=== PATIENT | female | born 1965 | race Caucasian/White ===

== ENCOUNTER 2020-01-06 14:51 | Outpatient (REF) | payer OTHER, SELFPAY ==
[2020-01-06 15:38] LABS: Basophils Percent Auto 0.7 % (0-2); Eosinophils Absolute Auto 0.1 X10*3/uL (0.0-0.4); Eosinophils Percent Auto 3.2 % (0-4); Hematocrit 37.2 % (37-47); Hemoglobin 12.4 g/dl (12.0-16.0); Imm Gran Abs Auto 0.01 X10*3/uL (0.00-0.03); Imm Gran Pct Auto 0.2 % (0.0-0.4); Lymphocytes Absolute Auto 1.8 X10*3/uL (1.2-4.9); Lymphocytes Percent Auto 40.4 % (20-40); MANUAL DIFF FLAG NO; Mean Corpuscular HGB Conc 33.3 g/dl (31.0-35.0); Mean Corpuscular Hemoglobin 30.8 pg (27.0-33.0); Mean Corpuscular Volume 92.5 fL (80-98); Mean Platelet Volume 12.7 fL (9.4-12.3); Monocytes Absolute Auto 0.3 X10*3/uL (0.1-1.2); Monocytes Percent Auto 7.1 % (2-11); Neutrophils Absolute Auto 2.1 X10*3/uL (2.0-8.3); Neutrophils Percent Auto 48.4 % (45-73); Platelet Count 187 X10*3/uL (160-400); Red Blood Count 4.02 X10*6/uL (4.20-5.50); Red Cell Distribution Width 11.8 % (11.0-16.0); White Blood Count 4.4 X10*3/uL (4.8-10.8)
== END 2020-01-06 14:52 | disposition home or self-care (01) ==
LOC: HO.LAB 14:51
PROVIDERS: PCP Internal Medicine; Visit Provider Nurse Practitioner Family
DX: K13.70 Unspecified lesions of oral mucosa (principal)
CPT/HCPCS: 36415; 85025

== ENCOUNTER 2020-01-13 09:20 | Outpatient (REF) | payer OTHER, SELFPAY ==
[2020-01-13 18:22] LABS: CT PCR NOT DETECTED (Not Detect.); NG PCR NOT DETECTED (Not Detect.)
[2020-01-14 11:37] LABS: BV Int Neg Control Negative (Negative); BV Int Pos Control Positive (Positive)
[2020-01-15 18:33] LABS: HPV mRNA E6/E7 rflx Not Detected (Not Detected)
== END 2020-01-13 09:21 | disposition home or self-care (01) ==
LOC: HO.LAB 09:20
PROVIDERS: PCP Internal Medicine; Visit Provider Obstetrics & Gynecology
DX: Z01.419 Encounter for gynecological examination (general) (routine) without abnormal findings (principal); N89.8 Other specified noninflammatory disorders of vagina; A63.0 Anogenital (venereal) warts
CPT/HCPCS: 87480; 87491; 87510; 87591; 87624; 87625; 87660; 88142

== ENCOUNTER 2020-01-28 11:38 | Outpatient (REF) | payer OTHER, SELFPAY | END 2020-01-28 11:39 | disposition home or self-care (01) | LOC: HO.MAMMO 11:38 | PROVIDERS: PCP Internal Medicine; Visit Provider Internal Medicine | DX: Z13.89 Encounter for screening for other disorder (principal) ==

== ENCOUNTER 2020-01-29 13:33 | Outpatient (REF) | payer OTHER, SELFPAY ==
--- NOTE | 2020-01-29 13:42 | MM_ITS ---
EXAMINATION: MM SCREENING DIGITAL BREAST TOMOSYNTHESIS, BILATERAL CLINICAL INFORMATION: Screening. Asymptomatic. The lifetime risk of breast cancer based on the Tyrer-Cuzick Model is 9.3%. COMPARISON: Mammography: February 01, 2018 and studies dating back to January 25, 2015 TECHNIQUE: Digital breast tomosynthesis is performed in both the craniocaudal and mediolateral oblique views along with computer-aided detection (CAD). Synthesized 2D images are generated from the tomosynthesis. FINDINGS: The breasts are heterogeneously dense, which may obscure small masses (ACR BI-RADS breast composition Category c). There are no significant masses, abnormal calcifications, or other abnormalities. MM/MM tomosynthesis screening BI IMPRESSION: There are no significant changes from prior study. ASSESSMENT: BI-RADS 1: Negative RECOMMENDATION: Routine annual mammography screening. This patient's information was entered into a reminder system with a target due date for their next mammogram.
== END 2020-01-29 13:34 | disposition home or self-care (01) ==
LOC: HO.MAMMO 13:33
PROVIDERS: Visit Provider Internal Medicine
DX: Z12.31 Encounter for screening mammogram for malignant neoplasm of breast (principal)
CPT/HCPCS: 77063; 77067

== ENCOUNTER 2020-06-14 06:59 | Emergency (ER) | payer OTHER, SELFPAY ==
[2020-06-14 07:09] VITALS: BP 179/107; PULSE 69; RESP 20; TEMP 37.2; O2SAT 99; BMI 25.8
--- NOTE | 2020-06-14 07:47 | ED_ITS ---
HPI - General Adult General Chief complaint: General Medical Stated complaint: muscle spasms Time Seen by Provider: 06/14/20 07:46 Source: patient Mode of arrival: ambulatory Limitations: no limitations History of Present Illness HPI narrative: 55-year-old female came in for evaluation of left-sided neck pain and left upper shoulder pain. 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 Patient declined any chest pain, shortness of breath, dizziness, headache, photophobia, fever, or chills. Related Data Home Medications Medication Instructions Recorded Confirmed atenolol 25 mg tablet 75 mg PO Q OTHER DAY PRN 01/01/20 01/13/20 econazole 1 % topical cream applic TOPICAL 01/01/20 01/13/20 esomeprazole magnesium 40 mg 40 mg PO DAILY 01/01/20 01/13/20 capsule,delayed release Previous Rx's Medication Instructions Recorded metronidazole 500 mg tablet 500 mg PO BID 7 Days #14 tab 01/15/20 metronidazole 0.75 % vaginal gel 1 appful VAGINAL DAILY 5 Days #70 g 01/16/20 nitrofurantoin macrocrystal 50 mg 50 mg PO BEDTIME #30 cap 03/24/20 capsule cyclobenzaprine 10 mg PO TID #10 tab 06/14/20 Allergies Allergy/AdvReac Type Severity Reaction Status Date / Time iron dextran complex Allergy Unknown unknown Verified 01/13/20 09:33 metoclopramide [Reglan] Allergy Unknown Unknown Verified 01/13/20 09:33 sulfadiazine Allergy Unknown unknown Verified 01/13/20 09:33 IV iron dextran Allergy Unknown hives Uncoded 01/23/17 00:00 latex Allergy Unknown Unknown Uncoded 01/13/20 09:33 Latex Gloves Allergy Unknown ?rash Uncoded 01/23/17 00:00 Review of Systems Review of Systems: All other systems are reviewed and are negative Constitutional: Reports as per HPI and Reports no additional constitutional complaints Eyes: Reports as per HPI and Reports no additional eye complaints Reports system reviewed and no additional complaints, except as documented Cardiovascular: Reports as per HPI and Reports no additional cardiovascular complaints Respiratory: Reports as per HPI and Reports no additional respiratory complaints Gastrointestinal: Reports as per HPI and Reports no additional gastrointestinal complaints Genitourinary: Reports no additional female genitourinary complaints Musculoskeletal: Reports no additional musculoskeletal complaints Skin/Breast: Reports system reviewed and no additional complaints, except as docu Psychiatric: Reports no additional psychiatric complaints Endocrine: Reports no additional endocrine complaints Hematologic/Lymphatic: Reports no additional hematologic/lymphatic complaints Allergic/Immunologic: Reports no additional allergic/immunologic complaints Reports system reviewed and no additional complaints, except as documented and Reports Abnormal speech present FOR[facility]LY [facility] Past Medical History Medical History GERD (gastroesophageal reflux disease) HPV (human papilloma virus) anogenital infection Neutropenia Surgical History History of appendectomy History of History of surgical removal of skin lesion History of tonsillectomy Social History Social History Alcohol intake: current Alcohol intake frequency: holidays/special occasions only Alcohol type: other Smoking Status: Never smoker Use of substances other than those prescribed or required for medical reasons: No Advance Directives: No Advance Directives Information Provided: No Sexual orientation: Straight/Heterosexual Gender identity: female Physical Exam Vital Signs: Vital Signs: Last Vital Signs Temp 98.9 F 06/14/20 07:09 Pulse 58 06/14/20 09:17 Resp 20 06/14/20 09:17 BP 180/89 H 06/14/20 09:17 Pulse Ox 97 06/14/20 09:17 Body Mass Index 25.8 Vital signs have been reviewed as appeared to be correct. Blood pressure elevated. Heart rate normal. Respiration rate normal. Temperature normal. Oxygen saturation normal. Appearance: Alert. Oriented X3. No acute distress. Head: Normal external exam. Normocephalic. Atraumatic. No Multani signs noted. No raccoon eyes noted Eyes: PERRLA. EOMI. Conjunctiva and sclera normal. Eyelids normal. ENT: TM's Normal. Pharynx normal. Uvula midline. Moist mucous membranes. No trismus noted. No drooling noted. No muffled voice noted. Neck: Normal inspection. Neck supple. FROM. No adenopathy. Thyroid Normal. No meningeal signs. No neck mass noted. CVS: Normal heart rate and rhythm. Heart sound normal. No murmurs noted. Pulses normal throughout. Respiratory: No respiratory distress. Painless inspiration. Breath sounds normal. No wheezes/rales/rhonchi noted. Chest nontender. No accessory muscle usage noted or decreased air movement noted. Abdomen: Soft and nontender. Bowel sounds normal in all 4 quadrants. No distention noted. No organomegaly noted. No visible injury noted. Back: No CVA tenderness. Full range of motion noted. Skin: Skin warm and dry. Normal skin color. Normal skin turgor. No rashes/lesions/lacerations noted. Extremities: Left-sided neck spasm with tenderness over sternomastoid muscle, tender to the left shoulder left neck with turning the head to the right side, patient is able to touch with her chin her chest, no photophobia. Neuro: Oriented X 3. No motor deficit. No sensory deficit. Reflexes normal. Course Course Course Narrative: Assessment and plan. Left-sided neck pain, history/physical exam is consistent with muscular spasm, patient responded to a multiple doses of analgesia and muscle relaxant, patient now feels better able to move her neck with more flexibility. Patient was instructed to apply heating pad and rest with no strenuous activity, and hold off yoga classes for 2 weeks. Discharge Plan Discharge Clinical Impression: Benign torticollis Patient Disposition: Home, Self-Care Instructions: Spasmodic Torticollis (ED) Prescriptions: New cyclobenzaprine 10 mg tablet 10 mg PO TID Qty: 10 RF: 0 No Action metronidazole [Flagyl] 500 mg tablet 500 mg PO BID 7 Days Qty: 14 RF: 0 metronidazole [Metrogel Vaginal] 0.75 % gel 1 appful vaginal DAILY 5 Days Qty: 70 RF: 0 nitrofurantoin macrocrystal [Macrodantin] 50 mg capsule 50 mg PO BEDTIME Qty: 30 RF: 6 esomeprazole magnesium 40 mg capsule,delayed release(DR/EC) 40 mg PO DAILY RF: 0 econazole 1 % cream topical RF: 0 atenolol 25 mg tablet 75 mg PO Q OTHER DAY PRNRF: 0 Referrals: Haydee Lira MD [Primary Care Provider] - 2 days Stand Alone Forms: Work/School Release
[2020-06-14] MEDS: oxyCODONE HCl Immed Release 5 MG TABLET PO (08:19)
[2020-06-14] MEDS: diazePAM 5 MG TABLET PO (08:19)
--- NOTE | 2020-06-14 09:11 | PC.NURSE ---
pt reports no improvement after the medication
[2020-06-14 09:17] VITALS: BP 180/89; PULSE 58; RESP 20; O2SAT 97
[2020-06-14] MEDS: HYDROmorphone HCl 2 MG TABLET PO (09:19)
[2020-06-14] MEDS: LORazepam 1 MG TABLET PO (09:19)
--- NOTE | 2020-06-14 09:55 | PC.NURSE ---
pt reports feeling a little better pain at about, most pain is located on her left shoulder/scapula area pain at 5/10
[2020-06-14 10:19] VITALS: BP 161/53; PULSE 56
== END 2020-06-14 10:20 | disposition home or self-care (01) ==
PROVIDERS: Emergency Provider Emergency Medicine; PCP Internal Medicine
DX: G24.3 Spasmodic torticollis (principal); M54.2 Cervicalgia
CPT/HCPCS: 99283; 99284

== ENCOUNTER 2020-08-25 08:00 | Outpatient (RCR) | payer OTHER, SELFPAY ==
--- NOTE | 2020-06-28 08:11 | MHC.PT.EP ---
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 TODAY, SHE PRESENTS WITH S/S CONSISTENT WITH MUSCULAR STRAIN AND SPASM. TESTING OF C-SPINE IS NEGATIVE FOR EVIDENCE OF DISC INVOLVEMENT. UPON EXAM, IMPAIRMENTS INCLUDE DECREASED CERVICAL ROM, INCREASED SOFT TISSUE TENSION, MULTIPLE TRIGGER POINTS AND ALTERED POSTURE AND POSITIONING. FUNCTIONAL LIMITATIONS INCLUDE DECREASED ABILITY TO PERFORM LIFTING, REACHING, PUSHING AND PULLING, DECREASED PARTICIPATION IN WORK AND FITNESS ACTIVITIES, DECREASED PARTICIPATION IN RECREATIONAL AND COMMUNITY ACTIVITIES. SHE REPORTS DISRUPTED SLEEP. 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 Manual therapy to restore motion and function. Therapeutic exercise to improve strength and flexibility. Neuromuscular re-education for posture and balance. Therapeutic activities to return to functional activities of daily living. Electronically signed by: REJI REEVES PT, DPT Please sign and return to therapist. Thank you for your referral.
== END 2020-09-22 11:51 | disposition home or self-care (01) ==
LOC: HO.PT 08:00
PROVIDERS: PCP Internal Medicine; Visit Provider Internal Medicine
DX: M54.6 Pain in thoracic spine (principal)
CPT/HCPCS: 97012; 97110; 97112; 97140; 97161

== ENCOUNTER 2020-10-20 08:36 | Outpatient (REF) | payer OTHER, SELFPAY ==
[2020-10-20 14:17] LABS: CT PCR NOT DETECTED (Not Detect.); NG PCR NOT DETECTED (Not Detect.)
[2020-10-21 08:34] LABS: BV Int Neg Control Negative (Negative); BV Int Pos Control Positive (Positive)
== END 2020-10-20 08:37 | disposition home or self-care (01) ==
LOC: HO.LAB 08:36
PROVIDERS: PCP Internal Medicine; Visit Provider Obstetrics & Gynecology
DX: Z11.3 Encounter for screening for infections with a predominantly sexual mode of transmission (principal); N95.0 Postmenopausal bleeding; N89.8 Other specified noninflammatory disorders of vagina
CPT/HCPCS: 87480; 87491; 87510; 87591; 87660

== ENCOUNTER 2020-11-10 10:59 | Outpatient (REF) | payer OTHER, SELFPAY ==
--- NOTE | ~2020-11-10 | US_ITS ---
EXAMINATION: US PELVIS CLINICAL INFORMATION: Postmenopausal bleeding. COMPARISON: None TECHNIQUE: Ultrasound of the pelvis is performed using both transabdominal and transvaginal transducers along with Doppler. Transvaginal imaging is performed due to inadequate visualization transabdominally. FINDINGS: Uterus: The uterus is anteverted and anteflexed. The uterus measures 7.9 x 3.7 x 4.5 cm. The double wall endometrial thickness is 0.4 mm. Multiple nabothian cysts are seen within the cervix. The uterus is smooth in contour and has normal myometrial echogenicity. FIBROIDS: There is 1 fibroid seen. 1. Location: Posterior body, myometrial. Size: 1.2 x 1.3 x 1.3 cm. Fibroid characteristics: Hypoechoic. Adnexa: Both ovaries are visualized. There is normal color flow to the adnexa. There is no ovarian torsion.There is trace free fluid in the cul-de-sac. Right ovary measures 2.7 x 1.4 x 1.8 cm (volume 3.6 mL). Left ovary measures 4.1 x 2.3 x 3.0 cm (volume 15.6 mL). The left ovary contains a 3.1 cm maximal diameter simple cyst. US/US pelvic and transvaginal IMPRESSION: 1. A uterine fibroid is seen, as above. 2. A 3.1 cm simple left ovarian cyst is noted, with probable benign appearance. Follow-up pelvic ultrasound examination is recommended in 3-6 months. 3. Nabothian cysts are seen within the cervix. 4. There is trace nonspecific free fluid in the cul-de-sac.
== END 2020-11-10 11:00 | disposition home or self-care (01) ==
LOC: HO.US 10:59
PROVIDERS: Visit Provider Obstetrics & Gynecology
DX: N95.0 Postmenopausal bleeding (principal)
CPT/HCPCS: 76830; 76856

== ENCOUNTER → 2020-11-24 11:57 | Outpatient (BNVA) | payer OTHER, SELFPAY | PROVIDERS: PCP Internal Medicine; Visit Provider Obstetrics & Gynecology ==

== ENCOUNTER 2021-02-08 08:29 | Outpatient (REF) | payer OTHER, SELFPAY ==
--- NOTE | ~2021-02-08 | MM_ITS ---
EXAMINATION: MM SCREENING DIGITAL BREAST TOMOSYNTHESIS, BILATERAL CLINICAL INFORMATION: Screening. Asymptomatic. The lifetime risk of breast cancer based on the Tyrer-Cuzick Model is 10%. COMPARISON: Mammography: 01/29/2020, outside exam 02/01/2018 and 09/18/2016 ([facility]). TECHNIQUE: Digital breast tomosynthesis is performed in both the craniocaudal and mediolateral oblique views along with computer-aided detection (CAD). Synthesized 2D images are generated from the tomosynthesis. FINDINGS: There are scattered areas of fibroglandular density (ACR BI-RADS breast composition Category b). There are no significant masses, abnormal calcifications, or other abnormalities. Parenchymal pattern is similar to prior studies. There is no developing density or architectural abnormality. The axilla and skin contours are unremarkable. No significant changes. MM/MM tomosynthesis screening BI IMPRESSION: No mammographic evidence of malignancy. ASSESSMENT: BI-RADS 1: Negative RECOMMENDATION: Routine annual mammography screening. This patient's information was entered into a reminder system with a target due date for their next mammogram.
== END 2021-02-08 08:30 | disposition home or self-care (01) ==
LOC: HO.MAMMO 08:29
PROVIDERS: Visit Provider Internal Medicine
DX: Z12.31 Encounter for screening mammogram for malignant neoplasm of breast (principal)
CPT/HCPCS: 77063; 77067

== ENCOUNTER → 2021-02-17 08:32 | Outpatient (BNVA) | payer OTHER, SELFPAY | PROVIDERS: PCP Internal Medicine; Referring Provider Internal Medicine; Visit Provider Internal Medicine Gastroenterology ==

== ENCOUNTER → 2021-03-18 09:20 | Outpatient (REF) | payer OTHER, SELFPAY ==
[2021-03-18 09:29] LABS: MANUAL DIFF FLAG NO
--- NOTE | 2021-03-18 09:30 | ECG_ITS ---
Test Reason : svt Blood Pressure : / mmHG Vent. Rate : 057 BPM Atrial Rate : 057 BPM P-R Int : 174 ms QRS Dur : 080 ms QT Int : 462 ms P-R-T Axes : 051 -06 039 degrees QTc Int : 449 ms Sinus bradycardia Otherwise normal ECG When compared with ECG of 16-JAN-2006 14:41, Vent. rate has decreased BY 54 BPM Referred By: Lissett Arrington Electronically Signed By:CLAUDIA BAJWA
[2021-03-18 09:42] LABS: Basophils Percent Auto 0.6 % (0-2); Eosinophils Absolute Auto 0.1 X10*3/uL (0.0-0.4); Eosinophils Percent Auto 3.8 % (0-4); Hematocrit 37.5 % (37.0-47.0); Hemoglobin 12.4 g/dl (12.0-16.0); Lymphocytes Absolute Auto 1.3 X10*3/uL (1.2-4.9); Lymphocytes Percent Auto 41.7 % (20-40); Mean Corpuscular HGB Conc 33.1 g/dl (31.0-35.0); Mean Corpuscular Hemoglobin 30.5 pg (27.0-33.0); Mean Corpuscular Volume 92.4 fL (80.0-98.0); Mean Platelet Volume 12.1 fL (9.4-12.3); Monocytes Absolute Auto 0.3 X10*3/uL (0.1-1.2); Monocytes Percent Auto 8.5 % (2-11); Neutrophils Absolute Auto 1.5 x10*3/uL (2.0-8.3); Neutrophils Percent Auto 45.4 % (45-73); Platelet Count 190 X10*3/uL (160-400); Red Blood Count 4.06 X10*6/uL (4.20-5.50); Red Cell Distribution Width 11.9 % (11.0-16.0); White Blood Count 3.2 X10*3/uL (4.8-10.8)
[2021-03-18 10:29] LABS: Alanine Aminotransferase 16 U/L (0-31); Albumin Level 4.5 g/dL (3.5-5.0); Alkaline Phosphatase 23 U/L (39-117); Anion Gap 11 (12-20); Aspartate Amino Transferase 23 U/L (5-31); Blood Urea Nitrogen 19 mg/dL (9-16); Calcium 9.5 mg/dL (8.4-10.2); Carbon Dioxide 31 mmol/L (22-29); Chloride 103 mmol/L (96-108); Estimated Glomerular Filt Rate > 60; Glucose Random 75 mg/dL (60-115); Potassium 4.7 mmol/L (3.3-5.1); Sodium 140 mmol/L (135-145); Total Protein 7.2 g/dL (6.5-8.0)
[2021-03-18 10:49] LABS: Vitamin D 25-OH Total 39.2 ng/mL (>30)
[2021-03-18 11:18] LABS: Vitamin B12 470 pg/mL (200-900)
== END ==
LOC: HO.CARD 09:20
PROVIDERS: PCP Internal Medicine; Visit Provider Internal Medicine Gastroenterology
DX: I47.1 Supraventricular tachycardia (principal); K21.9 Gastro-esophageal reflux disease without esophagitis; K62.5 Hemorrhage of anus and rectum
CPT/HCPCS: 36415; 80053; 82306; 82607; 85025; 93005

== ENCOUNTER 2021-04-15 08:01 | Day surgery (SDC) | payer OTHER, SELFPAY ==
[2021-04-12 11:01] VITALS: BMI 26.2
[2021-04-15 08:18] VITALS: BP 122/82; PULSE 58; RESP 16; TEMP 37; O2SAT 98
[2021-04-15] MEDS: Lactated Ringers 1,000 ML 50 ML IVCONT (08:26)
--- NOTE | 2021-04-15 08:40 | P.CONAN_ITS ---
[facility] Active Problems Active Problems: All Active Problems (Updated 04/12/21 @ 11:00 by Lisa Peters RN) Oral mucosal lesion (Acute) Well woman exam (Acute) Vaginal discharge (Acute) Postmenopausal bleeding (Acute) Ovarian cyst (Acute) Myoma (Acute) GERD (gastroesophageal reflux disease) (Acute) Colon cancer screening (Acute) Rectal bleeding (Acute) Paroxysmal SVT (supraventricular tachycardia) (Acute) Hordeolum externum left upper eyelid (Acute) Thoracic spine pain (Acute) HPV (human papilloma virus) anogenital infection (Acute) Past Medical History Medical History COVID-19 vaccine series completed Eye infection GERD (gastroesophageal reflux disease) HPV (human papilloma virus) anogenital infection Neutropenia SVT (supraventricular tachycardia) Thoracic spine pain Surgical History Surgical History H/O colonoscopy History of appendectomy History of History of esophagogastroduodenoscopy (EGD) History of surgical removal of skin lesion History of tonsillectomy History of Problems with Anesthesia: No Social History Social History Are you a primary director of health care marketing to a significant other at home: No Do you presently have visiting nurse or other home services: No Alcohol intake: current Alcohol intake frequency: holidays/special occasions only Alcohol type: other Patient Tobacco Use Status: Never used Tobacco Use of substances other than those prescribed or required for medical reasons: No Have you been hit, kicked, punched, or otherwise hurt by someone within the past year? If so, by whom?: No Are you DNR?: No Advance Directives: Yes Advance Directives Information Provided: Yes (will bring copy of HCP day of procedure) Advance Directives on File: No Recently lost weight without trying: No Eating poorly because of decreased appetite: No Nutrition Risks: No Nutritional Risk Patient : No Poor oral hygiene: No Sexual orientation: Straight/Heterosexual Gender identity: Female Meds Allergies Allergy/AdvReac Type Severity Reaction Status Date / Time iron dextran complex Allergy Intermediate hives/serum Verified 04/12/21 10:57 sickness latex Allergy Intermediate Rash Verified 04/12/21 08:50 metoclopramide [Reglan] Allergy Intermediate extrapyramidal Verified 04/12/21 10:57 effects Sulfa (Sulfonamide Allergy Intermediate full body Verified 04/12/21 10:57 Antibiotics) rash Home Medications Medication Instructions Recorded Confirmed Last Taken Type econazole 1 % topical cream 1 applic TOPICAL DAILY 01/01/20 04/12/21 Unknown History Exam Exam Date and Time: April 15, 2021 0840 Height,Weight and Vital Signs: Height 5 ft 7 in Weight 75.75 kg Last Vital Signs Temp 98.6 F 04/15/21 08:18 Pulse 58 04/15/21 08:18 Resp 16 04/15/21 08:18 BP 122/82 04/15/21 08:18 Pulse Ox 98 04/15/21 08:18 Airway Mallampati Class: II TM Dist: >3cm Neck ROM: Full Loose/Missing/Broken Teeth: No Heart: RRR Lungs: CTA Assessment and Plan Assessment Anesthesia Assessment: Anesthesia Plan Discussed and Chart Reviewed Final Anesthetic Review History of Problems with Anesthesia: No NPO: Yes ASA Class: II Final Preanesthetic Review: Meds/Allgs Chart Reviewed, Consent Obtained/Reviewed and Anes Risks/Benef Reviewed Patient Risk: Low Procedure Risk: Low Anesthetic Plan Anesthetic Plan: MAC: Disposition: Standard PACU
--- NOTE | 2021-04-15 09:16 | MHC.SHP ---
Pre-Procedural Eval Section A Date of Service: 04/15/21 The patient is an INPATIENT: No The History & Physical has been completed within 30 days and I have reviewed it.: No Section B Chief Complaint: Colon cancer screening, rectal bleeding Details of Present Illness: Colon cancer screening, rectal bleeding Relevant Family History (Specify if Yes): Yes Relevant Social History: None Present Medications: see Short Stay Collaborative assessment Medical History: Significant History (GERD (gastroesophageal reflux disease) HPV (human papilloma virus) anogenital infection Neutropenia Thoracic spine pain) History of Previous Operations: Relevant previous surgery/procedure and date(s) (History of appendectomy History of History of surgical removal of skin lesion History of tonsillectomy) Allergies: Allergies Allergy/AdvReac Type Severity Reaction Status Date / Time iron dextran complex Allergy Intermediate hives/serum Verified 04/12/21 10:57 sickness latex Allergy Intermediate Rash Verified 04/12/21 08:50 metoclopramide [Reglan] Allergy Intermediate extrapyramidal Verified 04/12/21 10:57 effects Sulfa (Sulfonamide Allergy Intermediate full body Verified 04/12/21 10:57 Antibiotics) rash Review of Systems Sugical H&P ROS: Negative: Constitution, Cardiovascular and Respiratory and Yes, Specify: Gastrointestinal (rectal bleeding) Exam Surgical H&P Exam: Normal: Heart, Normal: Lungs, Normal: Extremities and Normal: Abdomen Plan Diagnosis/Plan: Unchanged I have reviewed the history and physical and performed a pertinent physical examination on my patient. No changes have occurred unless specified.
--- NOTE | 2021-04-15 09:26 | W.PM.OPN ---
Operative Note Operative Note Date of Service: 04/15/21 Narrative: Pre-op diagnosis: Colon cancer screening, rectal bleeding Post-op diagnosis:?other (Diverticulosis, hemorrhoids) Procedure: COLONOSCOPY TILL CECUM WITH BIOPSIES Consent: Indications for the procedure and potential complications of bleeding, perforation, reaction to medications and missed diagnosis were discussed with the patient and informed consent was obtained. Instrument: Olympus PCF H 190 L variable stiffness pediatric colonoscope Monitoring: Vital signs and clinical assessment, intermittent blood pressure monitoring, continuous EKG monitoring, Pulse oximetry and Carbon Dioxide monitoring were done throughout the procedure. Colon withdrawl time was 16 minutes. Procedure: The patient was placed in the left lateral decubitis position and pre-procedure medications were administered. After a digital rectal examination of the ano-rectum, the video colonoscope was inserted into the rectum and advanced through the colon to the cecum. The colonoscope was slowly withdrawn in a retrograde panoramic fashion and the colon mucosa was carefully examined including a retroflexed view of the rectum. Findings and interventions are described below. Procedure Difficulty: Without difficulty Findings: Terminal Ileum: Distal 5 cms was examined and appeared normal Cecum:? Normal Ascending Colon:? Normal - biopsies were obtained from the right colon to check for microscopic colitis Transverse Colon:? Normal Descending Colon:? Normal Sigmoid Colon:? Moderate diverticulosis Rectum:? Normal Ano-rectum:? Moderate internal hemorrhoids Colon preparation:? Good? after some irrigation Impression and Post Procedure Diagnosis: Colonoscopy Findings: No polyps were detected Moderate diverticulosis seen in the sigmoid colon Moderate hemorrhoids on retroflexed exam - likely source of rectal bleeding Plan: Await pathology results Patient has an appointment on 04/21/21 in the GI Clinic with Lissett Arrington M.D. Repeat Colonoscopy in 8 to 10 years if biopsies are normal. Above findings were reviewed with the patient and Hemorrhoids and diverticulosis handouts were given in the discharge area Surgeon: Lissett Arrington MD Anesthesia:?MAC Was an Health Center Manager used for this Procedure?:?No Health Center Manager:?Kathrine Toney Estimated blood loss (mL):?0 Pathology:?other (A. RIGHT COLON BX'S R/O MICROSCOPIC COLITIS) Condition:?stable Disposition:?PACU
[2021-04-15 09:59] VITALS: BP 95/53; PULSE 56; RESP 18; TEMP 37.1; O2SAT 99
[2021-04-15 10:16] VITALS: BP 109/63; PULSE 58; RESP 18; TEMP 37; O2SAT 99
== END 2021-04-15 11:03 | disposition home or self-care (01) ==
PROVIDERS: PCP Internal Medicine; Visit Provider Internal Medicine Gastroenterology
PROC: 0DJD8ZZ Inspection of Lower Intestinal Tract, Via Natural or Artificial Opening Endoscopic (ICD-10-PCS; CPT 45378; principal; 2021-04-15 09:20)
DX: Z12.11 Encounter for screening for malignant neoplasm of colon (principal); K57.30 Diverticulosis of large intestine without perforation or abscess without bleeding; K64.8 Other hemorrhoids; K21.9 Gastro-esophageal reflux disease without esophagitis; I47.1 Supraventricular tachycardia; D70.8 Other neutropenia; Z88.2 Allergy status to sulfonamides; Z88.8 Allergy status to other drugs, medicaments and biological substances; Z91.040 Latex allergy status; Z79.899 Other long term (current) drug therapy
CPT/HCPCS: 45380; 88305

== ENCOUNTER 2021-04-30 11:35 | Outpatient (REF) | payer OTHER, SELFPAY | END 2021-04-30 11:36 | disposition home or self-care (01) | LOC: HO.LNP 11:35 | PROVIDERS: Visit Provider Physician Assistant | DX: R30.0 Dysuria (principal) | CPT/HCPCS: 87086 ==

== ENCOUNTER 2021-05-25 10:55 | Outpatient (REF) | payer OTHER, SELFPAY ==
--- NOTE | ~2021-05-25 | US_ITS ---
EXAMINATION: US PELVIS CLINICAL INFORMATION: Ovarian cyst COMPARISON: Previous pelvic ultrasound October 2020 TECHNIQUE: Ultrasound of the pelvis is performed using both transabdominal and transvaginal transducers along with Doppler. Transvaginal imaging is performed due to inadequate visualization transabdominally. FINDINGS: The uterus is anteverted and measures 7 x 2.8 x 4.1 cm in dimension. There is a 1.3 cm hyperechoic lesion in the posterior uterine fundus questionable for a small fibroid. This is similar to previous exam. No other focal uterine lesion is seen. Endometrial thickness is normal measuring 0.2 cm. There are nabothian cysts in the cervix. The right ovary is normal-appearing and measures 2 x 1.2 x 1.4 cm. The left ovary measures 3.3 x 2.3 x 2.8 cm. There is a 2.7 x 2 x 2.4 cm simple left ovarian cyst. This may be slightly decreased in size from prior exam October 2020 when the cyst measured 3.1 x 2.1 x 2.8 cm. There is no fluid in the pelvis. US/US pelvic and transvaginal IMPRESSION: 2.7 x 2 x 2.4 cm simple left ovarian cyst. This may be slightly decreased in size from prior exam October 2020. Question small stable 1.3 cm posterior fundal uterine fibroid.
== END 2021-05-25 10:56 | disposition home or self-care (01) ==
LOC: HO.US 10:55
PROVIDERS: Visit Provider Obstetrics & Gynecology
DX: N83.209 Unspecified ovarian cyst, unspecified side (principal)
CPT/HCPCS: 76830; 76856

== ENCOUNTER → 2021-06-01 07:58 | Outpatient (BNVA) | payer OTHER, SELFPAY | PROVIDERS: PCP Internal Medicine; Visit Provider Obstetrics & Gynecology | DX: Z13.89 Encounter for screening for other disorder (principal) ==

== ENCOUNTER 2021-07-01 08:49 | Outpatient (REF) | payer OTHER, SELFPAY ==
[2021-07-04 17:07] LABS: CA 125 New Method 9 U/mL (<35); CA-125 9 U/mL (<35)
== END 2021-07-01 08:50 | disposition home or self-care (01) ==
LOC: HO.LAB 08:49
PROVIDERS: PCP Internal Medicine; Visit Provider Obstetrics & Gynecology
DX: N83.209 Unspecified ovarian cyst, unspecified side (principal)
CPT/HCPCS: 36415; 86304

== ENCOUNTER 2021-11-07 14:37 | Outpatient (REF) | payer OTHER, SELFPAY | END 2021-11-07 14:38 | disposition home or self-care (01) | LOC: HO.LNP 14:37 | PROVIDERS: Visit Provider Nurse Practitioner Family | DX: N39.0 Urinary tract infection, site not specified (principal) | CPT/HCPCS: 87086 ==

== ENCOUNTER 2022-02-21 08:19 | Outpatient (REF) | payer OTHER, SELFPAY ==
[2022-02-21 08:33] LABS: MANUAL DIFF FLAG NO
[2022-02-21 09:09] LABS: Basophils Percent Auto 0.6 % (0-2); Eosinophils Absolute Auto 0.1 X10*3/uL (0.0-0.4); Eosinophils Percent Auto 3.4 % (0-4); Hematocrit 37.3 % (37.0-47.0); Hemoglobin 12.4 g/dl (12.0-16.0); Imm Gran Abs Auto 0.01 X10*3/uL (0.00-0.03); Imm Gran Pct Auto 0.3 % (0.0-0.4); Lymphocytes Absolute Auto 1.5 X10*3/uL (1.2-4.9); Lymphocytes Percent Auto 46.6 % (20-40); Mean Corpuscular HGB Conc 33.2 g/dl (31.0-35.0); Mean Corpuscular Hemoglobin 30.5 pg (27.0-33.0); Mean Corpuscular Volume 91.9 fL (80.0-98.0); Mean Platelet Volume 12.2 fL (9.4-12.3); Monocytes Absolute Auto 0.3 X10*3/uL (0.1-1.2); Monocytes Percent Auto 8.9 % (2-11); Neutrophils Absolute Auto 1.3 x10*3/uL (2.0-8.3); Neutrophils Percent Auto 40.2 % (45-73); Platelet Count 187 X10*3/uL (160-400); Red Blood Count 4.06 X10*6/uL (4.20-5.50); White Blood Count 3.3 X10*3/uL (4.8-10.8)
[2022-02-21 09:32] LABS: Alanine Aminotransferase 16 U/L (0-31); Albumin Level 4.4 g/dL (3.5-5.0); Alkaline Phosphatase 25 U/L (39-117); Anion Gap 12 (12-20); Aspartate Amino Transferase 22 U/L (5-31); Blood Urea Nitrogen 18 mg/dL (9-16); Calcium 9.4 mg/dL (8.4-10.2); Carbon Dioxide 25 mmol/L (22-29); Chloride 105 mmol/L (96-108); Cholesterol 226 mg/dL; Estimated Glomerular Filt Rate > 60; Glucose Fasting 103 mg/dL (60-99); HDL Cholesterol 72 mg/dL; LDL Cholesterol Calculated 139 mg/dl; Potassium 4.2 mmol/L (3.3-5.1); Sodium 138 mmol/L (135-145); Triglycerides 76 mg/dL
[2022-02-21 09:41] LABS: Vitamin D 25-OH Total 29.1 ng/mL (>30)
== END 2022-02-21 08:20 | disposition home or self-care (01) ==
LOC: HO.LAB 08:19
PROVIDERS: PCP Internal Medicine; Visit Provider Internal Medicine
DX: I47.1 Supraventricular tachycardia (principal)
CPT/HCPCS: 36415; 80053; 80061; 82306; 84443; 85025

== ENCOUNTER → 2022-02-27 13:01 | Outpatient (BNVA) | payer OTHER, SELFPAY | PROVIDERS: PCP Internal Medicine; Referring Provider Internal Medicine; Visit Provider Internal Medicine Cardiovascular Disease | DX: I77.9 Disorder of arteries and arterioles, unspecified (principal); I47.1 Supraventricular tachycardia | CPT/HCPCS: 93005 ==

== ENCOUNTER 2022-03-21 12:54 | Outpatient (REF) | payer OTHER, SELFPAY ==
--- NOTE | ~2022-03-21 | US_ITS ---
EXAMINATION: US EXTRACRANIAL CAROTID DUPLEX, BILATERAL CLINICAL INFORMATION: Disorder of arteries. COMPARISON: None TECHNIQUE: Real-time ultrasound and Doppler techniques (integrating B-mode 2-D vascular images, Doppler spectral analysis and color-flow Doppler imaging) were utilized to interrogate the extracranial carotid arteries, the vertebral arteries and proximal subclavian arteries bilaterally. The degree of stenosis is determined by criteria similar to NASCET. FINDINGS: Right Side: 1. There is no atherosclerotic plaque seen in the bifurcation/proximal ICA region. 2. The common carotid artery PSV proximally is 151 cm/s and distally 91 cm/s. 3. The proximal internal carotid artery velocities are 84 cm/s systolic and 23 cm/s diastolic. 4. The proximal external carotid artery PSV is 76 cm/s. 5. The vertebral artery shows antegrade flow. 6. The subclavian artery waveforms are normal. Left Side: 1. There is no atherosclerotic plaque seen in the bifurcation/proximal ICA region. 2. The common carotid artery PSV proximally is 114 cm/s and distally 84 cm/s. 3. The proximal internal carotid artery velocities are 106 cm/s systolic and 29 cm/s diastolic. 4. The proximal external carotid artery PSV is 103 cm/s. 5. The vertebral artery shows antegrade flow. 6. The subclavian artery waveforms are normal. US/US carotid duplex BI IMPRESSION: 1. RIGHT: Normal right internal carotid artery without atherosclerotic plaque or hemodynamically significant stenosis. 2. LEFT: Normal left internal carotid artery without atherosclerotic plaque or hemodynamically significant stenosis.
--- NOTE | 2022-03-21 13:59 | CA_ITS ---
Transthoracic Echocardiogram Patient (Last, First, Middle): Candida Nguyen, Gender: Female Date of : 1965 Age: 57 Procedure Date: 03/21/2022 Procedure Type: Transthoracic Echocardiogram Location: OP Height: 170.18 cm Weight: 78.02 kg BSA: 1.90 m2 Heart Rate: bpm BP: 115 / 70 mmHg Government Instructor: TO Referring MD: Frank Mills MD Dag Sprayer: Frank Mills MD Symptoms: I47.1 - Supraventricular tachycardia Study Quality: Fair Conclusions: - Normal left ventricular size and systolic function. The visually estimated ejection fraction is between 55-60%. There is no evidence of regional wall motion abnormalities. Diastolic function is normal for age. - Normal right ventricular cavity size and systolic function. - The left atrium is likely dilated. The right atrium is mildly dilated. - Mildly elevated right atrial pressure. - There is mild dilatation of the ascending aorta measuring 3.80 cm. Findings Left Ventricle Normal left ventricular size and systolic function. The visually estimated ejection fraction is between 55-60%. There is no evidence of regional wall motion abnormalities. Diastolic function is normal for age. Right Ventricle Normal right ventricular cavity size and systolic function. Atria The left atrium is likely dilated. The right atrium is mildly dilated. Aortic Valve Normal aortic valve structure and function. There is no aortic valve stenosis. There is no aortic valve regurgitation. Mitral Valve Normal mitral valve structure and function. There is trace mitral valve regurgitation. There is no mitral valve stenosis. Pulmonic Valve The pulmonic valve is likely normal. Tricuspid Valve Normal tricuspid valve structure and function. There is trace tricuspid valve regurgitation. Mildly elevated right atrial pressure. There is no evidence of pulmonary hypertension. Great Vessels There is mild dilatation of the ascending aorta measuring 3.80 cm. The visualized portions of the pulmonary artery and branches are normal. Venous The inferior vena cava is dilated and collapses less than 50% with inspiration. Pericardium/Pleural There is no evidence of pericardial effusion. Measurements 2D Linear Measurements IVSd: 0.91 0.6-0.9/0.6-1.0 cm LVIDd: 4.43 3.9-5.3/4.2-5.9 cm LVIDd Index: 2.33 2.4-3.2/2.2-3.1 cm/m2 LVIDs: 3.22 2.0-3.6 cm LVPWd: 0.84 0.7-1.1 cm LA Diam: 3.30 2.7-3.8/3.0-4.0 cm LAIDs Index: 1.74 1.5-2.3 cm/m2 LV Mass: 154.70 67-162/88-224 g LV Mass Index: 81.42 43-95/49-115 g/m2 LVOT Diam: 2.00 3.0+(-)1.3 cm 2D Systolic Function EF 4C: 58.00 >55% EF 2C: 63.80 >55% EF BiP: 60.90 >55% Mitral Valve MV Pk E: 0.88 MV PK A: 0.42 MV Decel Time: 249.00 E/A: 2.10 E'Lateral: 9.25 E'Medial: 7.51 E/E' Med: 11.80 E/E' Lat: 9.50 PHT: 73.00 MVA PHT: 3.01 Decel [place]: 3.55 Aortic Valve AoV Pk Shahram: 1.31 AoV Mn Shahram: 0.92 AoV VTI: 0.32 AoV Pk Grad: 7.00 Aov Mn Grad: 4.00 THEO Cont.VTI: 2.64 LVOT LVOT Pk Shahram: 1.15 LVOT Mn Shahram: 0.76 LVOT VTI: 0.27 LVOT Pk Grad: 5.00 LVOT Mn Grad: 3.00 LVOT Diam: 2.00 LVOT Area: 3.14 Diastolic Function MV Pk E: 0.88 MV Pk A: 0.42 E/A: 2.10 E'Medial: 7.51 E/E' Med: 11.80 E' Laterial: 9.25 E/E' Lat: 9.50 Right Ventricle TAPSE (mm): 30.40 TVS' Shahram: 13.30 Tricuspid Valve TR Pk Shahram: 1.74 TR Pk Grad: 12.00 RA Press: 8.00 RVSP: 20.00 Great Vessels Aorta Sinus of Valsalva: 3.00 2.0-3.[address] [place]: 2.59 1.7-3.4 cm Ao Asc: 3.80 2.1-3.4 cm Updated in Other Vendor System with Status of Final Frank Mills MD electronically signed on 03/22/2022 1:14:27 PM with status of Final
== END 2022-03-21 12:55 | disposition home or self-care (01) ==
LOC: HO.US 12:54
PROVIDERS: Visit Provider Internal Medicine Cardiovascular Disease
DX: I47.1 Supraventricular tachycardia (principal); I77.9 Disorder of arteries and arterioles, unspecified
CPT/HCPCS: 93306; 93880

== ENCOUNTER 2022-06-07 08:02 | Outpatient (REF) | payer OTHER, SELFPAY ==
[2022-06-07 16:06] LABS: CT PCR NOT DETECTED (Not Detect.); NG PCR NOT DETECTED (Not Detect.)
[2022-06-09 05:39] LABS: HPV mRNA E6/E7 rflx Not Detected (Not Detected)
== END 2022-06-07 08:03 | disposition home or self-care (01) ==
LOC: HO.LNP 08:02
PROVIDERS: PCP Internal Medicine; Visit Provider Obstetrics & Gynecology
DX: Z01.419 Encounter for gynecological examination (general) (routine) without abnormal findings (principal); N95.0 Postmenopausal bleeding; N89.8 Other specified noninflammatory disorders of vagina
CPT/HCPCS: 0353U; 87624; 88142

== ENCOUNTER 2022-07-11 11:30 | Outpatient (REF) | payer OTHER, SELFPAY ==
[2022-07-13 11:17] LABS: H Pylori Breath Test Negative (Negative)
== END 2022-07-11 11:31 | disposition home or self-care (01) ==
LOC: HO.LNP 11:30
PROVIDERS: PCP Internal Medicine; Visit Provider Internal Medicine Gastroenterology
DX: K21.9 Gastro-esophageal reflux disease without esophagitis (principal); Z11.0 Encounter for screening for intestinal infectious diseases
CPT/HCPCS: 83013

== ENCOUNTER 2022-07-18 12:41 | Outpatient (REF) | payer OTHER, SELFPAY ==
--- NOTE | ~2022-07-18 | US_ITS ---
EXAMINATION: US PELVIS CLINICAL INFORMATION: Postmenopausal bleeding; postmenopausal patient. COMPARISON: Pelvic ultrasound dated 05/25/2021. TECHNIQUE: Ultrasound of the pelvis is performed using both transabdominal and transvaginal transducers along with Doppler. Transvaginal imaging is performed due to inadequate visualization transabdominally. FINDINGS: Uterus: The uterus is anteverted and measures 8.0 x 3.1 x 4.2 cm. There is mildly heterogeneous myometrium. The double wall endometrial thickness is 0.2 mm. The uterus is smooth in contour and has normal myometrial echogenicity. No visible fibroid. Adnexa: Both ovaries are visualized. There is normal color flow to the adnexa. There is no ovarian torsion. There is a small amount nonspecific free fluid in the cul-de-sac. Right ovary measures 2.5 x 2.0 x 1.9 cm, volume 5.0 mL. Left ovary measures 3.7 x 3.2 x 2.7 cm, volume 16.7 mL. The left ovary contains a 3.2 x 2.3 x 2.7 cm benign, simple cyst. On the ultrasound examination of 1422, this measured 2.7 x 2.0 x 2.4 cm. US/US pelvic and transvaginal IMPRESSION: 1. There is a small amount nonspecific free fluid in the cul-de-sac. 2. A very mildly increased, 3.2 cm in maximal diameter simple left ovarian cyst is seen. Recommend follow-up ultrasound examination in 6-12 months for growth rate assessment. Gynecology evaluation and management is recommended.
== END 2022-07-18 12:42 | disposition home or self-care (01) ==
LOC: HO.US 12:41
PROVIDERS: PCP Internal Medicine; Visit Provider Obstetrics & Gynecology
DX: N95.0 Postmenopausal bleeding (principal); D21.9 Benign neoplasm of connective and other soft tissue, unspecified
CPT/HCPCS: 76830; 76856

== ENCOUNTER 2022-08-05 08:13 | Outpatient (REF) | payer OTHER, SELFPAY ==
--- NOTE | ~2022-08-05 | MM_ITS ---
EXAMINATION: MM SCREENING DIGITAL BREAST TOMOSYNTHESIS, BILATERAL CLINICAL INFORMATION: Screening. Asymptomatic. The lifetime risk of breast cancer based on the Tyrer-Cuzick Model is 10%. COMPARISON: Mammography: 02/08/2021, 01/29/2020; outside mammography 02/01/2018 and 09/18/2016 ([facility]). TECHNIQUE: Digital breast tomosynthesis is performed in both the craniocaudal and mediolateral oblique views along with computer-aided detection (CAD). Synthesized 2D images are generated from the tomosynthesis. FINDINGS: There are scattered areas of fibroglandular density (ACR BI-RADS breast composition Category b). There are no significant masses, abnormal calcifications, or other abnormalities. Parenchymal pattern is similar to prior studies. There is no developing density or architectural abnormality. The axilla and skin contours are unremarkable. No significant changes. MM/MM tomosynthesis screening BI IMPRESSION: No mammographic evidence of malignancy. ASSESSMENT: BI-RADS 1: Negative RECOMMENDATION: Routine annual mammography screening. This patient's information was entered into a reminder system with a target due date for their next mammogram.
== END 2022-08-05 08:14 | disposition home or self-care (01) ==
LOC: HO.MAMMO 08:13
PROVIDERS: PCP Internal Medicine; Visit Provider Internal Medicine
DX: Z12.31 Encounter for screening mammogram for malignant neoplasm of breast (principal)
CPT/HCPCS: 77063; 77067

== ENCOUNTER → 2022-08-09 08:03 | Outpatient (BNVA) | payer OTHER, SELFPAY | PROVIDERS: PCP Internal Medicine; Visit Provider Obstetrics & Gynecology ==

== ENCOUNTER 2022-09-06 13:34 | Outpatient (AMB) | payer OTHER, SELFPAY ==
[2022-09-06 13:38] VITALS: BP 118/84; PULSE 82; BMI 27.1
--- NOTE | 2022-09-06 13:38 | MHC.OFFVIS ---
Intake Vital Signs 09/06/22 13:38 Height 5 ft 7 in Weight 173 lb 4.533 oz BMI 27.1 BP 118/84 Blood Pressure Location Lt brachial Position Sitting Pulse 82 Pulse Source Pulse Oximeter Intake Visit Reasons: 6 MON FUP (R/S BY US 7.13) Intake Note: 6 month follow up. Hose Suspender Cutter Required: No Accompanied by: Self / Same As Patient Allergies iron dextran complex Allergy (Intermediate, Verified 09/06/22 13:40) hives/serum sickness latex Allergy (Intermediate, Verified 09/06/22 13:40) Rash metoclopramide [Reglan] Allergy (Intermediate, Verified 09/06/22 13:40) extrapyramidal effects Sulfa (Sulfonamide Antibiotics) Allergy (Intermediate, Verified 09/06/22 13:40) full body rash Medication List - Last Reconciled 09/06/22 by Frank Mills MD atenolol 25 mg PO DAILY econazole 1% 1 appl topical DAILY esomeprazole magnesium 40 mg PO DAILY nitrofurantoin monohyd/m-cryst 100 mg (Macrobid) 100 mg PO Q12H PRN HPI HPI Comments History of Present Illness Details 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 It appears she had history of supraventricular tachycardia for which she was seen at [facility] by Dr Rosario and Dr Florez. Was started on atenolol and she did well for long time with atenolol as well as vagal maneuvers. 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 Six months ago while doing Luciana class she developed some nausea. She said she decreased her atenolol dose from 37.5 to 25 mg and also started taking it at nighttime brother morning and her nausea improved. Since then he has not had any significant symptoms. She in particular is denying any chest discomfort or worsening shortness of breath. She also had carotid study performed at [facility] by her report 10 years ago which showed moderate plaque in the carotid arteries. She also has history of mitral valve prolapse. She also had blood workup done recently which showed LDL cholesterol of 139 and HDL of 72. Thyroid profile was normal. She does not drink any tea or coffee. She occasionally eats chocolate. No other concerns currently. 09/06/22: She is here for follow-up. Previous visit she was started on statin therapy for reported history of carotid disease. She apparently could not tolerate statins and she has stopped using them. She had carotid ultrasound did not show any carotid plaque or atherosclerotic disease. She is taking atenolol 25 mg once a day. Blood pressure is normal. She said after taking statins she had bradycardia and also blood pressure was elevated. She was also recovering from COVID-19 at that time. Echocardiography has shown normal biventricular function with mild ascending aortic dilatation at 3.8 cm. She continues to be active without any exertional symptoms. [facility] Medical History (Updated 09/06/22 @ 14:14 by Frank Mills MD) COVID-19 vaccine series completed Eye infection GERD (gastroesophageal reflux disease) HPV (human papilloma virus) anogenital infection Neutropenia SVT (supraventricular tachycardia) Thoracic spine pain Surgical History H/O colonoscopy History of appendectomy History of History of esophagogastroduodenoscopy (EGD) History of surgical removal of skin lesion History of tonsillectomy Social History Housing: Condominium Are you a primary transitional care manager to a significant other at home: No Do you presently have visiting nurse or other home services: No Alcohol intake: current Alcohol intake frequency: a few times a week Alcohol type: other Patient Tobacco Use Status: Former Tobacco user e-Cigarette/Vaping Use: Never Used Current occupational status: employed Sexual orientation: Straight/Heterosexual Gender identity: Female Cognitive needs: No Hearing needs: No Vision needs: Yes Female Reproductive History Menstrual Age of Menarche: 11 Review of Systems Const Denies weakness ENT Denies dizziness Card Denies chest pain, Denies chest pain with activity, Denies syncope, Denies rapid heart rate, Denies pedal edema, Denies edema, Denies leg edema, Denies lightheadedness, Denies palpitations, Denies dyspnea, Denies dyspnea on exertion and Denies orthopnea Resp Denies cough, Denies dyspnea and Denies dyspnea on exertion GI Denies hematochezia and Denies change in stool character Musc Denies abnormal gait, Denies muscle cramps, Denies muscle weakness, Denies numbness, Denies radiating pain into limb and Denies tingling Neuro Denies abnormal gait, Denies dizziness, Denies syncope, Denies numbness, Denies tingling and Denies weakness Endo Denies palpitations Physical Exam Vital Signs: Last Vital Signs Pulse 82 09/06/22 13:38 BP 118/84 09/06/22 13:38 BMI result Body Mass Index 27.1 GENERAL APPEARANCE: in no acute distress, pleasant. NECK: no carotid bruit, no jugular venous distention. SKIN: no suspicious lesions, warm and dry. HEART: no murmurs, regular rate and rhythm. LUNGS: clear to auscultation bilaterally. ABDOMEN: soft, nontender. EXTREMITIES: no edema. PERIPHERAL PULSES: equal. NEUROLOGIC: No gross deficits, AAO X 3 Assessment & Plan Assessment & Plan (1) Paroxysmal SVT (supraventricular tachycardia): Code(s): I47.1 - Supraventricular tachycardia (2) Hyperlipidemia: Code(s): E78.5 - Hyperlipidemia, unspecified (3) Ascending aorta dilatation: Code(s): I77.810 - Thoracic aortic ectasia Plan Pleasant 57 year female who is here for follow-up. She is active and has no exertional symptoms. No recent episodes of 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 She has been taking atenolol 25 mg once a day. Blood pressure control is good. She has mild dilation of ascending aorta. Common his factors are hypertension, smoking and hyperlipidemia. She does have hyperlipidemia. She was started on statin previously but she has stopped using it because of change in blood pressure and heart rate. I have explained to her that these symptoms are quite unusual for atorvastatin. I have advised her to start atorvastatin at half tablet every other day to see if she can tolerated. If she does well with that and has no symptoms then she can go half tablet daily. If she tolerates that then I will send her a new script for Lipitor 20 mg once a day. We will have lipid panel tested on her in the future. Mild ascending aortic dilatation at 3.8 cm. I recommended her to check another echocardiogram in 1 year. If it is stable then we will move to 3 years monitoring. Thank you for allowing me to participate in the care of your patient. Please feel free to contact me if you have any questions. Orders: Orders CA echo transthoracic complete 7 Months I77.810 - Thoracic aortic ectasia Medications: New atorvastatin 20 mg PO DAILY 90 tabs 3RF I77.810 - Thoracic aortic ectasia Changed From nitrofurantoin monohyd/m-cryst 100 mg (Macrobid) must administer with a meal/food 100 mg PO Q12H 30 days 30 caps 3RF To nitrofurantoin monohyd/m-cryst 100 mg (Macrobid) must administer with a meal/food 100 mg PO Q12H PRN Coding Level of Care Code Est Pt Level 4 (67471) Diagnoses Paroxysmal SVT (supraventricular tachycardia) I47.1 Hyperlipidemia E78.5 Ascending aorta dilatation I77.810
== END 2022-09-06 13:58 | disposition home or self-care (01) ==
PROVIDERS: PCP Internal Medicine; Visit Provider Internal Medicine Cardiovascular Disease
DX: I47.1 Supraventricular tachycardia (principal); E78.5 Hyperlipidemia, unspecified; I77.810 Thoracic aortic ectasia
CPT/HCPCS: 99214

== ENCOUNTER → 2022-09-06 13:34 | Outpatient (BNVA) | payer OTHER, SELFPAY | PROVIDERS: PCP Internal Medicine; Visit Provider Internal Medicine Cardiovascular Disease ==

== ENCOUNTER 2022-11-30 08:18 | Outpatient (AMB) | payer OTHER, SELFPAY ==
--- NOTE | 2022-11-30 08:33 | MHC.OFFVIS ---
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: No Information Interpreted: non-clinical & clinical Press Hand Supervisor: Press Hand Supervisor Present (Cori MCDANIELS) Accompanied by: Self / Same As Patient Allergies iron dextran complex Allergy (Intermediate, Verified 11/30/22 08:39) hives/serum sickness latex Allergy (Intermediate, Verified 11/30/22 08:39) Rash metoclopramide [Reglan] Allergy (Intermediate, Verified 11/30/22 08:39) extrapyramidal effects Sulfa (Sulfonamide Antibiotics) Allergy (Intermediate, Verified 11/30/22 08:39) full body rash Post menopausal: Yes [facility] Medical History (Updated 09/06/22 @ 14:14 by Frank Mills MD) Eye infection COVID-19 vaccine series completed SVT (supraventricular tachycardia) Thoracic spine pain HPV (human papilloma virus) anogenital infection Neutropenia GERD (gastroesophageal reflux disease) Surgical History H/O colonoscopy History of esophagogastroduodenoscopy (EGD) History of tonsillectomy History of surgical removal of skin lesion History of History of appendectomy Social History Housing: Condominium Are you a primary manager critical care to a significant other at home: No Do you presently have visiting nurse or other home services: No Alcohol intake: current Alcohol intake frequency: a few times a week Alcohol type: other Patient Tobacco Use Status: Former Tobacco user e-Cigarette/Vaping Use: Never Used Current occupational status: employed Sexual orientation: Straight/Heterosexual Gender identity: Female Cognitive needs: No Hearing needs: No Vision needs: Yes Female Reproductive History Menstrual Age of Menarche: 11 Physical Exam Vital Signs: Last Vital Signs BP 128/76 11/30/22 08:39 BMI result Body Mass Index 26.9 Office Procedures Endometrial Biopsy Details: The patient was counseled regarding the indication and benefits of endometrial sampling to rule out endometrial pathology including not limited to endometrial hyperplasia or endometrial cancer and others; The alternatives (Either do nothing vs. hysteroscopy D&C) & the risks were discussed with the patient including but not limited: pain, uterine perforation, bleeding, infection, possible injury to bladder, bowel, ureter, possible need for blood transfusion with all its possible risks. The patient verbalized understanding all questions answered and signed consent. The patient was placed into the dorsal lithotomy position; a speculum was inserted in the vagina. Using aseptic technique for the procedure, the cervix was cleansed with Betadine. The anterior lip of the cervix was grasped with a single tooth tenaculum. The uterus was sounded to 7 cm with a 4 mm Pipelle was used. Tissues samples were obtained and placed in formalin, in a patient labeled container and sent to the pathology department. At the end of the procedure, there was minimal bleeding noted The patient tolerated the procedure well and was discharged in good condition with the following instructions: Nothing in the vagina until the bleeding stops. No sex until the bleeding stops, to call if any of the following occurs: fever (>100.4), flu-like symptoms, abdominal pain, heavy bleeding, four smelling vaginal discharge. The patient was instructed to schedule a Follow up appointment in 2 weeks to discuss pathology results of the biopsy and treatment options. This note was generated with a voice recognition program. Some errors may have been overlooked during the review of this note. Sometimes these errors may affect the content or meaning of a given sentence. [id number] Biopsy Assessment & Plan Assessment & Plan Orders: Orders Surgical Today N95.0 - Postmenopausal bleeding AMB Endometrial Biopsy Today N95.0 - Postmenopausal bleeding Coding Level of Care Code Procedure Only CPT Codes Endometrial Biopsy - CPT: 74561-[id number] Biopsy ([id number])
[2022-11-30 08:39] VITALS: BP 128/76; BMI 26.9
== END 2022-11-30 08:55 | disposition home or self-care (01) ==
PROVIDERS: PCP Internal Medicine; Visit Provider Obstetrics & Gynecology
DX: N95.0 Postmenopausal bleeding (principal)
CPT/HCPCS: 58100

== ENCOUNTER 2022-11-30 08:18 | Outpatient (REF) | payer OTHER, SELFPAY | END 2022-11-30 08:19 | disposition home or self-care (01) | LOC: HO.LNP 08:18 | PROVIDERS: PCP Internal Medicine; Visit Provider Obstetrics & Gynecology | DX: N95.0 Postmenopausal bleeding (principal) | CPT/HCPCS: 58100; 88305 ==

== ENCOUNTER 2022-12-11 16:39 | Outpatient (REF) | payer OTHER, SELFPAY ==
[2022-12-11 17:43] LABS: Appearance Urine Hazy; Color Urine Orange; Glucose Urine UA 100 mg/dL (Negative); Specific Gravity - Urine 1.015 (1.005-1.025); UMIC TRIGGER UACC YES; Urine Blood Moderate (2+) (Negative); Urine Ketones Negative (Negative); Urine Protein 30 (1+) mg/dL (Neg-Trace)
[2022-12-11 17:50] LABS: Bacteria Urine None Seen (None Seen); Hyaline Casts Urine 0-2 /LPF (0-2); RBC Urine >20 /HPF (0-2); Squamous Epithelial Cell Urine 0-2 /HPF (0-2); UACC Culture Trigger YES; WBC Urine >50 /HPF (0-5)
== END 2022-12-11 16:40 | disposition home or self-care (01) ==
LOC: HO.LAB 16:39
PROVIDERS: PCP Internal Medicine; Visit Provider Internal Medicine
DX: R30.0 Dysuria (principal)
CPT/HCPCS: 81001; 87086; 87088; 87186

== ENCOUNTER 2023-01-31 13:08 | Outpatient (REF) | payer OTHER, SELFPAY ==
--- NOTE | ~2023-01-31 | US_ITS ---
EXAMINATION: US PELVIS COMPLETE TRANSVAGINAL PELVIC ULTRASOUND: CLINICAL INFORMATION: Ovarian cyst COMPARISON: 07/18/2022 TECHNIQUE: Transabdominal imaging initially performed. For more definitive evaluation of the endometrium and ovaries, transvaginal technique was employed. FINDINGS: Uterus is anteverted and anteflexed measuring 6.1 x 2.7 x 3.8cm. Endometrium measures 0.6 cm. Hypoechoic, heterogeneous area identified in the cervix measuring 0.9 x 0.4 x 0.7 cm. Nabothian cysts are seen. Right ovary measures 1.9 x 1.3 x 1.1 cm for a volume of 1.4 mL. Previous measurement was 2.5 x 2.0 x 1.9 cm for a volume of 5.0 mL. The left ovary measures 3.8 x 2.6 x 3.1 cm for a volume of 16.0 mL. Previous measurement was 3.7 x 3.2 x 2.7 cm for a volume of 16.7 mL. 3.2 x 2.2 x 2.6 cm left ovarian cyst previously measured 2.7 x 2.0 x 2.4 cm. There is no pelvic free fluid. US/US pelvic and transvaginal IMPRESSION: Slight enlargement left ovarian cyst. 6 mm endometrium representing interval enlargement previous studies in this 58-year-old patient. Short-term sonographic follow-up recommended. Hypoechoic, heterogeneous region in the cervix of indeterminate etiology. This can also be reevaluated on short-term sonographic follow-up. Consider direct visualization.
== END 2023-01-31 13:09 | disposition home or self-care (01) ==
LOC: HO.US 13:08
PROVIDERS: PCP Internal Medicine; Visit Provider Obstetrics & Gynecology
DX: N83.209 Unspecified ovarian cyst, unspecified side (principal)
CPT/HCPCS: 76830; 76856

== ENCOUNTER 2023-02-22 08:02 | Outpatient (AMB) | payer OTHER, SELFPAY ==
--- NOTE | 2023-02-22 08:17 | A.OFFVIS_ITS ---
Intake Vital Signs 02/22/23 08:18 Height 5 ft 7 in Weight 171 lb 15.369 oz BMI 26.9 BP 120/70 Intake Visit Reasons: ultrasound follow up Allergies iron dextran complex Allergy (Intermediate, Verified 11/30/22 08:39) hives/serum sickness latex Allergy (Intermediate, Verified 11/30/22 08:39) Rash metoclopramide [Reglan] Allergy (Intermediate, Verified 11/30/22 08:39) extrapyramidal effects Sulfa (Sulfonamide Antibiotics) Allergy (Intermediate, Verified 11/30/22 08:39) full body rash HPI HPI Comments History of Present Illness Details Presenting for pelvic ultrasound follow-up regarding left simple ovarian cyst. Ultrasound done in 02/03 showed the following: Uterus is anteverted and anteflexed measuring 6.1 x 2.7 x 3.8cm. Endometrium measures 0.6 cm. Hypoechoic, heterogeneous area identified in the cervix measuring 0.9 x 0.4 x 0.7 cm. Nabothian cysts are seen. Right ovary measures 1.9 x 1.3 x 1.1 cm for a volume of 1.4 mL. Previous measurement was 2.5 x 2.0 x 1.9 cm for a volume of 5.0 mL. The left ovary measures 3.8 x 2.6 x 3.1 cm for a volume of 16.0 mL. Previous measurement was 3.7 x 3.2 x 2.7 cm for a volume of 16.7 mL. 3.2 x 2.2 x 2.6 cm left ovarian cyst pre viously measured 2.7 x 2.0 x 2.4 cm. There is no pelvic free fluid. Patient has a chronic history of recurrent postcoital UTI [facility] Medical History Eye infection COVID-19 vaccine series completed SVT (supraventricular tachycardia) Thoracic spine pain HPV (human papilloma virus) anogenital infection Neutropenia GERD (gastroesophageal reflux disease) Surgical History H/O colonoscopy History of esophagogastroduodenoscopy (EGD) History of tonsillectomy History of surgical removal of skin lesion History of History of appendectomy Social History Housing: Condominium Are you a primary healthcare interpreter to a significant other at home: No Do you presently have visiting nurse or other home services: No Alcohol intake: current Alcohol intake frequency: a few times a week Alcohol type: other Patient Tobacco Use Status: Former Tobacco user e-Cigarette/Vaping Use: Never Used Current occupational status: employed Sexual orientation: Straight/Heterosexual Gender identity: Female Cognitive needs: No Hearing needs: No Vision needs: Yes Female Reproductive History Menstrual Age of Menarche: 11 Review of Systems Const All systems reviewed & are unremarkable except as noted in HPI and below Reports as per HPI and Reports no additional complaints GI Reports no additional complaints Reports no additional complaints Physical Exam Vital Signs: Last Vital Signs BP 120/70 02/22/23 08:18 BMI result Body Mass Index 26.9 Assessment & Plan Assessment & Plan (1) Postcoital UTI: Code(s): N39.0 - Urinary tract infection, site not specified Plan: Will refer to Urology for further management (2) Ovarian cyst: Code(s): N83.209 - Unspecified ovarian cyst, unspecified side Plan: Discussed with the patient the the finding on a pelvic ultrasound showing a simple ovarian cyst with no evidence of suspicious features, with a size of less than 10 cm. Discussed the patient the limitation of pelvic ultrasound to di fferentiate between benign and malignant ovarian cyst. Explained to the patient that pelvic Ultrasound characteristics of benign masses include simple appearance: thin, smooth cotton; and the absence of solid components, septations, or internal blood flow on color Doppler ultrasound imaging. These simple cysts are highly likely to be benign in any age group. Studies have shown that spontaneous resolution occurs in more than 2/3 of cases. Simple cysts are almost always universally benign, regardless of menopausal status or cyst size, with malignancy rates in most series of 0?1% . CA 125, ovarian cancer serum marker test, is indicated to evaluate like with of malignancy and need for surgery. Elevated levels in combination with other findings can be useful to distinguish between benign and malignant adnexal masses. Specificity and positive predictive value of CA 125 levels are consistently higher in postmenopausal woman compared to premenopausal woman. Although CA 125 level measurement is last valuable in predicting cancer risk in premenopausal woman thin in postmenopausal woman extreme values increase suspicion for a malignant process. The overall sensitivity of CA 125 in disting uish in benign from malignant adnexal mass ranges be 61-91 % and negative for active value ranges from 67-90%. Recommended CA 125 and repeat ultrasound in 12 months since ovarian seen has been stable over the last 6 months. Instructions given the patient to schedule a 12 months follow-up pelvic ultrasound with follow-up appointment afterwards. All questions answered, the patient verbalized understanding. Orders: Orders CA-125 Today N83.209 - Unspecified ovarian cyst, unspecified side US pelvic and transvaginal 364 Days N83.209 - Unspecified ovarian cyst, unspecified side Referrals Urology Referral N39.0 - Urinary tract infection, site not specified Coding Level of Care Code Est Pt Level 3 (14416) Diagnoses Postcoital UTI N39.0 Ovarian cyst N83.209
[2023-02-22 08:18] VITALS: BP 120/70; BMI 26.9
== END 2023-02-22 09:02 | disposition home or self-care (01) ==
LOC: HO.HWS 08:02
PROVIDERS: PCP Internal Medicine; Visit Provider Obstetrics & Gynecology
DX: N39.0 Urinary tract infection, site not specified (principal); N83.209 Unspecified ovarian cyst, unspecified side
CPT/HCPCS: 99213

== ENCOUNTER → 2023-02-22 08:02 | Outpatient (BNVA) | payer OTHER, SELFPAY | PROVIDERS: PCP Internal Medicine; Visit Provider Obstetrics & Gynecology ==

== ENCOUNTER 2023-04-04 07:35 | Outpatient (REF) | payer OTHER, SELFPAY ==
[2023-04-04 08:49] LABS: Appearance Urine Clear; Color Urine Yellow; Glucose Urine UA Negative (Negative); Leukocyte Esterase Urine Trace (Negative); Nitrite Urine Negative (Negative); Specific Gravity - Urine <= 1.005 (1.005-1.025); UMIC TRIGGER UACC YES; Urine Blood Negative (Negative); Urine Ketones Negative (Negative); Urine Protein Negative (Neg-Trace)
[2023-04-04 08:53] LABS: Bacteria Urine None Seen (None Seen); Hyaline Casts Urine 0-2 /LPF (0-2); RBC Urine 0-2 /HPF (0-2); Squamous Epithelial Cell Urine 0-2 /HPF (0-2); WBC Urine 0-5 /HPF (0-5)
[2023-04-04 09:18] LABS: Alanine Aminotransferase 23 U/L (0-31); Albumin Level 4.4 g/dL (3.5-5.0); Alkaline Phosphatase 23 U/L (39-117); Anion Gap 11 (12-20); Aspartate Amino Transferase 24 U/L (5-31); Blood Urea Nitrogen 12 mg/dL (9-16); Calcium 9.4 mg/dL (8.4-10.2); Carbon Dioxide 32 mmol/L (22-29); Chloride 102 mmol/L (96-108); Cholesterol 176 mg/dL (<200); Estimated Glomerular Filt Rate > 60; Glucose Fasting 87 mg/dL (60-99); HDL Cholesterol 72 mg/dL (>40); LDL Cholesterol Calculated 87 mg/dL (<100); Potassium 4.1 mmol/L (3.3-5.1); Sodium 141 mmol/L (135-145); Total Protein 7.4 g/dL (6.5-8.0); Triglycerides 86 mg/dL (<150)
[2023-04-05 12:19] LABS: CA-125 8 U/mL (<35)
== END 2023-04-04 07:36 | disposition home or self-care (01) ==
LOC: HO.LAB 07:35
PROVIDERS: Absent Provider Obstetrics & Gynecology; PCP Internal Medicine; Visit Provider Internal Medicine
DX: Z00.00 Encounter for general adult medical examination without abnormal findings (principal); N83.209 Unspecified ovarian cyst, unspecified side
CPT/HCPCS: 36415; 80053; 80061; 81001; 86304

== ENCOUNTER 2023-04-09 12:57 | Outpatient (AMB) | payer OTHER, SELFPAY ==
[2023-04-09 13:00] VITALS: BP 110/68; PULSE 61; O2SAT 97; BMI 29.3
--- NOTE | 2023-04-09 13:00 | A.OFFPC_ITS ---
Vital Signs 04/09/23 13:00 Height 5 ft 7 in Weight 187 lb BMI 29.3 BP 110/68 Blood Pressure Location Lt brachial Position Sitting Pulse 61 Pulse Source Pulse Oximeter Pulse Oximetry (%) 97 Oxygen Delivery Method Room Air Intake Visit Reasons: Annual PE Intake Note: Pt is here today for PE. Allergies iron dextran complex Allergy (Intermediate, Verified 04/09/23 13:04) hives/serum sickness latex Allergy (Intermediate, Verified 04/09/23 13:04) Rash metoclopramide [Reglan] Allergy (Intermediate, Verified 04/09/23 13:04) extrapyramidal effects Sulfa (Sulfonamide Antibiotics) Allergy (Intermediate, Verified 04/09/23 13:04) full body rash Medication List - Last Reconciled 04/09/23 by Haydee Lira MD atenolol 25 mg PO DAILY atorvastatin 20 mg PO DAILY econazole 1% 1 appl topical DAILY esomeprazole magnesium 40 mg PO DAILY levofloxacin 500 mg PO DAILY PRN nitrofurantoin monohyd/m-cryst 100 mg (Macrobid) 100 mg PO Q12H PRN Tobacco use date assessed: 04/09/23 Dental Screening Dental Screen Date: 04/09/23 Did you have a dental visit in the last 12 months?: Yes Did you have a dental problem in the last 6 months where you did not have access to dental care?: No Was dental information given to patient?: Patient has dentist HPI Annual PE HPI Details Pt presents for PE. [facility] Medical History (Updated 04/09/23 @ 15:10 by Haydee Lira MD) Eye infection COVID-19 vaccine series completed SVT (supraventricular tachycardia) Thoracic spine pain HPV (human papilloma virus) anogenital infection Neutropenia GERD (gastroesophageal reflux disease) Surgical History H/O colonoscopy History of esophagogastroduodenoscopy (EGD) History of tonsillectomy History of surgical removal of skin lesion History of History of appendectomy Social History Housing: Condominium Are you a primary neonatal intensive care nurse to a significant other at home: No Do you presently have visiting nurse or other home services: No Alcohol intake: current Alcohol intake frequency: a few times a week Alcohol type: other Patient Tobacco Use Status: Former Tobacco user e-Cigarette/Vaping Use: Never Used Current occupational status: employed Sexual orientation: Straight/Heterosexual Gender identity: Female Cognitive needs: No Hearing needs: No Vision needs: Yes Female Reproductive History Menstrual Age of Menarche: 11 Questionnaire PHQ-9 Over the last 2 weeks, how often have you been bothered by any of the following problems? 1. Little interest or pleasure in doing things: not at all 2. Feeling down, depressed, or hopeless: not at all 3. Trouble falling or staying asleep, or sleeping too much: several days 4. Feeling tired or having little energy: several days 5. Poor appetite or overeating: several days 6. Feeling bad about yourself - or that you are a failure or have let yourself or your family down: not at all 7. Trouble concentrating on things, such as reading the newspaper or watching television: not at all 8. Moving or speaking so slowly that other people could have noticed. Or the opposite - being so fidgety or restless that you have been moving around a lot more than usual: not at all 9. Thoughts that you would be better off or of hurting yourself in some way: not at all Total score: 3 Depression Screening Interpretation: Negative Depression Screening Done: Yes 13539 - PHQ-9 Billing: Yes Source: Developed by Drs. Celso Camilo, Yadi Andino, Moses Recinos and colleagues, with an educational lilliam from [employer]. Thrive Questionnaire Date Thrive assessed: 04/09/23 I am a: Patient What is your living situation today?: I have a steady place to live Within the past 12 months, did the food you bought not last and you didn't have the money to get more?: Never true Within the past 12 months, did you worry whether your food would run out before you got money to buy more?: Never true Do you have trouble paying for medicines?: No Do you have trouble getting transportation to medical appointments?: No Do you have trouble paying your heating and electricity bill?: No Do you have trouble taking care of your child, family member or friend?: No Do you have trouble with day-to-day activities such as bathing, preparing meals, shopping, managing finances, etc.?: No Are you currently unemployed and looking for a job?: No Are you interested in more education?: No Please select the resources that you would like help with: None THRIVE Score: 0 AUDIT C Alcohol Use Questionnaire (AUDIT-C) 1. How often do you have a drink containing alcohol?: 2-3 times a week 2. How many drinks containing alcohol do you have on a typical day when you are drinking?: 1 or 2 3. How often do you have six or more drinks on one occasion?: Never Total Score: 3 LISA-7 AMB Questionnaire ILSA-7 Date LISA - 7 assessed: 04/09/23 Source: Developed by Drs. Celso Camilo, Yadi Andino, Moses Recinos and colleagues, with an educational lilliam from [employer]. Review of Systems Const All systems reviewed & are unremarkable except as noted in HPI and below Reports no additional complaints Eyes Reports no additional complaints ENT Reports no additional complaints Card Reports no additional complaints Resp Reports no additional complaints GI Reports no additional complaints Reports no additional complaints Physical exam (Primary Care) Vital Signs: Last Vital Signs Pulse 61 04/09/23 13:00 BP 110/68 04/09/23 13:00 Pulse Ox 97 04/09/23 13:00 Oxygen Delivery Method Room Air 04/09/23 13:00 BMI result Body Mass Index 29.3 Tobacco/Smoking Status: Tobacco use Status Tobacco use date assessed 04/09/23 04/09/23 13:07 Patient Tobacco Use Status Former Tobacco user 04/09/23 13:07 e-Cigarette/Vaping Use Never Used 04/09/23 13:00 Depression Screening Interpretation: Negative Thrive Assessment: Date of Thrive Assessment Date Thrive assessed 04/03/22 04/09/23 13:00 Const General: no acute distress HENMT Head: Yes normal to inspection Ears: hearing grossly normal bilaterally Face and sinus: Yes normal facial exam Mouth: Normal oral and palatal mucosa present Throat: Yes posterior oropharynx normal Eyes General: appearance normal, both eyes and all related structures Neck Neck: Yes no lymphadenopathy and Yes supple Resp Effort & Inspection: normal respiratory effort Auscultation: clear to auscultation bilaterally Cardio Rhythm: regular rhythm Heart sounds: S1 normal heart sound present and S2 normal heart sound present GI Inspection: Yes normal to inspection Palpation (GI): Soft to palpation Percussion: Yes normal to percussion Auscultation: normal bowel sounds Assessment and Plan Assessment & Plan (1) Annual physical exam: Code(s): Z00.00 - Encounter for general adult medical examination without abnormal findings Plan: well balanced diet regular exercise discussed. Pt is up to date with mammogram, colonoscopy, pap by ethylbenzene oxidizer. (2) Hyperlipidemia: Code(s): E78.5 - Hyperlipidemia, unspecified Plan: Continue 10 mg of atorvastatin (3) Paroxysmal SVT (supraventricular tachycardia): Code(s): I47.1 - Supraventricular tachycardia Plan: Continue atenolol follow-up with Cardiology (4) Vitamin D deficiency: Code(s): E55.9 - Vitamin D deficiency, unspecified Plan: Continue vitamin-D supplement (5) Ascending aorta dilatation: Comment: Echo 03/2022 3.8 cm, f/u [facility] Code(s): I77.810 - Thoracic aortic ectasia Orders: Orders TSH reflex Free T4 Today E78.5 - Hyperlipidemia, unspecified, I47.1 - Supraventricular tachycardia, Z00.00 - Encounter for general adult medical examination without abnormal findings Complete Blood Count Auto Diff Today E78.5 - Hyperlipidemia, unspecified, I47.1 - Supraventricular tachycardia, Z00.00 - Encounter for general adult medical examination without abnormal findings Vitamin D 25-OH Total Today E55.9 - Vitamin D deficiency, unspecified Lipid Panel 365 Days E55.9 - Vitamin D deficiency, unspecified, I47.1 - Supraventricular tachycardia, I77.810 - Thoracic aortic ectasia, Z00.00 - Encounter for general adult medical examination without abnormal findings Complete Blood Count Auto Diff 365 Days E55.9 - Vitamin D deficiency, unspecified, I47.1 - Supraventricular tachycardia, I77.810 - Thoracic aortic ectasia, Z00.00 - Encounter for general adult medical examination without abnormal findings TSH reflex Free T4 365 Days E55.9 - Vitamin D deficiency, unspecified, I47.1 - Supraventricular tachycardia, I77.810 - Thoracic aortic ectasia, Z00.00 - Encounter for general adult medical examination without abnormal findings Vitamin D 25-OH Total 365 Days E55.9 - Vitamin D deficiency, unspecified, I47.1 - Supraventricular tachycardia, I77.810 - Thoracic aortic ectasia, Z00.00 - Encounter for general adult medical examination without abnormal findings UA w Microscopic 365 Days E55.9 - Vitamin D deficiency, unspecified, I47.1 - Supraventricular tachycardia, I77.810 - Thoracic aortic ectasia, Z00.00 - Encounter for general adult medical examination without abnormal findings Comprehensive [place]. Panel Fast 365 Days E55.9 - Vitamin D deficiency, unspecified, I47.1 - Supraventricular tachycardia, I77.810 - Thoracic aortic ectasia, Z00.00 - Encounter for general adult medical examination without abnormal findings Medications: Refilled atenolol 25 mg PO DAILY 90 tabs 3RF Coding Level of Care Code Est Pt Prev Care 40-64y(73955) Diagnoses Annual physical exam Z00.00 Hyperlipidemia E78.5 Paroxysmal SVT (supraventricular tachycardia) I47.1 Vitamin D deficiency E55.9 Ascending aorta dilatation I77.810
== END 2023-04-09 14:00 | disposition home or self-care (01) ==
PROVIDERS: PCP Internal Medicine; Visit Provider Internal Medicine
DX: Z00.00 Encounter for general adult medical examination without abnormal findings (principal); E78.5 Hyperlipidemia, unspecified; I47.10 Supraventricular tachycardia, unspecified; E55.9 Vitamin D deficiency, unspecified; I77.810 Thoracic aortic ectasia
CPT/HCPCS: 99396

== ENCOUNTER 2023-04-09 13:58 | Outpatient (REF) | payer OTHER, SELFPAY ==
[2023-04-09 16:22] LABS: MANUAL DIFF FLAG NO
[2023-04-09 16:35] LABS: Basophils Percent Auto 0.8 % (0-2); Eosinophils Absolute Auto 0.1 X10*3/uL (0.0-0.4); Eosinophils Percent Auto 3.3 % (0-4); Hematocrit 41.4 % (37.0-47.0); Hemoglobin 13.6 g/dl (12.0-16.0); Lymphocytes Absolute Auto 1.6 X10*3/uL (1.2-4.9); Lymphocytes Percent Auto 39.7 % (20-40); Mean Corpuscular HGB Conc 32.9 g/dl (31.0-35.0); Mean Corpuscular Hemoglobin 30.4 pg (27.0-33.0); Mean Corpuscular Volume 92.4 fL (80.0-98.0); Mean Platelet Volume 12.9 fL (9.4-12.3); Monocytes Absolute Auto 0.3 X10*3/uL (0.1-1.2); Monocytes Percent Auto 7.9 % (2-11); Neutrophils Absolute Auto 1.9 x10*3/uL (2.0-8.3); Neutrophils Percent Auto 48.3 % (45-73); Platelet Count 209 X10*3/uL (160-400); Red Blood Count 4.48 X10*6/uL (4.20-5.50); White Blood Count 3.9 X10*3/uL (4.8-10.8)
[2023-04-09 17:09] LABS: TSH reflex Free T4 1.01 uIU/mL (0.32-4.0); Vitamin D 25-OH Total 44.5 ng/mL (>30)
== END 2023-04-09 13:59 | disposition home or self-care (01) ==
LOC: HO.HMGCLDS 13:58
PROVIDERS: PCP Internal Medicine; Visit Provider Internal Medicine
DX: Z00.00 Encounter for general adult medical examination without abnormal findings (principal); I47.10 Supraventricular tachycardia, unspecified; E78.5 Hyperlipidemia, unspecified; E55.9 Vitamin D deficiency, unspecified
CPT/HCPCS: 36415; 82306; 84443; 85025

== ENCOUNTER 2023-05-18 13:36 | Outpatient (AMB) | payer OTHER, SELFPAY ==
--- NOTE | 2023-05-18 12:44 | A.OFFVIS_ITS ---
Intake Intake Visit Reasons: Urinary tract infection Intake Note: New patient is present for Recurrent Urinary tract infection Antibiotic Allergies: Sulfa Antibiotics New patient states that she had a recent UTI few weeks ago. PVR: 0 Allergies iron dextran complex Allergy (Intermediate, Verified 04/09/23 13:04) hives/serum sickness latex Allergy (Intermediate, Verified 04/09/23 13:04) Rash metoclopramide [Reglan] Allergy (Intermediate, Verified 04/09/23 13:04) extrapyramidal effects Sulfa (Sulfonamide Antibiotics) Allergy (Intermediate, Verified 04/09/23 13:04) full body rash Medication List - Last Reconciled 05/18/23 by Rosalino Raymond MD atenolol 25 mg PO DAILY atorvastatin 20 mg PO DAILY cefuroxime axetil 500 mg PO BID 7 days econazole 1% 1 appl topical DAILY esomeprazole magnesium 40 mg PO DAILY estradiol 0.01%(0.1mg/gram) (Estrace) Use dime-sized amount with fingertip as directed 30 days nitrofurantoin monohyd/m-cryst 100 mg (Macrobid) 100 mg orally Take 1 capsule after sexual activity as directed; must administer with a meal/food HPI HPI Comments History of Present Illness Details Candida is a 58-year-old female and 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 She states that she has had this issue many years associated with sexual intercourse. She has been on nitrofurantoin after intercourse which has helped however she had a breakthrough infection in November and the urine culture showed intermittent susceptibility to the nitrofurantoin. Since that episode she has continued with the nitrofurantoin 100 mg post intercourse and has been doing well. 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 She has allergies to sulfa. 12/04/2022 urine culture Klebsiella pneu moniae, intermediate susceptibility to nitrofurantoin, resistant to ampicillin. Urinalysis today is negative bladder scan PVR 0 mL. Plan discussed will continue nitrofurantoin 100 mg post intercourse at this time as changing to another antibiotic may promote additional resistance. Discussed adding Estrace cream. I have discussed benefits of vaginal estrogen use in the treatment of recurrent UTI's in ronit and post menaupausal women. Vaginal estrogen has been found to decrease vaginal PH, increase lactobacillus in the epithium of the vagina. Evaluate kidneys with renal ultrasound. Follow-up in 6 months. [facility] Medical History Eye infection COVID-19 vaccine series completed SVT (supraventricular tachycardia) Thoracic spine pain HPV (human papilloma virus) anogenital infection Neutropenia GERD (gastroesophageal reflux disease) Surgical History H/O colonoscopy History of esophagogastroduodenoscopy (EGD) History of tonsillectomy History of surgical removal of skin lesion History of History of appendectomy Social History [facility]: [facility] Are you a primary child care nurse to a significant other at home: No Do you presently have visiting nurse or other home services: No Alcohol intake: current Alcohol intake frequency: a few times a week Alcohol type: other Patient Tobacco Use Status: Former Tobacco user e-Cigarette/Vaping Use: Never Used Current occupational status: employed Sexual orientation: Straight/Heterosexual Gender identity: Female Cognitive needs: No Hearing needs: No Vision needs: Yes Female Reproductive History Menstrual Age of Menarche: 11 Review of Systems Const All systems reviewed & are unremarkable except as noted in HPI and below Reports no additional complaints Eyes Reports no additional complaints ENT Reports no additional complaints Card Reports no additional complaints Resp Reports no additional complaints GI Reports no additional complaints Reports as per HPI Musc Reports no additional complaints Skin/Breast Reports system reviewed and no additional complaints, except as documented Neuro Reports no additional complaints Psych Reports no additional complaints Endo Reports no additional complaints Uche/Lymph Reports no additional complaints Aller/Immun Reports no additional complaints Physical Exam Const General: cooperative, healthy appearing and no acute distress Orientation/consciousness: patient oriented x3 HEENT Head: Yes normal to inspection, Yes normocephalic and Yes atraumatic Eyes Conjunctivae: conjunctivae normal Neck Neck: Yes normal visual inspection and Yes trachea midline Chest Chest palpation & inspection: normal inspection of the chest Resp Effort & Inspection: normal respiratory effort Cardio Jugular venous distension: no JVD GI Inspection: Yes normal to inspection Skin General skin exam: no rashes or lesions noted Neuro General: patient oriented x3 Extrem General: No edema Psych Appearance: grossly normal Office Procedures Post Void Residual Post Residual Void Post Void Residual (PVR): 0 [id number] Void Residual by ultrasound Results AMB Urinalysis, Automated UA Leukoctes 0 Rahel/uL Last Edit by Esperanza Little [facility] on 05/18/23 13:49 UA Nitrite Negative Last Edit by Esperanza Little [facility] on 05/18/23 13:49 UA Urobilinogen 0.2 mg/dL Last Edit by Esperanza Little [facility] on 05/18/23 13:4 9 UA Protein 0 mg/dL Last Edit by Esperanza Little A on 05/18/23 13:49 UA pH 6.0 Last Edit by Esperanza Little [facility] on 05/18/23 13:49 UA Blood 0 Mario/uL Last Edit by Esperanza Little [facility] on 05/18/23 13:49 UA Specific [place] 1.015 Last Edit by Esperanza Little [facility] on 05/18/23 13: 49 UA Ketone Negative Last Edit by Esperanza Little [facility] on 05/18/23 13:49 UA Bilirubin 0 mg/dL Last Edit by Esperanza Little [facility] on 05/18/23 13:49 UA Glucose 0 mg/dL Last Edit by Esperanza Little [facility] on 05/18/23 13:49 Results Reviewed Results Reviewed: Laboratory Last Values Urine pH (Auto) 6.0 05/18/23 13:48 Specific [place] (Auto) 1.015 05/18/23 13:48 Urine Protein (Auto) 0 mg/dL 05/18/23 13:48 Glucose (UA)(Auto) 0 mg/dL 05/18/23 13:48 Urine Ketones (Auto) Negative 05/18/23 13:48 Urine Blood (Auto) 0 Mario/uL 05/18/23 13:48 Urine Nitrite (Auto) Negative 05/18/23 13:48 Urine Bilirubin (Auto) 0 mg/dL 05/18/23 13:48 Urine Urobilinogen (Auto) 0.2 mg/dL 05/18/23 13:48 Leukocyte Esterase (Auto) 0 Rahel/uL 05/18/23 13:48 Collected: 12/11/22-UNK Status: COMP Req#: [id number] Received: 12/11/22 Source: [facility] Sp Desc: Urine philip Subm Dr: Haydee Lira MD Ordered: Urine Culture Procedure Result Verified Urine Culture Final 12/13/22 Organism 1 Klebsiella pneumoniae Quant 50,000 to 100,000 cfu/mL Kleb pneum M.I.C. RX --------- --- Ampicillin >=32 R Ceftriaxone <=0.25 S Gentamicin <=1 S Levofloxacin <=0.12 S Nitrofurantoin 64 I Trimethoprim/Sulfamethoxazole <=20 S Assessment & Plan Assessment & Plan (1) Postcoital UTI: Code(s): N39.0 - Urinary tract infection, site not specified (2) Recurrent UTI: Code(s): N39.0 - Urinary tract infection, site not specified Plan continue nitrofurantoin 100 mg post intercourse at this time as changing to another antibiotic may promote additional resistance. Estrace cream. I have discussed benefits of vaginal estrogen use in the treatment of recurrent UTI's Evaluate kidneys with renal ultrasound. Follow-up in 6 months. Orders: Orders AMB Post Void Residual by ultrasound Today N39.0 - Urinary tract infection, site not specified US renal BI Today N39.0 - Urinary tract infection, site not specified AMB Urinalysis Automated Today Z13.9 - Encounter for screening, unspecified Medications: New estradiol 0.01%(0.1mg/gram) (Estrace) Use dime-sized amount with fingertip as directed 30 days 42.5 grams 3RF cefuroxime axetil 500 mg PO BID 7 days 14 tabs 2RF nitrofurantoin monohyd/m-cryst 100 mg (Macrobid) 100 mg orally Take 1 capsule after sexual activity as directed; must administer with a meal/food 30 caps 3RF Patient Instructions: The patient had an opportunity to ask questions regarding treatment plan. All questions were answered. Imaging, Laboratory studies were discussed and reviewed in detail. No major barriers to understanding were identified. The patient expressed understanding and agreement with the above treatment plan. The patient is aware they should contact our office by phone for worsening of their current condition or the appearance of new symptoms. Compliance is encoura ged with any medications and followup testing that is ordered. It is a privilege to be allowed the opportunity to participate in the urologic care of your patient. If you have any questions or concerns regarding treatment for the above conditions please do not hesitate to contact me. The office telephone contact is [phone]. This note is constructed in part using voice recognition software. While every effort has been made to ensure accuracy manager domestic errors may have been included. Yours sincerely, Rosalino Raymond MD Coding Level of Care Code New Pt Level 4 (88316) Diagnoses Postcoital UTI N39.0 Recurrent UTI N39.0 CPT Codes Post Residual Void - PVR CPT Code: 03370-Lfuw Void Residual by ultrasound ([id number])
== END 2023-05-18 14:17 | disposition home or self-care (01) ==
LOC: HO.HUSH 13:37
PROVIDERS: PCP Internal Medicine; Visit Provider Urology
DX: N39.0 Urinary tract infection, site not specified (principal); Z13.9 Encounter for screening, unspecified
CPT/HCPCS: 99204

== ENCOUNTER → 2023-05-18 13:36 | Outpatient (BNVA) | payer OTHER, SELFPAY | PROVIDERS: PCP Internal Medicine; Visit Provider Urology | DX: N39.0 Urinary tract infection, site not specified (principal) | CPT/HCPCS: 51798; 81003 ==

== ENCOUNTER → 2023-05-24 12:58 | Outpatient (REF) | payer OTHER, SELFPAY ==
--- NOTE | 2023-05-24 13:02 | CA_ITS ---
Transthoracic Echocardiogram Patient (Last, First, Middle): Candida Nguyen, Gender: Female Date of : 1965 Age: 58 Procedure Date: 05/24/2023 Procedure Type: Transthoracic Echocardiogram Location: OP Height: 170.18 cm Weight: 83.01 kg BSA: 1.95 m2 Heart Rate: bpm BP: 128 / 80 mmHg Cena: TO Referring MD: Frank Mills MD Menu Planner: Frank Mills MD Symptoms: I77.810 - Thoracic aortic ectasia Study Quality: Fair Conclusions: - Normal left ventricular size and systolic function. The visually estimated ejection fraction is between 60-65%. There is no evidence of regional wall motion abnormalities. Diastolic function is normal for age. There is mild septal asymmetric hypertrophy. Normal GLS -22%. - Normal right ventricular cavity size and systolic function. - There is mild dilatation of the ascending aorta measuring 3.80 cm and mild dilatation of the aortic arch measuring 3.40 cm. Findings Left Ventricle Normal left ventricular size and systolic function. The visually estimated ejection fraction is between 60-65%. There is no evidence of regional wall motion abnormalities. Diastolic function is normal for age. There is mild septal asymmetric hypertrophy. Right Ventricle Normal right ventricular cavity size and systolic function. Atria The left atrium is normal in size. The right atrium is mildly dilated. Aortic Valve Normal aortic valve structure and function. There is no aortic valve stenosis. There is no aortic valve regurgitation. Mitral Valve The mitral valve appears normal. There is trace mitral valve regurgitation. There is no mitral valve stenosis. Pulmonic Valve Normal pulmonic valve structure and function. There is trace pulmonic valve regurgitation. Tricuspid Valve Normal tricuspid valve structure. There is trace tricuspid valve regurgitation. Normal right atrial pressure. There is no evidence of pulmonary hypertension. Great Vessels There is mild dilatation of the ascending aorta measuring 3.80 cm and mild dilatation of the aortic arch measuring 3.40 cm. The visualized portions of the pulmonary artery and branches are normal. Venous The inferior vena cava is normal in size and collapses greater than 50% with inspiration. Pericardium/Pleural There is no evidence of pericardial effusion. Prior Study Comparison No significant change compared to prior study dated: 03/21/2022. Measurements 2D Linear Measurements IVSd: 1.24 0.6-0.9/0.6-1.0 cm LVIDd: 4.64 3.9-5.3/4.2-5.9 cm LVIDd Index: 2.38 2.4-3.2/2.2-3.1 cm/m2 LVIDs: 3.02 2.0-3.6 cm LVPWd: 0.81 0.7-1.1 cm LA Diam: 3.50 2.7-3.8/3.0-4.0 cm LAIDs Index: 1.79 1.5-2.3 cm/m2 LV Mass: 206.94 67-162/88-224 g LV Mass Index: 106.12 43-95/49-115 g/m2 LVOT Diam: 2.10 3.0+(-)1.3 cm 2D Systolic Function EF 4C: 66.70 >55% EF 2C: 63.50 >55% EF BiP: 65.70 >55% Mitral Valve MV Pk E: 0.87 MV PK A: 0.68 MV Decel Time: 209.00 E/A: 1.30 E'Lateral: 11.10 E'Medial: 6.64 E/E' Med: 13.20 E/E' Lat: 7.90 PHT: 61.00 MVA PHT: 3.61 Decel Schley: 4.19 Aortic Valve AoV Pk Shahram: 1.49 AoV Mn Shahram: 1.05 AoV VTI: 0.36 AoV Pk Grad: 9.00 Aov Mn Grad: 5.00 THEO Cont.VTI: 2.45 LVOT LVOT Pk Shahram: 1.06 LVOT Mn Shahram: 0.71 LVOT VTI: 0.25 LVOT Pk Grad: 4.00 LVOT Mn Grad: 2.00 LVOT Diam: 2.10 LVOT Area: 3.46 Diastolic Function MV Pk E: 0.87 MV Pk A: 0.68 E/A: 1.30 E'Medial: 6.64 E/E' Med: 13.20 E' Laterial: 11.10 E/E' Lat: 7.90 Right Ventricle TAPSE (mm): 27.80 TVS' Shahram: 11.30 Tricuspid Valve TR Pk Shahram: 1.75 TR Pk Grad: 12.00 RA Press: 8.00 RVSP: 20.00 Great Vessels Aorta Sinus of Valsalva: 3.37 2.0-3.5 cm Ao Asc: 3.80 2.1-3.4 cm Ao Arch: 3.40 Updated in Other Vendor System with Status of Final Frank Mills MD electronically signed on 05/24/2023 6:47:53 PM with status of Final
== END ==
LOC: HO.CARD 12:58
PROVIDERS: PCP Internal Medicine; Visit Provider Internal Medicine Cardiovascular Disease
DX: I77.810 Thoracic aortic ectasia (principal)
CPT/HCPCS: 93306

== ENCOUNTER → 2023-05-24 13:02 | Outpatient (BNV) | payer OTHER, SELFPAY | PROVIDERS: PCP Internal Medicine; Visit Provider Internal Medicine Cardiovascular Disease | DX: I71.22 Aneurysm of the aortic arch, without rupture (principal); I71.21 Aneurysm of the ascending aorta, without rupture | CPT/HCPCS: 93306; 93356 ==

== ENCOUNTER 2023-06-12 07:59 | Outpatient (AMB) | payer OTHER, SELFPAY ==
[2023-06-12 08:09] VITALS: BMI 29.6
--- NOTE | 2023-06-12 08:09 | A.OFFVIS_ITS ---
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 No complaints. Last Pap/HPV was negative in 06/04 Last Mammogram was BI-RADS 1 in 08/04 Last Colonoscopy was in 05/03, the recommendation was to repeat in 8-10 years [facility] Medical History (Updated 06/12/23 @ 08:20 by Sheldon Donovan MD) Eye infection COVID-19 vaccine series completed SVT (supraventricular tachycardia) Thoracic spine pain HPV (human papilloma virus) anogenital infection Neutropenia GERD (gastroesophageal reflux disease) Surgical History H/O colonoscopy History of esophagogastroduodenoscopy (EGD) History of tonsillectomy History of surgical removal of skin lesion History of History of appendectomy Social History Housing: Condominium Are you a primary resident care associate to a significant other at home: No Do you presently have visiting nurse or other home services: No Alcohol intake: current Alcohol intake frequency: a few times a week Alcohol type: other Patient Tobacco Use Status: Former Tobacco user e-Cigarette/Vaping Use: Never Used Current occupational status: employed Sexual orientation: Straight/Heterosexual Gender identity: Female Cognitive needs: No Hearing needs: No Vision needs: Yes Female Reproductive History Menstrual Age of Menarche: 11 Total pregnancies: 2 Full term: 2 Number of Living Children: 2 Date of last pap smear: 06/07/22 Date of Mammogram: 08/05/22 Review of Systems Const All systems reviewed & are unremarkable except as noted in HPI and below Card Reports as per HPI Resp Reports as per HPI GI Reports as per HPI and Reports no additional complaints Reports as per HPI Physical Exam Vital Signs: BMI result Body Mass Index 29.6 Const General: cooperative, healthy appearing and comfortable Chest Chest palpation & inspection: normal inspection of the chest and normal palpation of entire chest wall Breast/axilla inspection: normal inspection of the breasts and normal inspection of the axillae Breast/axilla palpation: normal palpation of the breasts, normal palpation of the axillae and no axillary lymphadenopathy Resp Effort & Inspection: normal respiratory effort Auscultation: clear to auscultation bilaterally Percussion: percussion normal Cardio Palpation: normal PMI Rate: regular rate Rhythm: regular rhythm Heart sounds: no murmurs and no rubs Peripheral pulses: Peripheral pulses 2+ throughout GI Inspection: Yes normal to inspection Palpation (GI): Soft to palpation, nontender, no guarding, not rigid and No hepatosplenomegaly present Percussion: Yes normal to percussion Auscultation: normal bowel sounds Rectal Exam - Female: deferred General: Yes bladder normal to palpation External Female Exam: No lesion Speculum Exam - Vagina: normal appearance of the vagina, normal palpation, normal vaginal discharge and not erythematous Speculum Exam - Cervix: normal appearance of the cervix and normal palpation Bimanual exam- vagina & uterus: normal bimanual exam, normal palpation, uterine size normal, bladder normal to palpation, consistency normal and normal palpation Bimanual Exam- Adnexa, other: normal adnexae, no masses and no tenderness Assessment & Plan Assessment & Plan (1) Well woman exam: Comment: Pap negative/HPV positive in 2019, followed by negative co testing in 2019 Code(s): Z01.419 - Encounter for gynecological examination (general) (routine) without abnormal findings Category: Medical Plan: Co testing not indicated this year. Counseled the patient about the recommended dietary allowance of 1200 mg of Calcium & 600 IU of vitamin D. Instructions given the patient to schedule her next screening Mammogram in 08/05. The patient was instructed to perform monthly self-breast exams and schedule annual exam in a year. All questions answered and the patient verbalized understanding. Coding Level of Care Code Est Pt Prev Care 40-64y(54794) Diagnoses Well woman exam Z01.419
== END 2023-06-12 08:36 | disposition home or self-care (01) ==
PROVIDERS: Visit Provider Obstetrics & Gynecology
DX: Z01.419 Encounter for gynecological examination (general) (routine) without abnormal findings (principal)
CPT/HCPCS: 99396

== ENCOUNTER → 2023-06-12 07:59 | Outpatient (BNVA) | payer OTHER, SELFPAY | PROVIDERS: Visit Provider Obstetrics & Gynecology ==

== ENCOUNTER 2023-09-05 13:02 | Outpatient (AMB) | payer OTHER, SELFPAY ==
--- NOTE | 2023-09-05 13:03 | MHC.OFFVIS ---
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 Accompanied by: Self / Same As Patient Allergies iron dextran complex Allergy (Intermediate, Verified 06/12/23 08:13) hives/serum sickness latex Allergy (Intermediate, Verified 06/12/23 08:13) Rash metoclopramide [Reglan] Allergy (Intermediate, Verified 06/12/23 08:13) extrapyramidal effects Sulfa (Sulfonamide Antibiotics) Allergy (Intermediate, Verified 06/12/23 08:13) full body rash Medication List - Last Reconciled 09/05/23 by Frank Mills MD atenolol 25 mg PO DAILY atorvastatin 20 mg PO DAILY econazole 1% 1 appl topical DAILY esomeprazole magnesium 40 mg PO DAILY estradiol 0.01%(0.1mg/gram) (Estrace) Use dime-sized amount with fingertip as directed 30 days nitrofurantoin monohyd/m-cryst 100 mg (Macrobid) 100 mg orally Take 1 capsule after sexual activity as directed; must administer with a meal/food HPI Comments Details: 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 It appears she had history of supraventricular tachycardia for which she was seen at [facility] by Dr Rosario and Dr Florez. Was started on atenolol and she did well for long time with atenolol as well as vagal maneuvers. 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 Six months ago while doing Luciana class she developed some nausea. She said she decreased her atenolol dose from 37.5 to 25 mg and also started taking it at nighttime brother morning and her nausea improved. Since then he has not had any significant symptoms. She in particular is denying any chest discomfort or worsening shortness of breath. She also had carotid study performed at [facility] by her report 10 years ago which showed moderate plaque in the carotid arteries. She also has history of mitral valve prolapse. She also had blood workup done recently which showed LDL cholesterol of 139 and HDL of 72. Thyroid profile was normal. She does not drink any tea or coffee. She occasionally eats chocolate. No other concerns currently. 09/06/22: She is here for follow-up. Previous visit she was started on statin therapy for reported history of carotid disease. She apparently could not tolerate statins and she has stopped using them. She had carotid ultrasound did not show any carotid plaque or atherosclerotic disease. She is taking atenolol 25 mg once a day. Blood pressure is normal. She said after taking statins she had bradycardia and also blood pressure was elevated. She was also recovering from COVID-19 at that time. Echocardiography has shown normal biventricular function with mild ascending aortic dilatation at 3.8 cm. She continues to be active without any exertional symptoms. 09/04/2022: She is here for follow-up. She has been doing well. No chest discomfort or significant shortness of breath. She has gained some weight and feels that when she is exercising she gets some dyspnea. 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 Blood pressure is well controlled. Mild ascending aortic dilatation. COUNTS INCLUDE 234 BEDS AT THE [facility] Medical History (Updated 06/12/23 @ 08:20 by Sheldon Donovan MD) Eye infection COVID-19 vaccine series completed SVT (supraventricular tachycardia) Thoracic spine pain HPV (human papilloma virus) anogenital infection Neutropenia GERD (gastroesophageal reflux disease) Surgical History H/O colonoscopy History of esophagogastroduodenoscopy (EGD) History of tonsillectomy History of surgical removal of skin lesion History of History of appendectomy Social History Housing: Condominium Are you a primary child care center administrator to a significant other at home: No Do you presently have visiting nurse or other home services: No Alcohol intake: current Alcohol intake frequency: a few times a week Alcohol type: other Patient Tobacco Use Status: Former Tobacco user e-Cigarette/Vaping Use: Never Used Current occupational status: employed Sexual orientation: Straight/Heterosexual Gender identity: Female Cognitive needs: No Hearing needs: No Vision needs: Yes Female Reproductive History Menstrual Age of Menarche: 11 Review of Systems Const Denies chills, Denies fatigue, Denies fever(s), Denies frequent falls, Denies weakness, Denies weight gain and Denies weight loss ENT Denies dizziness Card Denies chest pain, Denies leg edema, Denies lightheadedness, Denies palpitations, Denies dyspnea and Denies dyspnea on exertion Resp Denies cough, Denies dyspnea and Denies dyspnea on exertion GI Denies hematochezia Musc Denies abnormal gait, Denies muscle weakness, Denies numbness, Denies radiating pain into limb and Denies tingling Neuro Denies abnormal gait, Denies dizziness, Denies frequent falls, Denies numbness, Denies tingling and Denies weakness Endo Denies fatigue and Denies palpitations Physical Exam Vital Signs: Last Vital Signs Pulse 63 09/05/23 13:04 BP 110/60 09/05/23 13:04 BMI result Body Mass Index 29.2 GENERAL APPEARANCE: in no acute distress, pleasant. NECK: no carotid bruit, no jugular venous distention. SKIN: no suspicious lesions, warm and dry. HEART: no murmurs, regular rate and rhythm. LUNGS: clear to auscultation bilaterally. ABDOMEN: soft, nontender. EXTREMITIES: no edema. PERIPHERAL PULSES: equal. NEUROLOGIC: No gross deficits, AAO X 3 Office Procedures EKG Details: Sinus rhythm 63 beats per minute, normal axis, low voltage, QTC 442 milliseconds. 53212-[id number], Complete Assessment & Plan Assessment & Plan (1) Hyperlipidemia: Code(s): E78.5 - Hyperlipidemia, unspecified Category: Medical (2) Ascending aorta dilatation: Comment: Echo 03/2022 3.8 cm, f/u [facility] Code(s): I77.810 - Thoracic aortic ectasia Category: Medical Plan Pleasant 58 year female who is here for follow-up. She is active and has no exertional symptoms. She felt some tachycardia doing Luciana class but is saying that she was dehydrated that day. Overall she is quite stable from arrhythmia viewpoint. She has been taking atenolol 25 mg once a day. Blood pressure control is good. She has mild dilation of ascending aorta. Cholesterol is at target. Continue atorvastatin 20 mg daily. Follow-up in 1 year. Thank you for allowing me to participate in the care of your patient. Please feel free to contact me if you have any questions. Coding Level of Care Code Est Pt Level 4 (74967) Diagnoses Hyperlipidemia E78.5 Ascending aorta dilatation I77.810 CPT Codes EKG - CPT: 15750-[id number], Complete ([id number])
[2023-09-05 13:04] VITALS: BP 110/60; PULSE 63; BMI 29.2
== END 2023-09-05 13:31 | disposition home or self-care (01) ==
PROVIDERS: PCP Internal Medicine; Visit Provider Internal Medicine Cardiovascular Disease
DX: E78.5 Hyperlipidemia, unspecified (principal); I77.810 Thoracic aortic ectasia
CPT/HCPCS: 93010; 99214

== ENCOUNTER → 2023-09-05 13:02 | Outpatient (BNVA) | payer OTHER, SELFPAY | PROVIDERS: PCP Internal Medicine; Visit Provider Internal Medicine Cardiovascular Disease | DX: E78.5 Hyperlipidemia, unspecified (principal); I77.810 Thoracic aortic ectasia; Z79.899 Other long term (current) drug therapy | CPT/HCPCS: 93005 ==

== ENCOUNTER 2024-01-03 16:03 | Outpatient (REF) | payer OTHER, SELFPAY ==
--- NOTE | ~2024-01-03 | US_ITS ---
EXAMINATION: US RETROPERITONEAL LIMITED (RENAL ONLY) CLINICAL INFORMATION: Urinary tract infection. COMPARISON: None available. TECHNIQUE: Renal ultrasound was performed . The exam is limited secondary to overlying bowel gas especially obscuring the upper FINDINGS: RIGHT KIDNEY: 10.5 x 5.5 x 4.2 cm (SAG x AP x TRV). The kidney is normal in size, contour, and echogenicity. Renal cortical thickness is normal. No definitive calculi or focal parenchymal lesions. Some echogenic foci are seen that are not typical of calculi and may be vascular. No hydronephrosis. LEFT KIDNEY: 11.2 x 5.1 x 4.6 cm (SAG x AP x TRV). The kidney is normal in size, contour, and echogenicity. The upper pole is not well seen. Renal cortical thickness is normal. No calculi or focal parenchymal lesions. No hydronephrosis. US/US renal BI IMPRESSION: No significant abnormality is seen. Electronically signed by: Evgeny Giron MD 01/04/2024 10:26 AM WILIAM CELIS
== END 2024-01-03 16:04 | disposition home or self-care (01) ==
LOC: HO.US 16:03
PROVIDERS: PCP Internal Medicine; Visit Provider Urology
DX: N39.0 Urinary tract infection, site not specified (principal)
CPT/HCPCS: 76775

== ENCOUNTER 2024-02-05 07:28 | Outpatient (REF) | payer OTHER, SELFPAY | END 2024-02-05 07:29 | disposition home or self-care (01) | LOC: HO.MAMMO 07:28 | PROVIDERS: PCP Internal Medicine; Visit Provider Internal Medicine | DX: Z12.31 Encounter for screening mammogram for malignant neoplasm of breast (principal) | CPT/HCPCS: 77063; 77067 ==

== ENCOUNTER → 2024-02-05 07:30 | Outpatient (BNV) | payer OTHER, SELFPAY | PROVIDERS: PCP Internal Medicine; Visit Provider Internal Medicine | DX: Z12.31 Encounter for screening mammogram for malignant neoplasm of breast (principal) | CPT/HCPCS: 77063; 77067 ==

== ENCOUNTER 2024-02-11 15:05 | Outpatient (AMB) | payer OTHER, SELFPAY ==
--- NOTE | 2024-02-11 13:52 | MHC.OFFVIS ---
Intake Visit Reasons: 6m/US (set) Intake Note: Patient is Present for Follow Up Ultrasound Urology Medication: Estradiol (Has not yet started Medication) Antibiotic Allergies:Sulfa Blood Thinners: None Patient states no recent UTI symptoms [place] Folder Required: No Accompanied by: Self / Same As Patient Allergies iron dextran complex Allergy (Intermediate, Verified 02/11/24 15:35) hives/serum sickness latex Allergy (Intermediate, Verified 02/11/24 15:35) Rash metoclopramide [Reglan] Allergy (Intermediate, Verified 02/11/24 15:35) extrapyramidal effects Sulfa (Sulfonamide Antibiotics) Allergy (Intermediate, Verified 02/11/24 15:35) full body rash Medication List - Last Reconciled 02/11/24 by Rosalino Raymond MD atenolol 25 mg PO DAILY atorvastatin 20 mg PO DAILY econazole 1% 1 appl topical DAILY esomeprazole magnesium 40 mg PO DAILY nitrofurantoin monohyd/m-cryst 100 mg (Macrobid) 100 mg orally Take 1 capsule after sexual activity as directed; must administer with a meal/food HPI Comments Details: 02/11/2024- Candida is a 59-year-old female who is here in follow-up regarding recurrent UTIs. She states that she has been using the nitrofurantoin post intercourse she has not another UTI. She is hesitant to start the estrogen vaginal therapy. I have discussed [id number] vaginal lubricant Replens. She states that she is willing to give this a try. After 3 months I want her to stop the prophylactic antibiotic and we will re-evaluate her urinary symptoms. 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 She states that she has had this issue many years associated with sexual intercourse. She has been on nitrofurantoin after intercourse which has helped however she had a breakthrough infection in November and the urine culture showed intermittent susceptibility to the nitrofurantoin. Since that episode she has continued with the nitrofurantoin 100 mg post intercourse and has been doing well. 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 She has allergies to sulfa. 12/04/2022 urine culture Klebsiella pneumoniae, intermediate susceptibility to nitrofurantoin, resistant to ampicillin. Urinalysis today is negative bladder scan PVR 0 mL. Plan discussed will continue nitrofurantoin 100 mg post intercourse at this time as changing to another antibiotic may promote additional resistance. Discussed adding Estrace cream. I have discussed benefits of vaginal estrogen use in the treatment of recurrent UTI's in ronit and post menaupausal women. Vaginal estrogen has been found to decrease vaginal PH, increase lactobacillus in the epithium of the vagina. Evaluate kidneys with renal ultrasound. Follow-up in 6 months. [facility] Medical History Eye infection COVID-19 vaccine series completed SVT (supraventricular tachycardia) Thoracic spine pain HPV (human papilloma virus) anogenital infection Neutropenia GERD (gastroesophageal reflux disease) Surgical History H/O colonoscopy History of esophagogastroduodenoscopy (EGD) History of tonsillectomy History of surgical removal of skin lesion History of History of appendectomy Social History Housing: Condominium Are you a primary home health care worker to a significant other at home: No Do you presently have visiting nurse or other home services: No Alcohol intake: current Alcohol intake frequency: a few times a week Alcohol type: other Patient Tobacco Use Status: Former Tobacco user e-Cigarette/Vaping Use: Never Used Current occupational status: employed Sexual orientation: Straight/Heterosexual Gender identity: Female Cognitive needs: No Hearing needs: No Vision needs: Yes Female Reproductive History Menstrual Age of Menarche: 11 Review of Systems Const All systems reviewed & are unremarkable except as noted in HPI and below Reports no additional complaints Eyes Reports no additional complaints ENT Reports no additional complaints Card Reports no additional complaints Resp Reports no additional complaints GI Reports no additional complaints Reports as per HPI Musc Reports no additional complaints Skin/Breast Reports system reviewed and no additional complaints, except as documented Neuro Reports no additional complaints Psych Reports no additional complaints Endo Reports no additional complaints Uche/Lymph Reports no additional complaints Aller/Immun Reports no additional complaints Results AMB Urinalysis, Automated UA Leukoctes 0 Rahel/uL Last Edit by ENEDELIA Alves on 02/11/24 15:37 UA Nitrite Negative Last Edit by Esperanza Little, RMA on 02/11/24 15:37 UA Urobilinogen 0.2 mg/dL Last Edit by Esperanza Little, RMA on 02/11/24 15:37 UA Protein 0 mg/dL Last Edit by Esperanza Little, RMA on 02/11/24 15:37 UA pH 6.0 Last Edit by Esperanza Little, RMA on 02/11/24 15:37 UA Blood 0 Mario/uL Last Edit by Esperanza Little, RMA on 02/11/24 15:37 UA Specific Christiana 1.025 Last Edit by Esperanza Little, RMA on 02/11/24 15:37 UA Ketone Negative Last Edit by Esperanza Little, RMA on 02/11/24 15:37 UA Bilirubin 0 mg/dL Last Edit by Esperanza Little, RMA on 02/11/24 15:37 UA Glucose 0 mg/dL Last Edit by Esperanza Little, RMA on 02/11/24 15:37 Results Reviewed Results Reviewed: Laboratory Last Values Urine pH (Auto) 6.0 02/11/24 15:35 Specific Christiana (Auto) 1.025 02/11/24 15:35 Urine Protein (Auto) 0 mg/dL 02/11/24 15:35 Glucose (UA)(Auto) 0 mg/dL 02/11/24 15:35 Urine Ketones (Auto) Negative 02/11/24 15:35 Urine Blood (Auto) 0 Mario/uL 02/11/24 15:35 Urine Nitrite (Auto) Negative 02/11/24 15:35 Urine Bilirubin (Auto) 0 mg/dL 02/11/24 15:35 Urine Urobilinogen (Auto) 0.2 mg/dL 02/11/24 15:35 Leukocyte Esterase (Auto) 0 Rahel/uL 02/11/24 15:35 Date of Service: 01/03/24 US RETROPERITONEAL LIMITED (RENAL ONLY) CLINICAL INFORMATION: Urinary tract infection. COMPARISON: None available. TECHNIQUE: Renal ultrasound was performed . The exam is limited secondary to overlying bowel gas especially obscuring the upper FINDINGS: RIGHT KIDNEY: 10.5 x 5.5 x 4.2 cm (SAG x AP x TRV). The kidney is normal in size, contour, and echogenicity. Renal cortical thickness is normal. No definitive calculi or focal parenchymal lesions. Some echogenic foci are seen that are not typical of calculi and may be vascular. No hydronephrosis. LEFT KIDNEY: 11.2 x 5.1 x 4.6 cm (SAG x AP x TRV). The kidney is normal in size, contour, and echogenicity. The upper pole is not well seen. Renal cortical thickness is normal. No calculi or focal parenchymal lesions. No hydronephrosis. IMPRESSION: No significant abnormality is seen. Assessment & Plan Assessment & Plan (1) Postcoital UTI: Code(s): N39.0 - Urinary tract infection, site not specified Category: Medical (2) Recurrent UTI: Code(s): N39.0 - Urinary tract infection, site not specified Category: Medical Plan She states that she has been using the nitrofurantoin post intercourse she has not another UTI. She is hesitant to start the estrogen vaginal therapy. I have discussed [id number] vaginal lubricant Replens. She states that she is willing to give this a try. After 3 months I want her to stop the prophylactic antibiotic and we will re-evaluate her urinary symptoms. Orders: Orders AMB Urinalysis Automated Today Z13.9 - Encounter for screening, unspecified Medications: Discontinued estradiol 0.01%(0.1mg/gram) (Estrace) Discontinued Reason: Doctor's Order Use dime-sized amount with fingertip as directed 30 days 42.5 grams 3RF Patient Instructions: The patient had an opportunity to ask questions regarding treatment plan. The patient expressed understanding and agreement with the above treatment plan. The patient is aware they should contact our office by phone for worsening of their current condition or the appearance of new symptoms. Compliance is encouraged with any medications and followup testing that is ordered. It is a privilege to be allowed the opportunity to participate in the urologic care of your patient. If you have any questions or concerns regarding treatment for the above conditions please do not hesitate to contact me. The office telephone contact is [phone]. This note is constructed in part using voice recognition software. While every effort has been made to ensure accuracy inspector balance wheel motion errors may have been included. Yours sincerely, Rosalino Raymond MD Coding Level of Care Code Est Pt Level 3 (34402) Diagnoses Postcoital UTI N39.0 Recurrent UTI N39.0
== END 2024-02-11 16:02 | disposition home or self-care (01) ==
PROVIDERS: PCP Internal Medicine; Visit Provider Urology
DX: N39.0 Urinary tract infection, site not specified (principal); Z13.9 Encounter for screening, unspecified
CPT/HCPCS: 99213

== ENCOUNTER → 2024-02-11 15:05 | Outpatient (BNVA) | payer OTHER, SELFPAY | PROVIDERS: PCP Internal Medicine; Visit Provider Urology | DX: N39.0 Urinary tract infection, site not specified (principal) | CPT/HCPCS: 81003 ==

== ENCOUNTER 2024-02-21 11:02 | Outpatient (REF) | payer OTHER, SELFPAY ==
--- NOTE | ~2024-02-21 | US_ITS ---
CLINICAL HISTORY: N83.209 - Unspecified ovarian cyst, unspecified side US pelvis transabdominal and transvaginal Comparison: None Findings: Imaged uterus is anteverted and measures 8 cm long axis. Portions of the uterus and endometrium are obscured by side lobe artifacts. Partially imaged endometrium measures up to 0.8 cm thickness at this time. Mild free fluid within the pelvis is nonspecific. Small cystic structures about imaged cervix likely due to nabothian cysts. In the cystic lesion of the left ovary measures 3.5 x 2.9 cm. Left ovary measures 4.2 x 3.6 x 3.1 cm. Right is not definitively seen. IMPRESSION: 1. Borderline enlargement of the endometrium. Please consider tissue sampling and/or endometrial biopsy, particularly if the patient is postmenopausal. 2. No ultrasound findings of left-sided ovarian torsion. Mild expansion of the left ovary with 3.5 cm cyst. No suspicious features or solid mass component at this time. 3. Right ovary is obscured. 4. Mild free fluid in the pelvis is nonspecific at this time. This document has been electronically signed by: Pedro Manzo MD on 02/23/2024 01:47:05
--- OUTSIDE RECORDS SUMMARY | 2024-02-21 11:42 | XMS_ITS | Data Portability ---
Author Organization [facility], Main Office Address [address] [place] [address] Care Team Providers Care Group Exercise Manager Name Role Phone MARY NARVAEZ Horticultural Agent [facility] Project Manager Retail [place] OTHER Assessment No assessment recorded. Plan of Treatment Reminders Order Date Submit Date Provider Last Modified By Organization Details Last Modified Time Details Appointments None record ed. Lab urinal ysis, dipsti ck 2016 017 pmadden In-Office Order, Internal Use Only DO Not Attach Compendium DO Not Attach Compendium, Do Not Delete/merge, [id number] 7 14:15:08 urinal ysis comple te, reflex cultur e 2016 017 MARY [facility], [address] [place] [address] 2, [place], [address], 7 16:22:58 rapid flu (A+B) 2017 018 MARY In-Office Order, Internal Use Only DO Not Attach Compendium DO Not Attach Compendium, Do Not Delete/merge, [id number] 8 11:22:04 lipid panel, serum 2017 018 [facility], [address] [facility] [address], [place], [address], 9 10:16:08 CMP, serum or plasma 2017 018 [facility], [address] [facility], [address], [place], [address], 9 10:16:09 CBC w/ auto diff 2017 018 [facility], [address] [facility], [address], [place], [address], 9 10:16:09 TSH, serum or plasma 2017 018 [facility], [address] [facility], [address], [place], [address], 9 10:16:09 vitami n D, 25-hyd khadijah, total, serum 2017 018 [facility], [address] [place] [address], [facility] [address], [place], [address], 9 10:16:09 magnes ium, RBC 2017 018 [facility], [address] [facility], [address], [place], [address], 9 10:16:09 Referral orthop edic referr al 2016 017 kathleen Erickson MD, [address] [facility], [address], [place], [address], 7 15:54:30 Procedures None record ed. Surgeries None record ed. Imaging XR, chest, 2 view 2017 018 MARY Not available 8 14:05:23 Medication Orders flucon azole 100 mg tablet 2016 017 abigby [id number], [address] [place], [address], 7 10:31:46 Bactri m DS 800 mg-160 mg tablet 2016 017 [email or web address] [id number], [address] [place], [address], 8 10:54:29 Cipro 500 mg tablet 2016 017 [email or web address] [id number], [address] [place], [address], 8 14:03:06 Zithro max Z-Denilson 250 mg tablet 2017 018 [email or web address] [id number], [address] [place], [address], 8 13:43:40 Patient TargetsNo targets recorded. Patient Instructions Encounter Date Encounter Id Patient Instructions Last Modified By Organization Details Last Modified Time 05/25/2016 [id number] candidiasis: care instructions [email or web address] Not available 05/25/2016 12:51:28 stop nystatin S&S, rather take diflucan as dir. call us or timber cutter if no better pmadden Not available 05/25/2016 14:55:58 I have reviewed the note and agree with the assessment and plan of care. [email or web address] Not available 05/25/2016 16:48:24 11/07/2016 [id number] Urinary Tract Infection (UTI) in Women: Care Instructions pmadden Not available 11/07/2016 14:14:29 mallet finger: care instructions pmadden Not available 11/07/2016 14:14:29 I have reviewed the note and agree with the assessment and plan of care. [email or web address] Not available 11/07/2016 16:01:58 11/09/2016 [id number] Urinary Tract Infection (UTI) in Women: Care Instructions [email or web address] Not available 11/10/2016 11:40:45 take cipro as directed, cont cranberry and probiotic, stay hydrated, consider taking zyrtec (morning) and / or benadryl (bedtime) if itching worse pmadden Not available 11/09/2016 11:01:44 I have reviewed the note and agree with the assessment and plan of care. [email or web address] Not available 11/09/2016 22:19:50 03/06/2017 [id number] call or return for worsening or concerns. [email or web address] Not available 03/06/2017 11:04:35 I have reviewed the note and agree with the assessment and plan of care. [email or web address] Not available 03/06/2017 12:27:41 11/13/2017 [id number] call or return for any concerns. [email or web address] Not available 11/13/2017 14:00:27 I have reviewed the note and agree with the assessment and plan of care. [email or web address] Not available 11/13/2017 18:06:29 Reason for Referral Orthopedic Referral for Mall et finger with closed tendon injury Referring Physician: Demian Mayo, Internal Medicine, Encounter Date: 11/07/2016 Results Created Date Observation Date Name Description Value Unit Range Abnormal Flag Note LastModifiedBy Organization Detail LastModifiedTime 11/07/2016 urina lysis , dipst ick Leukocytes Negati ve Not Available In-Office Order Internal Use Only DO Not Attach Compendium DO Not Attach Compendium, Do Not Delete/merge, [id number] 11/07/2016 13:26:34 11/07/2016 urina lysis , dipst ick Nitrite negati ve Not Available In-Office Order Internal Use Only DO Not Attach Compendium DO Not Attach Compendium, Do Not Delete/merge, [id number] 11/07/2016 13:26:34 11/07/2016 urina lysis , dipst ick Urobilinogen 1 Not Available In-Of fice Order Internal Use Only DO Not Attach Compendium DO Not Attach Compendium, Do Not Delete/merge, [id number] 11/07/2016 13:26:34 11/07/2016 urina lysis , dipst ick Protein Negati ve Not Available In-Office Order Internal Use Only DO Not Attach Compendium DO Not Attach Compendium, Do Not Delete/merge, [id number] 11/07/2016 13:26:34 11/07/2016 urina lysis , dipst ick pH 6.0 Not Available In-Office Order Internal Use Only DO Not Attach Compendium DO Not Attach Compendium, Do Not Delete/merge, [id number] 11/07/2016 13:26:34 11/07/2016 urina lysis , dipst ick Blood Negati ve Not Available In-Office Order Internal Use Only DO Not Attach Compendium DO Not Attach Compendium, Do Not Delete/merge, [id number] 11/07/2016 13:26:34 11/07/2016 urina lysis , dipst ick Specific [place] 1.025 Not Available In-Off ice Order Internal Use Only DO Not Attach Compendium DO Not Attach Compendium, Do Not Delete/merge, [id number] 11/07/2016 13:26:34 11/07/2016 urina lysis , dipst ick Ketone Negati ve Not Available In-Office Order Internal Use Only DO Not Attach Compendium DO Not Attach Compendium, Do Not Delete/merge, [id number] 11/07/2016 13:26:34 11/07/2016 urina lysis , dipst ick Bilirubin Negati ve Not Available In-Office Order Internal Use Only DO Not Attach Compendium DO Not Attach Compendium, Do Not Delete/merge, [id number] 11/07/2016 13:26:34 11/07/2016 urina lysis , dipst ick Glucose Negati ve Not Available In-Office Order Internal Use Only DO Not Attach Compendium DO Not Attach Compendium, Do Not Delete/merge, [id number] 11/07/2016 13:26:34 11/07/2016 urina lysis , dipst ick Appearance Clear Not Available In-Offi ce Order Internal Use Only DO Not Attach Compendium DO Not Attach Compendium, Do Not Delete/merge, [id number] 11/07/2016 13:26:34 11/07/2016 urina lysis , dipst ick Color Yellow Not Available In-Office Order Internal Use Only DO Not Attach Compendium DO Not Attach Compendium, Do Not Delete/merge, 11/07/2016 13:26:34 12/03/19 17 12/02/2016 urina lysis , compl ete comments [facility] [address] [facility] [place] [address] [phone] Not Available [facility] [address] [place], [address], 12/02/2016 11:45:39 12/03/19 17 12/02/2016 urina lysis , compl ete glucose, (UA) NEGATI VE mg/dL negati ve Not Available [facility] [address] [place], [address], 12/02/2016 11:45:39 12/03/1912/02/2016 urina lysis , compl ete bilirubin, urine NEGATI VE negati ve Not Available [facility] [address] [place], [address], 12/02/2016 11:45:39 12/03/1912/02/2016 urina lysis , compl ete ketone, urine NEGATI VE mg/dL negati ve Not Available [facility] [address] [place], [address], 12/02/2016 11:45:39 12/03/1912/02/2016 urina lysis , compl ete specific gravity, urine 1.003 1.003- 1.030 Not Available [facility] [address] [place] [address], [address], 12/02/2016 11:45:39 12/03/1912/02/2016 urina lysis , compl ete blood, urine SMALL negati ve abnormal Not Available [facility] [address] [place], [address], 12/02/2016 11:45:39 12/03/1912/02/2016 urina lysis , compl ete pH, urine 6.5 5.0-8. 0 Not Available [facility] [address] [place], [address], 12/02/2016 11:45:39 12/03/1912/02/2016 urina lysis , compl ete protein, urine NEGATI VE mg/dL <= trace Not Available [facility] [address] [place], [address], 12/02/2016 11:45:39 12/03/1912/02/2016 urina lysis , compl ete urobilinogen , urine 0.2 E.U./ dL 0.2-1. 0 Not Available [facility] [address] [place], [address], 12/02/2016 11:45:39 12/03/1928 1112/02/2016 urina lysis , compl ete nitrite, urine NEGATI VE negati ve Not Available [facility] [address] [place], [address], 12/02/2016 11:45:39 12/03/19 17 12/02/2016 urina lysis , compl ete leukocyte esterase, urine LARGE negati ve abnormal Not Available [facility] [address] [place], [address], 12/02/2016 11:45:39 12/03/1912/02/2016 urina lysis , compl ete RBC, urine 6 /hpf 0-4 high Not Available [facility] [address] [place], [address], 12/02/2016 11:45:39 12/03/1912/02/2016 urina lysis , compl ete WBC, urine 149 /hpf 0-4 high Not Available [facility] [address] [place], [address], 12/02/2016 11:45:39 12/03/1912/02/2016 urina lysis , compl ete epith cells, urine 0 /lpf 0-60 Not Available [facility] [address] [place], [address], 12/02/2016 11:45:39 12/03/19 17 12/02/2016 urina lysis , compl ete bacteria, urine HEAVY negati ve abnormal Not Available [facility] [address] [place], [address], 12/02/2016 11:45:39 12/03/19 17 12/02/2016 urina lysis , compl ete hyaline cast, urine 2 /lpf 0-3 Not Available [facility] [address] [place], [address], 12/02/2016 11:45:39 12/03/19 17 12/02/2016 cultu re, urine comments [facility] [address] [facility] [place] [address] [phone] SOURC E: URINE ,BARBARA N CATCH ; Not Available [facility] [address], [place], [address], 12/04/2016 10:56:14 12/03/19 17 12/04/2016 cultu re, urine [facility] culture [facility] [address] [place] [address] COLLE CTION TIME: 12/02 10:08 :00 AM -04:0 0 URINE CULTU RE ESCHE LEFTY A COLI ( ESCCO L ) F URINE CULTU RE COLON Y COUNT F URINE CULTU RE >100, 000 F Not Available [facility] [address] [place] [address], [address], 12/04/2016 10:56:14 12/03/19 17 12/02/2016 cultu re, urine comments [facility] [address] [place] [address] [place] [address] [phone] SOURC E: URINE ,BARBARA N CATCH ; Not Available [facility] [address] [place] [address], [address], 12/03/2016 10:35:27 12/03/19 17 12/03/2016 cultu re, urine urine culture Life [address] [address] COLLE CTION TIME: 12/02 10:08 :00 AM -04:0 0 URINE CULTU RE [facility] ( SEC ) P URINE CULTU RE COLON Y COUNT P URINE CULTU RE >100, 000 P Not Available [facility] [address] [place] [address], [address], 12/03/2016 10:35:27 12/03/19 17 12/02/2016 antib iotic sensi tivit y, isola te comments PAREN T ORGAN ISM: ESCHE LEFTY A COLI ( ESCCO L ) [facility] [address] [place], [place] [address] [address] [phone] SOURC E: URINE ,BARBARA N CATCH ; Not Available [facility] [address] [place] [address], [address], 12/04/2016 10:56:18 10/21/20 17 12/04/2016 antib iotic sensi tivit y, isola te gram negative susceptibili ty [facility] [address] [place] [address] COLLE CTION TIME: 12/02 10:08 :00 AM -04:0 0 TRIME THOPR IM/FARMER LFAME THOXA ZOLE <=20 S F AMOXI CILLI N/CLA VULAN IC ACID 4 S F AMPIC ILLIN 4 S F AMPIC ILLIN /SULB ACTAM <=2 S F CEFAZ LOLA <=4 S F CEFTA ZIDIM E <=1 S F CEFTR IAXON E <=1 S F CEFEP LORENZO <=1 S F CIPRO FLOXA CAMELIA <=0.2 5 S F ERTAP ENEM <=0.5 S F GENTA MICIN <=1 S F LEVOF LOXAC IN <=0.1 2 S F IMIPE NEM <=0.2 5 S F NITRO FURAN TOIN <=16 S F TOBRA MYCIN <=1 S F PIPER ACILL IN/TA ZOBAC JOHNSON <=4 S F Not Available [facility] [address] [place], [address], 12/04/2016 10:56:18 03/06/19 18 03/06/2017 rapid flu (A+B) Flu A negati ve Not Available In-Office Order Internal Use Only DO Not Attach Compendium DO Not Attach Compendium, Do Not Delete/merge, [id number] 03/06/2017 11:03:39 03/06/19 18 03/06/2017 rapid flu (A+B) Flu B negati ve Not Available In-Office Order Internal Use Only DO Not Attach Compendium DO Not Attach Compendium, Do Not Delete/merge, [id number] 03/06/2017 11:03:39 06/29/19 17 06/28/2016 duple x scan of extre mity veins inclu ding respo nses to compr essio n and other maneu vers; compl ete bilat eral study (PROC ) No observ ation record ed. [email or web address] [facility] [address] [place], [address], 06/29/2016 17:23:19 09/20/19 17 09/18/2016 MAMMO , scree soo, digit al, bilat eral No observ ation record ed. [email or web address] [facility] Dept [address] [place], [address], 09/26/2016 11:03:33 03/06/19 18 03/06/2017 XR, chest , 2 view No observ [facility]ion [facility] ed. [facility] [address] [place], [address], 03/07/2017 09:21:59 03/06/19 18 03/06/2017 XR, chest , 2 view No observ ation record ed. [facility]osit Imaging Dept [address] [place], [address], 03/07/2017 09:21:59 03/06/19 19 03/06/2018 CT, cervi wade spine , w/o contr ast No observ ation record ed. [facility] Imaging Dept [address] [place], [address], 03/07/2018 21:02:59 Result Notes None recorded. Problems Name Problem SNOMED Code Status Onset Date Resolution Date Notes Provider Name and Address Organization Details Recorded Time Acute pharyngi tis 139733655 Completed 200809/22/2013 RECORDED 10/01/19 09 3:03PM BY UVALDO MEHTA ON/ADDEN DUM Not Available [facility] 4 05:31:58 Acute sinusiti s [id number] Completed 200809/22/2013 RECORDED 10/01/19 09 3:03PM BY UVALDO MEHTA ON/ADDEN DUM [facility] Available [facility] 4 05:31:58 Patient status finding [id number] Completed 201209/22/2013 RECORDED 08/13/19 13 4:00PM BY TORI MALDONADO MA, ANNOTATI ON/ADDEN DUM Not Available [facility] 4 05:31:58 Screenin g for malignan t neoplasm of breast Completed 201109/22/2013 RECORDED 12/21/19 12 8:38AM BY TORI MALDONADO MA, ANNOTATI ON/ADDEN DUM Not Available [facility] 4 05:31:58 Screenin g for malignan t neoplasm of cervix Completed 201109/22/2013 RECORDED 12/21/19 12 8:38AM BY TORI MALDONADO MA, ANNOTATI ON/ADDEN DUM Not Available [facility] 4 05:31:58 Dysphagi a [id number] Completed 201109/22/2013 RECORDED 12/21/19 12 8:38AM BY TORI MALDONADO MA, ANNOTATI ON/ADDEN DUM Not Available [facility] 4 05:31:58 Malaise and fatigue [id number] Completed 201109/22/2013 RECORDED 12/21/19 12 8:38AM BY TORI MALDONADO MA, ANNOTATI ON/ADDEN DUM Not Available [facility] 4 05:31:58 Noninfec tious gastroen teritis 15248114 Completed 201109/22/2013 RECORDED 12/21/19 12 8:38AM BY TORI MALDONADO MA, ANNOTATI ON/ADDEN DUM Not Available [facility] 4 05:31:58 Neck pain [id number] Completed 201109/22/2013 IMPRESSI ON: WITH FACIAL PARESTHE LAURENCE, NON-FOCA L NEURO EXAM; RECORDED 12/21/19 12 8:37AM BY TORI MALDONADO MA, ANNOTATI ON/ADDEN DUM Not Available [facility] 4 05:31:58 Administ ration of Haemophi doug influenz ae type b vaccine Completed 201009/22/2013 RECORDED 11/02/19 11 10:00AM BY MELANIA MCCLELLAN, HISTORIC AL SUMMARY Not Available [facility] 4 05:31:58 Infectiv e hepatiti s immuniza tion Completed 201009/22/2013 RECORDED 11/02/19 11 9:58AM BY MELANIA MCCLELLAN, HISTORIC AL SUMMARY Not Available [facility] 4 05:31:59 Administ ration of measles and mumps and rubella vaccine Completed 201009/22/2013 RECORDED 11/02/19 11 9:58AM BY MELANIA MCCLELLAN, HISTORIC AL SUMMARY Not Available [facility] 4 05:31:59 Administ ration of tetanus vaccine Completed 201109/22/2013 RECORDED 12/21/19 12 8:38AM BY TORI MALDONADO MA, ANNOTATI ON/ADDEN DUM Not Available [facility] 4 05:31:59 Skin sensatio n disturba ohe 20408729 Completed 201109/22/2013 STORY: FACIAL PARESTHE LAURENCE/; RECORDED 12/21/19 12 8:37AM BY TORI MALDONADO MA, ANNOTATI ON/ADDEN DUM Not Available [facility] 4 05:31:59 Neck sprain 917590893 Completed 201109/22/2013 RECORDED 12/21/19 12 8:37AM BY TORI MALDONADO MA, ANNOTATI ON/ADDEN DUM Not Available [facility] 4 05:31:59 Tachycar roney [id number] Completed 201109/22/2013 RECORDED 12/21/19 12 8:38AM BY TORI MALDONADO MA, ANNOTATI ON/ADDEN DUM Not Available [facility] 4 05:31:59 Administ ration of diphther ia and tetanus vaccine Completed 201209/22/2013 RECORDED 08/13/19 13 4:00PM BY TORI MALDONADO MA, ANNOTATI ON/ADDEN DUM Not Available [facility] 4 05:31:59 Spasm [id number] Completed 201209/22/2013 STORY: NECK/TRA P STRAIN (IN SETTING OF CERVICAL DISC DZ/MILD) ; RECORDED 01/01/20 13 8:21AM BY MARIANELA CORONADO MA, ANNOTATI ON/ADDEN DUM Not Available [facility] 4 05:31:59 Visual disturba nce 94661818 Completed 201109/22/2013 RECORDED 12/21/19 12 8:37AM BY TORI MALDONADO MA, ANNOTATI ON/ADDEN DUM Not Available [facility] 4 05:31:59 Acute pharyngi tis 936751633 Completed 04/03/2014 Lalo Weiss null, [facility] 5 16:46:39 Tendinit is AND/OR tenosyno vitis of the ankle region Active Bart bentley, [facility] 5 20:06:27 Lateral epicondy litis 943057313 Active Bart bentley, [facility] 5 20:06:27 Brachial neuritis 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 [address], [place], [address] , [facility] 7 16:56:59 Acute pharyngi tis 324929432 Completed 200808/26/2013 RECORDED 10/01/19 09 3:03PM BY UVALDO MEHTA ON/ADDEN DUM Not Available [facility] 4 14:31:14 Acute sinusiti s 32431856 Completed 200808/26/2013 RECORDED 10/01/19 09 3:03PM BY UVALDO MEHTA ON/ADDEN DUM Not Available [facility] 4 14:31:14 Adult health examinat ion Completed 201204/03/2014 RECORDED 01/09/20 13 11:32AM BY DERRICK GILL, OFFICE VISIT Lalo bentley [facility] 5 16:46:39 Patient status finding [id number] Completed 201208/26/2013 RECORDED 08/13/19 13 4:00PM BY TORI MALDONADO MA, ANNOTATI ON/ADDEN DUM Not Available [facility] 4 14:31:14 Screenin g for malignan t neoplasm of breast Completed 201108/26/2013 RECORDED 12/21/19 12 8:38AM BY TROI MALDONADO MA, ANNOTATI ON/ADDEN DUM Not Available [facility] 4 14:31:14 Screenin g for malignan t neoplasm of cervix Completed 201108/26/2013 RECORDED 12/21/19 12 8:38AM BY TORI MALDONADO MA, ANNOTATI ON/ADDEN DUM Not Available [facility] 4 14:31:14 Cough [id number] Completed 201204/03/2014 IMPRESSI ON: LUNGS CLEAR BUT SINUS SYMPTOMS PRESENT, ENCOURAG E REST AND HYDRATIO N. ABX SCRIPT GIVEN WITH INSTRUCT ION TO START IF SINUS SYMPTOMS PERSIST OR WORSEN.; RECORDED 01/11/20 13 2:18PM BY MARINO SERRANO PA-C, OFFICE VISIT Lalo bentley [facility] 5 16:46:39 Cough [id number] Completed 201108/26/2013 RECORDED 12/21/19 12 8:38AM BY TORI MALDONADO MA ANNOTATI ON/ADDEN DUM Not Available [facility] 4 14:31:15 Dysphagi a [id number] Completed 201108/26/2013 RECORDED 12/21/19 12 8:38AM BY TORI MALDONADO MA, ANNOTATI ON/ADDEN DUM Not Available [facility] 4 14:31:15 Gastroes ophageal reflux disease 638765256 Active 2012 ASIM Christine [facility] 6 15:41:53 External hemorrho ids 99096259 Active 2012 ASIM Christine [facility] 6 15:41:57 Malaise and fatigue 159448665 Completed 201108/26/2013 RECORDED 12/21/19 12 8:38AM BY TORI MALDONADO MA, ANNOTATI ON/ADDEN DUM Not Available [facility] 4 14:31:15 Influenz a vaccine needed [id number] 06 Completed 201204/03/2014 RECORDED 01/09/20 13 11:32AM BY DERRICK GILL, OFFICE VISIT Lalo bentley [place] - [facility] 5 16:46:39 Noninfec tious gastroen teritis 53761263 Completed 201108/26/2013 RECORDED 12/21/19 12 8:38AM BY TORI MALDONADO MA, ANNOTVALERIE ON/ADDEN DUM Not Available [facility] 4 14:31:15 Pure hypercho lesterol emia 156392170 Active 2012 ASIM Christine [place] - [facility] 6 15:42:00 Neck pain 54037129 Completed 201108/26/2013 IMPRESSI ON: WITH FACIAL PARESTHE LAURENCE, NON-FOCA L NEURO EXAM; RECORDED 12/21/19 12 8:37AM BY TORI MALDONADO MA, ANNOTATI ON/ADDEN DUM Not Available [facility] 4 14:31:15 Administ ration of Haemophi doug influenz ae type b vaccine Completed 201008/26/2013 RECORDED 11/02/19 11 10:00AM BY MELANIA MCCLELLAN, CHARISMAIC AL SUMMARY Not Available [facility] 4 14:31:16 Infectiv e hepatiti s immuniza tion Completed 201008/26/2013 RECORDED 11/02/19 11 9:58AM BY MELANIA MCCLELLAN, HISTORIC AL SUMMARY Not Available [facility] 4 14:31:16 Administ ration of measles and mumps and rubella vaccine Completed 201008/26/2013 RECORDED 11/02/19 11 9:58AM BY MELANIA MCCLELLAN, HISTORIC AL SUMMARY Not Available [facility] 4 14:31:16 Administ ration of tetanus vaccine Completed 201108/26/2013 RECORDED 12/21/19 12 8:38AM BY TORI MALDONADO MA, ANNOTATI ON/ADDEN DUM Not Available [facility] 4 14:31:16 Patient status finding [id number] Completed 201204/03/2014 RECORDED 01/09/20 13 11:35AM BY DERRICK GILL, OFFICE VISIT Lalo bentley [facility] 5 16:46:39 Skin sensatio n disturba ohe 78391362 Completed 201108/26/2013 STORY: FACIAL PARESTHE LAURENCE/; RECORDED 12/21/19 12 8:37AM BY TORI MALDONADO MA, ANNOTATI ON/ADDEN DUM Not Available [facility] 4 14:31:16 Paroxysm al tachycar roney 47963884 Active 2012 ASIM Christine, [facility] 6 15:41:51 Adult health examinat ion Completed 201108/26/2013 RECORDED 12/21/19 12 8:38AM BY TORI MALDONADO MA, ANNOTATI ON/ADDEN DUM Not Available [facility] 4 14:31:16 Neck sprain 990035066 Completed 201108/26/2013 RECORDED 12/21/19 12 8:37AM BY TORI MALDONADO MA, ANNOTATI ON/ADDEN DUM Not Available [facility] 4 14:31:16 Conducti on disorder of the heart 10101544 Active 2012 ASIM Christine [facility] 6 15:42:04 Tachycar roney [id number] Completed 201108/26/2013 RECORDED 12/21/19 12 8:38AM BY TORI MALDONADO MA, ANNOTATI ON/ADDEN DUM Not Available [facility] 4 14:31:16 Administ ration of diphther ia and tetanus vaccine Completed 201208/26/2013 RECORDED 08/13/19 13 4:00PM BY TORI MALDONADO MA, ANNOTATI ON/ADDEN DUM Not Available [facility] 4 14:31:16 Spasm [id number] Completed 201208/26/2013 STORY: NECK/TRA P STRAIN (IN SETTING OF CERVICAL DISC DZ/MILD) ; RECORDED 01/01/20 13 8:21AM BY MARIANELA CORONADO MA, ANNOTATI ON/ADDEN DUM Not Available [facility] 4 14:31:17 Visual disturba nce 94032875 Completed 201108/26/2013 RECORDED 12/21/19 12 8:37AM BY TORI MALDONADO MA, ANNOTATI ON/ADDEN DUM Not Available [facility] 4 14:31:17 Problem Notes None recorded. Procedures Surgical History Date Name Laterality Status Provider Name and Address Organization Details Recorded Time 07/03/19 18 Date of Last Pap Smear completed Oksana Mcclellan [facility] 07/05/2017 14:57:58 09/19/19 17 Most Recent Mammogram completed Jamee Stapleton [facility] 09/26/2016 11:03:05 09/19/19 17 Mammogram screening completed Jamee Stapleton [facility] 09/26/2016 11:02:58 01/30/20 15 Mammogram Diagnostic Unilateral completed Oksana Mcclellan [facility] 01/29/2015 13:30:29 06/30/19 15 Colonoscopy completed Tosin lao MA [facility] 09/27/2015 15:43:10 Dilation and Curettage completed Malinda Lomas [facility] 03/03/2014 08:49:20 Imaging Results Imaging Date Name Status LastModified by Organiz [facility] hospital Details LastModified Time 06/28/2016 duplex scan of extremity veins including responses to compression and other maneuvers; complete bilateral study (PROC[facility] [address] [place], [address], 06/29/2016 17:23:19 09/18/2016 MAMMO, screening, digital, bilateral completed [email or web address] [facility] [address] [place], [address], 09/26/2016 11:03:33 03/06/2017 XR, chest, 2 view completed [facility] [address] [place] [address], [address], 03/07/2017 09:21:59 03/06/2017 XR, chest, 2 view completed [facility] [address] [place] [address], [address], 03/07/2017 09:21:59 03/06/2018 CT, cervical spine, w/o contrast completed [facility] [address] [place] [address], [address], 03/07/2018 21:02:59 Procedure Notes None recorded. Medical Equipment None Reported. Allergies Allergen ID Allergen Name Allergen Category Reaction Reaction Severity Criticality Documentation Date Start Date Code Code System Note Provider Name and Address Organization Details Recorded Time 92372 iron-dext ran complex medicatio n rash Not available Not available 10/14/2013 5992 RxNorm Derrick Gill MA null, [facility] 4 15:57:06 38295 Bactrim medicatio n hives severe Not available 11/09/2016 82914 9 RxNorm Demian Mayo PA-C [address], [place], [address], [facility] 7 10:53:17 56740 Substance with sulfonami de structure and antibacte rial mechanism of action (substanc e) medicatio n hives Not available Not available 03/06/2017 65200 8003 SNOMED ASIM Yeager, [facility] 8 10:54:00 5993 cyclobenz aprine hydrochlo ride medicatio n Not available Not available Not available 08/26/20132012 79389 RxNorm REACT ION: SVT; COMME NT: RECOR DED 12/31 8:58A M BY LYLE THURMAN MA, OFFIC E VISIT ; Not Available [facility] 4 13:23:35 5994 Reglan medicatio n Not available Not available Not available 08/26/20132012 9230 RxNorm ASIM Yeager, [facility] 6 15:41:35 Medications Name Sig Start Date Stop Date Status Note LastModified by Organization Details LastModified Time Prescript ion - Prior Authoriza tion Request 11/14 completed Not Available Not Available Not Available cyclobenz aprine 10 mg tablet AT BEDTIME 08/24 completed RECORDED 08/25/19 13 1:03PM BY NAYANA MAE, PHONE ENCOUNTE R; Not Available Not Available Not Available fluconazo le 100 mg tablet Take 1 tablet every day by oral route for 7 days. active Not Available Not Available No t Available methocarb yudith 500 mg tablet 4 TIMES DAILY NEEDED MUSCLE SPASM 09/03 completed RECORDED 11/01/19 13 1:54PM BY NAYANA MAE, MEDICATI ON AUTO-MARRY CTIVATIO N; Not Available Not Available Not Available nystatin 100,000 unit/mL oral suspensio n 03/06 completed Not Available Not Available Not Available azithromy camelia 250 mg tablet 2 pills day 1, 1 pill daily by mouth days 2-5 11/13 completed Not Available Not Available Not Available fluconazo le 150 mg tablet SARA PRN YEAST VAGINITI S 09/17 completed RECORDED 10/01/19 09 11:15AM BY BRADLEY HENAO MD, MEDICATI ON AUTO-MARRY CTIVATIO N; Not Available Not Available Not Available valacyclo vir 1 gram tablet active Not Available Not Available Not Available metronida zole 0.75 % (37.5 mg/5 gram) vaginal gel Insert 1 applicat orful every day by vaginal route as directed for 3 days. 11/13 completed Not Available Not Available Not Available fluoroura cil 5 % topical cream Apply 1 applicat ion as needed by topical route as directed for 30 days. active For Skin Cancer - PRN Not Available Not Available Not Available atenolol 25 mg tablet TAKE 1 AND 1/2 TABLETS BY MOUTH EVERY DAY active Not Available Not Available No t Available metronida zole 500 mg tablet active [employer] has pt use 1 applicat ion weekly Not Available Not Available Not Available ciproflox acin 250 mg tablet Take 1 tablet twice a day by oral route for 3 days. active Not Available Not Available No t Available ciproflox acin 500 mg tablet Take 1 tablet twice a day by oral route for 3 days. 11/13 completed Not Available Not Available Not Available sulfameth oxazole 800 mg-trimet hoprim 160 mg tablet Take 1 tablet every 12 hours by oral route for 4 days. 03/06 completed Not Available Not Available Not Available omeprazol e 40 mg capsule,d elayed release DAILY active Not Available Not Available Not Available lidocaine -prilocai ne 2.5 %-2.5 % topical cream 03/06 completed Not Available Not Available Not Available Nexium 20 mg capsule,d elayed release TAKE 2 CAPSULES BY MOUTH EVERY DAY 09/26 completed Not Available Not Available Not Available Macrobid 100 mg capsule Take 1 capsule twice a day by oral route for 7 days. active Not Available Not Available No t Available alprazola m 0.25 mg tablet DAILY active RECORDED 12/21/19 12 9:25AM BY BART FERMIN MD, ANNOTATI ON/ADDEN DUM;.125 IN THE MORNING .25 IN THE EVENING, SHE IS BEING TAKEN OFF OF IT SLOWLY Not Available Not Available Not Available lorazepam 0.5 mg tablet 03/06 completed Not Available Not Available Not Available econazole 1 % topical cream Apply 1 applicat ion twice a day by topical route as needed for 30 days. active Not Available Not Available No t Available tacrolimu s 0.1 % topical ointment 03/06 completed Not Available Not Available Not Available esomepraz ole magnesium 40 mg capsule,d elayed release TAKE ONE CAPSULE BY MOUTH EVERY DAY active Not Available Not Available No t Available neomycin- polymyxin -dexameth 3.5 mg/mL-10, 000 unit/mL-0 .1% eye drops 09/26 completed Not Available Not Available Not Available ranitidin e 150 mg tablet Take 1 tablet twice a day by oral route for 90 days. 11/13 completed Not Available Not Available Not Available estradiol 0.5 mg tablet Take 1 tablet every day by oral route for 90 days. active PRN Not Available Not Available No t Available lorazepam 1 mg tablet THREE TIMES DAILY 06/29 completed RECORDED 06/30/19 12 1:40PM BY MARINO SERRANO PA-C, MEDICATI ON AUTO-MARRY CTIVATIO N; Not Available Not Available Not Available amoxicill in 875 mg-potass ium clavulana te 125 mg tablet BID 10/14 completed RECORDED 10/28/19 09 1:49PM BY ROSALBA MALDONADO PA-C, MEDICATI ON AUTO-MARRY CTIVATIO N; Not Available Not Available Not Available neomycin 3.5 mg/g-poly myxin B 10,000 unit/g-de xameth 0.1 % eye oint 03/06 completed Not Available Not Available Not Available econazole NEEDED FOR RASH ON HANDS 2012 active RECORDED 01/09/20 13 11:32AM BY DERRICK GILL, OFFICE VISIT; Not Available Not Available Not Available MoviPrep 100 gram-7.5 gram-2.69 1 gram oral powder packet active Not Available Not Available Not Available lidocaine 5 % topical ointment active PRN Not Available Not Available Not Available Nexium 24HR 22.3 mg capsule,d elayed release Take 2 capsules every day by oral route for 90 days. 2014 active Not Available Not Available Not Avai lable Yuvafem 10 mcg vaginal tablet Insert 1 tablet 3 times a week by vaginal route for 84 days. active PRN Not Available Not Available No t Available Vitals Date Recorded Body height Body weight Body mass index (BMI) Heart rate Oxygen saturation Oxygen saturation in Arterial blood by Pulse oximetry Body temperature Systolic blood pressure Diastolic blood pressure Provider Name and Address Organization Details Last Updated DateTime 7 170.18 cm 09107.5 2 g 22.1 kg/m2 62 /min 97 % 97 % 97.4 [degF] 118 mm[Hg] 62 mm[Hg] Gaetano Bradshaw [facility] 7 11:44:00 Date Recorded Body height Body mass index (BMI) Body weight Heart rate Body temperature Oxygen saturation Oxygen saturation in Arterial blood by Pulse oximetry Systolic blood pressure Diastolic blood pressure Provider Name and Address Organization Details Last Updated DateTime 7 170.18 cm 22.9 kg/m2 98997.4 9 g 66 /min 98.6 [degF] 99 % 99 % 96 mm[Hg] 57 mm[Hg] Marianela Coronado MA [facility] 7 13:30:48 Date Recorded Body height Body mass index (BMI) Body weight Oxygen saturation Oxygen saturation in Arterial blood by Pulse oximetry Heart rate Systolic blood pressure Diastolic blood pressure Provider Name and Address Organization Details Last Updated DateTime 7 170.18 cm 22.3 kg/m2 59905.8 2 g 96 % 96 % 68 /min 108 mm[Hg] 75 mm[Hg] Adrienne Ramos [facility] 7 10:31:57 Date Recorded Body height Body temperature Oxygen saturation Oxygen saturation in Arterial blood by Pulse oximetry Heart rate Body mass index (BMI) Body weight Systolic blood pressure Diastolic blood pressure Provider Name and Address Organization Details Last Updated DateTime 8 170.18 cm 99.9 [degF] 98 % 98 % 66 /min 22.9 kg/m2 59482.4 9 g 98 mm[Hg] 66 mm[Hg] Tosin hernandez MA [facility] 8 10:58:02 Date Recorded Body height Body mass index (BMI) Body weight Body temperature Heart rate Oxygen saturation Oxygen saturation in Arterial blood by Pulse oximetry Systolic blood pressure Diastolic blood pressure Provider Name and Address Organization Details Last Updated DateTime 8 170.18 cm 23 kg/m2 27896.0 8 g 98.9 [degF] 64 /min 98 % 98 % 99 mm[Hg] 64 mm[Hg] Razia Almonte [facility] 8 13:42:55 Social History Question Answer Notes LastModified by Organizat ion Details LastModified Time Tobacco Smoking Status Never Smoker ASIM Mehta, [facility] 10/14/2013 15:58:21 Do You Have An Advance Directive? No Declined Information not available 11/15/2015 What Is Your Level Of Alcohol Consumption? Occasional [email or web address] Information not available 10/14/2013 Is Blood Transfusion Acceptable In An Emergency? Yes Information not available 09/27/2015 What Is Your Level Of Caffeine Consumption? None [email or web address] Information not available 10/14/2013 How Much Tobacco Do You Chew? None Information not available 09/27/2015 Are You Currently Employed? Yes [email or web address] Information not available 10/14/2013 What Type Of Diet Are You Following? REGULAR [email or web address] Information not available 10/14/2013 Which Illicit Or Recreational Drugs Have You Used? 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 Alone Ex - (Jose) And Children (in College) Information not available 09/27/2015 Do You Take Precautions To Prevent Distracted Driving? Yes Information not available 09/27/2015 How Often Do You Need To Have Someone Help You When You Read Instructions, Pamphlets, Or Other Written Material From Your Doctor Or Pharmacy? Never Information not available 09/27/2015 Have You Served In The ? No Information not available 11/15/2015 What Was The Date Of Your Most Recent Tobacco Screening? 11/13/2017 Information not available 09/05/2018 How Many Children Do You Have? 2 Daughter (lives In [place]) Information not available 03/06/2017 Do You Use Protection During Sex? No Information not available 09/27/2015 Seat Belts Used Routinely Yes Information not available 10/14/2013 Are You Sexually Active? Yes Information not available 09/27/2015 Smoke Alarm In Home Yes [email or web address] Information not available 10/14/2013 At What Age Did You Start Smoking Tobacco? 0 Information not available 09/27/2015 Are You Passively Exposed To Smoke? No Information not available 09/27/2015 How Much Tobacco Do You Smoke? No Information not available 09/27/2015 General Stress Level Medium [email or web address] Information not available 10/14/2013 Do You Use Sunscreen Routinely? Yes [email or web address] Information not available 10/14/2013 How Many Years Have You Smoked Tobacco? 0 Information not available 09/27/2015 Sex: Unknown Functional Status Question Answer Note LastModified by Organizat ion Details LastModified Time Are you able to care for yourself? Yes [email or web address] Information not available 10/14/2013 What is your exercise level? Moderate 6 x week; Luciana, volleyball, salsa Information not available 09/27/2015 Mental Status None recorded. Family History Relationship Description Onset Age of this Age Resolved Age Notes LastModified by Organization Details LastModified Time Mother Gastroesopha geal reflux disease 70 [email or web address] Not available 08/2015 15:12:17 Mother Essential hypertension [email or web address] Not available 08/19/2015 15:12:17 Father Essential hypertension 75 [email or web address] Not available 08/19/2015 15:12:17 Maternal Grandmother Gastroesopha geal reflux disease [email or web address] Not available 08/2015 15:12:17 Maternal Grandmother Malignant tumor of stomach [email or web address] Not available 08/2015 15:12:17 Medical History Condition Response Reflux/GERD Y Gynecological History Statement/Question Response Menses Monthly Y Date of Last Pap Smear 07/02/2017 Most Recent Mammogram 09/18/2016 LMP Unknown Obstetrics History GPAL:G 0 P 0 0 0 0 Immunizations Vaccine Type Date Status Note Provider Nam e and Address Organization Details Recorded Time Influenza, split virus, trivalent, PF [facility] 13:50:16 Influenza, split virus, trivalent, preservative 7 completed ASIM Reagan [facility] 03/06/2017 10:55:42 Influenza, split virus, quadrivalent, PF 6 completed Not Available [facility] 03/01/2019 02:22:04 Hep B, adult 1 completed Not Available [facility] 08/26/2013 13:55:11 Hep B, adult 1 completed Not Available [facility] 08/26/2013 13:55:11 Hep B, adult 1 completed Not Available [facility] 08/26/2013 13:55:11 MMR 6 completed Not Available [facility] 08/26/2013 13:55:11 MMR 8 completed Not Available [facility] 08/26/2013 13:55:11 Td (adult), 2 Lf tetanus toxoid, preservative free, adsorbed 7 completed Not Available [facility] 08/26/2013 13:55:11 Td (adult), 2 Lf tetanus toxoid, preservative free, adsorbed 2 completed Not Available [facility] 08/26/2013 13:55:11 Hib (HbOC) 1 completed Not Available [facility] 08/26/2013 13:55:11 Tdap 2 completed Not Available [facility] 08/26/2013 13:55:11 Influenza, split virus, trivalent, preservative 3 completed Not Available [facility] 08/26/2013 13:55:11 Past Encounters Encounter ID Performer Location Encounter Start Date Encounter Closed Date Diagnosis/Indication Diagnosis SNOMED-CT Code Diagnosis ICD10 Code Diagnosis Note [id number] [facility] [address] [facility] [place] [address] 02/20/2006 00:00:00 [id number] auto[facility] erce [address] [facility] [place] [address] 07/15/2007 00:00:00 [id number] auto[facility] erce [address] [facility] [place] [address] 09/10/2008 00:00:00 [id number] [facility] erce [address] [place] [address] 09/12/2008 00:00:00 [id number] auto[facility] erce [address] [place] [address] 09/30/2008 00:00:00 [id number] auto[facility] [address] [place] [address] 10/25/2009 00:00:00 [id number] auto[facility] erce [address] [place] [address] 06/06/2010 00:00:00 [id number] auto[facility]Comm erce [address] [place] [address] 10/31/2010 00:00:00 [id number] auto[facility]Comm erce [address] [facility] [address] [place] [address] 03/13/2011 00:00:00 [id number] autoEComm erce [address] [facility] [address] [place] [address] 05/22/2011 00:00:00 [id number] auto[facility]Comm erce [address] [facility] [address] [place] [address] 06/23/2011 00:00:00 [id number] auto[facility]Comm erce [address] [facility] [place] [address] 07/31/2011 00:00:00 [id number] auto[facility] erce [address] [place] [address] 09/04/2011 00:00:00 [id number] autoEComm erce [address] [place] [address] 12/21/2011 00:00:00 [id number] auto[facility]Comm erce [address] [facility] [address] [place] [address] 08/12/2012 00:00:00 [id number] autoEComm erce [address] [place] [address] 12/31/2012 00:00:00 [id number] [facility] [address] [facility] [address] [place] [address] 01/08/2013 00:00:00 [id number] Derrick Gill MA Main Office [address] [facility] [place] [address] 10/14/2013 15:25:57 10/14/2013 17:07:43 Acute pharyngitis 539540753 negative strep and will send for culture, no abx indicated [id number] Malinda Lomas Main Office [address] [facility] [place] [address] 03/03/2014 13:35:47 03/03/2014 14:58:57 Adult health examination 104979162 Gastroesop hageal reflux disease 987636682 Screening for malignant neoplasm of colon 627173855 Paroxysmal tachycardia 76153622 [id number] Adrienne Ramos MA Main Office [address] [facility] [place] [address] 04/03/2014 15:47:25 04/03/2014 16:44:20 Tendinitis AND/OR tenosynovitis of the ankle region 988399682 Lateral epicondylitis 967861440 [id number] Bart garcia Main Office [address] [facility] [place] [address] 08/19/2015 14:59:18 08/19/2015 15:55:04 Abnormal weight loss 703691950 R63.4 [id number] Bart garcia Main Office [address] [address] [place] [address] 09/27/2015 15:15:31 09/27/2015 17:08:13 Abnormal weight loss 416719912 R63.4 wt loss has stopped - pt has gained some wt back. all labs normal. wt loss most likely d/t stress. [id number] Bart garcia Main Office [address] [facility] [place] [address] 11/15/2015 12:53:46 11/15/2015 13:53:56 Adult health examination 046374760 Z00.00 Needs infl uenza immunization 573501156 Z23 Gastroesop hageal reflux disease 188988440 K21.9 Exposure t o communicable disease 098844121 Z20.9 [id number] Bart garcia Main Office [address] [facility] [address] [place] [address] 12/06/2015 14:28:47 12/06/2015 15:56:32 Dysuria 74934386 R30.0 ? mild UTI vs atrophic vaginitis [id number] Bart garcia Main Office [address] [facility] [address] [place] [address] 05/25/2016 11:33:40 05/25/2016 12:51:42 Candidiasis of mouth 74115367 B37.0 [id number] Bradley Henao MD Main Office [address] [facility] [address] [place] [address] 11/07/2016 13:01:45 11/07/2016 14:07:12 Dysuria 68452210 R30.0 finish bactrim as dir - will extend to 7 days to make sure complete eradicatio n (is 85% better), cont to push fluids and cont cranberry tabs as well as probiotic -- if sxs return in near future, consider rx c alternativ e abx Mallet fin fern with closed tendon injury 896332515 M20.012 L 3rd digit - cont stax splint as dir, will get hand specialist eval - pt requests Dr. Erickson [id number] Nikki callahan Main Office [address] [facility] [address] [place] [address] 11/09/2016 10:23:35 11/09/2016 11:04:48 Allergy to antibacterial drug 279270026 Z88.1 added bactrim to allergy list, see below Acute urin sade tract infection 234402671 N39.0 will give trial of cipro to adequately eradicate uti - if symptoms persist into next week, then consider uro eval - may be interstiti al cystitis [id number] Bart garcia Main Office [address] [facility] [address] [place] [address] 03/06/2017 10:43:48 03/06/2017 11:29:03 Influenza-like illness 07995791 B34.9 x 6 days, has passed treatment window, continue supportive , sx treatment. 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 Will send for CXR and start on zpak [id number] Rob Ornelas MD Main Office [address] [facility] [address] [facility] [place] [address] 11/13/2017 13:37:31 11/13/2017 14:27:17 Adult health examination 141416223 Z00.00 UTD, overdue for mammo, she will call/ Pure hypercholesterolemia 486625927 E78.00 Fatigue 07527204 R53.83 Health Concerns Section Related Observation LastModified by Organization Detai ls LastModified Time None Recorded Concern Status LastModified by Organization Details LastModified Time None Recorded Advance Directives Directive N: declined Payers Encounter Date Sequence Insurance Name Policy Number Policy Fitzgerald Covered Member ID Fitzgerald Member ID Guarantor Name 05/25/2016 1 [facility] [id number] 1 Petros Patrick [id number] Candida Patrick 11/07/2016 1 [facility] ([facility] [id number] 1 Petros Patrick [id number] Candida Patrick 11/09/2016 1 [facility] ([facility] [id number] 1 Petros Patrick [id number] Candida Patrick 03/06/2017 1 [facility] ([facility] [id number] 1 Petros Patrick [id number] Candida Patrick 11/13/[address] [place] [address] ([facility]) [id number] 1 Petros Patrick [id number] Candida Patrick Notes Date Note Type Note Provider Name and Address Organization Details Recorded Time 05/25/2016 text/html recently rx'd by timber cutter for gardnerella infxn - took flagyl x 3 days, then dev. oral thrush - but ? if d/t oral sex while dealing c vaginal unprotected sex c partner x 7-8 months has used nystatin swish and swallow 4x/day x 8 days c some help (~70% better) but not fully resolved - concerned. Bart bentley MA - [facility] 05/25/2016 16:48:39 11/07/2016 text/html pt had uti 9.14 - took 3 days of bactrim - resolved. called again 9.24 - took 2 days of bactrim so far, feels ~ 85% better, has also used pyridium and cranberry tabs, increased fluids - wanted recheck. pt states was checked for std recently by timber cutter - was neg primarily here for L 3rd digit - hurt during volleyball back on .16 - no pain, edema, ecch - spoke c ortho friend - rec. stax splint x few months - she also called Dr. Erickson - she rec. see pcp first for referral Bradley Henao MD [address] [facility] [address], [place], [address], [facility] 11/07/2016 16:02:13 11/09/2016 text/html here for allergi c rxn to bactrim itch started yest, then dev. 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 + congestion, runny nose, sneezing. + sore throat, ears congested, + headache. She has been taking tylenol/ iburpofen as needed. + decreased appetite. Bart bentley [facility] 03/06/2017 12:27:52 11/13/2017 text/html Generic HPI TemplateReported bypatient.Notes:presen ts for PE. she is on nexium and was told to come off nexium and try zantac instead. Diagnosed with ? genital herpes via [employer] yesterday. she had testing to confirm but no results yet, being treated for it. Rob Ornelas MD [address], [place], [address], [facility] [place] [place]13/2017 18:06:58 OBGyn Episode No OBEpisode recorded.
== END 2024-02-21 11:03 | disposition home or self-care (01) ==
LOC: HO.US 11:02
PROVIDERS: PCP Internal Medicine; Visit Provider Obstetrics & Gynecology
DX: N83.209 Unspecified ovarian cyst, unspecified side (principal)
CPT/HCPCS: 76830; 76856

== ENCOUNTER → 2024-02-21 11:03 | Outpatient (BNV) | payer OTHER, SELFPAY | PROVIDERS: PCP Internal Medicine; Visit Provider Radiology Neuroradiology | DX: N83.292 Other ovarian cyst, left side (principal); N85.00 Endometrial hyperplasia, unspecified | CPT/HCPCS: 76830; 76856 ==

== ENCOUNTER 2024-04-24 12:56 | Outpatient (REF) | payer OTHER, SELFPAY ==
--- NOTE | ~2024-04-24 | XR_ITS ---
EXAMINATION: XR FOOT 3 OR MORE VIEWS RIGHT HISTORY: M79.671 - Pain in right foot COMPARISON: There are no prior studies available for comparison. FINDINGS: Three views of the right foot are submitted. Osseous mineralization is normal. There is no fracture or dislocation. There is mild osteoarthritis of the talonavicular joint. The soft tissues are unremarkable. XR/XR foot RT min 3V IMPRESSION: Mild osteoarthritis of the talonavicular joint. Otherwise unremarkable examination of the right foot. Electronically signed by: Celso Owens MD 04/24/2024 03:50 PM EDT
--- OUTSIDE RECORDS SUMMARY | 2024-04-24 17:30 | XMS_ITS | Clinical Summary ---
Author Organization [facility] Address [address] [place] [address] Care Team Providers Care Commander Internal Affairs Name Role Phone Unavailable Primary Care Provider [...]
--- OUTSIDE RECORDS SUMMARY | 2024-04-24 17:30 | XMS_ITS | Clinical Summary ---
Author Organization [facility] it Address [address] [place] [address] Care Team Providers Care Big Data Lead Name Role Phone Unavailable Primary Care Provider [...] Procedure Name Priority Date/Time Associated Diagnosis Comments [facility] SCREENING DIGITAL Routine 02/01/2018 5:40 PM EST Encounter for screening mammogram for malignant neoplasm of breast from Last 3 Months or Most Recently Relevant to Health Maintenance Results * [facility] SCREENING DIGITAL (02/01/2018 5:40 PM EST) Anatomical Region Laterality Modality Mammography 02/01/2018 3:46 PM EST Narrative 02/01/2018 5:40 PM EST [facility] Diagnostic Imaging Department [address] [place] [address] Patient: ??ANH NGUYEN ?/Age/Sex: 1965 - 53 - F Unit#: ??[id number] ? Location/Status: ??SPDIMAM/REG CLI ? Mnemonic/Ordering Site: [...] for the next mammogram: ??CPT II 7025F G0202/19805 [id number] Dictating Physician: ??MIRIAN GRANADOS MD Electronically Signed by: ??MIRIAN GRANADOS MD Dic Date/Time: ??02/01/181733 Sign date/Time: ??02/01/18 174 Procedure Note Mirian Granados MD - 01/31/2022 [facility] Diagnostic Imaging Department [address] [place] [address] Patient: ANH NGUYEN /Age/Sex: 1965 - 53 - F Unit#: [id number] [facility] Ordering Physician: JASON DAVIDSNO MD Gita Screening Digital - 02/01/18 - [...] for the next mammogram: CPT II 7025F G0202/94720 [id number] Dictating Physician: MIRIAN GRANADOS MD Electronically Signed by: MIRIAN GRANADOS MD Dic Date/Time: 02/01/18 173 Sign date/Time: 02/01/18 174 Jason Davidson MD IMG BI PROCEDURES Edel l Result from Last 3 Months or Most Recently Relevant to Health Maintenance
== END 2024-04-24 12:57 | disposition home or self-care (01) ==
LOC: HO.HMGCX 12:56
PROVIDERS: PCP Internal Medicine; Visit Provider Internal Medicine
DX: Z00.00 Encounter for general adult medical examination without abnormal findings (principal); M79.671 Pain in right foot; I77.810 Thoracic aortic ectasia; E78.5 Hyperlipidemia, unspecified; N95.0 Postmenopausal bleeding
CPT/HCPCS: 73630; 96127

== ENCOUNTER 2024-04-24 12:56 | Outpatient (AMB) | payer OTHER, SELFPAY ==
[2024-04-24 13:01] VITALS: BP 128/86; PULSE 68; RESP 18; O2SAT 98; BMI 29.4
--- NOTE | 2024-04-24 13:01 | MHC.PC.OV ---
Vital Signs 04/24/24 13:01 Height 5 ft 7 in Weight 188 lb BMI 29.4 BP 128/86 Blood Pressure Location Lt brachial Position Sitting Respiration 18 Pulse 68 Pulse Source Pulse Oximeter Pulse Oximetry (%) 98 Oxygen Delivery Method Room Air Intake Visit Reasons: Annual PE Intake Note: Pt is here today for her annual physical. Podiatric Medicine Doctor Required: No Accompanied by: Self / Same As Patient Allergies iron dextran complex Allergy (Intermediate, Verified 04/24/24 13:04) hives/serum sickness latex Allergy (Intermediate, Verified 04/24/24 13:04) Rash metoclopramide [Reglan] Allergy (Intermediate, Verified 04/24/24 13:04) extrapyramidal effects Sulfa (Sulfonamide Antibiotics) Allergy (Intermediate, Verified 04/24/24 13:04) full body rash Medication List - Last Reconciled 04/24/24 by Haydee Lira MD atenolol 25 mg PO DAILY atorvastatin 20 mg PO DAILY econazole nitrate 1% 1 appl topical DAILY esomeprazole magnesium 40 mg PO DAILY nitrofurantoin monohyd/m-cryst 100 mg (Macrobid) 100 mg orally Take 1 capsule after sexual activity as directed; must administer with a meal/food Tobacco use date assessed: 04/24/24 Dental Screening Dental Screen Date: 04/24/24 Did you have a dental visit in the last 12 months?: Yes Did you have a dental problem in the last 6 months where you did not have access to dental care?: No Was dental information given to patient?: Patient has dentist HPI Annual PE HPI Details Pt presents for PE. She complains of chronic right forefoot pain worse when walking or standing for long time for the last 2 weeks. Patient has been doing more dancing lately wearing different shoes. [facility] Medical History (Updated 04/24/24 @ 14:09 by Haydee Lira MD) COVID-19 vaccine series completed Thoracic spine pain HPV (human papilloma virus) anogenital infection Neutropenia GERD (gastroesophageal reflux disease) Surgical History H/O colonoscopy History of esophagogastroduodenoscopy (EGD) History of tonsillectomy History of surgical removal of skin lesion History of History of appendectomy Social History Housing: Condominium Are you a primary manager long term care to a significant other at home: No Do you presently have visiting nurse or other home services: No Alcohol intake: current Alcohol intake frequency: a few times a week Alcohol type: other Patient Tobacco Use Status: Former Tobacco user e-Cigarette/Vaping Use: Never Used Current occupational status: employed Sexual orientation: Straight/Heterosexual Gender identity: Female Cognitive needs: No Hearing needs: No Vision needs: Yes Female Reproductive History Menstrual Age of Menarche: 11 Questionnaire PHQ-9 Over the last 2 weeks, how often have you been bothered by any of the following problems? 1. Little interest or pleasure in doing things: several days 2. Feeling down, depressed, or hopeless: not at all 3. Trouble falling or staying asleep, or sleeping too much: several days 4. Feeling tired or having little energy: several days 5. Poor appetite or overeating: several days 6. Feeling bad about yourself - or that you are a failure or have let yourself or your family down: not at all 7. Trouble concentrating on things, such as reading the newspaper or watching television: not at all 8. Moving or speaking so slowly that other people could have noticed. Or the opposite - being so fidgety or restless that you have been moving around a lot more than usual: not at all 9. Thoughts that you would be better off or of hurting yourself in some way: not at all Total score: 4 Depression Screening Interpretation: Negative Depression Screening Done: Yes 01633 - PHQ-9 Billing: Yes Source: Developed by Drs. Celso Camilo, Yadi Andino, Moses Recinos and colleagues, with an educational lilliam from [employer]. Thrive Questionnaire Date Thrive assessed: 04/24/24 I am a: Patient What is your living situation today?: I have a steady place to live Within the past 12 months, did the food you bought not last and you didn't have the money to get more?: Never true Within the past 12 months, did you worry whether your food would run out before you got money to buy more?: Never true Do you have trouble paying for medicines?: No Do you have trouble getting transportation to medical appointments?: No Do you have trouble paying your heating and electricity bill?: No Do you have trouble taking care of your child, family member or friend?: No Do you have trouble with day-to-day activities such as bathing, preparing meals, shopping, managing finances, etc.?: No Are you currently unemployed and looking for a job?: No Are you interested in more education?: No Please select the resources that you would like help with: None Currently or been in a relationship where the following occur: No concerns reported THRIVE Score: 0 AUDIT C Alcohol Use Questionnaire (AUDIT-C) 1. How often do you have a drink containing alcohol?: 2-3 times a week 2. How many drinks containing alcohol do you have on a typical day when you are drinking?: 1 or 2 3. How often do you have six or more drinks on one occasion?: Never Total Score: 3 Score Reviewed/Action Taken: Yes LISA-7 AMB Questionnaire LISA-7 Date LISA - 7 assessed: 04/24/24 Feeling nervous, anxious, or on edge: 0 = Not at all Not being able to stop or control worryin = Not at all Worrying too much about different things: 0 = Not at all Trouble relaxin = Not at all Being so restless that it is hard to sit still: 0 = Not at all Becoming easily annoyed or irritable: 0 = Not at all Feeling afraid as if something awful might happen: 0 = Not at all Total LISA-7 score (0-4 normal; 5-9 mild; 10-14 moderate; 15-21 severe): 0 Source: Developed by Drs. Celso Camilo, Yadi Andino, Moses Recinos and colleagues, with an educational lilliam from [employer]. LISA-7 Assessment Billing LISA-7 Assessment Tool: LISA-7 Assessment 95119 Review of Systems Const All systems reviewed & are unremarkable except as noted in HPI and below Reports no additional complaints Eyes Reports no additional complaints ENT Reports no additional complaints Card Reports no additional complaints Resp Reports no additional complaints GI Reports no additional complaints Reports no additional complaints Physical exam (Primary Care) Vital Signs: Last Vital Signs Pulse 68 04/24/24 13:01 Resp 18 04/24/24 13:01 BP 128/86 04/24/24 13:01 Pulse Ox 98 04/24/24 13:01 Oxygen Delivery Method Room Air 04/24/24 13:01 BMI result Body Mass Index 29.4 Tobacco/Smoking Status: Tobacco use Status Tobacco use date assessed 04/24/24 04/24/24 13:03 Patient Tobacco Use Status Former Tobacco user 04/24/24 13:03 e-Cigarette/Vaping Use Never Used 04/24/24 13:03 PHQ-9: PHQ-9 Score PHQ-9: Total score 4 04/24/24 13:03 Depression Screening Interpretation: Negative Thrive Assessment: Date of Thrive Assessment Date Thrive assessed 04/24/24 04/24/24 13:03 Currently or been in a relationship where the following occur: No concerns reported Const General: no acute distress HENMT Head: Yes normal to inspection Face and sinus: Yes normal facial exam Throat: Yes posterior oropharynx normal Eyes General: appearance normal, both eyes and all related structures Neck Neck: Yes no lymphadenopathy and Yes supple Resp Effort & Inspection: normal respiratory effort Auscultation: clear to auscultation bilaterally Cardio Rhythm: regular rhythm Heart sounds: S1 normal heart sound present and S2 normal heart sound present GI Inspection: Yes normal to inspection Palpation (GI): Soft to palpation Percussion: Yes normal to percussion Auscultation: normal bowel sounds Extrem Other: Tenderness over 2nd and 3rd metatarsal pharyngeal joint ,no joint swelling or deformity General: Yes no clubbing, cyanosis or edema Coding Level of Care Code Est Pt Prev Care 40-64y(08842) Diagnoses Foot pain, right M79.671 Annual physical exam Z00.00 Ascending aorta dilatation I77.810 Hyperlipidemia E78.5 Postmenopausal bleeding N95.0 Additional Codes LISA-7 Assessment Billing - LISA-7 Assessment Tool: LISA-7 Assessment 91559 ([id number]) PHQ-9 - 43545 - PHQ-9 Billing: Yes ([id number]) Assessment & Plan Assessment & Plan (1) Foot pain, right: Code(s): M79.671 - Pain in right foot Category: Medical Plan: Obtain x-ray referred to Podiatry as needed (2) Annual physical exam: Code(s): Z00.00 - Encounter for general adult medical examination without abnormal findings Category: Medical Plan: Well-balanced diet regular physical activity discussed with the patient she is up-to-date with the mammogram Pap smear by termite treater and will have colonoscopy (3) Ascending aorta dilatation: Comment: Echo 03/2022 3.8 cm, [place] [facility] [place] Code(s): I77.810 - Thoracic aortic ectasia Category: Medical Plan: Follow-up with the Cardiology getting annual echocardiogram (4) Hyperlipidemia: Code(s): E78.5 - Hyperlipidemia, unspecified Category: Medical Plan: Continue statin (5) Postmenopausal bleeding: Comment: Postcoital Ultrasound= 2 mm endometrial stripe, sp negative biopsy 2023 Code(s): N95.0 - Postmenopausal bleeding Category: Medical Plan: Follow-up with termite treater Orders: Orders XR foot RT 2V Today M79.671 - Pain in right foot MMR IgG Measles Mumps Rubella Today Z00.00 - Encounter for general adult medical examination without abnormal findings Comprehensive [place]. Panel Fast Today Z00.00 - Encounter for general adult medical examination without abnormal findings Complete Blood Count Auto Diff Today Z00.00 - Encounter for general adult medical examination without abnormal findings TSH reflex Free T4 Today Z00.00 - Encounter for general adult medical examination without abnormal findings UA w Microscopic Today Z00.00 - Encounter for general adult medical examination without abnormal findings Lipid Panel Today Z00.00 - Encounter for general adult medical examination without abnormal findings Vitamin D 25-OH Total Today Z00.00 - Encounter for general adult medical examination without abnormal findings Medications: Refilled atorvastatin 20 mg PO DAILY 90 tabs 3RF I77.810 - Thoracic aortic ectasia atenolol 25 mg PO DAILY 90 tabs 3RF
--- OUTSIDE RECORDS SUMMARY | 2024-04-24 16:15 | XMS_ITS | Clinical Summary ---
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 Name Role Phone Unavailable Primary Care Provider Unavailabl e Social History Tobacco Use Types Packs/Day Years Used Date Smoking Tobacco: Never Assessed Comments Unknown Sex and Gender Information Value Date Recorded Sex Assigned at Not on file Legal Sex Female 9:42 PM EST Gender Identity Not on file Sexual Orientation Not on file Plan of Treatment Health Maintenance Due Date Last Done Comments DTaP,Tdap,and Td Vaccines (1 - Tdap) 01/16/1983 Cervical Cancer Screening: P ap Smear 01/16/1985 Pneumococcal Vaccine: 50+ Ye ars (1 of 1 - PCV) 01/16/2014 Zoster Vaccines (1 of 2) 01/16/2014 Breast Cancer Screening 02/02/2020 02/01/2018 COVID-19 Vaccine ( - 2023-2 5 season) 2023 Influenza Vaccine (#1) 2023 RSV Immunization Patients 60 + Years Old (1 - 1-dose 75+ series) 01/16/2039 HIB Vaccines Aged Out No longer eligi ble based on patient's age to complete this topic HPV Vaccines Aged Out No longer eligi ble based on patient's age to complete this topic Hepatitis A Vaccines Aged Out No long er eligible based on patient's age to complete this topic Hepatitis B Vaccines Aged Out No long er eligible based on patient's age to complete this topic IPV Vaccines Aged Out No longer eligi ble based on patient's age to complete this topic MMR Vaccines Aged Out No longer eligi ble based on patient's age to complete this topic Meningococcal ACWY Vaccine Aged Out N o longer eligible based on patient's age to complete this topic Meningococcal B Vacine Aged Out No lo nger eligible based on patient's age to complete this topic Pneumococcal Vaccine: Pediat rics (0 to 5 Years) and At-Risk Patients (6 to 64 Years) Aged Out No longer eligi ble based on patient's age to complete this topic RSV Immunization Patients Un summer 20 months Aged Out No longer eligible b ased on patient's age to complete this topic Varicella Vaccines Aged Out No longer eligible based on patient's age to complete this topic Procedures Procedure Name Priority Date/Time Associated Diagnosis Comments [facility] SCREENING DIGITAL Routine 02/01/2018 5:40 PM EST Encounter for screening mammogram for malignant neoplasm of breast from Last 3 Months or Most Recently Relevant to Health Maintenance Results * [facility] SCREENING DIGITAL (02/01/2018 5:40 PM EST) Anatomical Region Laterality Modality Mammography 02/01/2018 3:46 PM EST Narrative 02/01/2018 5:40 PM EST [facility] Diagnostic Imaging Department [address] [place] [id number] Patient: ??ANH NGUYEN ?/Age/Sex: 1965 - 53 - F Unit#: ??[id number] ? Location/Status: ??SPDIMAM/REG CLI ? Mnemonic/Ordering Site: ??DIGSC/SPMAM Ordering Physician: ??JASON DAVIDSON MD Gita Screening Digital - 02/01/18 - 1601 INDICATION: Screening. COMPARISON: Prior mammograms dating back to 2005 TECHNIQUE: Routine views of both breasts were obtained using full-field direct digital mammography. Bilateral tomosynthesis was performed in MLO projection. Computer Aided Detection was utilized. BREAST PARENCHYMAL COMPOSITION: The breast parenchyma is heterogeneously dense which may obscure the detection of small masses. (Category C density) FINDINGS: ??There is no suspicious finding within either breast. Stable appearing microcalcification in the left breast. IMPRESSION: 1. No mammographic evidence of malignancy. 2. Annual screening mammography is recommended . 3. If there is an elevated lifetime risk of breast cancer, given the breast density, screening with MRI may be considered. OVERALL FINAL ASSESSMENT: BI-RADS Assessment Category 2: Benign. PQRI CPT II 3342 F A negative mammogram in the presence of clinically suspicious palpable abnormality does not preclude the possibility of malignancy or alter the indications for biopsy. Note: Patient information entered into a reminder system with a target due date for the next mammogram: ??CPT II 7025F G0202/[id number] Dictating Physician: ??MIRIAN GRANADOS MD Electronically Signed by: ??MIRIAN GRANADOS MD Dic Date/Time: ??02/01/181733 Sign date/Time: ??02/01/18 174 Procedure Note Mirian Granados MD - 01/31/2022 [facility] Diagnostic Imaging Department [address] [place] [address] Patient: ANH NGUYEN /Age/Sex: 1965 - 53 - F Unit#: [id number] [facility]Ordering Site: [facility] Ordering Physician: JASON DAVIDSON MD Gita Screening Digital - 02/01/18 - 1601 INDICATION: Screening. COMPARISON: Prior mammograms dating back to 2005 TECHNIQUE: Routine views of both breasts were obtained using full-fielddirect digital mammography. Bilateral tomosynthesis was performed in MLOprojection. Computer Aided Detection was utilized. BREAST PARENCHYMAL COMPOSITION: The breast parenchyma is heterogeneouslydense which may obscure the detection of small masses. (Category C density) FINDINGS: There is no suspicious finding within either breast. Stable appearing microcalcification in the left breast. IMPRESSION: 1. No mammographic evidence of malignancy. 2. Annual screening mammography is recommended . 3. If there is an elevated lifetime risk of breast cancer, given thebreast density, screening with MRI may be considered. OVERALL FINAL ASSESSMENT: BI-RADS Assessment Category 2: Benign. PQRI CPT II 3342 F A negative mammogram in the presence of clinically suspicious palpable abnormality does not preclude the possibility of malignancy or alter the indications for biopsy. Note: Patient information entered into a reminder system with a target duedate for the next mammogram: CPT II 7025F [id number] +[id number] Dictating Physician: MIRIAN GRANADOS MD Electronically Signed by: MIRIAN GRANADOS MD Dic Date/Time: 02/01/18 173 Sign date/Time: 02/01/18 174 Jason Davidson MD IMG BI PROCEDURES Edel l Result from Last 3 Months or Most Recently Relevant to Health Maintenance
--- OUTSIDE RECORDS SUMMARY | 2024-04-24 16:16 | XMS_ITS | Data Portability ---
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 Plan of Treatment Reminders Order Date Submit Date Provider Last Modified By Organization Details Last Modified Time Details Appointments None record ed. Lab lipid panel, serum 2017 018 [facility], [address] [place] [address], [place], [address], 9 10:16:08 CMP, serum or plasma 2017 018 [facility], [address] [place] [address] 2, [place], [address], 9 10:16:09 CBC w/ auto diff 2017 018 [facility], [address] [place] [address] 2, [place], [address], 9 10:16:09 TSH, serum or plasma 2017 018 [facility], [address] [place] [address], [place], [address], 9 10:16:09 vitami n D, 25-hyd khadijah, total, serum 2017 018 [facility], [address] [facility], [address], [place], [address], 9 10:16:09 magnes ium, RBC 2017 018 [facility], [address] [facility], [address], [place], [address], 9 10:16:09 rapid flu (A+B) 2017 018 MARY In-Office Order, Internal Use Only DO Not Attach Compendium DO Not Attach Compendium, Do Not Delete/merge, [id number] 8 11:22:04 urinal ysis, dipsti ck 2016 017 [email or web address] In-Office Order, Internal Use Only DO Not Attach Compendium DO Not Attach Compendium, Do Not Delete/merge, [id number] 7 14:15:08 urinal ysis comple te, reflex cultur e 2016 017 MARY [facility], [address] [facility], [address], [place], [address], 7 16:22:58 Referral orthop edic referr al 2016 017 kathleen Erickson MD, [address] [facility], [address], [place], [address], 7 15:54:30 Procedures None record ed. Surgeries None record ed. Imaging XR, chest, 2 view 2017 018 MARY Not available 8 14:05:23 Medication Orders Zithro max Z-Denilson 250 mg tablet 2017 018 [email or web address] [id number], [address] [place], [address], 8 13:43:40 Cipro 500 mg tablet 2016 017 [email or web address] [id number], [address] [place], [address], 8 14:03:06 Bactri m DS 800 mg-160 mg tablet 2016 017 [email or web address] [id number], [address] [place], [address], 8 10:54:29 flucon azole 100 mg tablet 2016 017 [email or web address] [id number], [address] [place], [address], 7 10:31:46 Patient TargetsNo targets recorded. Patient Instructions Encounter Date Encounter Id Patient Instructions Last Modified By Organization Details Last Modified Time 05/25/2016 [id number] candidiasis: care instructions [email or web address] Not available 05/25/2016 12:51:28 stop nystatin S&S, rather take diflucan as dir. call us or ob/gyn doctor if no better pmadden Not available 05/25/2016 14:55:58 I have reviewed the note and agree with the assessment and plan of care. [email or web address] Not available 05/25/2016 16:48:24 11/07/2016 [id number] Urinary Tract Infection (UTI) in Women: Care Instructions pmadden Not available 11/07/2016 14:14:29 mallet finger: care instructions pmadden Not available 11/07/2016 14:14:29 I have reviewed the note and agree with the assessment and plan of care. [email or web address] Not available 11/07/2016 16:01:58 11/09/2016 [id number] Urinary Tract Infection (UTI) in Women: Care Instructions [email or web address] Not available 11/10/2016 11:40:45 take cipro as directed, cont cranberry and probiotic, stay hydrated, consider taking zyrtec (morning) and / or benadryl (bedtime) if itching worse pmadden Not available 11/09/2016 11:01:44 I have reviewed the note and agree with the assessment and plan of care. [email or web address] Not available 11/09/2016 22:19:50 03/06/2017 [id number] call or return for worsening or concerns. [email or web address] Not available 03/06/2017 11:04:35 I have reviewed the note and agree with the assessment and plan of care. [email or web address] Not available 03/06/2017 12:27:41 11/13/2017 [id number] call or return for any concerns. [email or web address] [...] Abnormal Flag Note LastModifiedBy Organization Detail LastModifiedTime 11/08/19 17 11/07/2016 urina lysis , dipst ick Leukocytes Negati ve Not Available In-Office Order Internal Use Only DO Not Attach Compendium DO Not Attach Compendium, Do Not Delete/merge, [id number] 11/07/2016 13:26:34 11/08/19 17 11/07/2016 urina lysis , dipst ick Nitrite negati ve Not Available In-Office Order Internal Use Only DO Not Attach Compendium DO Not Attach Compendium, Do Not Delete/merge, [id number] 11/07/2016 13:26:34 11/08/1911/07/2016 urina lysis , dipst ick Urobilinogen 1 Not Available In-Of fice Order Internal Use Only DO Not Attach Compendium DO Not Attach Compendium, Do Not Delete/merge, [id number] 11/07/2016 13:26:34 11/08/1911/07/2016 urina lysis , dipst ick Protein Negati ve Not Available In-Office Order Internal Use Only DO Not Attach Compendium DO Not Attach Compendium, Do Not Delete/merge, [id number] 11/07/2016 13:26:34 11/08/1911/07/2016 urina lysis , dipst ick pH 6.0 Not Available In-Office Order Internal Use Only DO Not Attach Compendium DO Not Attach Compendium, Do Not Delete/merge, [id number] 11/07/2016 13:26:34 11/08/19 17 11/07/2016 urina lysis , dipst ick Blood Negati ve Not Available In-Office Order Internal Use Only DO Not Attach Compendium DO Not Attach Compendium, Do Not Delete/merge, 11/07/2016 13:26:34 11/08/19 17 11/07/2016 urina lysis , dipst ick Specific [place] 1.025 Not Available In-Off ice Order Internal Use Only DO Not Attach Compendium DO Not Attach Compendium, Do Not Delete/merge, 11/07/2016 13:26:34 11/08/19 17 11/07/2016 urina lysis , dipst ick Ketone Negati ve Not Available In-Office Order Internal Use Only DO Not Attach Compendium DO Not Attach Compendium, Do Not Delete/merge, 11/07/2016 13:26:34 11/08/19 17 11/07/2016 urina lysis , dipst ick Bilirubin Negati ve Not Available In-Office Order Internal Use Only DO Not Attach Compendium DO Not Attach Compendium, Do Not Delete/merge, 11/07/2016 13:26:34 11/08/19 17 11/07/2016 urina lysis , dipst ick Glucose Negati ve Not Available In-Office Order Internal Use Only DO Not Attach Compendium DO Not Attach Compendium, Do Not Delete/merge, 11/07/2016 13:26:34 11/08/19 17 11/07/2016 urina lysis , dipst ick Appearance Clear Not Available In-Offi ce Order Internal Use Only DO Not Attach Compendium DO Not Attach Compendium, Do Not Delete/merge, 11/07/2016 13:26:34 11/08/19 17 11/07/2016 urina lysis , dipst ick Color Yellow Not Available In-Office Order Internal Use Only DO Not Attach Compendium DO Not Attach Compendium, Do Not Delete/merge, 11/07/2016 13:26:34 12/03/19 17 12/02/2016 urina lysis , compl ete comments [facility] [address] [place] [address] [phone] Not Available [facility] [address], [place], [address], 12/02/2016 11:45:39 12/03/19 17 12/02/2016 urina lysis , compl ete glucose, (UA) NEGATI VE mg/dL negati ve Not Available [facility] [address] [place], [address], 12/02/2016 11:45:39 12/03/1912/02/2016 urina lysis , compl ete bilirubin, urine NEGATI VE negati ve Not Available [facility] [address] [place], [address], 12/02/2016 11:45:39 12/03/1912/02/2016 urina lysis , compl ete ketone, urine NEGATI VE mg/dL negati ve Not Available [facility] [address] [place], [address], 12/02/2016 11:45:39 12/03/1912/02/2016 urina lysis , compl ete specific gravity, urine 1.003 1.003- 1.030 Not Available [facility] [address] [place], [address], 12/02/2016 11:45:39 12/03/1912/02/2016 urina lysis , compl ete blood, urine SMALL negati ve abnormal Not Available [facility] [address] [place], [address], 12/02/2016 11:45:39 12/03/1912/02/2016 urina lysis , compl ete pH, urine 6.5 5.0-8. 0 Not Available [facility] [address] [place], [address], 12/02/2016 11:45:39 12/03/1912/02/2016 urina lysis , compl ete protein, urine NEGATI VE mg/dL <= trace Not Available [facility] [address] [place], [address], 12/02/2016 11:45:39 12/03/1912/02/2016 urina lysis , compl ete urobilinogen , urine 0.2 E.U./ dL 0.2-1. 0 Not Available [facility] [address] [place], [address], 12/02/2016 11:45:39 12/03/1912/02/2016 urina lysis , compl ete nitrite, urine NEGATI VE negati ve Not Available [facility] [address] [place], [address], 12/02/2016 11:45:39 12/03/1912/02/2016 urina lysis , compl ete leukocyte esterase, urine LARGE negati ve abnormal Not Available [facility] [address] [place] [address], [address], 12/02/2016 11:45:39 12/03/1912/02/2016 urina lysis , compl ete RBC, urine 6 /hpf 0-4 high Not Available [facility] [address] [place] [address], [address], 12/02/2016 11:45:39 12/03/1912/02/2016 urina lysis , compl ete WBC, urine 149 /hpf 0-4 high Not Available [facility] [address] [place], [address], 12/02/2016 11:45:39 12/03/1912/02/2016 urina lysis , compl ete epith cells, urine 0 /lpf 0-60 Not Available [facility] [address] [place], [address], 12/02/2016 11:45:39 12/03/19 17 12/02/2016 urina lysis , compl ete bacteria, urine HEAVY negati ve abnormal Not Available [facility] [address] [place], [address], 12/02/2016 11:45:39 12/03/19 17 12/02/2016 urina lysis , compl ete hyaline cast, urine 2 /lpf 0-3 Not Available [facility] [address] [place] [address], [address], 12/02/2016 11:45:39 12/03/19 17 12/02/2016 cultu re, urine comments [facility] [address] [facility] [place] [place] [address] [phone] SOURC E: URINE ,BARBARA N CATCH ; Not Available [facility] [address] [place] [address], [address], 12/04/2016 10:56:14 12/03/19 17 12/04/2016 cultu re, urine urine culture [facility] [address] [place] [address] COLLE CTION TIME: 12/02 10:08 :00 AM -04:0 0 URINE CULTU RE ESCHE LEFTY A COLI ( ESCCO L ) F URINE CULTU RE COLON Y COUNT F URINE CULTU RE >100, 000 F Not Available [facility] [address] [place] [address], [address], 12/04/2016 10:56:14 12/03/19 17 12/02/2016 cultu re, urine comments [facility] [address] [facility] [place] [address] [phone] SOURC E: URINE ,BARBARA N CATCH ; Not Available [facility] [address] [place] [address], [address], 12/03/2016 10:35:27 12/03/19 17 12/03/2016 cultu re, [facility] [address] [address] COLLE CTION TIME: 12/02 10:08 :00 AM -04:0 0 URINE CULTU RE [facility] ( SEC ) P URINE CULTU RE COLON Y COUNT P URINE CULTU RE >100, 000 P Not Available [facility] [address] [place] [address], [address], 12/03/2016 10:35:27 12/03/19 17 12/02/2016 antib iotic sensi tivit y, isola te comments PAREN T ORGAN ISM: ESCHE LEFTY A COLI ( ESCCO L ) [facility] [address] [facility] [place] [address] [phone] SOURC E: URINE ,BARBARA N CATCH ; Not Available [facility] [address] [place], [address], 12/04/2016 10:56:18 12/03/19 17 12/04/2016 antib iotic sensi tivit y, isola te gram negative susceptibili ty [facility] [address] [place] [address] COLLE CTION TIME: 12/02 10:08 :00 AM [...] S F Not Available [facility] [address] [place], [address], 12/04/2016 10:56:18 03/06/19 18 03/06/2017 rapid flu (A+B) Flu A negati ve Not Available In-Office Order Internal Use Only DO Not Attach Compendium DO Not Attach Compendium, Do Not Delete/merge, [id number] 03/06/2017 11:03:39 03/06/19 18 03/06/2017 rapid flu (A+B) Flu B negati ve Not Available In-Office Order Internal Use Only DO Not Attach Compendium DO Not Attach Compendium, Do Not Delete/merge, [id number] 03/06/2017 11:03:39 06/29/19 17 06/28/2016 duple x scan of extre mity veins inclu ding respo nses to compr essio n and other maneu vers; compl ete bilat eral study (PROC ) No observ ation record ed. [email or web address] [address] [place], [address], 06/29/2016 17:23:19 09/20/19 17 09/18/2016 MAMMO , scree soo, digit al, bilat eral No observ ation record ed. [email or web address] [facility] [address] [place], [address], 09/26/2016 11:03:33 03/06/19 18 03/06/2017 XR, chest , 2 view No observ ation [facility] ed. [email or web address] [address] [place], [address], 03/07/2017 09:21:59 03/06/19 18 03/06/2017 XR, chest , 2 view No observ ation record ed. [facility] [address] [place], [address], 03/07/2017 09:21:59 03/06/19 19 03/06/2018 CT, cervi wade spine , w/o contr ast No observ ation record ed. [facility] [address] [place], [address], 03/07/2018 21:02:59 Result Notes None recorded. Problems Name Problem SNOMED Code Status Onset Date Resolution Date Notes Provider Name and Address Organization Details Recorded Time Acute pharyngi tis 547636014 Completed 200809/22/2013 RECORDED 10/01/19 09 3:03PM BY UVALDO MEHTA ON/ADDLULI DUM Not Available [facility] 4 05:31:58 Acute sinusiti s 69000540 Completed 200809/22/2013 RECORDED 10/01/19 09 3:03PM BY ROSEMARY GILL, JANETTEATI ON/ADDEN DUM Not Available [facility] 4 05:31:58 Patient status finding [id number] Completed 201209/22/2013 RECORDED 08/13/19 13 4:00PM BY TORI MALDONADO MA, ANNOTATI ON/ADDEN DUM Not Available [facility] 4 05:31:58 Screenin g for malignan t neoplasm of breast Completed 201109/22/2013 RECORDED 12/21/19 12 8:38AM BY TORI MALDONADO MA, ANNOTATI ON/ADDEN DUM [facility] 4 05:31:58 Screenin g for malignan t neoplasm of cervix Completed 201109/22/2013 RECORDED 12/21/19 12 8:38AM BY TORI MALDONADO MA, ANNOTATI ON/ADDEN DUM Not Available [facility] 4 05:31:58 Dysphagi a [id number] Completed 201109/22/2013 RECORDED 12/21/19 12 8:38AM BY TORI MALDONADO MA, ANNOTATI ON/ADDEN DUM Not Available [facility] 4 05:31:58 Malaise and fatigue 889558111 Completed 201109/22/2013 RECORDED 12/21/19 12 8:38AM BY TORI MALDONADO MA, ANNOTATI ON/ADDEN DUM Not Available [facility] 4 05:31:58 Noninfec tious gastroen teritis 88542972 Completed 201109/22/2013 RECORDED 12/21/19 12 8:38AM BY TORI MALDONADO MA, ANNOTATI ON/ADDEN DUM [facility] Available [facility] 4 05:31:58 Neck pain 66607391 Completed 201109/22/2013 IMPRESSI ON: WITH FACIAL PARESTHE LAURENCE, NON-FOCA L NEURO EXAM; RECORDED 12/21/19 12 8:37AM BY TORI MALDONADO MA, ANNOTATI ON/ADDEN DUM Not Available [facility] 4 05:31:58 Administ ration of Haemgingeri doug influenz ae type b vaccine Completed 201009/22/2013 RECORDED 11/02/19 11 10:00AM BY MELANIA MCCLELLAN, HISTORIC AL SUMMARY Not Available [facility] 4 05:31:58 Infectiv e hepatiti s immuniza tion Completed 201009/22/2013 RECORDED 11/02/19 11 9:58AM BY MELANIA MCCLELLAN, HISTORIC AL SUMMARY Not Available [facility] 4 05:31:59 Administ ration of measles and mumps and rubella vaccine Completed 201009/22/2013 RECORDED 11/02/19 11 9:58AM BY MELANIA MCCLELLAN, HISTORIC AL SUMMARY Not Available [facility] 4 05:31:59 Administ ration of tetanus vaccine Completed 201109/22/2013 RECORDED 12/21/19 12 8:38AM BY TORI MALDONADO MA, UVALDO ON/ADDEN DUM Not Available [facility] 4 05:31:59 Skin sensatio n disturba [facility] [id number] Completed 201109/22/2013 STORY: FACIAL PARESTHE LAURENCE/; RECORDED 12/21/19 12 8:37AM BY TORI MALDONADO MA, UVALDO ON/ADDEN DUM Not Available [facility] 4 05:31:59 Neck sprain 401101195 Completed 201109/22/2013 RECORDED 12/21/19 12 8:37AM BY TORI MALDONADO MA, UVALDO ON/ADDEN DUM Not Available [facility] 4 05:31:59 Tachycar roney [id number] Completed 201109/22/2013 RECORDED 12/21/19 12 8:38AM BY TORI MALDONADO MA, UVALDO ON/ADDEN DUM Not Available [facility] 4 05:31:59 Administ ration of diphther ia and tetanus vaccine Completed 201209/22/2013 RECORDED 08/13/19 13 4:00PM BY TORI MALDONADO MA, UVALDO ON/ADDEN DUM Not Available [facility] 4 05:31:59 Spasm [id number] Completed 201209/22/2013 STORY: NECK/TRA P STRAIN (IN SETTING OF CERVICAL DISC DZ/MILD) ; RECORDED 01/01/20 13 8:21AM BY MARIANELA CORONADO MA, ANNOTVALERIE ON/ADDEN DUM Not Available [facility] 4 05:31:59 Visual disturba nce 27707947 Completed 201109/22/2013 RECORDED 12/21/19 12 8:37AM BY TORI MALDONADO MA, UVALDO ON/ADDEN DUM Not Available [facility] 4 05:31:59 Acute pharyngi tis 224083768 Completed 04/03/2014 Lalo betnley, [facility] 5 16:46:39 Tendinit is AND/OR tenosyno vitis of the ankle region Active Bart garcia null, [facility] 5 20:06:27 Lateral epicondy litis 693581214 Active Bart bentley, [facility] 5 20:06:27 Brachial neuritis 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 Dr Angelia thurman [place] null, [facility] 6 15:42:12 Abnormal weight loss 329624257 Active Bart bentley, [facility] 6 09:47:19 Urinary tract infectio us disease 84420977 Active 2016 Rob Ornelas MD [address] [facility] [address], [place], [address] , [facility] 7 16:56:59 Acute pharyngi tis 398207383 Completed 200808/26/2013 RECORDED 10/01/19 09 3:03PM BY UVALDO MEHTA ON/ADDEN DUM Not Available [facility] 4 14:31:14 Acute sinusiti s 85788427 Completed 200808/26/2013 RECORDED 10/01/19 09 3:03PM BY UVALDO MEHTA ON/ADDEN DUM Not Available [facility] 4 14:31:14 Adult health examinat ion Completed 201204/03/2014 RECORDED 01/09/20 13 11:32AM BY ROSEMARY GILL, OFFICE VISIT Lalo bentley [facility] 5 16:46:39 Patient status finding [id number] Completed 201208/26/2013 RECORDED 08/13/19 13 4:00PM BY TORI MALDONADO MA, ANNOTATI ON/ADDEN DUM Not Available [facility] 4 14:31:14 Screenin g for malignan t neoplasm of breast Completed 201108/26/2013 RECORDED 12/21/19 12 8:38AM BY TORI MALDONADO MA, JANETTEATI ON/ADDEN DUM Not Available [facility] 4 14:31:14 Screenin g for malignan t neoplasm of cervix Completed 201108/26/2013 RECORDED 12/21/19 12 8:38AM BY TORI MALDONADO MA, JANETTEATI ON/ADDEN DUM Not Available [facility] 4 14:31:14 Cough [id number] Completed 201204/03/2014 IMPRESSI ON: LUNGS CLEAR BUT SINUS SYMPTOMS PRESENT, ENCOURAG E REST AND HYDRATIO N. ABX SCRIPT GIVEN WITH INSTRUCT ION TO START IF SINUS SYMPTOMS PERSIST OR WORSEN.; RECORDED 01/11/20 13 2:18PM BY MARINO SERRANO PA-C, OFFICE VISIT Lalo bentley [facility] 5 16:46:39 Cough 61337839 Completed 201108/26/2013 RECORDED 12/21/19 12 8:38AM BY TORI MALDONADO MA, ANNOTATI ON/ADDEN DUM Not Available [facility] 4 14:31:15 Dysphagi a [id number] Completed 201108/26/2013 RECORDED 12/21/19 12 8:38AM BY TORI MALDONADO MA, ANNOTATI ON/ADDEN DUM Not Available [facility] 4 14:31:15 Gastroes ophageal reflux disease 153762620 Active 2012 ASIM Christine, [facility] 6 15:41:53 External hemorrho ids 85388732 Active 2012 ASIM Christine, [facility] 6 15:41:57 Malaise and fatigue 683954360 Completed 201108/26/2013 RECORDED 12/21/19 12 8:38AM BY TORI MALDONADO MA, ANNOTATI ON/ADDEN DUM Not Available [facility] 4 14:31:15 Influenz a vaccine needed 88501834540 06 Completed 201204/03/2014 RECORDED 01/09/20 13 11:32AM BY ROSEMARY GILL, OFFICE VISIT Lalo bentley, [facility] 5 16:46:39 Noninfec tious gastroen teritis 70002728 Completed 201108/26/2013 RECORDED 12/21/19 12 8:38AM BY TORI MALDONADO MA, ANNOTATI ON/ADDEN DUM Not Available [facility] 4 14:31:15 Pure hypercho lesterol emia 021952045 Active 2012 ASIM Christine, [facility] 6 15:42:00 Neck pain 54304508 Completed 201108/26/2013 IMPRESSI ON: WITH FACIAL PARESTHE LAURENCE, NON-FOCA L NEURO EXAM; RECORDED 12/21/19 12 8:37AM BY TORI MALDONADO MA, ANNOTATI ON/ADDEN DUM Not Available [facility] 4 14:31:15 Administ ration of Christie camacho influenz ae type b vaccine Completed 201008/26/2013 RECORDED 11/02/19 11 10:00AM BY MELANIA MCCLELLAN, HISTORIC AL SUMMARY Not Available [facility] 4 14:31:16 Infectiv e hepatiti s immuniza tion Completed 201008/26/2013 RECORDED 11/02/19 11 9:58AM BY MELANIA MCCLELLAN, HISTORIC AL SUMMARY Not Available [facility] 4 14:31:16 Administ ration of measles and mumps and rubella vaccine Completed 201008/26/2013 RECORDED 11/02/19 11 9:58AM BY MELANIA MCCLELLAN, HISTORIC AL SUMMARY Not Available [facility] 4 14:31:16 Administ ration of tetanus vaccine Completed 201108/26/2013 RECORDED 12/21/19 12 8:38AM BY TORI MALDONADO MA, JANETTEATI ON/ADDEN DUM Not Available [facility] 4 14:31:16 Patient status finding [id number] Completed 201204/03/2014 RECORDED 01/09/20 13 11:35AM BY ROSEMARY GILL, OFFICE VISIT Lalo bentley [place] - [facility] 5 16:46:39 Skin sensatio n disturba nce 31945463 Completed 201108/26/2013 STORY: FACIAL PARESTHE LAURENCE/; RECORDED 12/21/19 12 8:37AM BY TORI MALDONADO MA ANNOTVALERIE ON/ADDEN DUM Not Available [facility] 4 14:31:16 Paroxysm al tachycar roney 63413406 Active 2012 ASIM Christine [place] - [facility] 6 15:41:51 Adult health examinat ion Completed 201108/26/2013 RECORDED 12/21/19 12 8:38AM BY TORI MALDONADO MA, ANNOTATI ON/ADDEN DUM Not Available [facility] 4 14:31:16 Neck sprain 922015205 Completed 201108/26/2013 RECORDED 12/21/19 12 8:37AM BY TORI MALDONADO MA, ANNOTVALERIE ON/ADDEN DUM Not Available [facility] 4 14:31:16 Conducti on disorder of the heart 75810213 Active 2012 ASIM Christine [facility] 6 15:42:04 Tachycar roney 7906370 Completed 201108/26/2013 RECORDED 12/21/19 12 8:38AM BY TORI MALDONADO MA, ANNOTATI ON/ADDEN DUM Not Available [facility] 4 14:31:16 Administ ration of diphther ia and tetanus vaccine Completed 201208/26/2013 RECORDED 08/13/19 13 4:00PM BY TORI MALDONADO MA, ANNOTATI ON/ADDEN DUM Not Available [facility] 4 14:31:16 Spasm 37094835 Completed 201208/26/2013 STORY: NECK/TRA P STRAIN (IN SETTING OF CERVICAL DISC DZ/MILD) ; RECORDED 01/01/20 13 8:21AM BY MARIANELA CORONADO MA, ANNOTATI ON/ADDEN DUM Not Available [facility] 4 14:31:17 Visual disturba nce 60464755 Completed 201108/26/2013 RECORDED 12/21/19 12 8:37AM BY TORI MALDONADO MA, ANNOTATI ON/ADDEN DUM Not Available [facility] 4 14:31:17 Problem Notes None recorded. Procedures Surgical History Date Name Laterality Status Provider Name and Address Organization Details Recorded Time 07/03/19 18 Date of Last Pap Smear completed Oksana Mcclellan [facility] 07/05/2017 14:57:58 09/19/19 17 Most Recent Mammogram completed Jamee Stapleton [facility] 09/26/2016 11:03:05 09/19/19 17 Mammogram screening completed Jamee Stapleton [facility] 09/26/2016 11:02:58 01/30/20 15 Mammogram Diagnostic Unilateral completed Oksana Mcclellan [facility] 01/29/2015 13:30:29 06/30/19 15 Colonoscopy completed Tosin lao MA [facility] 09/27/2015 15:43:10 Dilation and Curettage [facility] 08:49:20 Imaging Results Imaging Date Name Status LastModified by Organiz ation Details LastModified Time 06/28/2016 duplex scan of extremity veins including responses to compression and other maneuvers; complete bilateral study (PROC) completed [facility] [address] [place] [address], [address], 06/29/2016 17:23:19 09/18/2016 MAMMO, screening, digital, bilateral completed [email or web address] [facility] [address] [place] [address], [address], 09/26/2016 11:03:33 03/06/2017 XR, chest, 2 view completed [facility] [address] [place] [address], [address], 03/07/2017 09:21:59 03/06/2017 XR, chest, 2 view completed [facility] [facility] [address] [place], [address], 03/07/2017 09:21:59 03/06/2018 CT, cervical spine, w/o contrast completed [facility] [address] [place] [address], [address], 03/07/2018 21:02:59 Procedure Notes None recorded. Medical Equipment None Reported. Allergies Allergen ID Allergen Name Allergen Category Reaction Reaction Severity Criticality Documentation Date Start Date Code Code System Note Provider Name and Address Organization Details Recorded Time 02752 iron-dext ran complex medicatio n rash Not available Not available 10/14/2013 5992 RxNorm ASIM Mehta, [facility] 4 15:57:06 08610 Bactrim medicatio n hives severe Not available 11/09/2016 55785 9 RxNorm Demian Mayo PA-C [address] [facility] [address] [address], [facility] 7 10:53:17 59001 Substance with sulfonami de structure and antibacte rial mechanism of action (substanc e) medicatio n hives Not available Not available 03/06/2017 73201 8003 SNOMED ASIM Yeager, [facility] 8 10:54:00 5993 cyclobenz aprine hydrochlo ride medicatio n Not available Not available Not available 08/26/20132012 78669 RxNorm REACT ION: SVT; COMME NT: RECOR DED 12/31 8:58A M BY LYLE THURMAN MA, OFFIC E VISIT ; Not Available [facility] 4 13:23:35 5994 Reglan medicatio n Not available Not available Not available 08/26/20132012 9230 RxNorm ASIM Yeager, [facility] 6 15:41:35 Medications Name Sig Start Date [...] Available metronida zole 500 mg tablet active [employer] has pt use 1 applicat ion weekly [...] Not Available Not Available Not Available econazole nitrate 1 % topical cream Apply 1 applicat [...] Not Available Not Available Not Available econazole nitrate NEEDED FOR RASH ON HANDS 2012 active RECORDED 01/09/20 13 11:32AM BY ROSEMARY GILL, OFFICE VISIT; Not Available Not Available [...] Details Last Updated DateTime 7 170.18 cm 53443.5 2 g 22.1 kg/m2 62 /min 97 % 97 % 97.4 [degF] 118 mm[Hg] 62 mm[Hg] Gaetano Bradshaw [facility] 7 11:44:00 Date Recorded Body height Body mass index (BMI) Body weight Heart rate Body temperature Oxygen saturation Oxygen saturation in Arterial blood by Pulse oximetry Systolic blood pressure Diastolic blood pressure Provider Name and Address Organization Details Last Updated DateTime 7 170.18 cm 22.9 kg/m2 26835.4 9 g 66 /min 98.6 [degF] 99 % 99 % 96 mm[Hg] 57 mm[Hg] Marianela Coronado [facility] 7 13:30:48 Date Recorded Body height Body mass index (BMI) Body weight Oxygen saturation Oxygen saturation in Arterial blood by Pulse oximetry Heart rate Systolic blood pressure Diastolic blood pressure Provider Name and Address Organization Details Last Updated DateTime 7 170.18 cm 22.3 kg/m2 24308.8 2 g 96 % 96 % 68 /min 108 mm[Hg] 75 mm[Hg] Adrienne Ramos [facility] 7 10:31:57 Date Recorded Body height Body temperature Oxygen saturation Oxygen saturation in Arterial blood by Pulse oximetry Heart rate Body mass index (BMI) Body weight Systolic blood pressure Diastolic blood pressure Provider Name and Address Organization Details Last Updated DateTime 8 170.18 cm 99.9 [degF] 98 % 98 % 66 /min 22.9 kg/m2 01600.4 9 g 98 mm[Hg] 66 mm[Hg] Tosin hernandez [place] [facility] 8 10:58:02 Date Recorded Body height Body mass index (BMI) Body weight Body temperature Heart rate Oxygen saturation Oxygen saturation in Arterial blood by Pulse oximetry Systolic blood pressure Diastolic blood pressure Provider Name and Address Organization Details Last Updated DateTime 8 170.18 cm 23 kg/m2 02816.0 8 g 98.9 [degF] 64 /min 98 % 98 % 99 mm[Hg] 64 mm[Hg] Razia Suzy [facility] 8 13:42:55 Social History Question Answer Notes LastModified by Organizat ion Details LastModified Time Tobacco Smoking Status Never Smoker ASIM Mehta, [facility] 10/14/2013 15:58:21 Do You Have An Advance Directive? No Declined Information not available 11/15/2015 What Is Your Level Of Alcohol Consumption? Occasional [email or web address] Information not available 10/14/2013 Is Blood Transfusion Acceptable In An Emergency? Yes Information not available 09/27/2015 What Is Your Level Of Caffeine Consumption? None [email or web address] Information not available 10/14/2013 How Much Tobacco Do You Chew? None Information not available 09/27/2015 Are You Currently Employed? Yes [email or web address] Information not available 10/14/2013 What Type Of Diet Are You Following? REGULAR [email or web address] Information not available 10/14/2013 Which Illicit Or [...] Do You Have? 2 Daughter (lives In [facility]) Information not available 03/06/2017 Do You Use Protection During Sex? No Information not available 09/27/2015 Seat Belts Used Routinely Yes [email or web address] Information not available 10/14/2013 Are You Sexually Active? Yes Information not available 09/27/2015 Smoke Alarm In Home Yes [email or web address] Information not available 10/14/2013 At What Age Did You Start Smoking Tobacco? 0 Information not available 09/27/2015 Are You Passively Exposed To Smoke? No Information not available 09/27/2015 How Much Tobacco Do You Smoke? No Information not available 09/27/2015 General Stress Level Medium [email or web address] Information not available 10/14/2013 Do You Use Sunscreen Routinely? Yes [email or web address] Information not available 10/14/2013 How Many Years Have You Smoked Tobacco? 0 Information not available 09/27/2015 Sex: Unknown Functional Status Question Answer Note LastModified by Organizat ion Details LastModified Time Are you able to care for yourself? Yes [email or web address] Information not available 10/14/2013 What is your [...] split virus, trivalent, PF 4 completed Malinda bentley [facility] 03/03/2014 13:50:16 Influenza, split virus, trivalent, preservative 7 completed ASIM Reagan [facility] 03/06/2017 10:55:42 Influenza, split virus, quadrivalent, PF 6 completed Not Available [facility] 03/01/2019 02:22:04 Hep B, adult 1 completed Not Available [facility] 08/26/2013 13:55:11 Hep B, adult 1 completed Not Available [facility] 08/26/2013 13:55:11 Hep B, adult 1 completed Not Available [facility] 08/26/2013 13:55:11 MMR 6 completed Not Available [facility] 08/26/2013 13:55:11 MMR 8 completed Not Available [facility] 08/26/2013 13:55:11 Td (adult), 2 Lf tetanus toxoid, preservative free, adsorbed 7 completed Not Available [facility] 08/26/2013 13:55:11 Td (adult), 2 Lf tetanus toxoid, preservative free, adsorbed 2 completed Not Available [facility] 08/26/2013 13:55:11 Hib (HbOC) 1 completed Not Available [facility] 08/26/2013 13:55:11 Tdap 2 completed Not Available [facility] 08/26/2013 13:55:11 Influenza, split virus, trivalent, preservative 3 completed Not Available [facility] 08/26/2013 13:55:11 Past Encounters Encounter ID Performer Location Encounter Start Date Encounter Closed Date Diagnosis/Indication Diagnosis SNOMED-CT Code Diagnosis ICD10 Code Diagnosis Note [id number] auto[facility] erce [address] [facility] [facility] [place] [address] 02/20/2006 00:00:00 [id number] [address]ce [address] [place] [address] 07/15/2007 00:00:00 [id number] auto[facility]Comm erce [address] [place] [address] 09/10/2008 00:00:00 [id number] auto[facility]Comm erce [address] [place] [address] 09/12/2008 00:00:00 [id number] autoEComm erce [address] [place] [address] 09/30/2008 00:00:00 [id number] autoEComm erce [address] [place] [address] 10/25/2009 00:00:00 [id number] autoEComm erce [address] [facility] [address] [place] [address] 06/06/2010 00:00:00 [id number] autoEComm erce [address] [facility] [address] [place] [address] 10/31/2010 00:00:00 [id number] autoEComm erce [address] [facility] [address] [place] [address] 03/13/2011 00:00:00 [id number] autoEComm erce [address] [facility] [address] [place] [address] 05/22/2011 00:00:00 [id number] autoEComm erce [address] [place] [address] 06/23/2011 00:00:00 [id number] auto[employer]Comm erce [address] [place] [address] 07/31/2011 00:00:00 [id number] autoEComm erce [address] [place] [address] 09/04/2011 00:00:00 [id number] autoEComm erce [address] [place] [address] 12/21/2011 00:00:00 [id number] auto[facility]Comm erce [facility] [place] [address] 08/12/2012 00:00:00 [id number] auto[facility]Comm erce [address] [place] [address] 12/31/2012 00:00:00 [id number] auto[facility] erce [address] [place] [address] 01/08/2013 00:00:00 [id number] Rosemary Gill [place] Main Office [address] [facility] [place] [address] 10/14/2013 15:25:57 10/14/2013 17:07:43 Acute pharyngitis 561103246 negative strep and will send for culture, no abx indicated [id number] Malinda Glendale Main Office [address] [address] [place] [address] 03/03/2014 13:35:47 03/03/2014 14:58:57 Adult health examination 375033509 Gastroesop hageal reflux disease 863829608 Screening for malignant neoplasm of colon 313326307 Paroxysmal tachycardia 89141565 [id number] Adrienne Ramos ND Main Office [address] [facility] [place] [address] 04/03/2014 15:47:25 04/03/2014 16:44:20 Tendinitis AND/OR tenosynovitis of the ankle region 270413861 Lateral epicondylitis 439553459 [id number] Bart garcia Main Office [address] [address] [place] [address] 08/19/2015 14:59:18 08/19/2015 15:55:04 Abnormal weight loss 790297596 R63.4 [id number] Bart garcia Main Office [address] [address] [place] [address] 09/27/2015 15:15:31 09/27/2015 17:08:13 Abnormal weight loss 895258300 R63.4 wt loss has stopped - pt has gained some wt back. all labs normal. wt loss most likely d/t stress. [id number] Bart Rob garcia Main Office [address] [facility] [address] [place] [address] 11/15/2015 12:53:46 11/15/2015 13:53:56 Adult health examination 769488332 Z00.00 Needs infl uenza immunization 912147018 Z23 Gastroesop hageal reflux disease 507777259 K21.9 Exposure t o communicable disease 980560174 Z20.9 [id number] Bart garcia Main Office [address] [facility] [address] [place] [address] 12/06/2015 14:28:47 12/06/2015 15:56:32 Dysuria 03031840 R30.0 ? mild UTI vs atrophic vaginitis [id number] Bart MartinezNate garcia Main Office [address] [address] [place] [address] 05/25/2016 11:33:40 05/25/2016 12:51:42 Candidiasis of mouth 15671624 B37.0 [id number] Bradley Henao MD Main Office [address] [address] [place] [address] 11/07/2016 13:01:45 11/07/2016 14:07:12 Dysuria 04718582 R30.0 finish bactrim as dir - will extend to 7 days to make sure complete eradicatio n (is 85% better), cont to push fluids and cont cranberry tabs as well as probiotic -- if sxs return in near future, consider rx c alternativ e abx Mallet fin fern with closed tendon injury 233845817 M20.012 L 3rd digit - cont stax splint as dir, will get hand specialist eval - pt requests Dr. Erickson [id number] Nikki callahan Main Office [address] [facility] [address] [place] [address] 11/09/2016 10:23:35 11/09/2016 11:04:48 Allergy to antibacterial drug 790267704 Z88.1 added bactrim to allergy list, see below Acute urin sade tract infection 173015678 N39.0 will give trial of cipro to adequately eradicate uti - if symptoms persist into next week, then consider uro eval - may be interstiti al cystitis [id number] Bart garcia Main Office [address] [place] [address] 03/06/2017 10:43:48 03/06/2017 11:29:03 Influenza-like illness 25687172 B34.9 x 6 days, has passed treatment window, continue supportive , sx treatment. 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 Will send for CXR and start on zpak [id number] Rob Ornelas MD Main Office [address] [place] [address] 11/13/2017 13:37:31 11/13/2017 14:27:17 Adult health examination 865536799 Z00.00 UTD, overdue for mammo, she will call/ [facility] 207397770 E78.00 Fatigue 87361965 R53.83 Health Concerns Section Related Observation LastModified by Organization Detai ls LastModified Time None Recorded Concern Status LastModified by Organization Details LastModified Time None Recorded Advance Directives Directive N: declined Payers Encounter Date Sequence Insurance Name Policy Number Policy Fitzgerald Covered Member ID Fitzgerald Member ID Guarantor Name 05/25/[address] [place] [address]) [id number] 1 Petros Nguyen [id number] Candida Nguyen 11/07/2016 1 [facility]) [id number] 1 Petros Baxterkin [id number] Candida Baxterkin 11/09/[address] [place] [address]) [id number] 1 Petors Baxterkin [id number] Candida Patrick 03/06/[address] [place] [address]) [id number] 1 Petros Baxterkin [id number] Candida Patrick 11/13/[address] [place] [address]) [id number] 1 Petros Nguyen [id number] Candida Nguyen Notes Date Note Type Note Provider Name and Address Organization Details Recorded Time 05/25/2016 text/html recently rx'd by ob/gyn doctor for gardnerella infxn - took flagyl x 3 days, then dev. oral thrush - but ? if d/t oral sex while dealing c vaginal unprotected sex c partner x 7-8 months has used nystatin swish and swallow 4x/day x 8 days c some help (~70% better) but not fully resolved - concerned. Bart bentley [facility] 05/25/2016 16:48:39 11/07/2016 text/html pt had uti 9.14 - took 3 days of bactrim - resolved. called again 9.24 - took 2 days of bactrim so far, feels ~ 85% better, has also used pyridium and cranberry tabs, increased fluids - wanted recheck. pt states was checked for std recently by ob/gyn doctor - was neg primarily here for L 3rd digit - hurt during volleyball back on .16 - no pain, edema, ecch - spoke c ortho friend - rec. stax splint x few months - she also called Dr. Erickson - she rec. see pcp first for referral Bradley Henao MD [address] [address], [place], [address], [facility] 11/07/2016 16:02:13 11/09/2016 text/html here for allergi c rxn to bactrim itch started yest, then dev. 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 + congestion, runny nose, sneezing. + sore throat, ears congested, + headache. She has been taking tylenol/ iburpofen as needed. + decreased appetite. Bart bentley [facility] 03/06/2017 12:27:52 11/13/2017 text/html Generic HPI TemplateReported bypatient.Notes:presen ts for PE. she is on nexium and was told to come off nexium and try zantac instead. Diagnosed with ? genital herpes via [employer] yesterday. she had testing to confirm but no results yet, being treated for it. Rob Ornelas MD [address] [address], [place], [address], [facility] 11/13/2017 18:06:58 OBGyn Episode No OBEpisode recorded.
--- OUTSIDE RECORDS SUMMARY | 2024-04-24 16:16 | XMS_ITS | Clinical Summary ---
Author Organization [facility] Address [address] [place] [address] Care Team Providers Care Forms Examiner Name Role Phone Unavailable Primary Care Provider Unavailabl e Social History Tobacco Use Types Packs/Day Years Used Date Smoking Tobacco: Never Assessed Comments Unknown Sex and Gender Information Value Date Recorded Sex Assigned at Not on file Legal Sex Female 2:56 AM EST Gender Identity Not on file Sexual Orientation Not on file Plan of Treatment Not on file
== END 2024-04-24 13:49 | disposition home or self-care (01) ==
LOC: HO.HMCC 12:57
PROVIDERS: PCP Internal Medicine; Visit Provider Internal Medicine
DX: M79.671 Pain in right foot (principal); Z00.00 Encounter for general adult medical examination without abnormal findings; I77.810 Thoracic aortic ectasia; E78.5 Hyperlipidemia, unspecified; N95.0 Postmenopausal bleeding

== ENCOUNTER → 2024-04-24 13:52 | Outpatient (BNV) | payer OTHER, SELFPAY | PROVIDERS: PCP Internal Medicine; Visit Provider Radiology Diagnostic Radiology | DX: M79.671 Pain in right foot (principal) | CPT/HCPCS: 73630 ==

== ENCOUNTER 2024-04-28 10:02 | Outpatient (REF) | payer OTHER, SELFPAY ==
[2024-04-28 10:13] LABS: MANUAL DIFF FLAG NO
[2024-04-28 10:23] LABS: Basophils Percent Auto 0.5 % (0-2); Eosinophils Absolute Auto 0.1 X10*3/uL (0.0-0.4); Eosinophils Percent Auto 2.7 % (0-4); Hematocrit 37.2 % (37.0-47.0); Hemoglobin 12.1 g/dl (12.0-16.0); Imm Gran Abs Auto 0.01 X10*3/uL (0.00-0.03); Imm Gran Pct Auto 0.3 % (0.0-0.4); Lymphocytes Absolute Auto 1.6 X10*3/uL (1.2-4.9); Lymphocytes Percent Auto 43.2 % (20-40); Mean Corpuscular HGB Conc 32.5 g/dl (31.0-35.0); Mean Corpuscular Hemoglobin 30.2 pg (27.0-33.0); Mean Corpuscular Volume 92.8 fL (80.0-98.0); Mean Platelet Volume 12.2 fL (9.4-12.3); Monocytes Absolute Auto 0.3 X10*3/uL (0.1-1.2); Monocytes Percent Auto 8.2 % (2-11); Neutrophils Absolute Auto 1.7 x10*3/uL (2.0-8.3); Neutrophils Percent Auto 45.1 % (45-73); Platelet Count 190 X10*3/uL (160-400); Red Blood Count 4.01 X10*6/uL (4.20-5.50); Red Cell Distribution Width 12.1 % (11.0-16.0); White Blood Count 3.8 X10*3/uL (4.8-10.8)
[2024-04-28 12:03] LABS: Alanine Aminotransferase 22 U/L (0-31); Albumin Level 4.3 g/dL (3.5-5.0); Alkaline Phosphatase 22 U/L (39-117); Anion Gap 12 (12-20); Aspartate Amino Transferase 25 U/L (5-31); Blood Urea Nitrogen 15 mg/dL (9-16); Calcium 9.4 mg/dL (8.4-10.2); Carbon Dioxide 29 mmol/L (22-29); Chloride 105 mmol/L (96-108); Cholesterol 155 mg/dL (<200); Estimated Glomerular Filt Rate > 60; Glucose Fasting 91 mg/dL (60-99); HDL Cholesterol 62 mg/dL (>40); LDL Cholesterol Calculated 75 mg/dL (<100); Potassium 4.7 mmol/L (3.3-5.1); Sodium 141 mmol/L (135-145); Total Protein 7.4 g/dL (6.5-8.0); Triglycerides 90 mg/dL (<150)
[2024-04-28 12:23] LABS: TSH reflex Free T4 1.25 uIU/mL (0.32-4.0); Vitamin D 25-OH Total 30.3 ng/mL (>30)
[2024-04-28 14:16] LABS: Appearance Urine Clear; Color Urine Yellow; Glucose Urine UA Negative (Negative); Leukocyte Esterase Urine Moderate (2+) (Negative); Nitrite Urine Negative (Negative); PH 7.5 (5.0-9.0); Specific Gravity - Urine <= 1.005 (1.005-1.025); UMIC TRIGGER UA YES; Urine Blood Negative (Negative); Urine Ketones Negative (Negative); Urine Protein Negative (Neg-Trace)
[2024-04-28 14:27] LABS: Bacteria Urine None Seen (None Seen); Hyaline Casts Urine 0-2 /LPF (0-2); RBC Urine 0-2 /HPF (0-2); Squamous Epithelial Cell Urine 0-2 /HPF (0-2); WBC Urine 0-5 /HPF (0-5)
[2024-04-29 09:23] LABS: Mumps Virus IgG Antibody >300.00 AU/mL; Rubella IgG Antibody 3.22 Index; Rubeola IgG (Measles) <13.50 AU/mL
== END 2024-04-28 10:03 | disposition home or self-care (01) ==
LOC: HO.LAB 10:02
PROVIDERS: PCP Internal Medicine; Visit Provider Internal Medicine
DX: Z00.00 Encounter for general adult medical examination without abnormal findings (principal); E55.9 Vitamin D deficiency, unspecified; I47.10 Supraventricular tachycardia, unspecified; I77.810 Thoracic aortic ectasia
CPT/HCPCS: 36415; 80053; 80061; 81001; 82306; 84443; 85025; 86735; 86762; 86765

== ENCOUNTER 2024-04-30 13:14 | Outpatient (AMB) | payer OTHER, SELFPAY ==
--- NOTE | 2024-04-30 13:14 | MHC.OFFVIS ---
Intake Visit Reasons: ultrasound follow up Allergies iron dextran complex Allergy (Intermediate, Verified 04/24/24 13:04) hives/serum sickness latex Allergy (Intermediate, Verified 04/24/24 13:04) Rash metoclopramide [Reglan] Allergy (Intermediate, Verified 04/24/24 13:04) extrapyramidal effects Sulfa (Sulfonamide Antibiotics) Allergy (Intermediate, Verified 04/24/24 13:04) full body rash HPI Comments Details: The patient is schedule telehealth visit to discuss the results of the recent pelvic ultrasound done on ultrasound in 03/08 which showed the following: IMPRESSION: 1. Borderline enlargement of the endometrium. Please consider tissue sampling and/or endometrial biopsy, particularly if the patient is postmenopausal. 2. No ultrasound findings of left-sided ovarian torsion. Mild expansion of the left ovary with 3.5 cm cyst. No suspicious features or solid mass component at this time. 3. Right ovary is obscured. 4. Mild free fluid in the pelvis is nonspecific at this time. Uterus is a summary of all pelvic ultrasounds: 11/02 left since ovarian cyst 3.1 cm 06/03 left simple ovarian cyst measuring 2.7 x 2.4 x 2 cm 08/04 left ovarian simple cyst measuring 2.7 x 2.4 x 2 cm, endometrial stripe 6 mm The patient gives history of postmenopausal bleeding x2 12/04 Office endometrial biopsy pathology showed the following: Endometrium, biopsy: - Superficial strips of benign endometrium; no atypia identified. - Superficial strips of inflamed endocervical and focal squamous epithelium; abundant mucoinflammatory material 03/08 pelvic ultrasound showed the left ovarian cyst 3.5 cm with no suspicious features Endometrial stripe 8 mm The patient is doing well with no complaints no pelvic pain and or vaginal bleeding Last co testing done in 06/04 was negative [facility] Medical History (Updated 04/30/24 @ 13:20 by Sheldon Donovan MD) COVID-19 vaccine series completed Thoracic spine pain HPV (human papilloma virus) anogenital infection Neutropenia GERD (gastroesophageal reflux disease) Surgical History H/O colonoscopy History of esophagogastroduodenoscopy (EGD) History of tonsillectomy History of surgical removal of skin lesion History of History of appendectomy Social History Housing: Condominium Are you a primary animal caregiver to a significant other at home: No Do you presently have visiting nurse or other home services: No Alcohol intake: current Alcohol intake frequency: a few times a week Alcohol type: other Patient Tobacco Use Status: Former Tobacco user e-Cigarette/Vaping Use: Never Used Current occupational status: employed Sexual orientation: Straight/Heterosexual Gender identity: Female Cognitive needs: No Hearing needs: No Vision needs: Yes Female Reproductive History Menstrual Age of Menarche: 11 Review of Systems Const All systems reviewed & are unremarkable except as noted in HPI and below Reports as per HPI and Reports no additional complaints GI Reports no additional complaints Reports no additional complaints Telehealth Telehealth Telehealth Platform: Telephone Location of provider rendering services: practice address Location of patient: address on file Patient Identification confirmed using: Name, : Yes Telehealth method: video Patient verbally consented to treatment: Yes Patient verbally consented to billing insurance company: Yes Patient informed of any privacy concerns related to visit: Yes Minutes spent on Phone/Video with Pt.: 10 Assessment & Plan Assessment & Plan (1) Ovarian cyst: Code(s): N83.209 - Unspecified ovarian cyst, unspecified side Category: Medical Plan: Discussed with the patient the ovarian cyst by ultrasound. Discussed with the patient the Ultrasound findings, the main limitation of transvaginal ultrasonography alone as a diagnostic tool to distinguish benign from malignant masses relates to its lack of specificity and low positive predictive value for cancer. The differential diagnosis discussed with the patient includes the following but not limited to: benign and malignant gynecological and non-gynecological causes. Reviewed history of ovarian cyst multiple ultrasound since 2020 measuring between 3.1, 2.7 and 3.5 cm currently, the difference could be related to measurement errors or small ovarian cyst growth. Discussed with the patient options of treatment , including laparoscopy ovarian salpingo-oophorectomy vs. expectant management with repeat US in repeating pelvic US in 12 months from previous US. If the ovarian cyst is persistent larger and / or changes in Ultrasound appearance & became complex looking, or higher tumor markers will refer to gynecologic Oncology. All pros, cons, risks and benefits of each approach were discussed with the patient including but not limited to a delay in the diagnosis and treatment of ovarian cancer affecting the prognosis; The patient decided to go ahead with expectant management. All questions were answered & the patient verbalized understanding and agreed with the plan (2) Thickened endometrium: Code(s): R93.89 - Abnormal findings on diagnostic imaging of other specified body structures Category: Medical Plan: Discussed with the patient endometrial thickness above 4 mm in menopause , the differential diagnosis of a thickened endometrium includes but not limited to endometrial polyp, hyperplasia or carcinoma. Explained to the patient that endometrial each thickness is less predictive of endometrial neoplasia in asymptomatic patients, i.e. those without postmenopausal uterine bleeding. The sensitivity and specificity for detecting endometrial carcinoma at an endometrial thickness of >= 5mm was 83 and 72 percent, respectively; this is lower than in patients with bleeding. Studies have shown that postmenopausal patients without uterine bleeding who had an endometrial thickness >11 mm had an endometrial carcinoma risk of 6.7 percent; this risk is similar to postmenopausal patients with bleeding and an endometrial thickness >5 mm. Recommended endometrial sampling to rule endometrial pathology via either office endometrial biopsy or diagnostic hysteroscopy/D&C with possible polypectomy/myomectomy. All pros and cons, risks and benefits of each approach were discussed with the patient, the patient decided to proceed with endometrial biopsy. Instructions given the patient to schedule an EMB with paracervical block appointment within 2 weeks. All questions answered, the patient verbalized I spent a total of 20 minutes reviewing the chart, talking to the patient via video and documenting in the medical record. Orders: Orders Carbohydrate Antigen 19-9 Today N83.209 - Unspecified ovarian cyst, unspecified side Carcinoembryonic Antigen Today N83.209 - Unspecified ovarian cyst, unspecified side CA-125 Today N83.209 - Unspecified ovarian cyst, unspecified side US pelvic and transvaginal 12 Months N83.209 - Unspecified ovarian cyst, unspecified side Coding Level of Care Code Tele Est Pt Level 3 (83469) Diagnoses Ovarian cyst N83.209 Thickened endometrium R93.89
== END 2024-04-30 14:03 | disposition home or self-care (01) ==
LOC: HO.HWS 13:14
PROVIDERS: PCP Internal Medicine; Visit Provider Obstetrics & Gynecology
DX: N83.202 Unspecified ovarian cyst, left side (principal); R93.89 Abnormal findings on diagnostic imaging of other specified body structures
CPT/HCPCS: 99213

== ENCOUNTER 2024-05-14 09:57 | Outpatient (REF) | payer OTHER, SELFPAY ==
--- OUTSIDE RECORDS SUMMARY | 2024-05-14 13:50 | XMS_ITS | Clinical Summary ---
Author Organization [facility] ity Address [address] [place] [address] Care Team Providers Care Patternmaker Sample Name Role Phone Unavailable Primary Care Provider [...] Procedure Name Priority Date/Time Associated Diagnosis Comments [facility] SCREENING DIGITAL Routine 02/01/2018 5:40 PM EST Encounter for screening mammogram for malignant neoplasm of breast from Last 3 Months or Most Recently Relevant to Health Maintenance Results * [facility] SCREENING DIGITAL (02/01/2018 5:40 PM EST) Anatomical Region Laterality Modality Mammography 02/01/2018 3:46 PM EST Narrative 02/01/2018 5:40 PM EST [facility] Diagnostic Imaging Department [address] [place] [address] Patient: ??ANH NGUYEN ?/Age/Sex: 1965 - 53 - F Unit#: ??[id number] ? Location/Status: ??SPDIMAM/REG CLI ? Mnemonic/Ordering Site: [...] for the next mammogram: ??CPT II 7025F G0202/24088 +[id number] Dictating Physician: ??MIRIAN GRANADOS MD Electronically Signed by: ??MIRIAN GRANADOS MD Dic Date/Time: ??02/01/181733 Sign date/Time: ??02/01/18 174 Procedure Note Mirian Granados MD - 01/31/2022 [facility] Diagnostic Imaging Department [address] [place], [place] [address] Patient: LAURA,ANH /Age/Sex: 1965 - 53 - F Unit#: [id number] [facility]/Ordering Site: [facility] Ordering Physician: JASON DAVIDSON MD Gita Screening [...] for the next mammogram: CPT II 7025F G0202/84765 [id number] Dictating Physician: MIRIAN GRANADOS MD Electronically Signed by: MIRIAN GRANADOS MD Dic Date/Time: 02/01/181733 Sign date/Time: 02/01/181739 Jason Davidson MD IMG BI PROCEDURES Edel l Result from Last 3 Months or Most Recently Relevant to Health Maintenance
--- OUTSIDE RECORDS SUMMARY | 2024-05-14 13:51 | XMS_ITS | Clinical Summary ---
Author Organization [facility] Address [address] [place] [address] Care Team Providers Care Specialized Developer Name Role Phone Unavailable Primary Care Provider [...]
== END 2024-05-14 09:58 | disposition home or self-care (01) ==
LOC: HO.LNP 09:57
PROVIDERS: PCP Internal Medicine; Visit Provider Obstetrics & Gynecology
DX: R93.89 Abnormal findings on diagnostic imaging of other specified body structures (principal); Z87.42 Personal history of other diseases of the female genital tract
CPT/HCPCS: 58100; 88305

== ENCOUNTER 2024-05-14 09:57 | Outpatient (AMB) | payer OTHER, SELFPAY ==
--- NOTE | 2024-05-14 09:59 | A.OFFVIS_ITS ---
Vital Signs 05/14/24 10:01 Height 5 ft 7 in Weight 188 lb BMI 29.4 BP 120/72 Intake Visit Reasons: Annual/EMB with paracervical block/ cotest Fur Dresser Required: No Information Interpreted: non-clinical & clinical Paper Cone Maker: Paper Cone Maker Present (Cori Wilcox ENEDELIA) Accompanied by: Self / Same As Patient Allergies iron dextran complex Allergy (Intermediate, Verified 05/14/24 10:18) hives/serum sickness latex Allergy (Intermediate, Verified 05/14/24 10:18) Rash metoclopramide [Reglan] Allergy (Intermediate, Verified 05/14/24 10:18) extrapyramidal effects Sulfa (Sulfonamide Antibiotics) Allergy (Intermediate, Verified 05/14/24 10:18) full body rash Post menopausal: Yes HPI Comments Details: Presenting for annual exam. No complaints. Last Pap/HPV was negative in 06/04 Last Mammogram was BI-RADS 1 in 02/04 Last Colonoscopy was done in 05/03, the recommendation was to repeat in 8 to 10 years Pelvic ultrasound done in 03/08 showed the following: IMPRESSION: 1. Borderline enlargement of the endometrium. Please consider tissue sampling and/or endometrial biopsy, particularly if the patient is postmenopausal. 2. No ultrasound findings of left-sided ovarian torsion. Mild expansion of the left ovary with 3.5 cm cyst. No suspicious features or solid mass component at this time. 3. Right ovary is obscured. 4. Mild free fluid in the pelvis is nonspecific at this time. [facility] Medical History COVID-19 vaccine series completed Thoracic spine pain HPV (human papilloma virus) anogenital infection Neutropenia GERD (gastroesophageal reflux disease) Surgical History H/O colonoscopy History of esophagogastroduodenoscopy (EGD) History of tonsillectomy History of surgical removal of skin lesion History of History of appendectomy Social History Housing: Condominium Are you a primary memory care program resident to a significant other at home: No Do you presently have visiting nurse or other home services: No Alcohol intake: current Alcohol intake frequency: a few times a week Alcohol type: other Patient Tobacco Use Status: Former Tobacco user e-Cigarette/Vaping Use: Never Used Current occupational status: employed 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[employer] – [place] Sexual orientation: Straight/Heterosexual Gender identity: Female Cognitive needs: No Hearing needs: No Vision needs: Yes Female Reproductive History Menstrual Age of Menarche: 11 Total pregnancies: 2 Full term: 2 Date of last pap smear: 06/07/22 (negative hpv, negative pap smear) History of abnormal pap smear: Yes (HPV +) Date of Mammogram: 02/05/24 (bi rad 1) Review of Systems Const All systems reviewed & are unremarkable except as noted in HPI and below Card Reports as per HPI Resp Reports as per HPI GI Reports as per HPI and Reports no additional complaints Reports as per HPI Physical Exam Vital Signs: BMI result Body Mass Index 29.4 Const General: cooperative, healthy appearing and comfortable Chest Chest palpation & inspection: normal inspection of the chest and normal palpation of entire chest wall Breast/axilla inspection: normal inspection of the breasts and normal inspection of the axillae Breast/axilla palpation: normal palpation of the breasts, normal palpation of the axillae and no axillary lymphadenopathy Resp Effort & Inspection: normal respiratory effort Auscultation: clear to auscultation bilaterally Percussion: percussion normal Cardio Palpation: normal PMI Rate: regular rate Rhythm: regular rhythm Heart sounds: no murmurs and no rubs Peripheral pulses: Peripheral pulses 2+ throughout GI Inspection: Yes normal to inspection Palpation (GI): Soft to palpation, nontender, no guarding, not rigid and No hepatosplenomegaly present Percussion: Yes normal to percussion Auscultation: normal bowel sounds Rectal Exam - Female: deferred General: Yes bladder normal to palpation External Female Exam: No lesion Speculum Exam - Vagina: normal appearance of the vagina, normal palpation, normal vaginal discharge and not erythematous Speculum Exam - Cervix: normal appearance of the cervix and normal palpation Bimanual exam- vagina & uterus: normal bimanual exam, normal palpation, uterine size normal, bladder normal to palpation, consistency normal and normal palpation Bimanual Exam- Adnexa, other: normal adnexae, no masses and no tenderness Office Procedures Endometrial Biopsy Details: The patient was counseled regarding the indication and benefits of endometrial sampling to rule out endometrial pathology including not limited to endometrial hyperplasia or endometrial cancer and others; The alternatives (Either do nothing vs. hysteroscopy D&C) & the risks were discussed with the patient including but not limited: pain, uterine perforation, bleeding, infection, possible injury to bladder, bowel, ureter, possible need for blood transfusion with all its possible risks. The patient verbalized understanding all questions answered and signed consent. The patient was placed into the dorsal lithotomy position; a speculum was inserted in the vagina. Using aseptic technique for the procedure, the cervix was cleansed with Betadine. The anterior lip of the cervix was grasped with a single tooth tenaculum. The uterus was sounded to 7 cm with a 4 mm Pipelle was used. Tissues samples were obtained and placed in formalin, in a patient labeled container and sent to the pathology department. At the end of the procedure, there was minimal bleeding noted The patient tolerated the procedure well and was discharged in good condition with the following instructions: Nothing in the vagina until the bleeding stops. No sex until the bleeding stops, to call if any of the following occurs: fever (>100.4), flu-like symptoms, abdominal pain, heavy bleeding, four smelling vaginal discharge. The patient was instructed to schedule a Follow up appointment in 2 weeks to discuss pathology results of the biopsy and treatment options. This note was generated with a voice recognition program. Some errors may have been overlooked during the review of this note. Sometimes these errors may a ffect the content or meaning of a given sentence. [id number] Biopsy Assessment & Plan Assessment & Plan (1) Well woman exam: Comment: Pap negative/HPV positive in 2018, followed by negative co testing in 2019 and negative co testing in 06/04 Code(s): Z01.419 - Encounter for gynecological examination (general) (routine) without abnormal findings Category: Medical Plan: Co testing not indicated this year. Counseled the patient about the recommended dietary allowance of 1200 mg of Calcium & 600 IU of vitamin D. Instructions given the patient to schedule next screening Mammogram in 02/05. The patient was instructed to perform monthly self-breast exams and schedule annual exam in a year. All questions answered and the patient verbalized understanding. (2) Ovarian cyst: Code(s): N83.209 - Unspecified ovarian cyst, unspecified side Category: Medical Plan: The patient was counseled regarding options of treatment, offered pelvic MRI to rule out any suspicious features, the patient would like to think about it and get back to us. ovarian cancer tumor marker ordered, follow-up pelvic ultrasound scheduled in 12 months (3) Thickened endometrium: Code(s): R93.89 - Abnormal findings on diagnostic imaging of other specified body structures Category: Medical Plan: EMB done, see procedure note Orders: Orders AMB Endometrial Biopsy Today R93.89 - Abnormal findings on diagnostic imaging of other specified body structures Coding Level of Care Code Est Pt Level 4 (52849) Procedure Only Diagnoses Well woman exam Z01.419 Ovarian cyst N83.209 Thickened endometrium R93.89 CPT Codes Endometrial Biopsy - CPT: 95928-Ipuwlnznmnb Biopsy ([id number])
[2024-05-14 10:01] VITALS: BP 120/72; BMI 29.4
--- OUTSIDE RECORDS SUMMARY | 2024-05-14 11:24 | XMS_ITS | Clinical Summary ---
Author Organization [facility] ity Address [address] [place] [address] Care Team Providers Care Isolation Washer Name Role Phone Unavailable Primary Care Provider [...] 2023 Influenza Vaccine (#1) 2023 RSV Immunization Adult Patie nts (1 - 1-dose 75+ series) 01/16/2039 HIB [...] Procedure Name Priority Date/Time Associated Diagnosis Comments [facility] SCREENING DIGITAL Routine 02/01/2018 5:40 PM EST Encounter for screening mammogram for malignant neoplasm of breast from Last 3 Months or Most Recently Relevant to Health Maintenance Results * [facility]ITA SCREENING DIGITAL (02/01/2018 5:40 PM EST) Anatomical Region Laterality Modality Mammography 02/01/2018 3:46 PM EST Narrative 02/01/2018 5:40 PM EST [facility] Diagnostic Imaging Department [address] [place] [id number] Patient: ??ANH NGUYEN ?/Age/Sex: 1965 - 53 - F Unit#: ??[id number] ? Location/Status: ??SPDIMAM/REG CLI ? Mnemonic/Ordering Site: [...] for the next mammogram: ??CPT II 7025F [id number] Dictating Physician: ??MIRIAN GRANADOS MD Electronically Signed by: ??MIRIAN GRANADOS MD Dic Date/Time: ??02/01/181733 Sign date/Time: ??02/01/18 174 Procedure Note Mirian Granados MD - 01/31/2022 [facility] Diagnostic Imaging Department [address] [place], [place] [id number] Patient: LAURA,ANH /Age/Sex: 1965 - 53 - F Unit#: [id number] Location/Status: [facility] Mnemonic/Ordering Site: [facility] Ordering Physician: JASON DAVIDSON MD Gita [...] for the next mammogram: CPT II 7025F [id number] Dictating Physician: MIRIAN GRANADOS MD Electronically Signed by: MIRIAN GRANADOS MD Dic Date/Time: 02/01/181733 Sign date/Time: 02/01/181739 Jason Davidson MD IMG BI PROCEDURES Edel l Result from Last 3 Months or Most Recently Relevant to Health Maintenance
--- OUTSIDE RECORDS SUMMARY | 2024-05-14 11:25 | XMS_ITS | Data Portability ---
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 Plan of Treatment Reminders Order Date Submit Date Provider Last Modified By Organization Details Last Modified Time Details Appointments None record ed. Lab lipid panel, serum 2017 018 [facility], [address] [place] [address], [place], [address], 9 10:16:08 CMP, serum or plasma 2017 018 [facility], [address] [place] [address] 2, [place], [address], 9 10:16:09 CBC w/ auto diff 2017 018 [facility], [address] [place] [address] 2, [place], [address], 9 10:16:09 TSH, serum or plasma 2017 018 [facility], [address] [place] [address] 2, [place], [address], 9 10:16:09 vitami n D, 25-hyd khadijah, total, serum 2017 018 [facility], [address], [place], [address], 9 10:16:09 magnes ium, RBC 2017 018 [facility], [address], [address], [place], [address], 9 10:16:09 rapid flu (A+B) 2017 018 MARY In-Office Order, Internal Use Only DO Not Attach Compendium DO Not Attach Compendium, Do Not Delete/merge, [id number] 8 11:22:04 urinal ysis, dipsti ck 2016 017 [email or web address] In-Office Order, Internal Use Only DO Not Attach Compendium DO Not Attach Compendium, Do Not Delete/merge, [id number] 7 14:15:08 urinal ysis comple te, reflex cultur e 2016 017 [facility], [address], [address], [place], [address], 7 16:22:58 Referral orthop edic referr al 2016 017 kathleen Erickson MD, [address] [facility], [address], [place], [address], 7 15:54:30 Procedures None record ed. Surgeries None record ed. Imaging XR, chest, 2 view 2017 018 MARY Not available 8 14:05:23 Medication Orders Zithro max Z-Denilson 250 mg tablet 2017 018 [email or web address] [facility], [address] [place], [address], 8 13:43:40 Cipro 500 mg tablet 2016 017 [email or web address] [id number], [address] [place], [address], 8 14:03:06 Bactri m DS 800 mg-160 mg tablet 2016 017 [email or web address] [id number], [address] [place], [address], 8 10:54:29 flucon azole 100 mg tablet 2016 017 [email or web address] [id number], [address] [place], [address], 7 10:31:46 Patient TargetsNo targets recorded. Patient Instructions Encounter Date Encounter Id Patient Instructions Last Modified By Organization Details Last Modified Time 05/25/2016 [id number] candidiasis: care instructions [email or web address] Not available 05/25/2016 12:51:28 stop nystatin S&S, rather take diflucan as dir. call us or nurse gynecology if no better pmadden Not available 05/25/2016 14:55:58 I have reviewed the note and agree with the assessment and plan of care. [email or web address] Not available 05/25/2016 16:48:24 11/07/2016 [id number] Urinary Tract Infection (UTI) in Women: Care Instructions pmadden Not available 11/07/2016 14:14:29 mallet finger: care instructions pmadden Not available 11/07/2016 14:14:29 I have reviewed the note and agree with the assessment and plan of care. [email or web address] Not available 11/07/2016 16:01:58 11/09/2016 [id number] Urinary Tract Infection (UTI) in Women: Care Instructions [email or web address] Not available 11/10/2016 11:40:45 take cipro as directed, cont cranberry and probiotic, stay hydrated, consider taking zyrtec (morning) and / or benadryl (bedtime) if itching worse pmadden Not available 11/09/2016 11:01:44 I have reviewed the note and agree with the assessment and plan of care. [email or web address] Not available 11/09/2016 22:19:50 03/06/2017 [id number] call or return for worsening or concerns. [email or web address] Not available 03/06/2017 11:04:35 I have reviewed the note and agree with the assessment and plan of care. [email or web address] Not available 03/06/2017 12:27:41 11/13/2017 [id number] call or return for any concerns. [email or web address] [...] DO Not Attach Compendium, Do Not Delete/merge, [id number] 11/07/2016 13:26:34 11/08/19 17 11/07/2016 urina lysis , dipst ick Nitrite negati ve Not Available In-Office Order Internal Use Only DO Not Attach Compendium DO Not Attach Compendium, Do Not Delete/merge, [id number] 11/07/2016 13:26:34 11/08/1911/07/2016 urina lysis , dipst ick Urobilinogen 1 Not Available In-Of fice Order Internal Use Only DO Not Attach Compendium DO Not Attach Compendium, Do Not Delete/merge, [id number] 11/07/2016 13:26:34 11/08/1911/07/2016 urina lysis , dipst ick Protein Negati ve Not Available In-Office Order Internal Use Only DO Not Attach Compendium DO Not Attach Compendium, Do Not Delete/merge, [id number] 11/07/2016 13:26:34 11/08/1911/07/2016 urina lysis , dipst ick pH 6.0 Not Available In-Office Order Internal Use Only DO Not Attach Compendium DO Not Attach Compendium, Do Not Delete/merge, [id number] 11/07/2016 13:26:34 11/08/19 17 11/07/2016 urina lysis , dipst ick Blood Negati ve Not Available In-Office Order Internal Use Only DO Not Attach Compendium DO Not Attach Compendium, Do Not Delete/merge, 11/07/2016 13:26:34 11/08/19 17 11/07/2016 urina lysis , dipst ick Specific [place] 1.025 Not Available In-Off ice Order Internal [...] [address] [place] [address] [phone] Not Available [facility] [address], [place], [address], 12/02/2016 11:45:39 12/03/19 17 12/02/2016 urina lysis , compl ete glucose, (UA) NEGATI VE mg/dL negati ve Not Available [facility] [address] [place], [address], 12/02/2016 11:45:39 12/03/1912/02/2016 urina lysis , compl ete bilirubin, urine NEGATI VE negati ve Not Available [facility] [address] [place], [address], 12/02/2016 11:45:39 12/03/1912/02/2016 urina lysis , compl ete ketone, urine NEGATI VE mg/dL negati ve Not Available [facility] [address] [place], [address], 12/02/2016 11:45:39 12/03/1912/02/2016 urina lysis , compl ete specific gravity, urine 1.003 1.003- 1.030 Not Available [facility] [address] [place], [address], 12/02/2016 11:45:39 12/03/1912/02/2016 urina lysis , compl ete blood, urine SMALL negati ve abnormal Not Available [facility] [address] [place], [address], 12/02/2016 11:45:39 12/03/1912/02/2016 urina lysis , compl ete pH, urine 6.5 5.0-8. 0 Not Available [facility] [address] [place], [address], 12/02/2016 11:45:39 12/03/1912/02/2016 urina lysis , compl ete protein, urine NEGATI VE mg/dL <= trace Not Available [facility] [address] [place], [address], 12/02/2016 11:45:39 12/03/1912/02/2016 urina lysis , compl ete urobilinogen , urine 0.2 E.U./ dL 0.2-1. 0 Not Available [facility] [address] [place], [address], 12/02/2016 11:45:39 12/03/1912/02/2016 urina lysis , compl ete nitrite, urine NEGATI VE negati ve Not Available [facility] [address] [place], [address], 12/02/2016 11:45:39 12/03/1912/02/2016 urina lysis , compl ete leukocyte esterase, urine LARGE negati ve abnormal Not Available [facility] [address] [place] [address], [address], 12/02/2016 11:45:39 12/03/1912/02/2016 urina lysis , compl ete RBC, urine 6 /hpf 0-4 high Not Available [facility] [address] [place] [address], [address], 12/02/2016 11:45:39 12/03/1912/02/2016 urina lysis , compl ete WBC, urine 149 /hpf 0-4 high Not Available [facility] [address] [place], [address], 12/02/2016 11:45:39 12/03/1912/02/2016 urina lysis , compl ete epith cells, urine 0 /lpf 0-60 Not Available [facility] [address] [place], [address], 12/02/2016 11:45:39 12/03/19 17 12/02/2016 urina lysis , compl ete bacteria, urine HEAVY negati ve abnormal Not Available [facility] [address] [place], [address], 12/02/2016 11:45:39 12/03/19 17 12/02/2016 urina lysis , compl ete hyaline cast, urine 2 /lpf 0-3 Not Available [facility] [address] [place] [address], [address], 12/02/2016 11:45:39 12/03/19 17 12/02/2016 cultu re, urine comments [facility] [address] [facility] [place] [address] [phone] SOURC E: URINE ,BARBARA N CATCH ; Not Available [facility] [address] [place] [address], [address], 12/04/2016 10:56:14 12/03/19 17 12/04/2016 cultu re, urine urine culture [facility] [address] [place] [address] COLLE CTION TIME: 12/02 10:08 :00 AM -04:0 0 URINE CULTU RE ESCHE LEFTY A COLI ( ESCCO L ) F URINE CULTU RE COLON Y COUNT F URINE CULTU RE >100, 000 F Not Available [facility] [address] [place] [address], [address], 12/04/2016 10:56:14 12/03/19 17 12/02/2016 cultu re, urine comments [facility] [address] [facility] [place] [address] [phone] SOURC E: URINE ,BARBARA N CATCH ; Not Available [facility] [address] [place] [address], [address], 12/03/2016 10:35:27 12/03/19 17 12/03/2016 cultu re, urine [facility] [address] [address] COLLE CTION TIME: 12/02 10:08 :00 AM -04:0 0 URINE CULTU RE [facility] [facility] ( SEC ) P URINE CULTU RE COLON Y COUNT P URINE CULTU RE >100, 000 P Not Available [facility] [address] [place] [address], [address], 12/03/2016 10:35:27 12/03/19 17 12/02/2016 antib iotic sensi tivit y, isola te comments PAREN T ORGAN ISM: ESCHE LEFTY A COLI ( ESCCO L ) [facility] [address] [facility] [place] [address] [phone] SOURC E: URINE ,BARBARA N CATCH ; Not Available [facility] [address] [place], [address], 12/04/2016 10:56:18 12/03/19 17 12/04/2016 antib iotic sensi tivit y, isola te gram negative susceptibili ty [facility] [address] [place] [address] [phone] COLLE CTION TIME: 12/02 10:08 :00 AM [...] S F Not Available [facility] [address] [place], [address], 12/04/2016 10:56:18 03/06/19 18 03/06/2017 rapid flu (A+B) Flu A negati ve Not Available In-Office Order Internal Use Only DO Not Attach Compendium DO Not Attach Compendium, Do Not Delete/merge, [id number] 03/06/2017 11:03:39 03/06/19 18 03/06/2017 rapid flu (A+B) Flu B negati ve Not Available In-Office Order Internal Use Only DO Not Attach Compendium DO Not Attach Compendium, Do Not Delete/merge, [id number] 03/06/2017 11:03:39 06/29/19 17 06/28/2016 duple x scan of extre mity veins inclu ding respo nses to compr essio n and other maneu vers; compl ete bilat eral study (PROC ) No observ ation record ed. [email or web address] [address] [place], [address], 06/29/2016 17:23:19 09/20/19 17 09/18/2016 MAMMO , scree soo, digit al, bilat eral No observ ation record ed. [email or web address] [facility] [address] [place], [address], 09/26/2016 11:03:33 03/06/19 18 03/06/2017 XR, chest , 2 view No observ [facility]ion [facility] [address] [place], [address], 03/07/2017 09:21:59 03/06/19 18 03/06/2017 XR, chest , 2 view No observ ation record ed. [facility] [address] [place], [address], 03/07/2017 09:21:59 03/06/19 19 03/06/2018 CT, cervi wade spine , w/o contr ast No observ ation record ed. [facility] [address] [place], [address], 03/07/2018 21:02:59 Result Notes None recorded. Problems Name Problem SNOMED Code Status Onset Date Resolution Date Notes Provider Name and Address Organization Details Recorded Time Acute pharyngi tis 163135734 Completed 200809/22/2013 RECORDED 10/01/19 09 3:03PM BY UVALDO MEHTA ON/ADDLULI DUM Not Available [facility] 4 05:31:58 Acute sinusiti s [id number] Completed 200809/22/2013 RECORDED 10/01/19 09 3:03PM BY ROSEMARY GILL, JANETTEATI ON/ADDEN DUM Not Available [facility] 4 05:31:58 Patient status finding [id number] Completed 201209/22/2013 RECORDED 08/13/19 13 4:00PM BY TORI MALDONADO MA, ANNOTATI ON/ADDEN DUM Not Available [facility] 4 05:31:58 Screenin g for malignan t neoplasm of breast Completed 201109/22/2013 RECORDED 12/21/19 12 8:38AM BY TORI MALDONADO MA, ANNOTATI ON/ADDEN DUM [facility] Available [facility] 4 05:31:58 Screenin g for malignan t neoplasm of cervix Completed 201109/22/2013 RECORDED 12/21/19 12 8:38AM BY TORI MALDONADO MA, ANNOTATI ON/ADDEN DUM Not Available [facility] 4 05:31:58 Dysphagi a [id number] Completed 201109/22/2013 RECORDED 12/21/19 12 8:38AM BY TORI MALDONADO MA, ANNOTATI ON/ADDEN DUM Not Available [facility] 4 05:31:58 Malaise and fatigue 383815041 Completed 201109/22/2013 RECORDED 12/21/19 12 8:38AM BY TORI MALDONADO MA, ANNOTATI ON/ADDEN DUM Not Available [facility] 4 05:31:58 Noninfec tious gastroen teritis 29216135 Completed 201109/22/2013 RECORDED 12/21/19 12 8:38AM BY TORI MALDONADO MA, ANNOTATI ON/ADDEN DUM Not Available [facility] 4 05:31:58 Neck pain 67249370 Completed 201109/22/2013 IMPRESSI ON: WITH FACIAL PARESTHE LAURENCE, NON-FOCA L NEURO EXAM; RECORDED 12/21/19 12 8:37AM BY TORI MALDONADO MA, ANNOTATI ON/ADDEN DUM Not Available [facility] 4 05:31:58 Administ ration of Haemgingeri doug influenz ae type b vaccine Completed 201009/22/2013 RECORDED 11/02/19 11 10:00AM BY MELANIA MCCLELLAN, HISTORIC AL SUMMARY Not Available [facility] 4 05:31:58 Infectiv e hepatiti s immuniza tion Completed 201009/22/2013 RECORDED 11/02/19 11 9:58AM BY MELANIA MCCLELLAN, HISTORIC AL SUMMARY Not Available [facility] 4 05:31:59 Administ ration of measles and mumps and rubella vaccine Completed 201009/22/2013 RECORDED 11/02/19 11 9:58AM BY MELANIA MCCLELLAN, HISTORIC AL SUMMARY Not Available [facility] 4 05:31:59 Administ ration of tetanus vaccine Completed 201109/22/2013 RECORDED 12/21/19 12 8:38AM BY TORI MALDONADO MA, UVALDO ON/ADDEN DUM Not Available [facility] 4 05:31:59 Skin sensatio n disturba [facility] [id number] Completed 201109/22/2013 STORY: FACIAL PARESTHE LAURENCE/; RECORDED 12/21/19 12 8:37AM BY TORI MALDONADO MA, UVALDO ON/ADDEN DUM Not Available [facility] 4 05:31:59 Neck sprain 784673702 Completed 201109/22/2013 RECORDED 12/21/19 12 8:37AM BY TORI MALDONADO MA, UVALDO ON/ADDEN DUM Not Available [facility] 4 05:31:59 Tachycar roney [id number] Completed 201109/22/2013 RECORDED 12/21/19 12 8:38AM BY TORI MALDONADO MA, UVALDO ON/ADDEN DUM Not Available [facility] 4 05:31:59 Administ ration of diphther ia and tetanus vaccine Completed 201209/22/2013 RECORDED 08/13/19 13 4:00PM BY TORI MALDONADO MA, UVALDO ON/ADDEN DUM Not Available [facility] 4 05:31:59 Spasm [id number] Completed 201209/22/2013 STORY: NECK/TRA P STRAIN (IN SETTING OF CERVICAL DISC DZ/MILD) ; RECORDED 01/01/20 13 8:21AM BY MARIANELA CORONADO MA, ANNOTVALERIE ON/ADDEN DUM Not Available [facility] 4 05:31:59 Visual disturba nce 32194571 Completed 201109/22/2013 RECORDED 12/21/19 12 8:37AM BY TORI MALDONADO MA, UVALDO ON/ADDEN DUM Not Available [facility] 4 05:31:59 Acute pharyngi tis 073365704 Completed 04/03/2014 Lalo bentley, [facility] 5 16:46:39 Tendinit is AND/OR tenosyno vitis of the ankle region Active Bart garcia null, [facility] 5 20:06:27 Lateral epicondy litis 413725427 Active Bart bentley, [facility] 5 20:06:27 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 Dr Angelia thurman [place] null, [facility] 6 15:42:12 Abnormal weight loss 562315743 Active Bart bentley, [facility] 6 09:47:19 Urinary tract infectio us disease 00356646 Active 2016 Rob Ornelas MD [address] [facility] [address], [place], [address] , [facility] 7 16:56:59 Acute pharyngi tis 626656481 Completed 200808/26/2013 RECORDED 10/01/19 09 3:03PM BY UVALDO MEHTA ON/ADDEN DUM Not Available [facility] 4 14:31:14 Acute sinusiti s 69695110 Completed 200808/26/2013 RECORDED 10/01/19 09 3:03PM BY UVALDO MEHTA ON/ADDEN DUM Not Available [facility] 4 14:31:14 Adult health examinat ion Completed 201204/03/2014 RECORDED 01/09/20 13 11:32AM BY ROSEMARY GILL, OFFICE VISIT Lalo bentley [facility] 5 16:46:39 Patient status finding [id number] Completed 201208/26/2013 RECORDED 08/13/19 13 4:00PM BY TORI MALDONADO MA, ANNOTATI ON/ADDEN DUM Not Available [facility] 4 14:31:14 Screenin g for malignan t neoplasm of breast Completed 201108/26/2013 RECORDED 12/21/19 12 8:38AM BY TORI MALDONADO MA, JANETTEATI ON/ADDEN DUM Not Available [facility] 4 14:31:14 Screenin g for malignan t neoplasm of cervix Completed 201108/26/2013 RECORDED 12/21/19 12 8:38AM BY TORI MALDONADO MA, JANETTEATI ON/ADDEN DUM Not Available [facility] 4 14:31:14 Cough 71515164 Completed 201204/03/2014 IMPRESSI ON: LUNGS CLEAR BUT SINUS SYMPTOMS PRESENT, ENCOURAG E REST AND HYDRATIO N. ABX SCRIPT GIVEN WITH INSTRUCT ION TO START IF SINUS SYMPTOMS PERSIST OR WORSEN.; RECORDED 01/11/20 13 2:18PM BY MARINO SERRANO PA-C, OFFICE VISIT Lalo bentley [facility] 5 16:46:39 Cough 11899335 Completed 201108/26/2013 RECORDED 12/21/19 12 8:38AM BY TORI MALDONADO MA, ANNOTATI ON/ADDEN DUM Not Available [facility] 4 14:31:15 Dysphagi a 83742584 Completed 201108/26/2013 RECORDED 12/21/19 12 8:38AM BY TORI MALDONADO MA, ANNOTATI ON/ADDEN DUM Not Available [facility] 4 14:31:15 Gastroes ophageal reflux disease 467865188 Active 2012 ASIM Christine, [facility] 6 15:41:53 External hemorrho ids 12145196 Active 2012 ASIM Christine, [facility] 6 15:41:57 Malaise and fatigue 603943701 Completed 201108/26/2013 RECORDED 12/21/19 12 8:38AM BY TORI MALDONADO MA, ANNOTATI ON/ADDEN DUM Not Available [facility] 4 14:31:15 Influenz a vaccine needed 47090320590 06 Completed 201204/03/2014 RECORDED 01/09/20 13 11:32AM BY ROSEMARY GILL, OFFICE VISIT Lalo bentley, [facility] 5 16:46:39 Noninfec tious gastroen teritis 36806076 Completed 201108/26/2013 RECORDED 12/21/19 12 8:38AM BY TORI MALDONADO MA, ANNOTATI ON/ADDEN DUM Not Available [facility] 4 14:31:15 Pure hypercho lesterol emia 235365849 Active 2012 ASIM Christine, [facility] 6 15:42:00 Neck pain 19792479 Completed 201108/26/2013 IMPRESSI ON: WITH FACIAL PARESTHE LAURENCE, NON-FOCA L NEURO EXAM; RECORDED 12/21/19 12 8:37AM BY TORI MALDONADO MA, ANNOTATI ON/ADDEN DUM Not Available [facility] 4 14:31:15 Administ ration of Christie camacho influenz ae type b vaccine Completed 201008/26/2013 RECORDED 11/02/19 11 10:00AM BY MELANIA MCCLELLAN, HISTORIC AL SUMMARY Not Available [facility] 4 14:31:16 Infectiv e hepatiti s immuniza tion Completed 201008/26/2013 RECORDED 11/02/19 11 9:58AM BY MELANIA MCCLELLAN, HISTORIC AL SUMMARY Not Available [facility] 4 14:31:16 Administ ration of measles and mumps and rubella vaccine Completed 201008/26/2013 RECORDED 11/02/19 11 9:58AM BY MELANIA MCCLELLAN, HISTORIC AL SUMMARY Not Available [facility] 4 14:31:16 Administ ration of tetanus vaccine Completed 201108/26/2013 RECORDED 12/21/19 12 8:38AM BY TORI MALDONADO MA, JANETTEATI ON/ADDEN DUM Not Available [facility] 4 14:31:16 Patient status finding [id number] Completed 201204/03/2014 RECORDED 01/09/20 13 11:35AM BY ROSEMARY GILL, OFFICE VISIT Lalo bentley MA - [facility] 5 16:46:39 Skin sensatio n disturba nce 53685193 Completed 201108/26/2013 STORY: FACIAL PARESTHE LAURENCE/; RECORDED 12/21/19 12 8:37AM BY TORI MALDONADO MA ANNOTVALERIE ON/ADDEN DUM Not Available [facility] 4 14:31:16 Paroxysm al tachycar roney 51293494 Active 2012 ASIM Christine MA - [facility] 6 15:41:51 Adult health examinat ion Completed 201108/26/2013 RECORDED 12/21/19 12 8:38AM BY TORI MALDONADO MA, ANNOTATI ON/ADDEN DUM Not Available [facility] 4 14:31:16 Neck sprain 254379889 Completed 201108/26/2013 RECORDED 12/21/19 12 8:37AM BY TORI MALDONADO MA, ANNOTVALERIE ON/ADDEN DUM Not Available [facility] 4 14:31:16 Conducti on disorder of the heart 48410178 Active 2012 ASIM Christine [facility] 6 15:42:04 Tachycar roney 5672054 Completed 201108/26/2013 RECORDED 12/21/19 12 8:38AM BY TORI MALDONADO MA, ANNOTATI ON/ADDEN DUM Not Available [facility] 4 14:31:16 Administ ration of diphther ia and tetanus vaccine Completed 201208/26/2013 RECORDED 08/13/19 13 4:00PM BY TORI MALDONADO MA, ANNOTATI ON/ADDEN DUM Not Available [facility] 4 14:31:16 Spasm 70438645 Completed 201208/26/2013 STORY: NECK/TRA P STRAIN (IN SETTING OF CERVICAL DISC DZ/MILD) ; RECORDED 01/01/20 13 8:21AM BY MARIANELA CORONADO MA, ANNOTATI ON/ADDEN DUM Not Available [facility] 4 14:31:17 Visual disturba nce 79668071 Completed 201108/26/2013 RECORDED 12/21/19 12 8:37AM BY TORI MALDONADO MA, ANNOTATI ON/ADDEN DUM Not Available [facility] 4 14:31:17 Problem Notes None recorded. Procedures Surgical History Date Name Laterality Status Provider Name and Address Organization Details Recorded Time 07/03/19 18 Date of Last Pap Smear completed Oksana Mcclellan [facility] 07/05/2017 14:57:58 09/19/19 17 Most Recent Mammogram completed Jamee Stapleton [facility] 09/26/2016 11:03:05 09/19/19 17 Mammogram screening completed Jamee Stapleton [facility] 09/26/2016 11:02:58 01/30/20 15 Mammogram Diagnostic Unilateral completed Oksana Mcclellan [facility] 01/29/2015 13:30:29 06/30/19 15 Colonoscopy completed Tosin lao MA [facility] 09/27/2015 15:43:10 Dilation and Curettage completed Malinda Lomas [facility] 03/03/2014 08:49:20 Imaging Results Imaging Date Name Status LastModified by Organiz ation Details LastModified Time 06/28/2016 duplex scan of extremity veins including responses to compression and other maneuvers; complete bilateral study (PROC) completed [facility] Dept [address] [place] [address], [address], 06/29/2016 17:23:19 09/18/2016 MAMMO, screening, digital, bilateral completed [email or web address] [facility] [address] [place] [address], [address], 09/26/2016 11:03:33 03/06/2017 XR, chest, 2 view completed [facility] [address] [place] [address], [address], 03/07/2017 09:21:59 03/06/2017 XR, chest, 2 view completed [facility] [address] [place], [address], 03/07/2017 09:21:59 03/06/2018 CT, cervical spine, w/o contrast completed [facility] [address] [place] [address], [address], 03/07/2018 21:02:59 Procedure Notes None recorded. Medical Equipment None Reported. Allergies Allergen ID Allergen Name Allergen Category Reaction Reaction Severity Criticality Documentation Date Start Date Code Code System Note Provider Name and Address Organization Details Recorded Time 25357 iron-dext ran complex medicatio n rash Not available Not available 10/14/2013 5992 RxNorm ASIM Mehta, [facility] 4 15:57:06 81243 Bactrim medicatio n hives severe Not available 11/09/2016 18713 9 RxNorm Demian Mayo PA-C [address] [facility] [address] [address], [facility] 7 10:53:17 93409 Substance with sulfonami de structure and antibacte rial mechanism of action (substanc e) medicatio n hives Not available Not available 03/06/2017 48934 8003 SNOMED ASIM Yeager, [facility] 8 10:54:00 5993 cyclobenz aprine hydrochlo ride medicatio n Not available Not available Not available 08/26/20132012 02439 RxNorm REACT ION: SVT; COMME NT: RECOR DED 12/31 8:58A M BY LYLE THURMAN MA, OFFIC E VISIT ; Not Available [facility] 4 13:23:35 5994 Reglan medicatio n Not available Not available Not available 08/26/20132012 9230 RxNorm ASIM Yeager, [facility] 6 15:41:35 Medications Name Sig [...] Available metronida zole 500 mg tablet active [facility] has pt use 1 applicat ion weekly [...] Details Last Updated DateTime 7 170.18 cm 08144.5 2 g 22.1 kg/m2 62 /min 97 % 97 % 97.4 [degF] 118 mm[Hg] 62 mm[Hg] Gaetano Bradshaw [facility] 7 11:44:00 Date Recorded Body height Body mass index (BMI) Body weight Heart rate Body temperature Oxygen saturation Oxygen saturation in Arterial blood by Pulse oximetry Systolic blood pressure Diastolic blood pressure Provider Name and Address Organization Details Last Updated DateTime 7 170.18 cm 22.9 kg/m2 28164.4 9 g 66 /min 98.6 [degF] 99 % 99 % 96 mm[Hg] 57 mm[Hg] Marianela Coronado [facility] 7 13:30:48 Date Recorded Body height Body mass index (BMI) Body weight Oxygen saturation Oxygen saturation in Arterial blood by Pulse oximetry Heart rate Systolic blood pressure Diastolic blood pressure Provider Name and Address Organization Details Last Updated DateTime 7 170.18 cm 22.3 kg/m2 87041.8 2 g 96 % 96 % 68 /min 108 mm[Hg] 75 mm[Hg] Adrienne Ramos [facility] 7 10:31:57 Date Recorded Body height Body temperature Oxygen saturation Oxygen saturation in Arterial blood by Pulse oximetry Heart rate Body mass index (BMI) Body weight Systolic blood pressure Diastolic blood pressure Provider Name and Address Organization Details Last Updated DateTime 8 170.18 cm 99.9 [degF] 98 % 98 % 66 /min 22.9 kg/m2 11925.4 9 g 98 mm[Hg] 66 mm[Hg] Tosin hernandez MA [facility] 8 10:58:02 Date Recorded Body height Body mass index (BMI) Body weight Body temperature Heart rate Oxygen saturation Oxygen saturation in Arterial blood by Pulse oximetry Systolic blood pressure Diastolic blood pressure Provider Name and Address Organization Details Last Updated DateTime 8 170.18 cm 23 kg/m2 67200.0 8 g 98.9 [degF] 64 /min 98 % 98 % 99 mm[Hg] 64 mm[Hg] Razia Suzy [facility] 8 13:42:55 Social History Question Answer Notes LastModified by Organizat ion Details LastModified Time Tobacco Smoking Status Never Smoker ASIM Mehta, [facility] 10/14/2013 15:58:21 Do You Have An Advance Directive? No Declined Information not available 11/15/2015 What Is Your Level Of Alcohol Consumption? Occasional [email or web address] Information not available 10/14/2013 Is Blood Transfusion Acceptable In An Emergency? Yes Information not available 09/27/2015 What Is Your Level Of Caffeine Consumption? None [email or web address] Information not available 10/14/2013 How Much Tobacco Do You Chew? None Information not available 09/27/2015 Are You Currently Employed? Yes [email or web address] Information not available 10/14/2013 What Type Of Diet Are You Following? REGULAR [email or web address] Information not available 10/14/2013 Which Illicit Or [...] Do You Have? 2 Daughter (lives In [facility]) Information not available 03/06/2017 Do You Use Protection During Sex? No Information not available 09/27/2015 Seat Belts Used Routinely Yes [email or web address] Information not available 10/14/2013 Are You Sexually Active? Yes Information not available 09/27/2015 Smoke Alarm In Home Yes Information not available 10/14/2013 At What Age Did You Start Smoking Tobacco? 0 Information not available 09/27/2015 Are You Passively Exposed To Smoke? No Information not available 09/27/2015 How Much Tobacco Do You Smoke? No Information not available 09/27/2015 General Stress Level Medium [email or web address] Information not available 10/14/2013 Do You Use Sunscreen Routinely? Yes [email or web address] Information not available 10/14/2013 How Many Years Have You Smoked Tobacco? 0 Information not available 09/27/2015 Sex: Unknown Functional Status Question Answer Note LastModified by Organizat ion Details LastModified Time Are you able to care for yourself? Yes Information not available 10/14/2013 What is your [...] virus, trivalent, PF 4 completed Malinda bentley [facility] 03/03/2014 13:50:16 Influenza, split virus, trivalent, preservative 7 completed ASIM Reagan [facility] 03/06/2017 10:55:42 Influenza, split virus, quadrivalent, PF 6 completed Not Available [facility] 03/01/2019 02:22:04 Hep B, adult 1 completed Not Available [facility] 08/26/2013 13:55:11 Hep B, adult 1 completed Not Available [facility] 08/26/2013 13:55:11 Hep B, adult 1 completed Not Available [facility] 08/26/2013 13:55:11 MMR 6 completed Not Available [facility] 08/26/2013 13:55:11 MMR 8 completed Not Available [facility] 08/26/2013 13:55:11 Td (adult), 2 Lf tetanus toxoid, preservative free, adsorbed 7 completed Not Available [facility] 08/26/2013 13:55:11 Td (adult), 2 Lf tetanus toxoid, preservative free, adsorbed 2 completed Not Available [facility] 08/26/2013 13:55:11 Hib (HbOC) 1 completed Not Available [facility] 08/26/2013 13:55:11 Tdap 2 completed Not Available [facility] 08/26/2013 13:55:11 Influenza, split virus, trivalent, preservative 3 completed Not Available [facility] 08/26/2013 13:55:11 Past Encounters Encounter ID Performer Location Encounter Start Date Encounter Closed Date Diagnosis/Indication Diagnosis SNOMED-CT Code Diagnosis ICD10 Code Diagnosis Note [id number] [facility] [address] [facility] [facility] ASIM [place] [address] 02/20/2006 00:00:00 [id number] [address] [address]ce [address] [place] [address] 07/15/2007 00:00:00 [id number] [facility] erce [address] [place] [address] 09/10/2008 00:00:00 [id number] auto[facility] erce [address] [place] [address] 09/12/2008 00:00:00 [id number] [facility]ce [address] [place] [address] 09/30/2008 00:00:00 [id number] auto[facility] erce [address] [place] [address] 10/25/2009 00:00:00 [id number] auto[facility]Comm erce [address] [facility] [address] [place] [address] 06/06/2010 00:00:00 [id number] autoEComm erce [address] [facility] [address] [place] [address] 10/31/2010 00:00:00 [id number] auto[facility]Comm erce [address] [facility] [address] [place] [address] 03/13/2011 00:00:00 [id number] auto[facility]Comm erce [address] [facility] [address] [place] [address] 05/22/2011 00:00:00 [id number] autoEComm erce [address] [place] [address] 06/23/2011 00:00:00 [id number] auto[facility]Comm erce [address] [place] [address] 07/31/2011 00:00:00 [id number] autoEComm erce [address] [place] [address] 09/04/2011 00:00:00 [id number] autoEComm erce [address] [place] [address] 12/21/2011 00:00:00 [id number] auto[facility]Comm erce [address] [facility] [place] [address] 08/12/2012 00:00:00 [id number] auto[facility]Comm erce [address] [facility] [place] [address] 12/31/2012 00:00:00 [id number] auto[facility]Comm erce [address] [facility] [place] [address] 01/08/2013 00:00:00 [id number] Rosemary Gill [place] Main Office [address] [facility] [place] [address] 10/14/2013 15:25:57 10/14/2013 17:07:43 Acute pharyngitis 145680128 negative strep and will send for culture, no abx indicated [id number] Malinda Abebe Main Office [address] [address] [place] [address] 03/03/2014 13:35:47 03/03/2014 14:58:57 Adult health examination 930919938 Gastroesop hageal reflux disease 051351685 Screening for malignant neoplasm of colon 861974780 Paroxysmal tachycardia 29763674 [id number] Adrienne Ramos PR Main Office [address] [facility] [place] [address] 04/03/2014 15:47:25 04/03/2014 16:44:20 Tendinitis AND/OR tenosynovitis of the ankle region 953299552 Lateral epicondylitis 846936468 [id number] Bart garcia Main Office [address] [address] [place] [address] 08/19/2015 14:59:18 08/19/2015 15:55:04 Abnormal weight loss 340011469 R63.4 [id number] Bart garcia Main Office [address] [address] [place] [address] 09/27/2015 15:15:31 09/27/2015 17:08:13 Abnormal weight loss 976921660 R63.4 wt loss has stopped - pt has gained some wt back. all labs normal. wt loss most likely d/t stress. [id number] Bart Rob garcia Main Office [address] [facility] [address] [place] [address] 11/15/2015 12:53:46 11/15/2015 13:53:56 Adult health examination 490488692 Z00.00 Needs infl uenza immunization 803624675 Z23 Gastroesop hageal reflux disease 805868138 K21.9 Exposure t o communicable disease 939085623 Z20.9 [id number] Bart garcia Main Office [address] [facility] [address] [place] [address] 12/06/2015 14:28:47 12/06/2015 15:56:32 Dysuria 94326947 R30.0 ? mild UTI vs atrophic vaginitis [id number] Bart MartinezNate garcia Main Office [address] [address] [place] [address] 05/25/2016 11:33:40 05/25/2016 12:51:42 Candidiasis of mouth 61664431 B37.0 [id number] Bradley Henao MD Main Office [address] [address] [place] [address] 11/07/2016 13:01:45 11/07/2016 14:07:12 Dysuria 27746100 R30.0 finish bactrim as dir - will extend to 7 days to make sure complete eradicatio n (is 85% better), cont to push fluids and cont cranberry tabs as well as probiotic -- if sxs return in near future, consider rx c alternativ e abx Mallet fin fern with closed tendon injury 708192387 M20.012 L 3rd digit - cont stax splint as dir, will get hand specialist eval - pt requests Dr. Erickson [id number] Nikki callahan Main Office [address] [facility] [address] [place] [address] 11/09/2016 10:23:35 11/09/2016 11:04:48 Allergy to antibacterial drug 940075807 Z88.1 added bactrim to allergy list, see below Acute urin sade tract infection 418276703 N39.0 will give trial of cipro to adequately eradicate uti - if symptoms persist into next week, then consider uro eval - may be interstiti al cystitis [id number] Bart garcia Main Office [address] [place] [address] 03/06/2017 10:43:48 03/06/2017 11:29:03 Influenza-like illness 61206209 B34.9 x 6 days, has passed treatment window, continue supportive , sx treatment. 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 Will send for CXR and start on zpak [id number] Rob Ornelas MD Main Office [address] [place] [address] 11/13/2017 13:37:31 11/13/2017 14:27:17 Adult health examination 027245588 Z00.00 UTD, overdue for mammo, she will call/ [facility] 601639115 E78.00 Fatigue 73121899 R53.83 Health Concerns Section Related Observation LastModified by Organization Detai ls LastModified Time None Recorded Concern Status LastModified by Organization Details LastModified Time None Recorded Advance Directives Directive N: declined Payers Encounter Date Sequence Insurance Name Policy Number Policy Fitzgerald Covered Member ID Fitzgerald Member ID Guarantor Name 05/25/[address] [place] [address]) [id number] 1 Petros Nguyen [id number] Candida Nguyen 11/07/2016 1 [facility]) [id number] 1 Petros Baxterkin [id number] Candida Baxterkin 11/09/[address] [place] [address]) [id number] 1 Petros Baxterkin [id number] Candida Patrick 03/06/[address] [place] [address]) [id number] 1 Petros Baxterkin [id number] Candida Patrick 11/13/[address] [place] [address]) [id number] 1 Petros Nguyen [id number] Candida Nguyen Notes Date Note Type Note Provider Name and Address Organization Details Recorded Time 05/25/2016 text/html recently rx'd by nurse gynecology for gardnerella infxn - took flagyl x 3 days, then dev. oral thrush - but ? if d/t oral sex while dealing c vaginal unprotected sex c partner x 7-8 months has used nystatin swish and swallow 4x/day x 8 days c some help (~70% better) but not fully resolved - concerned. Bart bentley [facility] 05/25/2016 16:48:39 11/07/2016 text/html pt had uti 9.14 - took 3 days of bactrim - resolved. called again 9.24 - took 2 days of bactrim so far, feels ~ 85% better, has also used pyridium and cranberry tabs, increased fluids - wanted recheck. pt states was checked for std recently by nurse gynecology - was neg primarily here for L 3rd digit - hurt during volleyball back on .16 - no pain, edema, ecch - spoke c ortho friend - rec. stax splint x few months - she also called Dr. Erickson - she rec. see pcp first for referral Bradley Henao MD [address] [address], [place], [address], [facility] 11/07/2016 16:02:13 11/09/2016 text/html here for allergi c rxn to bactrim itch started yest, then dev. pimples / hives - took 25 of benadryl last night, slept ok, a little less itchy today stopped bactrim, but burning/freq c urination is returning - drinking fluids, cranberry tabs, prn pyridium - concerned that uti is not eradicated Nikki bentley [facility] 11/09/2016 22:19:59 03/06/2017 text/html Generic [...] as needed. + decreased appetite. Bart bentley [facility] 03/06/2017 12:27:52 11/13/2017 text/html Generic HPI TemplateReported bypatient.Notes:presen ts for PE. she is on nexium and was told to come off nexium and try zantac instead. Diagnosed with ? genital herpes via [facility] yesterday. she had testing to confirm but no results yet, being treated for it. Rob Ornelas MD [address] [address], [place], [address], [facility] 11/13/2017 18:06:58 OBGyn Episode No OBEpisode recorded.
--- OUTSIDE RECORDS SUMMARY | 2024-05-14 11:25 | XMS_ITS | Clinical Summary ---
Author Organization [facility] Address [address] [place] [address] Care Team Providers Care Inspector Pawnshop Detail Name Role Phone Unavailable Primary Care Provider [...]
== END 2024-05-14 11:02 | disposition home or self-care (01) ==
LOC: HO.HWS 09:57
PROVIDERS: PCP Internal Medicine; Visit Provider Obstetrics & Gynecology
DX: Z01.419 Encounter for gynecological examination (general) (routine) without abnormal findings (principal); N83.202 Unspecified ovarian cyst, left side; R93.89 Abnormal findings on diagnostic imaging of other specified body structures
CPT/HCPCS: 58100; 99396; 99459

== ENCOUNTER 2024-05-29 09:17 | Outpatient (AMB) | payer OTHER, SELFPAY ==
--- NOTE | 2024-05-29 09:20 | A.OFFVIS_ITS ---
Intake Visit Reasons: EMB results Allergies iron dextran complex Allergy (Intermediate, Verified 05/14/24 10:18) hives/serum sickness latex Allergy (Intermediate, Verified 05/14/24 10:18) Rash metoclopramide [Reglan] Allergy (Intermediate, Verified 05/14/24 10:18) extrapyramidal effects Sulfa (Sulfonamide Antibiotics) Allergy (Intermediate, Verified 05/14/24 10:18) full body rash HPI Comments Details: The patient is presenting after endometrial biopsy. The patient has no complaints, no vaginal bleeding, no feverishness chills or abdominal pain. The endometrial biopsy pathology report showed the following: Endometrium, biopsy: Strips of benign atrophic endometrium, and benign endocervical glandular and squamous epithelium; no atypia or carcinoma PFSH Medical History COVID-19 vaccine series completed Thoracic spine pain HPV (human papilloma virus) anogenital infection Neutropenia GERD (gastroesophageal reflux disease) Surgical History H/O colonoscopy History of esophagogastroduodenoscopy (EGD) History of tonsillectomy History of surgical removal of skin lesion History of History of appendectomy Social History Housing: Condominium Are you a primary behavioral health care coordinator to a significant other at home: No Do you presently have visiting nurse or other home services: No Alcohol intake: current Alcohol intake frequency: a few times a week Alcohol type: other Patient Tobacco Use Status: Former Tobacco user e-Cigarette/Vaping Use: Never Used Current occupational status: employed 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[employer] Sexual orientation: Straight/Heterosexual Gender identity: Female Cognitive needs: No Hearing needs: No Vision needs: Yes Female Reproductive History Menstrual Age of Menarche: 11 Review of Systems Const All systems reviewed & are unremarkable except as noted in HPI and below Reports as per HPI and Reports no additional complaints GI Reports no additional complaints Reports no additional complaints Telehealth Telehealth Telehealth Platform: Doximity Location of provider rendering services: practice address Location of patient: address on file Patient Identification confirmed using: Name, : Yes Telehealth method: video Patient verbally consented to treatment: Yes Patient verbally consented to billing insurance company: Yes Patient informed of any privacy concerns related to visit: Yes Minutes spent on Phone/Video with Pt.: 2 Assessment & Plan Assessment & Plan (1) Thickened endometrium: Code(s): R93.89 - Abnormal findings on diagnostic imaging of other specified body structures Category: Medical Plan: Discussed with the patient the results of the endometrial biopsy. Discussed with the patient the sensitivity, specificity, positive and negative predictive value, of endometrial biopsy in detecting endometrial pathology including but not limited to endometrial hyperplasia, cancer and other pathology; instructed the patient to call in case vaginal bleeding recurs, the next step will be to proceed with further endometrial sampling evaluation to rule out endometrial pathology. All questions answered and the patient verbalized understanding and agreed with the plan. I spent a total of 20 minutes reviewing the chart, talking to the patient via video and documenting in the medical record. Coding Level of Care Code Tele Est Pt Level 3 (51796) Diagnoses Thickened endometrium R93.89
--- OUTSIDE RECORDS SUMMARY | 2024-05-29 10:29 | XMS_ITS | Clinical Summary ---
Author Organization [facility] ity Address [address] [place] [address] Care Team Providers Care Credit Portfolio Advisor Name Role Phone Unavailable Primary Care Provider [...] - 2023-2 5 season) 2023 Influenza Vaccine (Season Ended) 2024 RSV Immunization Adult Patie nts (1 - [...] age to complete this topic Meningococcal B Vaccine Aged Out No l onger eligible based on patient's age to complete [...] Procedure Name Priority Date/Time Associated Diagnosis Comments [facility] SCREENING DIGITAL Routine 02/01/2018 5:40 PM EST Encounter for screening mammogram for malignant neoplasm of breast from Last 3 Months or Most Recently Relevant to Health Maintenance Results * [facility] SCREENING DIGITAL (02/01/2018 5:40 PM EST) Anatomical Region Laterality Modality Mammography 02/01/2018 3:46 PM EST Narrative 02/01/2018 5:40 PM EST [facility] Diagnostic Imaging Department [address] [place], [place] [address] Patient: ??ANH NGUYEN ?/Age/Sex: 1965 - 53 - F Unit#: ??[id number] ? Location/Status: ??SPDIMAM/REG CLI ? Mnemonic/Ordering Site: [...] for the next mammogram: ??CPT II 7025F G0202/59170 +[id number] Dictating Physician: ??MIRIAN GRANADOS MD Electronically Signed by: ??MIRIAN GRANADOS MD Dic Date/Time: ??02/01/18 173 Sign date/Time: ??02/01/18 1740 Procedure Note Mirian Granados MD - 01/31/2022 [facility] Diagnostic Imaging Department [address] [place], [place] [address] Patient: LAURA,ANH BarbourB./Age/Sex: 1965 - 53 - F Unit#: [id number] [facility]ing Site: [facility] Ordering Physician: JASON DAVIDSON MD Gita [...] for the next mammogram: CPT II 7025F G0202/69491 +[id number] Dictating Physician: MIRIAN GRANADOS MD Electronically Signed by: MIRIAN GRANADOS MD Dic Date/Time: 02/01/18 173 Sign date/Time: 02/01/181739 Jason Davidson MD IMG BI PROCEDURES Edel l Result from Last 3 Months or Most Recently Relevant to Health Maintenance
--- OUTSIDE RECORDS SUMMARY | 2024-05-29 10:29 | XMS_ITS | Clinical Summary ---
Author Organization [facility] Address [address] [place] [address] Care Team Providers Care Multi Punch Operator Name Role Phone Unavailable Primary Care Provider [...]
== END 2024-05-29 09:40 | disposition home or self-care (01) ==
LOC: HO.HWS 09:17
PROVIDERS: PCP Internal Medicine; Visit Provider Obstetrics & Gynecology
DX: R93.89 Abnormal findings on diagnostic imaging of other specified body structures (principal)
CPT/HCPCS: 99213

== ENCOUNTER → 2024-05-29 09:17 | Outpatient (BNVA) | payer OTHER, SELFPAY | PROVIDERS: PCP Internal Medicine; Visit Provider Obstetrics & Gynecology ==

== ENCOUNTER 2024-06-02 09:04 | Outpatient (AMB) | payer OTHER, SELFPAY ==
--- OUTSIDE RECORDS SUMMARY | 2024-06-02 09:16 | XMS_ITS | Clinical Summary ---
Author Organization [facility] Address [address] [place] [address] Care Team Providers Care Waiter/Waitress Second Class Name Role Phone Unavailable Primary Care Provider [...]
--- OUTSIDE RECORDS SUMMARY | 2024-06-02 09:16 | XMS_ITS | Clinical Summary ---
Author Organization [facility] ity Address [address] [place] [address] Care Team Providers Care Drawer In Name Role Phone Unavailable Primary Care Provider [...] Procedure Name Priority Date/Time Associated Diagnosis Comments [facility] SCREENING DIGITAL Routine 02/01/2018 5:40 PM EST Encounter for screening mammogram for malignant neoplasm of breast from Last 3 Months or Most Recently Relevant to Health Maintenance Results * [facility] SCREENING DIGITAL (02/01/2018 5:40 PM EST) Anatomical Region Laterality Modality Mammography 02/01/2018 3:46 PM EST Narrative 02/01/2018 5:40 PM EST [facility] Diagnostic Imaging Department [address] [place], [place] [id number] Patient: ??ANH NGUYEN ?/Age/Sex: 1965 - 53 - F Unit#: ??[id number] ? Location/Status: ??SPDIMAM/REG CLI ? Mnemonic/Ordering Site: [...] for the next mammogram: ??CPT II 7025F G0202/[id number] Dictating Physician: ??MIRIAN GRANADOS MD Electronically Signed by: ??MIRIAN GRANADOS MD Dic Date/Time: ??02/01/18 173 Sign date/Time: ??02/01/18 1740 Procedure Note Mirian Granados MD - 01/31/2022 [facility] Diagnostic Imaging Department [address] [place], [place] [id number] Patient: LARUA,ANH BarbourB./Age/Sex: 1965 - 53 - F Unit#: [id number] [facility]/Ordering Site: [facility] Ordering Physician: JASON DAVIDSON MD Gita [...] for the next mammogram: CPT II 7025F [id number] Dictating Physician: MIRIAN GRANADOS MD Electronically Signed by: MIRIAN GRANADOS MD Dic Date/Time: 02/01/18 173 Sign date/Time: 02/01/181739 Jason Davidson MD IMG BI PROCEDURES Edel l Result from Last 3 Months or Most Recently Relevant to Health Maintenance
--- OUTSIDE RECORDS SUMMARY | 2024-06-02 09:16 | XMS_ITS | Data Portability ---
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 Plan of Treatment Reminders Order Date Submit Date Provider Last Modified By Organization Details Last Modified Time Details Appointments None record ed. Lab lipid panel, serum 2017 018 [facility], [address] [place] [address], [place], [address], 9 10:16:08 CMP, serum or plasma 2017 018 [facility], [address] [place] [address] 2, [place], [address], 9 10:16:09 CBC w/ auto diff 2017 018 [facility], [address] [place] [address] 2, [place], [address], 9 10:16:09 TSH, serum or plasma 2017 018 [facility], [address] [place] [address] 2, [place], [address], 9 10:16:09 vitami n D, 25-hyd khadijah, total, serum 2017 018 [facility], [address] [facility], [address], [place], [address], 9 10:16:09 magnes ium, RBC 2017 018 [facility], [address] [facility], [address], [place], [address], 9 10:16:09 rapid flu (A+B) 2017 018 MARY In-Office Order, Internal Use Only DO Not Attach Compendium DO Not Attach Compendium, Do Not Delete/merge, [id number] 8 11:22:04 urinal ysis, dipsti ck 2016 017 [email or web address] In-Office Order, Internal Use Only DO Not Attach Compendium DO Not Attach Compendium, Do Not Delete/merge, [id number] 7 14:15:08 urinal ysis comple te, reflex cultur e 2016 017 [facility], [address] [facility], [address], [place], [address], 7 16:22:58 Referral orthop edic referr al 2016 017 kathleen Erickson MD, [address] [facility], [address], [place], [address], 7 15:54:30 Procedures None record ed. Surgeries None record ed. Imaging XR, chest, 2 view 2017 018 MARY Not available 8 14:05:23 Medication Orders Zithro max Z-Denilson 250 mg tablet 2017 018 [email or web address] [id number], [address] [place], [address], 8 13:43:40 Cipro 500 mg tablet 2016 017 [email or web address] [id number], [address] [place], [address], 8 14:03:06 Bactri m DS 800 mg-160 mg tablet 2016 017 [email or web address] [id number], [address] [place], [address], 8 10:54:29 flucon azole 100 mg tablet 2016 017 [email or web address] [id number], [address] [place], [address], 7 10:31:46 Patient TargetsNo targets recorded. Patient Instructions Encounter Date Encounter Id Patient Instructions Last Modified By Organization Details Last Modified Time 05/25/2016 [id number] candidiasis: care instructions [email or web address] Not available 05/25/2016 12:51:28 stop nystatin S&S, rather take diflucan as dir. 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 [email or web address] Not available 05/25/2016 16:48:24 11/07/2016 [id number] Urinary Tract Infection (UTI) in Women: Care Instructions pmadden Not available 11/07/2016 14:14:29 mallet finger: care instructions pmadden Not available 11/07/2016 14:14:29 I have reviewed the note and agree with the assessment and plan of care. [email or web address] Not available 11/07/2016 16:01:58 11/09/2016 [id number] Urinary Tract Infection (UTI) in Women: Care Instructions [email or web address] Not available 11/10/2016 11:40:45 take cipro as directed, cont cranberry and probiotic, stay hydrated, consider taking zyrtec (morning) and / or benadryl (bedtime) if itching worse pmadden Not available 11/09/2016 11:01:44 I have reviewed the note and agree with the assessment and plan of care. [email or web address] Not available 11/09/2016 22:19:50 03/06/2017 [id number] call or return for worsening or concerns. [email or web address] Not available 03/06/2017 11:04:35 I have reviewed the note and agree with the assessment and plan of care. [email or web address] Not available 03/06/2017 12:27:41 11/13/2017 [id number] call or return for any concerns. [email or web address] [...] DO Not Attach Compendium, Do Not Delete/merge, [id number] 11/07/2016 13:26:34 11/08/19 17 11/07/2016 urina lysis , dipst ick Nitrite negati ve Not Available In-Office Order Internal Use Only DO Not Attach Compendium DO Not Attach Compendium, Do Not Delete/merge, [id number] 11/07/2016 13:26:34 11/08/1911/07/2016 urina lysis , dipst ick Urobilinogen 1 Not Available In-Of fice Order Internal Use Only DO Not Attach Compendium DO Not Attach Compendium, Do Not Delete/merge, [id number] 11/07/2016 13:26:34 11/08/1911/07/2016 urina lysis , dipst ick Protein Negati ve Not Available In-Office Order Internal Use Only DO Not Attach Compendium DO Not Attach Compendium, Do Not Delete/merge, [id number] 11/07/2016 13:26:34 11/08/1911/07/2016 urina lysis , dipst ick pH 6.0 Not Available In-Office Order Internal Use Only DO Not Attach Compendium DO Not Attach Compendium, Do Not Delete/merge, [id number] 11/07/2016 13:26:34 11/08/19 17 11/07/2016 urina lysis , dipst ick Blood Negati ve Not Available In-Office Order Internal Use Only DO Not Attach Compendium DO Not Attach Compendium, Do Not Delete/merge, 11/07/2016 13:26:34 11/08/19 17 11/07/2016 urina lysis , dipst ick Specific [place] 1.025 Not Available In-Off ice Order Internal [...] [address] [place] [address] [phone] Not Available [facility] [address], [place], [address], 12/02/2016 11:45:39 12/03/19 17 12/02/2016 urina lysis , compl ete glucose, (UA) NEGATI VE mg/dL negati ve Not Available [facility] [address] [place], [address], 12/02/2016 11:45:39 12/03/1912/02/2016 urina lysis , compl ete bilirubin, urine NEGATI VE negati ve Not Available [facility] [address] [place], [address], 12/02/2016 11:45:39 12/03/1912/02/2016 urina lysis , compl ete ketone, urine NEGATI VE mg/dL negati ve Not Available [facility] [address] [place], [address], 12/02/2016 11:45:39 12/03/1912/02/2016 urina lysis , compl ete specific gravity, urine 1.003 1.003- 1.030 Not Available [facility] [address] [place], [address], 12/02/2016 11:45:39 12/03/1912/02/2016 urina lysis , compl ete blood, urine SMALL negati ve abnormal Not Available [facility] [address] [place], [address], 12/02/2016 11:45:39 12/03/1912/02/2016 urina lysis , compl ete pH, urine 6.5 5.0-8. 0 Not Available [facility] [address] [place], [address], 12/02/2016 11:45:39 12/03/1912/02/2016 urina lysis , compl ete protein, urine NEGATI VE mg/dL <= trace Not Available [facility] [address] [place], [address], 12/02/2016 11:45:39 12/03/1912/02/2016 urina lysis , compl ete urobilinogen , urine 0.2 E.U./ dL 0.2-1. 0 Not Available [facility] [address] [place], [address], 12/02/2016 11:45:39 12/03/1912/02/2016 urina lysis , compl ete nitrite, urine NEGATI VE negati ve Not Available [facility] [address] [place], [address], 12/02/2016 11:45:39 12/03/1912/02/2016 urina lysis , compl ete leukocyte esterase, urine LARGE negati ve abnormal Not Available [facility] [address] [place] [address], [address], 12/02/2016 11:45:39 12/03/1912/02/2016 urina lysis , compl ete RBC, urine 6 /hpf 0-4 high Not Available [facility] [address] [place] [address], [address], 12/02/2016 11:45:39 12/03/1912/02/2016 urina lysis , compl ete WBC, urine 149 /hpf 0-4 high Not Available [facility] [address] [place], [address], 12/02/2016 11:45:39 12/03/1912/02/2016 urina lysis , compl ete epith cells, urine 0 /lpf 0-60 Not Available [facility] [address] [place], [address], 12/02/2016 11:45:39 12/03/19 17 12/02/2016 urina lysis , compl ete bacteria, urine HEAVY negati ve abnormal Not Available [facility] [address] [place], [address], 12/02/2016 11:45:39 12/03/19 17 12/02/2016 urina lysis , compl ete hyaline cast, urine 2 /lpf 0-3 Not Available [facility] [address] [place] [address], [address], 12/02/2016 11:45:39 12/03/19 17 12/02/2016 cultu re, urine comments [facility] [address] [facility] [place] [address] [phone] SOURC E: URINE ,BARBARA N CATCH ; Not Available [facility] [address] [place] [address], [address], 12/04/2016 10:56:14 12/03/19 17 12/04/2016 cultu re, urine urine culture [facility] [address] [place] [address] [phone] COLLE CTION TIME: 12/02 10:08 :00 AM -04:0 0 URINE CULTU RE ESCHE LEFTY A COLI ( ESCCO L ) F URINE CULTU RE COLON Y COUNT F URINE CULTU RE >100, 000 F Not Available [facility] [address] [place] [address], [address], 12/04/2016 10:56:14 12/03/19 17 12/02/2016 cultu re, urine comments [facility] [place] [address] [phone] SOURC E: URINE ,BARBARA N CATCH ; Not Available [facility] [address] [place] [address], [address], 12/03/2016 10:35:27 12/03/19 17 12/03/2016 cultu re, urine [facility] [address] [address] COLLE CTION TIME: 12/02 10:08 :00 AM -04:0 0 URINE CULTU RE [facility] ( SEC ) P URINE CULTU RE COLON Y COUNT P URINE CULTU RE >100, 000 P Not Available [facility] [address] [place] [address], [address], 12/03/2016 10:35:27 12/03/19 17 12/02/2016 antib iotic sensi tivit y, isola te comments PAREN T ORGAN ISM: ESCHE LEFTY A COLI ( ESCCO L ) [facility] [address] [facility] [place] [address] [phone] SOURC E: URINE ,BARBARA N CATCH ; Not Available [facility] [address] [place], [address], 12/04/2016 10:56:18 12/03/19 17 12/04/2016 antib iotic sensi tivit y, isola te gram negative susceptibili ty [facility] [address] [place] [address] [phone] COLLE CTION TIME: 12/02 10:08 :00 AM [...] S F Not Available [facility] [address] [place], [address], 12/04/2016 10:56:18 03/06/19 18 03/06/2017 rapid flu (A+B) Flu A negati ve Not Available In-Office Order Internal Use Only DO Not Attach Compendium DO Not Attach Compendium, Do Not Delete/merge, [id number] 03/06/2017 11:03:39 03/06/19 18 03/06/2017 rapid flu (A+B) Flu B negati ve Not Available In-Office Order Internal Use Only DO Not Attach Compendium DO Not Attach Compendium, Do Not Delete/merge, [id number] 03/06/2017 11:03:39 06/29/19 17 06/28/2016 duple x scan of extre mity veins inclu ding respo nses to compr essio n and other maneu vers; compl ete bilat eral study (PROC ) No observ ation record ed. [email or web address] [address] [place], [address], 06/29/2016 17:23:19 09/20/19 17 09/18/2016 MAMMO , scree soo, digit al, bilat eral No observ ation record ed. [email or web address] [facility] [address] [place], [address], 09/26/2016 11:03:33 03/06/19 18 03/06/2017 XR, chest , 2 view No observ [facility]ion [email or web address] [address] [place], [address], 03/07/2017 09:21:59 03/06/19 18 03/06/2017 XR, chest , 2 view No observ ation record ed. [facility] [address] [place], [address], 03/07/2017 09:21:59 03/06/19 19 03/06/2018 CT, cervi wade spine , w/o contr ast No observ ation record ed. [facility] [address] [place], [address], 03/07/2018 21:02:59 Result Notes None recorded. Problems Name Problem SNOMED Code Status Onset Date Resolution Date Notes Provider Name and Address Organization Details Recorded Time Acute pharyngi tis 957691242 Completed 200809/22/2013 RECORDED 10/01/19 09 3:03PM BY UVALDO MEHTA ON/ADDLULI DUM Not Available [facility] 4 05:31:58 Acute sinusiti s 03448396 Completed 200809/22/2013 RECORDED 10/01/19 09 3:03PM BY ROSEMARY GILL, JANETTEATI ON/ADDEN DUM Not Available [facility] 4 05:31:58 Patient status finding [id number] Completed 201209/22/2013 RECORDED 08/13/19 13 4:00PM BY TORI MALDONADO MA, ANNOTATI ON/ADDEN DUM Not Available [facility] 4 05:31:58 Screenin g for malignan t neoplasm of breast Completed 201109/22/2013 RECORDED 12/21/19 12 8:38AM BY TORI MALDONADO MA, ANNOTATI ON/ADDEN DUM [facility] 4 05:31:58 Screenin g for malignan t neoplasm of cervix Completed 201109/22/2013 RECORDED 12/21/19 12 8:38AM BY TORI MALDONADO MA, ANNOTATI ON/ADDEN DUM Not Available [facility] 4 05:31:58 Dysphagi a 53150009 Completed 201109/22/2013 RECORDED 12/21/19 12 8:38AM BY TORI MALDONADO MA, ANNOTATI ON/ADDEN DUM Not Available [facility] 4 05:31:58 Malaise and fatigue 264717523 Completed 201109/22/2013 RECORDED 12/21/19 12 8:38AM BY TORI MALDONADO MA, ANNOTATI ON/ADDEN DUM Not Available [facility] 4 05:31:58 Noninfec tious gastroen teritis 99683756 Completed 201109/22/2013 RECORDED 12/21/19 12 8:38AM BY TORI MALDONADO MA, ANNOTATI ON/ADDEN DUM [facility] 4 05:31:58 Neck pain 57664531 Completed 201109/22/2013 IMPRESSI ON: WITH FACIAL PARESTHE LAURENCE, NON-FOCA L NEURO EXAM; RECORDED 12/21/19 12 8:37AM BY TORI MALDONADO MA, ANNOTATI ON/ADDEN DUM Not Available [facility] 4 05:31:58 Administ ration of Haemgingeri doug influenz ae type b vaccine Completed 201009/22/2013 RECORDED 11/02/19 11 10:00AM BY MELANIA MCCLELLAN, HISTORIC AL SUMMARY Not Available [facility] 4 05:31:58 Infectiv e hepatiti s immuniza tion Completed 201009/22/2013 RECORDED 11/02/19 11 9:58AM BY MELANIA MCCLELLAN, HISTORIC AL SUMMARY Not Available [facility] 4 05:31:59 Administ ration of measles and mumps and rubella vaccine Completed 201009/22/2013 RECORDED 11/02/19 11 9:58AM BY MELANIA MCCLELLAN, HISTORIC AL SUMMARY Not Available [facility] 4 05:31:59 Administ ration of tetanus vaccine Completed 201109/22/2013 RECORDED 12/21/19 12 8:38AM BY TORI MALDONADO MA, UVALDO ON/ADDEN DUM Not Available [facility] 4 05:31:59 Skin sensatio n disturba [facility] 98947497 Completed 201109/22/2013 STORY: FACIAL PARESTHE LAURENCE/; RECORDED 12/21/19 12 8:37AM BY TORI MALDONADO MA, UVALDO ON/ADDEN DUM Not Available [facility] 4 05:31:59 Neck sprain 932596132 Completed 201109/22/2013 RECORDED 12/21/19 12 8:37AM BY TORI MALDONADO MA, UVALDO ON/ADDEN DUM Not Available [facility] 4 05:31:59 Tachycar roney [id number] Completed 201109/22/2013 RECORDED 12/21/19 12 8:38AM BY TORI MALDONADO MA, UVALDO ON/ADDEN DUM Not Available [facility] 4 05:31:59 Administ ration of diphther ia and tetanus vaccine Completed 201209/22/2013 RECORDED 08/13/19 13 4:00PM BY TORI MALDONADO MA, UVALDO ON/ADDEN DUM Not Available [facility] 4 05:31:59 Spasm [id number] Completed 201209/22/2013 STORY: NECK/TRA P STRAIN (IN SETTING OF CERVICAL DISC DZ/MILD) ; RECORDED 01/01/20 13 8:21AM BY MARIANELA CORONADO MA, ANNOTVALERIE ON/ADDEN DUM Not Available [facility] 4 05:31:59 Visual disturba nce 53352506 Completed 201109/22/2013 RECORDED 12/21/19 12 8:37AM BY TORI MALDONADO MA, UVALDO ON/ADDEN DUM Not Available [facility] 4 05:31:59 Acute pharyngi tis 591044239 Completed 04/03/2014 Lalo bentley, [facility] 5 16:46:39 Tendinit is AND/OR tenosyno vitis of the ankle region Active Bart garcia null, [facility] 5 20:06:27 Lateral epicondy litis 985935245 Active Bart bentley, [facility] 5 20:06:27 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 Dr Angelia thurman [place] null, [facility] 6 15:42:12 Abnormal weight loss 356304667 Active Bart bentley, [facility] 6 09:47:19 Urinary tract infectio us disease 22514763 Active 2016 Rob Ornelas MD [address] [facility] [address], [place], [address] , [facility] 7 16:56:59 Acute pharyngi tis 208374772 Completed 200808/26/2013 RECORDED 10/01/19 09 3:03PM BY UVALDO MEHTA ON/ADDEN DUM Not Available [facility] 4 14:31:14 Acute sinusiti s 56712503 Completed 200808/26/2013 RECORDED 10/01/19 09 3:03PM BY UVALDO MEHTA ON/ADDEN DUM Not Available [facility] 4 14:31:14 Adult health examinat ion Completed 201204/03/2014 RECORDED 01/09/20 13 11:32AM BY ROSEMARY GILL, OFFICE VISIT Lalo bentley [facility] 5 16:46:39 Patient status finding [id number] Completed 201208/26/2013 RECORDED 08/13/19 13 4:00PM BY TORI MALDONADO MA, ANNOTATI ON/ADDEN DUM Not Available [facility] 4 14:31:14 Screenin g for malignan t neoplasm of breast Completed 201108/26/2013 RECORDED 12/21/19 12 8:38AM BY TORI MALDONADO MA, JANETTEATI ON/ADDEN DUM Not Available [facility] 4 14:31:14 Screenin g for malignan t neoplasm of cervix Completed 201108/26/2013 RECORDED 12/21/19 12 8:38AM BY TORI MALDONADO MA, JANETTEATI ON/ADDEN DUM Not Available [facility] 4 14:31:14 Cough 56963460 Completed 201204/03/2014 IMPRESSI ON: LUNGS CLEAR BUT SINUS SYMPTOMS PRESENT, ENCOURAG E REST AND HYDRATIO N. ABX SCRIPT GIVEN WITH INSTRUCT ION TO START IF SINUS SYMPTOMS PERSIST OR WORSEN.; RECORDED 01/11/20 13 2:18PM BY MARINO SERRANO PA-C, OFFICE VISIT Lalo bentley [facility] 5 16:46:39 Cough 34311856 Completed 201108/26/2013 RECORDED 12/21/19 12 8:38AM BY TORI MALDONADO MA, ANNOTATI ON/ADDEN DUM Not Available [facility] 4 14:31:15 Dysphagi a 32173638 Completed 201108/26/2013 RECORDED 12/21/19 12 8:38AM BY TORI MALDONADO MA, ANNOTATI ON/ADDEN DUM Not Available [facility] 4 14:31:15 Gastroes ophageal reflux disease 372293239 Active 2012 ASIM Christine, [facility] 6 15:41:53 External hemorrho ids 65764046 Active 2012 ASIM Christine, [facility] 6 15:41:57 Malaise and fatigue 809302078 Completed 201108/26/2013 RECORDED 12/21/19 12 8:38AM BY TORI MALDONADO MA, ANNOTATI ON/ADDEN DUM Not Available [facility] 4 14:31:15 Influenz a vaccine needed 75020760595 06 Completed 201204/03/2014 RECORDED 01/09/20 13 11:32AM BY ROSEMARY GILL, OFFICE VISIT Lalo bentley, [facility] 5 16:46:39 Noninfec tious gastroen teritis 36002398 Completed 201108/26/2013 RECORDED 12/21/19 12 8:38AM BY TORI MALDONADO MA, ANNOTATI ON/ADDEN DUM Not Available [facility] 4 14:31:15 Pure hypercho lesterol emia 497551004 Active 2012 ASIM Christine, [facility] 6 15:42:00 Neck pain 85913552 Completed 201108/26/2013 IMPRESSI ON: WITH FACIAL PARESTHE LAURENCE, NON-FOCA L NEURO EXAM; RECORDED 12/21/19 12 8:37AM BY TORI MALDONADO MA, ANNOTATI ON/ADDEN DUM Not Available [facility] 4 14:31:15 Administ ration of Christie camacho influenz ae type b vaccine Completed 201008/26/2013 RECORDED 11/02/19 11 10:00AM BY MELANIA MCCLELLAN, HISTORIC AL SUMMARY Not Available [facility] 4 14:31:16 Infectiv e hepatiti s immuniza tion Completed 201008/26/2013 RECORDED 11/02/19 11 9:58AM BY MELANIA MCCLELLAN, HISTORIC AL SUMMARY Not Available [facility] 4 14:31:16 Administ ration of measles and mumps and rubella vaccine Completed 201008/26/2013 RECORDED 11/02/19 11 9:58AM BY MELANIA MCCLELLAN, HISTORIC AL SUMMARY Not Available [facility] 4 14:31:16 Administ ration of tetanus vaccine Completed 201108/26/2013 RECORDED 12/21/19 12 8:38AM BY TORI MALDONADO MA, JANETTEATI ON/ADDEN DUM Not Available [facility] 4 14:31:16 Patient status finding [id number] Completed 201204/03/2014 RECORDED 01/09/20 13 11:35AM BY ROSEMARY GILL, OFFICE VISIT Lalo bentley [place] - [facility] 5 16:46:39 Skin sensatio n disturba nce 36868025 Completed 201108/26/2013 STORY: FACIAL PARESTHE LAURENCE/; RECORDED 12/21/19 12 8:37AM BY TORI MALDONADO MA ANNOTVALERIE ON/ADDEN DUM Not Available [facility] 4 14:31:16 Paroxysm al tachycar roney 95272757 Active 2012 ASIM Christine [place] - [facility] 6 15:41:51 Adult health examinat ion Completed 201108/26/2013 RECORDED 12/21/19 12 8:38AM BY TORI MALDONADO MA, ANNOTATI ON/ADDEN DUM Not Available [facility] 4 14:31:16 Neck sprain 055129281 Completed 201108/26/2013 RECORDED 12/21/19 12 8:37AM BY TORI MALDONADO MA, ANNOTVALERIE ON/ADDEN DUM Not Available [facility] 4 14:31:16 Conducti on disorder of the heart 18193834 Active 2012 ASIM Christine [facility] 6 15:42:04 Tachycar roney 5581116 Completed 201108/26/2013 RECORDED 12/21/19 12 8:38AM BY TORI MALDONADO MA, ANNOTATI ON/ADDEN DUM Not Available [facility] 4 14:31:16 Administ ration of diphther ia and tetanus vaccine Completed 201208/26/2013 RECORDED 08/13/19 13 4:00PM BY TORI MALDONADO MA, ANNOTATI ON/ADDEN DUM Not Available [facility] 4 14:31:16 Spasm 75878222 Completed 201208/26/2013 STORY: NECK/TRA P STRAIN (IN SETTING OF CERVICAL DISC DZ/MILD) ; RECORDED 01/01/20 13 8:21AM BY MARIANELA CORONADO MA, ANNOTATI ON/ADDEN DUM Not Available [facility] 4 14:31:17 Visual disturba nce 33555347 Completed 201108/26/2013 RECORDED 12/21/19 12 8:37AM BY TORI MALDONADO MA, ANNOTATI ON/ADDEN DUM Not Available [facility] 4 14:31:17 Problem Notes None recorded. Procedures Surgical History Date Name Laterality Status Provider Name and Address Organization Details Recorded Time 07/03/19 18 Date of Last Pap Smear completed Oksana Mcclellan [facility] 07/05/2017 14:57:58 09/19/19 17 Most Recent Mammogram completed Jamee Stapleton [facility] 09/26/2016 11:03:05 09/19/19 17 Mammogram screening completed Jamee Stapleton [facility] 09/26/2016 11:02:58 01/30/20 15 Mammogram Diagnostic Unilateral completed Oksana Mcclellan [facility] 01/29/2015 13:30:29 06/30/19 15 Colonoscopy completed Tosin lao MA [facility] 09/27/2015 15:43:10 Dilation and Curettage completed Malinda L[facility] 03/03/2014 08:49:20 Imaging Results Imaging Date Name Status LastModified by Organiz ation Details LastModified Time 06/28/2016 duplex scan of extremity veins including responses to compression and other maneuvers; complete bilateral study (PROC) completed [facility] [address] [place] [address], [address], 06/29/2016 17:23:19 09/18/2016 MAMMO, screening, digital, bilateral completed [email or web address] [facility] [address] [place] [address], [address], 09/26/2016 11:03:33 03/06/2017 XR, chest, 2 view completed [facility] [address] [place] [address], [address], 03/07/2017 09:21:59 03/06/2017 XR, chest, 2 view completed [facility] [address] [place], [address], 03/07/2017 09:21:59 03/06/2018 CT, cervical spine, w/o contrast completed [facility] [address] [place] [address], [address], 03/07/2018 21:02:59 Procedure Notes None recorded. Medical Equipment None Reported. Allergies Allergen ID Allergen Name Allergen Category Reaction Reaction Severity Criticality Documentation Date Start Date Code Code System Note Provider Name and Address Organization Details Recorded Time 06236 iron-dext ran complex medicatio n rash Not available Not available 10/14/2013 5992 RxNorm ASIM Mehta, [facility] 4 15:57:06 60794 Bactrim medicatio n hives severe Not available 11/09/2016 91868 9 RxNorm Demian Mayo PA-C [address] [phone], [facility] 7 10:53:17 91023 Substance with sulfonami de structure and antibacte rial mechanism of action (substanc e) medicatio n hives Not available Not available 03/06/2017 69412 8003 SNOMED ASIM Yeager, [facility] 8 10:54:00 5993 cyclobenz aprine hydrochlo ride medicatio n Not available Not available Not available 08/26/20132012 00633 RxNorm REACT ION: SVT; COMME NT: RECOR DED 12/31 8:58A M BY LYLE THURMAN MA, OFFIC E VISIT ; Not Available [facility] 4 13:23:35 5994 Reglan medicatio n Not available Not available Not available 08/26/20132012 9230 RxNorm ASIM Yeager, [facility] 6 15:41:35 Medications Name Sig [...] Available metronida zole 500 mg tablet active DIRECTOR PHONE has pt use 1 applicat ion weekly [...] Details Last Updated DateTime 7 170.18 cm 79718.5 2 g 22.1 kg/m2 62 /min 97 % 97 % 97.4 [degF] 118 mm[Hg] 62 mm[Hg] Gaetano Bradshaw [facility] 7 11:44:00 Date Recorded Body height Body mass index (BMI) Body weight Heart rate Body temperature Oxygen saturation Oxygen saturation in Arterial blood by Pulse oximetry Systolic blood pressure Diastolic blood pressure Provider Name and Address Organization Details Last Updated DateTime 7 170.18 cm 22.9 kg/m2 46685.4 9 g 66 /min 98.6 [degF] 99 % 99 % 96 mm[Hg] 57 mm[Hg] Marianela Coronado [facility] 7 13:30:48 Date Recorded Body height Body mass index (BMI) Body weight Oxygen saturation Oxygen saturation in Arterial blood by Pulse oximetry Heart rate Systolic blood pressure Diastolic blood pressure Provider Name and Address Organization Details Last Updated DateTime 7 170.18 cm 22.3 kg/m2 80504.8 2 g 96 % 96 % 68 /min 108 mm[Hg] 75 mm[Hg] Adrienne Ramos [facility] 7 10:31:57 Date Recorded Body height Body temperature Oxygen saturation Oxygen saturation in Arterial blood by Pulse oximetry Heart rate Body mass index (BMI) Body weight Systolic blood pressure Diastolic blood pressure Provider Name and Address Organization Details Last Updated DateTime 8 170.18 cm 99.9 [degF] 98 % 98 % 66 /min 22.9 kg/m2 07423.4 9 g 98 mm[Hg] 66 mm[Hg] Tosin hernandez MA [facility] 8 10:58:02 Date Recorded Body height Body mass index (BMI) Body weight Body temperature Heart rate Oxygen saturation Oxygen saturation in Arterial blood by Pulse oximetry Systolic blood pressure Diastolic blood pressure Provider Name and Address Organization Details Last Updated DateTime 8 170.18 cm 23 kg/m2 71312.0 8 g 98.9 [degF] 64 /min 98 % 98 % 99 mm[Hg] 64 mm[Hg] Razia Suzy [facility] 8 13:42:55 Social History Question Answer Notes LastModified by Organizat ion Details LastModified Time Tobacco Smoking Status Never Smoker ASIM Mehta, [facility] 10/14/2013 15:58:21 Do You Have An Advance Directive? No Declined Information not available 11/15/2015 What Is Your Level Of Alcohol Consumption? Occasional [email or web address] Information not available 10/14/2013 Is Blood Transfusion Acceptable In An Emergency? Yes Information not available 09/27/2015 What Is Your Level Of Caffeine Consumption? None [email or web address] Information not available 10/14/2013 How Much Tobacco Do You Chew? None Information not available 09/27/2015 Are You Currently Employed? Yes Information not available 10/14/2013 What Type Of Diet Are You Following? REGULAR [email or web address] Information not available 10/14/2013 Which Illicit Or [...] Do You Have? 2 Daughter (lives In [facility]) Information not available 03/06/2017 Do You Use Protection During Sex? No Information not available 09/27/2015 Seat Belts Used Routinely Yes Information not available 10/14/2013 Are You Sexually Active? Yes Information not available 09/27/2015 Smoke Alarm In Home Yes [email or web address] Information not available 10/14/2013 At What Age Did You Start Smoking Tobacco? 0 Information not available 09/27/2015 Are You Passively Exposed To Smoke? No Information not available 09/27/2015 How Much Tobacco Do You Smoke? No Information not available 09/27/2015 General Stress Level Medium [email or web address] Information not available 10/14/2013 Do You Use Sunscreen Routinely? Yes [email or web address] Information not available 10/14/2013 How Many Years Have You Smoked Tobacco? 0 Information not available 09/27/2015 Sex: Unknown Functional Status Question Answer Note LastModified by Organizat ion Details LastModified Time Are you able to care for yourself? Yes [email or web address] Information not available 10/14/2013 What is your [...] virus, trivalent, PF 4 completed Malinda bentley [facility] 03/03/2014 13:50:16 Influenza, split virus, trivalent, preservative 7 completed ASIM Reagan [facility] 03/06/2017 10:55:42 Influenza, split virus, quadrivalent, PF 6 completed Not Available [facility] 03/01/2019 02:22:04 Hep B, adult 1 completed Not Available [facility] 08/26/2013 13:55:11 Hep B, adult 1 completed Not Available [facility] 08/26/2013 13:55:11 Hep B, adult 1 completed Not Available [facility] 08/26/2013 13:55:11 MMR 6 completed Not Available [facility] 08/26/2013 13:55:11 MMR 8 completed Not Available [facility] 08/26/2013 13:55:11 Td (adult), 2 Lf tetanus toxoid, preservative free, adsorbed 7 completed Not Available [facility] 08/26/2013 13:55:11 Td (adult), 2 Lf tetanus toxoid, preservative free, adsorbed 2 completed Not Available [facility] 08/26/2013 13:55:11 Hib (HbOC) 1 completed Not Available [facility] 08/26/2013 13:55:11 Tdap 2 completed Not Available [facility] 08/26/2013 13:55:11 Influenza, split virus, trivalent, preservative 3 completed Not Available [facility] 08/26/2013 13:55:11 Past Encounters Encounter ID Performer Location Encounter Start Date Encounter Closed Date Diagnosis/Indication Diagnosis SNOMED-CT Code Diagnosis ICD10 Code Diagnosis Note [id number] [facility] [address] [facility] [facility] AS[place] [address] 02/20/2006 00:00:00 [id number] [address] [address]ce [address] [place] [address] 07/15/2007 00:00:00 [id number] auto[facility]Comm erce [address] [place] [address] 09/10/2008 00:00:00 [id number] auto[facility]Comm erce [address] [place] [address] 09/12/2008 00:00:00 [id number] auto[facility]Comm erce [address] [place] [address] 09/30/2008 00:00:00 [id number] auto[facility] erce [address] [place] [address] 10/25/2009 00:00:00 [id number] autoEComm erce [address] [facility] [address] [place] [address] 06/06/2010 00:00:00 [id number] autoEComm erce [address] [facility] [address] [place] [address] 10/31/2010 00:00:00 [id number] auto[facility]Comm erce [address] [facility] [address] [place] [address] 03/13/2011 00:00:00 [id number] autoEComm erce [address] [facility] [address] [place] [address] 05/22/2011 00:00:00 [id number] auto[facility]Comm erce [address] [place] [address] 06/23/2011 00:00:00 [id number] auto[facility] erce [address] [place] [address] 07/31/2011 00:00:00 [id number] autoEComm erce [address] [place] [address] 09/04/2011 00:00:00 [id number] autoEComm erce [address] [place] [address] 12/21/2011 00:00:00 [id number] auto[facility]Comm erce [address] [facility] [place] [address] 08/12/2012 00:00:00 [id number] auto[facility]Comm erce [address] [facility] [place] [address] 12/31/2012 00:00:00 [id number] auto[facility]Comm erce [address] [facility] [place] [address] 01/08/2013 00:00:00 [id number] Rosemary Gill [place] Main Office [address] [facility] [place] [address] 10/14/2013 15:25:57 10/14/2013 17:07:43 Acute pharyngitis 032662536 negative strep and will send for culture, no abx indicated [id number] Malinda Taiban Main Office [address] [address] [place] [address] 03/03/2014 13:35:47 03/03/2014 14:58:57 Adult health examination 162813697 Gastroesop hageal reflux disease 061174373 Screening for malignant neoplasm of colon 321228990 Paroxysmal tachycardia 14843152 [id number] Adrienne Ramos [place] Main Office [address] [facility] [place] [address] 04/03/2014 15:47:25 04/03/2014 16:44:20 Tendinitis AND/OR tenosynovitis of the ankle region 956027480 Lateral epicondylitis 151711476 [id number] Bart garcia Main Office [address] [address] [place] [address] 08/19/2015 14:59:18 08/19/2015 15:55:04 Abnormal weight loss 714456876 R63.4 [id number] Bart garcia Main Office [address] [address] [place] [address] 09/27/2015 15:15:31 09/27/2015 17:08:13 Abnormal weight loss 521983406 R63.4 wt loss has stopped - pt has gained some wt back. all labs normal. wt loss most likely d/t stress. [id number] Bart Rob garcia Main Office [address] [facility] [address] [place] [address] 11/15/2015 12:53:46 11/15/2015 13:53:56 Adult health examination 536062173 Z00.00 Needs infl uenza immunization 191693896 Z23 Gastroesop hageal reflux disease 145658743 K21.9 Exposure t o communicable disease 948274439 Z20.9 [id number] Bart garcia Main Office [address] [facility] [address] [place] [address] 12/06/2015 14:28:47 12/06/2015 15:56:32 Dysuria 29891035 R30.0 ? mild UTI vs atrophic vaginitis [id number] Bart MartinezNate garcia Main Office [address] [address] [place] [address] 05/25/2016 11:33:40 05/25/2016 12:51:42 Candidiasis of mouth 38741144 B37.0 [id number] Bradley Henao MD Main Office [address] [address] [place] [address] 11/07/2016 13:01:45 11/07/2016 14:07:12 Dysuria 55139200 R30.0 finish bactrim as dir - will extend to 7 days to make sure complete eradicatio n (is 85% better), cont to push fluids and cont cranberry tabs as well as probiotic -- if sxs return in near future, consider rx c alternativ e abx Mallet fin fern with closed tendon injury 841528665 M20.012 L 3rd digit - cont stax splint as dir, will get hand specialist eval - pt requests Dr. Erickson [id number] Nikki callahan Main Office [address] [facility] [address] [place] [address] 11/09/2016 10:23:35 11/09/2016 11:04:48 Allergy to antibacterial drug 784626696 Z88.1 added bactrim to allergy list, see below Acute urin sade tract infection 659055062 N39.0 will give trial of cipro to adequately eradicate uti - if symptoms persist into next week, then consider uro eval - may be interstiti al cystitis [id number] Bart garcia Main Office [address] [place] [address] 03/06/2017 10:43:48 03/06/2017 11:29:03 Influenza-like illness 82262205 B34.9 x 6 days, has passed treatment window, continue supportive , sx treatment. 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 Will send for CXR and start on zpak [id number] Rob Ornelas MD Main Office [address] [place] [address] 11/13/2017 13:37:31 11/13/2017 14:27:17 Adult health examination 699589313 Z00.00 UTD, overdue for mammo, she will call/ [facility] 652311104 E78.00 Fatigue 52371321 R53.83 Health Concerns Section Related Observation LastModified by Organization Detai ls LastModified Time None Recorded Concern Status LastModified by Organization Details LastModified Time None Recorded Advance Directives Directive N: declined Payers Encounter Date Sequence Insurance Name Policy Number Policy Fitzgerald Covered Member ID Fitzgerald Member ID Guarantor Name 05/25/[address] [place] [address]) [id number] 1 Petros Nguyen [id number] Candida Nguyen 11/07/2016 1 [facility]) [id number] 1 Petros Baxterkin [id number] Candida Baxterkin 11/09/[address] [place] [address]) [id number] 1 Petros Baxterkin [id number] Candida Patrick 03/06/[address] [place] [address]) [id number] 1 Petros Baxterkin [id number] Candida Patrick 11/13/[address] [place] [address]) [id number] 1 Petros Nguyen [id number] Candida Nguyen Notes Date Note Type Note Provider Name and Address Organization Details Recorded Time 05/25/2016 text/html recently rx'd by draw machine operator for gardnerella infxn - took flagyl x 3 days, then dev. oral thrush - but ? if d/t oral sex while dealing c vaginal unprotected sex c partner x 7-8 months has used nystatin swish and swallow 4x/day x 8 days c some help (~70% better) but not fully resolved - concerned. Bart bentley [facility] 05/25/2016 16:48:39 11/07/2016 text/html pt had uti 9.14 - took 3 days of bactrim - resolved. called again 9.24 - took 2 days of bactrim so far, feels ~ 85% better, has also used pyridium and cranberry tabs, increased fluids - wanted recheck. pt states was checked for std recently by draw machine operator - was neg primarily here for L 3rd digit - hurt during volleyball back on .16 - no pain, edema, ecch - spoke c ortho friend - rec. stax splint x few months - she also called Dr. Erickson - she rec. see pcp first for referral Bradley Henao MD [address] [address], [place], [address], [facility] 11/07/2016 16:02:13 11/09/2016 text/html here for allergi c rxn to bactrim itch started yest, then dev. pimples / hives - took 25 of benadryl last night, slept ok, a little less itchy today stopped bactrim, but burning/freq c urination is returning - drinking fluids, cranberry tabs, prn pyridium - concerned that uti is not eradicated Nikki bentley [facility] 11/09/2016 22:19:59 03/06/2017 text/html Generic [...] as needed. + decreased appetite. Bart bentley [facility] 03/06/2017 12:27:52 11/13/2017 text/html Generic HPI TemplateReported bypatient.Notes:presen ts for PE. she is on nexium and was told to come off nexium and try zantac instead. Diagnosed with ? genital herpes via DIRECTOR PHONE yesterday. she had testing to confirm but no results yet, being treated for it. Rob Ornelas MD [address] [address], [place], [address], [facility] 11/13/2017 18:06:58 OBGyn Episode No OBEpisode recorded.
--- NOTE | 2024-06-02 09:17 | AM.OFFVISNUR ---
Intake Visit Reasons: MMR Intake Note: Pt arrived for MMR vaccine. Measles titer was low. Stripping Cutter And Winder Required: No Allergies iron dextran complex Allergy (Intermediate, Verified 06/02/24 09:17) hives/serum sickness latex Allergy (Intermediate, Verified 06/02/24 09:17) Rash metoclopramide [Reglan] Allergy (Intermediate, Verified 06/02/24 09:17) extrapyramidal effects Sulfa (Sulfonamide Antibiotics) Allergy (Intermediate, Verified 06/02/24 09:17) full body rash Is last menstrual period known: No Post menopausal: Yes Patient : No Do you need a note to return to daycare/school/sports/work: No Immunizations M-M-R II (PF) 1,000-12,500 TCID50/0.5 mL subcutaneous solution Performing Provider: Haydee Lira MD Performing Location: [facility] Administered by: Carlotta Childress RN on 06/02/24 09:18 Dose Route Admin Location Dispensed Lot Number Expiration Date [facility] [place] Rectifying Attendant 0.5 mL subcut Left Arm 0.5 mL [id number] 03/27/25 4841-6779-89 [employer] & D VIS Given Date VIS Provided VIS Publication Date 06/02/24 Single Vaccine 24 Eligibility Eligibility Date Funding Source Not [facility] Eligible 06/02/24 Private Administration Comments: Sterile diluent Lot [id number] Exp [id number] [facility] [place] 3392-8464-02 Assessment & Plan Assessment & Plan Orders: Orders MMR Immunization Today Z23 - Encounter for immunization Medications: New M-M-R II (PF) (measles,mumps,rubella vacc(PF)) 0.5 mL subcut ONCE 1 ea 0RF NS Z23 - Encounter for immunization Coding
== END 2024-06-02 09:46 | disposition home or self-care (01) ==
LOC: HO.HMCC 09:04
PROVIDERS: PCP Internal Medicine; Visit Provider Internal Medicine
DX: Z23 Encounter for immunization (principal)

== ENCOUNTER → 2024-06-02 09:04 | Outpatient (BNVA) | payer OTHER, SELFPAY | PROVIDERS: PCP Internal Medicine; Visit Provider Internal Medicine | DX: Z23 Encounter for immunization (principal) | CPT/HCPCS: 90471; 90707 ==

== ENCOUNTER 2024-10-09 16:21 | Outpatient (AMB) | payer OTHER, SELFPAY ==
--- NOTE | 2024-10-09 16:22 | MHC.OFFVIS ---
Intake Visit Reasons: follow up (r/s from 07/11/24) Intake Note: Patient is Present for: telehealth follow up Urology Medication: none Blood Thinners: None Assistant Offset Press Operator Required: No Accompanied by: Self / Same As Patient Allergies iron dextran complex Allergy (Intermediate, Verified 10/09/24 16:23) hives/serum sickness latex Allergy (Intermediate, Verified 10/09/24 16:23) Rash metoclopramide (Reglan) Allergy (Intermediate, Verified 10/09/24 16:23) extrapyramidal effects Sulfa (Sulfonamide Antibiotics) Allergy (Intermediate, Verified 10/09/24 16:23) full body rash Medication List - Last Reconciled 10/09/24 by Rosalino Raymond MD atenolol 25 mg PO DAILY atorvastatin 20 mg PO DAILY econazole nitrate 1% 1 appl topical DAILY esomeprazole magnesium 40 mg PO DAILY famotidine (Pepcid) 20 mg PO BEDTIME nitrofurantoin monohyd/m-cryst 100 mg (Macrobid) 100 mg orally Take 1 capsule after sexual activity as directed; must administer with a meal/food HPI Comments Details: 10/09/24--telehealth video attempted. 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 She wants to avoid vaginal estrogen. Discussed previously [id number] vaginal Replens. Candida states that currently she has not had a breakthrough urinary infection while using the post coital nitrofurantoin. She has not started the Replens as yet. Plan is to start the Replens and after 3 months taper off of the nitrofurantoin. If she has a breakthrough infection she is to call the office to let us know. Follow-up in 6 months. 02/11/2024- Candida is a 59-year-old female who is here in follow-up regarding recurrent UTIs. She states that she has been using the nitrofurantoin post intercourse she has not another UTI. She is hesitant to start the estrogen vaginal therapy. I have discussed [id number] vaginal lubricant Replens. She states that she is willing to give this a try. After 3 months I want her to stop the prophylactic antibiotic and we will re-evaluate her urinary symptoms. 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 She states that she has had this issue many years associated with sexual intercourse. She has been on nitrofurantoin after intercourse which has helped however she had a breakthrough infection in November and the urine culture showed intermittent susceptibility to the nitrofurantoin. Since that episode she has continued with the nitrofurantoin 100 mg post intercourse and has been doing well. 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 She has allergies to sulfa. 12/04/2022 urine culture Klebsiella pneumoniae, intermediate susceptibility to nitrofurantoin, resistant to ampicillin. Urinalysis today is negative bladder scan PVR 0 mL. Plan discussed will continue nitrofurantoin 100 mg post intercourse at this time as changing to another antibiotic may promote additional resistance. Discussed adding Estrace cream. I have discussed benefits of vaginal estrogen use in the treatment of recurrent UTI's in ronit and post menaupausal women. Vaginal estrogen has been found to decrease vaginal PH, increase lactobacillus in the epithium of the vagina. Evaluate kidneys with renal ultrasound. Follow-up in 6 months. [facility] Medical History COVID-19 vaccine series completed Thoracic spine pain HPV (human papilloma virus) anogenital infection Neutropenia GERD (gastroesophageal reflux disease) Surgical History H/O colonoscopy History of esophagogastroduodenoscopy (EGD) History of tonsillectomy History of surgical removal of skin lesion History of History of appendectomy Social History Housing: Condominium Are you a primary child care teacher to a significant other at home: No Do you presently have visiting nurse or other home services: No Alcohol intake: current Alcohol intake frequency: a few times a week Alcohol type: other Patient Tobacco Use Status: Former Tobacco user e-Cigarette/Vaping Use: Never Used Current occupational status: employed 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[employer] Sexual orientation: Straight/Heterosexual Gender identity: Female Cognitive needs: No Hearing needs: No Vision needs: Yes Female Reproductive History Menstrual Age of Menarche: 11 Review of Systems Const All systems reviewed & are unremarkable except as noted in HPI and below Reports no additional complaints Eyes Reports no additional complaints ENT Reports no additional complaints Card Reports no additional complaints Resp Reports no additional complaints GI Reports no additional complaints Reports as per HPI Musc Reports no additional complaints Skin/Breast Reports system reviewed and no additional complaints, except as documented Neuro Reports no additional complaints Psych Reports no additional complaints Endo Reports no additional complaints Uche/Lymph Reports no additional complaints Aller/Immun Reports no additional complaints Telehealth Telehealth Telehealth Platform: OpenCounter Location of provider rendering services: practice address Location of patient: address on file Patient Identification confirmed using: Name, : Yes Telehealth method: voice only Patient verbally consented to treatment: Yes Patient verbally consented to billing insurance company: Yes Patient informed of any privacy concerns related to visit: Yes Minutes spent on Phone/Video with Pt.: 13 Results Reviewed Results Reviewed: Date of Service: 01/03/24 US RETROPERITONEAL LIMITED (RENAL ONLY) CLINICAL INFORMATION: Urinary tract infection. COMPARISON: None available. TECHNIQUE: Renal ultrasound was performed . The exam is limited secondary to overlying bowel gas especially obscuring the upper FINDINGS: RIGHT KIDNEY: 10.5 x 5.5 x 4.2 cm (SAG x AP x TRV). The kidney is normal in size, contour, and echogenicity. Renal cortical thickness is normal. No definitive calculi or focal parenchymal lesions. Some echogenic foci are seen that are not typical of calculi and may be vascular. No hydronephrosis. LEFT KIDNEY: 11.2 x 5.1 x 4.6 cm (SAG x AP x TRV). The kidney is normal in size, contour, and echogenicity. The upper pole is not well seen. Renal cortical thickness is normal. No calculi or focal parenchymal lesions. No hydronephrosis. IMPRESSION: No significant abnormality is seen. Assessment & Plan Assessment & Plan (1) Postcoital UTI: Code(s): N39.0 - Urinary tract infection, site not specified Category: Medical (2) Recurrent UTI: Code(s): N39.0 - Urinary tract infection, site not specified Category: Medical Plan She states that she has been using the nitrofurantoin post intercourse she has not another UTI. She is hesitant to start the estrogen vaginal therapy. I have discussed [id number]-[id number] vaginal lubricant Replens. She states that she is willing to give this a try. After 3 months I want her to stop the prophylactic antibiotic and we will re-evaluate her urinary symptoms. Medications: Refilled nitrofurantoin monohyd/m-cryst 100 mg (Macrobid) 100 mg orally Take 1 capsule after sexual activity as directed; must administer with a meal/food 30 caps 3RF Patient Instructions: The patient had an opportunity to ask questions regarding treatment plan. The patient expressed understanding and agreement with the above treatment plan. The patient is aware they should contact our office by phone for worsening of their current condition or the appearance of new symptoms. Compliance is encouraged with any medications and followup testing that is ordered. It is a privilege to be allowed the opportunity to participate in the urologic care of your patient. If you have any questions or concerns regarding treatment for the above conditions please do not hesitate to contact me. The office telephone contact is [phone]. This note is constructed in part using voice recognition software. While every effort has been made to ensure accuracy forestry and wildlife manager errors may have been included. Yours sincerely, Rosalino Raymond MD Coding Level of Care Code Tele Est Pt Level 3 (22161) Diagnoses Postcoital UTI N39.0 Recurrent UTI N39.0
--- OUTSIDE RECORDS SUMMARY | 2024-10-09 16:27 | XMS_ITS | Patient Health Record ---
[facility] Address [address] [place] [address] Care Team Providers Care Local City Driver Name Role Phone Haydee Lira MD Primary Care Provider UnavailClarita Solomon Unavailable [phone] Allergies Allergen (clinical drug ingredient) Drug/Non Drug Allergy documented on EMR Reaction Allergy Type Onset Date Status Latex latex (uncoded) Rash Allergy Acti ve sulfamethoxazole / trimethoprim Bactrim Full body rash Drug Allergy Active Biaxin Severe abdominal pain Drug Allergy Active Iron Dextran serum sickness Hives Drug Allergy Active metoclopramide Reglan anxiety / Agitation Drug Allergy Active Reason For Referral No Information Medications Medication SIG (Take, Route, Frequency, Duration) Notes Start Date End Date Status Atorvastatin Calcium 20 MG Oral; Duration: 90 Days Active Atenolol 25 MG Oral; Duration: 90 Days Active NexIUM 40 MG 1 capsule 1/2 to 1 h our before morning meal Orally daily 07/14/2024 Active Macrobid 100 MG 1 capsule with food Orally PRN with intercourse Active Immunizations Vaccine Route Administration Date Status Comme nts Influenza Unknown 10/14/2023 Administered Social History Tobacco Use: Social History Observation Description Date Details (start date - stop date) Never Smoker NA - NA Tobacco use other than smoking: Question Answer Notes Are you an other tobacco user? 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) Active confirmed Vital Signs Blood pressure diastolic 80 mm Hg 08/05/2024 Height 5 ft 7 in in 08/05/2024 Blood pressure systolic 122 mm Hg 08/05/2024 Weight 188 lbs lbs 08/05/2024 BMI 29.44 kg/m2 08/05/2024 Encounters Encounter Location Date Provider Diagnosis [address] [address] 08/05/2024 Clarita Joshi Onychomycosis B35.1 ; 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 ; Pain in right foot M79.671 ; Metatarsalgia, right foot M77.41 ; Tailor's bunion of right foot M21.621 ; Ganglion of foot, right M67.471 and Primary osteoarthritis of left foot M19.[address] [address] 08/05/2024 Clarita Joshi [address] [address] 08/05/2024 Clarita Joshi [address] [address] 09/04/2024 Clarita Joshi Assessments Encounter Date Diagnosis (ICD Code) Assessment Notes Treatment Notes Treatment Clinical Notes Section Notes 08/05/2024 Onychomycosis (ICD-10 - B35.1) 08/05/2024 Rodriguez's neuroma of right foot (ICD-10 - G57.61) 08/05/2024 Pain in right foot (ICD-10 - M79.671) 08/05/2024 Metatarsalgia, right foot (ICD-10 - M77.41) 08/05/2024 Tailor's bunion of right foot (ICD-10 - M21.621) 08/05/2024 Ganglion of foot, right (ICD-10 - M67.471) 08/05/2024 Primary osteoarthritis of left foot (ICD-10 - M19.072) Plan Of Treatment Pending Test Test Name Order Date X ray : Foot, right 3V 08/05/2024 Next Appt Details Provider Name:Clarita cook, 01/06/2025 01:30:00 PM, [address] [place], [address], Insurance Providers Payer Name Payer Address Payer Phone Subscriber Number Group Number Insured Name Patient Relationship to Insured Coverage Start Date Coverage End Date Blue Benefits [address] [address] [place] [id number] Candida Nguyen Self - patient is the insured Medical (General) History Medical History History ICD Code CAD (Cholesterol) Heart disease Eczema Chicken pox Supraventricular tadnycardia GERD Surgical History Surgery Date(Month/Year) tonsillectomy and adenoidectomy appendectomy 1974 1996
--- OUTSIDE RECORDS SUMMARY | 2024-10-09 16:27 | XMS_ITS | Clinical Summary ---
Author Organization [facility] Address [address] [place] [address] Care Team Providers Care Work Adjustment Instructor Name Role Phone Unavailable Primary Care Provider [...] Vaccine ( - 2023-2 5 season) 2023 Depression Screening 02/13/2024 Influenza Vaccine (#1) 2024 RSV Immunization Adult Patie nts (1 [...] Procedure Name Priority Date/Time Associated Diagnosis Comments [facility] SCREENING DIGITAL Routine 02/01/2018 5:40 PM EST Encounter for screening mammogram for malignant neoplasm of breast from Last 3 Months or Most Recently Relevant to Health Maintenance Results * [facility] SCREENING DIGITAL (02/01/2018 5:40 PM EST) Anatomical Region Laterality Modality Mammography 02/01/2018 3:46 PM EST Narrative 02/01/2018 5:40 PM EST [facility] Diagnostic Imaging Department [address] [place] [address] Patient: LAURAANH /Age/Sex: 1965 - 53 - F Unit#: [id number] Location/Status: [facility] Mnemonic/Ordering Site: [facility] Ordering Physician: JASON DAVIDSON MD [facility] Screening Digital - 02/01/18 - 1601 INDICATION: [...] target due date for the next mammogram: CPT II 7025F [id number] Dictating Physician: MIRIAN GRANADOS MD Electronically Signed by: MIRIAN GRANADOS MD Dic Date/Time: 02/01/181733 Sign date/Time: 02/01/181739 Procedure Note Mirian Granados MD - 01/31/2022 [facility] Diagnostic Imaging Department [address] [place] [address] Patient: ANH NGUYEN /Age/Sex: 1965 - 53 - F Unit#: [id number] Location/Status: [facility] Mnemonic/Ordering Site: [facility] Ordering Physician: JASON DAVIDSON MD Gita [...] for the next mammogram: CPT II 7025F [id number] +[id number] Dictating Physician: MIRIAN GRANADOS MD Electronically Signed by: MIRIAN GRANADOS MD Dic Date/Time: 02/01/18 173 Sign date/Time: 02/01/18 1740 us Jason Davidson MD IMG BI PROCEDURES Edel l Result from Last 3 Months or Most Recently Relevant to Health Maintenance
--- OUTSIDE RECORDS SUMMARY | 2024-10-09 16:27 | XMS_ITS | Clinical Summary ---
Author Organization [facility] Address [address] [place] [address] Care Team Providers Care Senior Architect Name Role Phone Unavailable Primary Care Provider [...]
== END 2024-10-09 16:35 | disposition home or self-care (01) ==
LOC: HO.HUSH 16:21
PROVIDERS: PCP Internal Medicine; Visit Provider Urology
DX: N39.0 Urinary tract infection, site not specified (principal)
CPT/HCPCS: 99213

== ENCOUNTER 2024-12-04 07:59 | Outpatient (REF) | payer OTHER, SELFPAY ==
--- NOTE | ~2024-12-04 | US_ITS ---
EXAMINATION: US ABDOMEN COMPLETE CLINICAL INFORMATION: Upper abdominal pain. R 10.10.. COMPARISON: Correlated to ultrasound renal dated January 03, 2024. TECHNIQUE: Real-time ultrasound of the abdomen using grayscale technique with a curvilinear transducer. FINDINGS: PANCREAS: No peripancreatic fluid collections. ABDOMINAL AORTA: The proximal, mid, and distal segments are normal in caliber. INFERIOR VENA CAVA: Visualized portions are normal. LIVER: Liver measures 14 cm per technologist. Normal echotexture. No nodular contour. No solid or cystic lesion. No intrahepatic biliary ductal dilatation. GALLBLADDER: Fluid-filled nondistended. No pericholecystic fluid collection or gallbladder wall thickening. COMMON BILE DUCT: 5 mm. RIGHT KIDNEY: 11 cm. Normal echotexture. Normal renal cortical thickness. No hydronephrosis. No solid or cyst lesion.. LEFT KIDNEY: 11 cm. Normal echotexture. Normal renal cortical thickness. No hydronephrosis. No solid or cystic lesion.. SPLEEN: 11 cm. No solid or cystic lesion.. FREE FLUID: None. US/US abdomen complete IMPRESSION: No cholelithiasis. No gross choledocholithiasis. No hydronephrosis. No ascites. Electronically signed by: Oscar Espana MD 12/04/2024 08:41 AM EDT
--- OUTSIDE RECORDS SUMMARY | 2024-12-04 08:01 | XMS_ITS | Clinical Summary ---
Author Organization [facility] ity Address [address] [place] [address] Care Team Providers Care Mechanical Facilities Technician Name Role Phone Unavailable Primary Care Provider [...] 2) 01/16/2014 Breast Cancer Screening 02/02/2020 02/01/2018 Depression Screening 02/13/2024 COVID-19 Vaccine (1 - 2023-2 5 season) 2024 Influenza Vaccine (#1) 2024 RSV Immunization Adult [...] Procedure Name Priority Date/Time Associated Diagnosis Comments [facility] SCREENING DIGITAL Routine 02/01/2018 5:40 PM EST Encounter for screening mammogram for malignant neoplasm of breast from Last 3 Months or Most Recently Relevant to Health Maintenance Results * [facility] SCREENING DIGITAL (02/01/2018 5:40 PM EST) Anatomical Region Laterality Modality Mammography 02/01/2018 3:46 PM EST Narrative 02/01/2018 5:40 PM EST [facility] Diagnostic Imaging Department [address] [place] [address] Patient: LAURAANH /Age/Sex: 1965 - 53 - F Unit#: [id number] Location/Status: [facility] Mnemonic/Ordering Site: [facility] Ordering Physician: JASON DAVIDSON MD [facility] Screening Digital - 02/01/18 - 1601 [...] for the next mammogram: CPT II 7025F [id number] +[id number] Dictating Physician: MIRIAN GRANADOS MD Electronically Signed by: MIRIAN GRANADOS MD Dic Date/Time: 02/01/181733 Sign date/Time: 02/01/181739 Procedure Note Mirian Granados MD - 01/31/2022 [facility] Diagnostic Imaging Department [address] [place] [address] Patient: ANH NGUYEN /Age/Sex: 1965 - 53 - F Unit#: [id number] Location/Status: [facility] Mnemonic/Ordering Site: [facility] Ordering Physician: JASON DAVIDSON MD [...] for the next mammogram: CPT II 7025F G0202/[id number] +[id number] Dictating Physician: MIRIAN GRANADOS MD Electronically Signed by: MIRIAN GRANADOS MD Dic Date/Time: 02/01/18 1732 Sign date/Time: 02/01/18 1740 us Jason Davidson MD IMG BI PROCEDURES Edel l Result from Last 3 Months or Most Recently Relevant to Health Maintenance
--- OUTSIDE RECORDS SUMMARY | 2024-12-04 08:02 | XMS_ITS | Data Portability ---
Author Organization [facility], Main Office Address [address] [place] [address] Care Team Providers Care Psychometrician Name Role Phone MARY NARVAEZ Multimedia Teacher [facility] P D Driver VENU CAROL[place] OTHER Assessment No assessment recorded. Plan of Treatment Reminders Order Date Submit Date Provider Last Modified By Organization Details Last Modified Time Details Appointments None record ed. Lab lipid panel, serum 2017 018 [facility], [address] [place] [address], [place], [address], 9 10:16:08 CMP, serum or plasma 2017 018 [facility], [address] [place] [address] 2, [place], [address], 9 10:16:09 CBC w/ auto diff 2017 018 [facility], [address] [place] [address], [place], [address], 9 10:16:09 TSH, serum or plasma 2017 018 [facility], [address] [facility] [address], [place], [address], 9 10:16:09 vitami n D, 25-hyd khadijah, total, serum 2017 018 [facility], [address] [facility], [place], [address], 9 10:16:09 magnes ium, RBC 2017 018 [facility], [address] [facility], [address], [place], [address], 9 10:16:09 rapid flu (A+B) 2017 018 MARY In-Office Order, Internal Use Only DO Not Attach Compendium DO Not Attach Compendium, Do Not Delete/merge, [id number] 8 11:22:04 urinal ysis, dipsti ck 2016 017 [email or web address] In-Office Order, Internal Use Only DO Not Attach Compendium DO Not Attach Compendium, Do Not Delete/merge, [id number] 7 14:15:08 urinal ysis comple te, reflex cultur e 2016 017 MARY [facility], [address] [facility], [address], [place], [address], 7 16:22:58 Referral orthop edic referr al 2016 017 kathleen Erickson MD, [address] [facility], [address], [place], [address], 7 15:54:30 Procedures None record ed. Surgeries None record ed. Imaging XR, chest, 2 view 2017 018 MARY Not available 8 14:05:23 Medication Orders Zithro max Z-Denilson 250 mg tablet 2017 018 [email or web address] [id number], [address] [place], [address], 8 13:43:40 Cipro 500 mg tablet 2016 017 [email or web address] [id number], [address] [place], [address], 8 14:03:06 Bactri m DS 800 mg-160 mg tablet 2016 017 [email or web address] [id number], [address] [place], [address], 8 10:54:29 flucon azole 100 mg tablet 2016 017 [email or web address] [id number], [address] [place], [address], 7 10:31:46 Patient TargetsNo targets recorded. Patient Instructions Encounter Date Encounter Id Patient Instructions Last Modified By Organization Details Last Modified Time 05/25/2016 [id number] candidiasis: care instructions [email or web address] Not available 05/25/2016 12:51:28 stop nystatin S&S, rather take diflucan as dir. call us or crimper assembler if no better pmadden Not available 05/25/2016 14:55:58 I have reviewed the note and agree with the assessment and plan of care. [email or web address] Not available 05/25/2016 16:48:24 11/07/2016 [id number] Female Urinary Tract Infection (UTI): Care Instructions pmadden Not available 11/07/2016 14:14:29 mallet finger: care instructions pmadden Not available 11/07/2016 14:14:29 I have reviewed the note and agree with the assessment and plan of care. [email or web address] Not available 11/07/2016 16:01:58 11/09/2016 [id number] Female Urinary Tract Infection (UTI): Care Instructions [email or web address] Not available 11/10/2016 11:40:45 take cipro as directed, cont cranberry and probiotic, stay hydrated, consider taking zyrtec (morning) and / or benadryl (bedtime) if itching worse pmadden Not available 11/09/2016 11:01:44 I have reviewed the note and agree with the assessment and plan of care. [email or web address] Not available 11/09/2016 22:19:50 03/06/2017 [id number] call or return for worsening or concerns. [email or web address] Not available 03/06/2017 11:04:35 I have reviewed the note and agree with the assessment and plan of care. [email or web address] Not available 03/06/2017 12:27:41 11/13/2017 [id number] call or return for any concerns. [email or web address] [...] DO Not Attach Compendium, Do Not Delete/merge, [id number] 11/07/2016 13:26:34 11/08/1911/07/2016 urina lysis , dipst ick Nitrite negati ve Not Available In-Office Order Internal Use Only DO Not Attach Compendium DO Not Attach Compendium, Do Not Delete/merge, [id number] 11/07/2016 13:26:34 11/08/1911/07/2016 urina lysis , dipst ick Urobilinogen 1 Not Available In-Of fice Order Internal Use Only DO Not Attach Compendium DO Not Attach Compendium, Do Not Delete/merge, [id number] 11/07/2016 13:26:34 11/08/1911/07/2016 urina lysis , dipst ick Protein Negati ve Not Available In-Office Order Internal Use Only DO Not Attach Compendium DO Not Attach Compendium, Do Not Delete/merge, 11/07/2016 13:26:34 11/08/1911/07/2016 urina lysis , dipst ick pH 6.0 Not Available In-Office Order Internal Use Only DO Not Attach Compendium DO Not Attach Compendium, Do Not Delete/merge, [id number] 11/07/2016 13:26:34 11/08/19 17 11/07/2016 urina lysis , dipst ick Blood Negati ve Not Available In-Office Order Internal Use Only DO Not Attach Compendium DO Not Attach Compendium, Do Not Delete/merge, [facility] 11/07/2016 13:26:34 11/08/19 17 11/07/2016 urina lysis , dipst ick Specific [place] 1.025 Not Available In-Off ice Order Internal Use Only DO Not Attach Compendium DO Not Attach Compendium, Do Not Delete/merge, [facility] 11/07/2016 13:26:34 11/08/19 17 11/07/2016 urina lysis , dipst ick Ketone Negati ve Not Available In-Office Order Internal Use Only DO Not Attach Compendium DO Not Attach Compendium, Do Not Delete/merge, [facility] 11/07/2016 13:26:34 11/08/19 17 11/07/2016 urina lysis , dipst ick Bilirubin Negati ve Not Available In-Office Order Internal Use Only DO Not Attach Compendium DO Not Attach Compendium, Do Not Delete/merge, [facility] 11/07/2016 13:26:34 11/08/19 17 11/07/2016 urina lysis , dipst ick Glucose Negati ve Not Available In-Office Order Internal Use Only DO Not Attach Compendium DO Not Attach Compendium, Do Not Delete/merge, [facility] 11/07/2016 13:26:34 11/08/19 17 11/07/2016 urina lysis , dipst ick Appearance Clear Not Available In-Offi ce Order Internal Use Only DO Not Attach Compendium DO Not Attach Compendium, Do Not Delete/merge, [id number] 11/07/2016 13:26:34 11/08/19 17 11/07/2016 urina lysis , dipst ick Color Yellow Not Available In-Office Order Internal Use Only DO Not Attach Compendium DO Not Attach Compendium, Do Not Delete/merge, [facility] 11/07/2016 13:26:34 12/03/19 17 12/02/2016 urina lysis , compl ete comments [facility] [address] [place] [address] [phone] Not Available [facility] [address] [place], [address], 12/02/2016 11:45:39 12/03/1912/02/2016 urina lysis , compl ete glucose, (UA) NEGATI VE mg/dL negati ve Not Available [facility] [address] [place], [address], 12/02/2016 11:45:39 12/03/1912/02/2016 urina lysis , compl ete bilirubin, urine NEGATI VE negati ve Not Available [facility] [address] [place], [address], 12/02/2016 11:45:39 12/03/1912/02/2016 urina lysis , compl ete ketone, urine NEGATI VE mg/dL negati ve Not Available [facility] [address] [place], [address], 12/02/2016 11:45:39 12/03/1912/02/2016 urina lysis , compl ete specific gravity, urine 1.003 1.003- 1.030 Not Available [facility] [address] [place], [address], 12/02/2016 11:45:39 12/03/1912/02/2016 urina lysis , compl ete blood, urine SMALL negati ve abnormal Not Available [facility] [address] [place], [address], 12/02/2016 11:45:39 12/03/1912/02/2016 urina lysis , compl ete pH, urine 6.5 5.0-8. 0 Not Available [facility] [address] [place], [address], 12/02/2016 11:45:39 12/03/1912/02/2016 urina lysis , compl ete protein, urine NEGATI VE mg/dL <= trace Not Available [facility] [address] [place], [address], 12/02/2016 11:45:39 12/03/1912/02/2016 urina lysis , compl ete urobilinogen , urine 0.2 E.U./ dL 0.2-1. 0 Not Available [facility] [address] [place], [address], 12/02/2016 11:45:39 12/03/19 17 12/02/2016 urina lysis , compl ete nitrite, urine NEGATI VE negati ve Not Available [facility] [address] [place] [address], [address], 12/02/2016 11:45:39 12/03/19 17 12/02/2016 urina lysis , compl ete leukocyte esterase, urine LARGE negati ve abnormal Not Available [facility] [address] [place] [address], [address], 12/02/2016 11:45:39 12/03/19 17 12/02/2016 urina lysis , compl ete RBC, urine 6 /hpf 0-4 high Not Available [facility] [address] [place] [address], [address], 12/02/2016 11:45:39 12/03/19 17 12/02/2016 urina lysis , compl ete WBC, urine 149 /hpf 0-4 high Not Available [facility] [address] [place] [address], [address], 12/02/2016 11:45:39 12/03/19 17 12/02/2016 urina lysis , compl ete epith cells, urine 0 /lpf 0-60 Not Available [facility] [address] [place] [address], [address], 12/02/2016 11:45:39 12/03/19 17 12/02/2016 urina lysis , compl ete bacteria, urine HEAVY negati ve abnormal Not Available [facility] [address] [place] [address], [address], 12/02/2016 11:45:39 12/03/19 17 12/02/2016 urina lysis , compl ete hyaline cast, urine 2 /lpf 0-3 Not Available [facility] [address] [place] [address], [address], 12/02/2016 11:45:39 12/03/19 17 12/02/2016 cultu re, urine comments [facility] [address] [facility] [address] [place] [address] [phone] SOURC E: URINE ,BARBARA N CATCH ; Not Available [facility] [address] [place] [address], [address], 12/04/2016 10:56:14 12/03/19 17 12/04/2016 cultu re, urine [facility] [address] [place] [address] [phone] COLLE CTION TIME: 12/02 10:08 :00 AM -04:0 0 URINE CULTU RE ESCHE LEFTY A COLI ( ESCCO L ) F URINE CULTU RE COLON Y COUNT F URINE CULTU RE >100, 000 F Not Available [facility] [address] [place] [address], [address], 12/04/2016 10:56:14 12/03/19 17 12/02/2016 cultu re, urine comments [facility] [address] [facility] [address] [place] [address] [phone] SOURC E: URINE ,BARBARA N CATCH ; Not Available [facility] [address] [place] [address], [address], 12/03/2016 10:35:27 12/03/19 17 12/03/2016 cultu re, urine urine culture Life [address] [address] [phone] COLLE CTION TIME: 12/02 10:08 :00 AM -04:0 0 URINE CULTU RE [facility] ( SEC ) P URINE CULTU RE COLON Y COUNT P URINE CULTU RE >100, 000 P Not Available [facility] [address] [place] [address], [address], 12/03/2016 10:35:27 12/03/19 17 12/02/2016 antib iotic sensi tivit y, isola te comments PAREN T ORGAN ISM: ESCHE LEFTY A COLI ( ESCCO L ) [facility] [address] [facility] [place] [address] [phone] SOURC E: URINE ,BARBARA N CATCH ; Not Available [facility] [address] [place], [address], 12/04/2016 10:56:18 12/03/19 17 12/04/2016 antib iotic sensi tivit y, isola te gram negative susceptibili ty [facility] [address] [place] [address] COLLE CTION TIME: 12/02 10:08 :00 AM [...] S F Not Available [facility] [address] [place], [address], 12/04/2016 10:56:18 03/06/19 18 03/06/2017 rapid flu (A+B) Flu A negati ve Not Available In-Office Order Internal Use Only DO Not Attach Compendium DO Not Attach Compendium, Do Not Delete/merge, [id number] 03/06/2017 11:03:39 03/06/19 18 03/06/2017 rapid flu (A+B) Flu B negati ve Not Available In-Office Order Internal Use Only DO Not Attach Compendium DO Not Attach Compendium, Do Not Delete/merge, [id number] 03/06/2017 11:03:39 06/29/19 17 06/28/2016 duple x scan of extre mity veins inclu ding respo nses to compr essio n and other maneu vers; compl ete bilat eral study (PROC ) No observ ation record ed. [email or web address] [facility] [address] [place], [address], 06/29/2016 17:23:19 09/20/19 17 09/18/2016 MAMMO , scree soo, digit al, bilat eral No observ ation record ed. [email or web address] [facility] [address] [place], [address], 09/26/2016 11:03:33 03/06/19 18 03/06/2017 XR, chest , 2 view No observ [facility]ion [facility] ed. [facility] [address] [place], [address], 03/07/2017 09:21:59 03/06/19 18 03/06/2017 XR, chest , 2 view No observ ation record ed. [facility] [address] [place], [address], 03/07/2017 09:21:59 03/06/19 19 03/06/2018 CT, cervi wade spine , w/o contr ast No observ ation record ed. [facility] [address] [place], [address], 03/07/2018 21:02:59 Result Notes None recorded. Problems Name Problem SNOMED Code Status Onset Date Resolution Date Notes Provider Name and Address Organization Details Recorded Time Acute pharyngi tis 103239382 Completed 04/03/2014 Lalo bentley [facility] 5 16:46:39 Tendinit is AND/OR tenosyno vitis of the ankle region Active Bart bentley [facility] 5 20:06:27 Lateral epicondy litis 414107533 Active Bart bentley, [facility] 5 20:06:27 Abnormal weight loss 232609877 Active Bart bentley, [facility] 6 09:47:19 Acute pharyngi tis 525347002 Completed 200809/22/2013 RECORDED 10/01/19 09 3:03PM BY UVALDO MEHTA ON/ADDEN DUM Not Available [facility] 4 05:31:58 Acute sinusiti s 64165297 Completed 200809/22/2013 RECORDED 10/01/19 09 3:03PM BY UVALDO MEHTA ON/ADDEN DUM Not Available [facility] 4 05:31:58 Acute pharyngi tis 700088415 Completed 200808/26/2013 RECORDED 10/01/19 09 3:03PM BY UVALDO MEHTA ON/ADDEN DUM Not Available [facility] 4 14:31:14 Acute sinusiti s 65934218 Completed 200808/26/2013 RECORDED 10/01/19 09 3:03PM BY UVALDO MEHTA ON/ADDEN DUM Not Available [facility] 4 14:31:14 Administ ration of Haemophi doug influenz ae type b vaccine Completed 201009/22/2013 RECORDED 11/02/19 11 10:00AM BY MELANIA MCCLELLAN, HISTORIC AL SUMMARY Not Available [facility] 4 05:31:58 Infectiv e hepatiti s immuniza tion Completed 201009/22/2013 RECORDED 11/02/19 11 9:58AM BY MELANIA MCCLELLAN, HISTORIC AL SUMMARY Not Available [facility] 4 05:31:59 Administ ration of measles and mumps and rubella vaccine Completed 201009/22/2013 RECORDED 11/02/19 11 9:58AM BY MELANIA MCCLELLAN, HISTORIC AL SUMMARY Not Available [facility] 4 05:31:59 Administ ration of Haemophi doug influenz ae type b vaccine Completed 201008/26/2013 RECORDED 11/02/19 11 10:00AM BY MELANIA MCCLELLAN, HISTORIC AL SUMMARY Not Available [facility] 4 14:31:16 Infectiv e hepatiti s immuniza tion Completed 201008/26/2013 RECORDED 11/02/19 11 9:58AM BY MELANIA MCCLELLAN, HISTORIC AL SUMMARY Not Available [facility] 4 14:31:16 Administ ration of measles and mumps and rubella vaccine Completed 201008/26/2013 RECORDED 11/02/19 11 9:58AM BY MELANIA MCCLELLAN, HISTORIC AL SUMMARY Not Available [facility] 4 14:31:16 Screenin g for malignan t neoplasm of breast Completed 201109/22/2013 RECORDED 12/21/19 12 8:38AM BY TORI MALDONADO MA, JANETTEATI ON/ADDEN DUM Not Available [facility] 4 05:31:58 Screenin g for malignan t neoplasm of cervix Completed 201109/22/2013 RECORDED 12/21/19 12 8:38AM BY TORI MALDONADO MA, JANETTEATI ON/ADDEN DUM Not Available [facility] 4 05:31:58 Dysphagi a 42737330 Completed 201109/22/2013 RECORDED 12/21/19 12 8:38AM BY TORI MALDONADO MA, JANETTEATI ON/ADDEN DUM Not Available [facility] 4 05:31:58 Malaise and fatigue 660450794 Completed 201109/22/2013 RECORDED 12/21/19 12 8:38AM BY TORI MALDONADO MA, JANETTEATI ON/ADDEN DUM Not Available [facility] 4 05:31:58 Noninfec tious gastroen teritis 32926160 Completed 201109/22/2013 RECORDED 12/21/19 12 8:38AM BY TORI MALDONADO MA, JANETTEATI ON/ADDEN DUM Not Available [facility] 4 05:31:58 Neck pain 66886207 Completed 201109/22/2013 IMPRESSI ON: WITH FACIAL PARESTHE LAURENCE, NON-FOCA L NEURO EXAM; RECORDED 12/21/19 12 8:37AM BY TORI MALDONADO MA, ANNOTATI ON/ADDEN DUM Not Available [facility] 4 05:31:58 Administ ration of tetanus vaccine Completed 201109/22/2013 RECORDED 12/21/19 12 8:38AM BY TORI MALDONADO MA, ANNOTATI ON/ADDEN DUM Not Available [facility] 4 05:31:59 Skin sensatio n disturba nce 40176844 Completed 201109/22/2013 STORY: FACIAL PARESTHE LAURENCE/; RECORDED 12/21/19 12 8:37AM BY TORI MALDONADO MA, ANNOTATI ON/ADDEN DUM Not Available [facility] 4 05:31:59 Neck sprain 893767432 Completed 201109/22/2013 RECORDED 12/21/19 12 8:37AM BY TORI MALDONADO MA, ANNOTATI ON/ADDEN DUM Not Available [facility] 4 05:31:59 Tachycar roney 1183749 Completed 201109/22/2013 RECORDED 12/21/19 12 8:38AM BY TORI MALDONADO MA, ANNOTATI ON/ADDEN DUM Not Available [facility] 4 05:31:59 Visual disturba nce 02454234 Completed 201109/22/2013 RECORDED 12/21/19 12 8:37AM BY TORI MALDONADO MA, ANNOTATI ON/ADDEN DUM Not Available [facility] 4 05:31:59 Screenin g for malignan t neoplasm of breast Completed 201108/26/2013 RECORDED 12/21/19 12 8:38AM BY TORI MALDONADO MA, ANNOTATI ON/ADDEN DUM Not Available [facility] 4 14:31:14 Screenin g for malignan t neoplasm of cervix Completed 201108/26/2013 RECORDED 12/21/19 12 8:38AM BY TORI MALDONADO MA, ANNOTVALERIE ON/ADDEN DUM Not Available [facility] 4 14:31:14 Cough 37761765 Completed 201108/26/2013 RECORDED 12/21/19 12 8:38AM BY TORI MALDONADO MA, JANETTEATI ON/ADDEN DUM Not Available [facility] 4 14:31:15 Dysphagi a 12425563 Completed 201108/26/2013 RECORDED 12/21/19 12 8:38AM BY TORI MALDONADO MA, UVALDO ON/ADDEN DUM Not Available [facility] 4 14:31:15 Malaise and fatigue 601130045 Completed 201108/26/2013 RECORDED 12/21/19 12 8:38AM BY TORI MALDONADO MA, UVALDO ON/ADDEN DUM Not Available [facility] 4 14:31:15 Noninfec tious gastroen teritis 07624753 Completed 201108/26/2013 RECORDED 12/21/19 12 8:38AM BY TORI MALDONADO MA, ANNOTATI ON/ADDEN DUM Not Available [facility] 4 14:31:15 Neck pain 72557544 Completed 201108/26/2013 IMPRESSI ON: WITH FACIAL PARESTHE LAURENCE, NON-FOCA L NEURO EXAM; RECORDED 12/21/19 12 8:37AM BY TORI MALDONADO MA, UVALDO ON/ADDEN DUM Not Available [facility] 4 14:31:15 Administ ration of tetanus vaccine Completed 201108/26/2013 RECORDED 12/21/19 12 8:38AM BY TORI MALDONADO MA, UVALDO ON/ADDEN DUM Not Available [facility] 4 14:31:16 Skin sensatio n disturba nce 03280883 Completed 201108/26/2013 STORY: FACIAL PARESTHE LAURENCE/; RECORDED 12/21/19 12 8:37AM BY TORI MALDONADO MA, ANNOTATI ON/ADDEN DUM Not Available [facility] 4 14:31:16 Adult health examinat ion Completed 201108/26/2013 RECORDED 12/21/19 12 8:38AM BY TORI MALDONADO MA, ANNOTATI ON/ADDEN DUM Not Available [facility] 4 14:31:16 Neck sprain 278513967 Completed 201108/26/2013 RECORDED 12/21/19 12 8:37AM BY TORI MALDONADO MA, ANNOTATI ON/ADDEN DUM Not Available [facility] 4 14:31:16 Tachycar roney 7284295 Completed 201108/26/2013 RECORDED 12/21/19 12 8:38AM BY TORI MALDONADO MA, ANNOTATI ON/ADDEN DUM Not Available [facility] 4 14:31:16 Visual disturba nce 80235908 Completed 201108/26/2013 RECORDED 12/21/19 12 8:37AM BY TORI MALDONADO MA, ANNOTATI ON/ADDEN DUM Not Available [facility] 4 14:31:17 Patient status finding [id number] Completed 201209/22/2013 RECORDED 08/13/19 13 4:00PM BY TORI MALDONADO MA, JANETTEATI ON/ADDEN DUM Not Available [facility] 4 05:31:58 Administ ration of diphther ia and tetanus vaccine Completed 201209/22/2013 RECORDED 08/13/19 13 4:00PM BY TORI MALDONADO MA, ANNOTATI ON/ADDEN DUM Not Available [facility] 4 05:31:59 Patient status finding [id number] Completed 201208/26/2013 RECORDED 08/13/19 13 4:00PM BY TORI MALDONADO MA, ANNOTATI ON/ADDEN DUM Not Available [facility] 4 14:31:14 Administ ration of diphther ia and tetanus vaccine Completed 201208/26/2013 RECORDED 08/13/19 13 4:00PM BY TORI MALDONADO MA, ANNOTATI ON/ADDEN DUM Not Available [facility] 4 14:31:16 Spasm [id number] Completed 201209/22/2013 STORY: NECK/TRA P STRAIN (IN SETTING OF CERVICAL DISC DZ/MILD) ; RECORDED 01/01/20 13 8:21AM BY MARIANELA CORONADO MA, ANNOTATI ON/ADDEN DUM Not Available [facility] 4 05:31:59 Spasm [id number] Completed 201208/26/2013 STORY: NECK/TRA P STRAIN (IN SETTING OF CERVICAL DISC DZ/MILD) ; RECORDED 01/01/20 13 8:21AM BY MARIANELA CORONADO MA, ANNOTATI ON/ADDEN DUM Not Available [facility] 4 14:31:17 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 ASIM Krause [facility] 6 15:42:12 Adult health examinat ion Completed 201204/03/2014 RECORDED 01/09/20 13 11:32AM BY DERRICK GILL, OFFICE VISIT Lalo bentley [facility] 5 16:46:39 Gastroes ophageal reflux disease 827530168 Active 2012 ASIM Christine [facility] 6 15:41:53 External hemorrho ids 56681254 Active 2012 ASIM Christine [facility] 6 15:41:57 Influenz a vaccine needed 29018717364 06 Completed 201204/03/2014 RECORDED 01/09/20 13 11:32AM BY DERRICK GILL, OFFICE VISIT Lalo bentley [facility] 5 16:46:39 Pure hypercho lesterol emia 797419709 Active 2012 ASIM Christine [facility] 6 15:42:00 Patient status finding 405957117 Completed 201204/03/2014 RECORDED 01/09/20 13 11:35AM BY DERRICK GILL, OFFICE VISIT Lalo bentley [facility] 5 16:46:39 Paroxysm al tachycar roney 02004768 Active 2012 ASIM Christine, [facility] 6 15:41:51 Conducti on disorder of the heart 74425918 Active 2012 Tosin thurmanASIM, [facility] 6 15:42:04 Cough 28510776 Completed 201204/03/2014 IMPRESSI ON: LUNGS CLEAR BUT SINUS SYMPTOMS PRESENT, ENCOURAG E REST AND HYDRATIO N. ABX SCRIPT GIVEN WITH INSTRUCT ION TO START IF SINUS SYMPTOMS PERSIST OR WORSEN.; RECORDED 01/11/20 13 2:18PM BY MARINO SERRANO PA-C, OFFICE VISIT Lalo bentley [facility] 5 16:46:39 Urinary tract infectio us disease 91605752 Active 2016 Rob Ornelas MD [address] [facility] [address], [facility] [place], [address] [facility] 7 16:56:59 Problem Notes None recorded. Procedures Surgical History Date Name Laterality Status Provider Name and Address Organization Details Recorded Time 07/03/19 18 Date of Last Pap Smear completed Oksana Mcclellan [facility] 07/05/2017 14:57:58 09/19/19 17 Most Recent Mammogram completed Jamee Stapleton [facility] 09/26/2016 11:03:05 09/19/19 17 Mammogram screening completed Jamee Stapleton [facility] 09/26/2016 11:02:58 01/30/20 15 Mammogram Diagnostic Unilateral completed Oksana Mcclellan [facility] 01/29/2015 13:30:29 06/30/19 15 Colonoscopy completed Tosin lao MA [facility] 09/27/2015 15:43:10 Dilation and Curettage completed Malinda [place] [facility] 03/03/2014 08:49:20 Imaging Results None recorded. Procedure Notes None recorded. Medical Equipment None Reported. Allergies Allergen ID Allergen Name Allergen Category Reaction Reaction Severity Criticality Documentation Date Start Date Code Code System Note Provider Name and Address Organization Details Recorded Time 36271 iron-dext ran complex medicatio n rash Not available Not available 10/14/2013 5992 RxNorm ASIM Mehta [facility] 4 15:57:06 43392 Bactrim medicatio n hives severe Not available 11/09/2016 89095 9 RxNorm Demian Mayo PA-C [address] [facility] [address], [facility] [place], [address] [place] [address] 7 10:53:17 58257 Substance with sulfonami de structure and antibacte rial mechanism of action (substanc e) medicatio n hives Not available Not available 03/06/2017 90114 8003 SNOMED ASIM Yeager [facility] 8 10:54:00 5993 cyclobenz aprine hydrochlo ride medicatio n Not available Not available Not available 08/26/20132012 12824 RxNorm REACT ION: SVT; COMME NT: RECOR DED 12/31 8:58A M BY LYLE THURMAN MA, OFFIC E VISIT ; Not Available [facility] 4 13:23:35 5994 Reglan medicatio n Not available Not available Not available 08/26/20132012 9230 RxNorm ASIM Yeager [facility] 6 15:41:35 Medications Name Sig Start Date Stop Date Status Note LastModified by Organization Details LastModified Time Prescript ion - Prior Authoriza tion Request 11/14 completed Not Available Not Available Not Available cyclobenz aprine 10 mg tablet AT BEDTIME 08/24 completed RECORDED 08/25/19 13 1:03PM BY NAYANA HORN, PHONE ENCOUNTE R; Not Available Not Available Not Available fluconazo le 100 mg tablet Take 1 tablet every day by oral route for 7 days. 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 [...] Available Vitals Date Recorded Body height Body temperature Oxygen saturation Oxygen saturation in Arterial blood by Pulse oximetry Heart rate Body mass index (BMI) Body weight Systolic And Diastolic Provider Name and Address Organization Details Last Updated DateTime 8 170.18 cm 99.9 [degF] 98 % 98 % 66 /min 22.9 kg/m2 25900.4 9 g 98/66 mm[Hg] Tosin hernandez MA [facility] 8 10:58:02 Date Recorded Body height Body weight Body mass index (BMI) Heart rate Oxygen saturation Oxygen saturation in Arterial blood by Pulse oximetry Body temperature Systolic And Diastolic Provider Name and Address Organization Details Last Updated DateTime 7 170.18 cm 43022.5 2 g 22.1 kg/m2 62 /min 97 % 97 % 97.4 [degF] 118/62 mm[Hg] Gaetano Bradshaw [facility] 7 11:44:00 Date Recorded Body height Body mass index (BMI) Body weight Heart rate Body temperature Oxygen saturation Oxygen saturation in Arterial blood by Pulse oximetry Systolic And Diastolic Provider Name and Address Organization Details Last Updated DateTime 7 170.18 cm 22.9 kg/m2 76912.4 9 g 66 /min 98.6 [degF] 99 % 99 % 96/57 mm[Hg] Marianela Coronado MA [facility] 7 13:30:48 Date Recorded Body height Body mass index (BMI) Body weight Oxygen saturation Oxygen saturation in Arterial blood by Pulse oximetry Heart rate Systolic And Diastolic Provider Name and Address Organization Details Last Updated DateTime 7 170.18 cm 22.3 kg/m2 99604.8 2 g 96 % 96 % 68 /min 108/75 mm[Hg] Adrienne Ramos MA [facility] 7 10:31:57 Date Recorded Body height Body mass index (BMI) Body weight Body temperature Heart rate Oxygen saturation Oxygen saturation in Arterial blood by Pulse oximetry Systolic And Diastolic Provider Name and Address Organization Details Last Updated DateTime 8 170.18 cm 23 kg/m2 61014.0 8 g 98.9 [degF] 64 /min 98 % 98 % 99/64 mm[Hg] Razia Almonte [facility] 8 13:42:55 Social History Question Answer Notes LastModified by Organizat ion Details LastModified Time Tobacco Smoking Status Never Smoker ASIM Mehta, [facility] 10/14/2013 15:58:21 Do You Have An Advance Directive? No Declined Information not available 11/15/2015 Is Blood Transfusion Acceptable In An Emergency? Yes Information not available 09/27/2015 What Is Your Level Of Caffeine Consumption? None [email or web address] Information not available 10/14/2013 How Much Tobacco Do You Chew? None Information not available 09/27/2015 What Type Of Diet Are You Following? REGULAR [email or web address] Information not available 10/14/2013 Which Illicit Or Recreational Drugs Have You Used? None Information not available 09/27/2015 Live Alone Or [...] Do You Have? 2 Daughter (lives In [facility]) Information not available 03/06/2017 Do You Use Protection During Sex? No Information not available 09/27/2015 Seat Belts Used Routinely Yes [email or web address] Information not available 10/14/2013 Are You Sexually Active? Yes Information not available 09/27/2015 Smoke Alarm In Home Yes [email or web address] Information not available 10/14/2013 At What Age Did You Start Smoking Tobacco? 0 Information not available 09/27/2015 Are You Passively Exposed To Smoke? No Information not available 09/27/2015 How Much Tobacco Do You Smoke? No Information not available 09/27/2015 General Stress Level Medium [email or web address] Information not available 10/14/2013 Do You Use Sunscreen Routinely? Yes [email or web address] Information not available 10/14/2013 How Many Years Have You Smoked Tobacco? 0 Information not available 09/27/2015 Sex: Unknown Functional Status Question Answer Note LastModified by Organizat ion Details LastModified Time What is your level of alcohol consumption? Occasional Information not available 10/14/2013 Are you currently employed? Yes [email or web address] Information not available 10/14/2013 Are you able to care for yourself independently? 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 Moderate 6 x week; salma Chowdhury salsa Information not available 09/27/2015 Mental Status [...] Not available 08/2015 15:12:17 Maternal Grandmother Malignant neoplasm of stomach [email or web address] Not available 08/2015 15:12:17 [...] split virus, trivalent, PF 4 completed Malinda Lomas [facility] 03/03/2014 13:50:16 Influenza, split virus, trivalent, preservative 7 completed Tosin Tomlinson [facility] 03/06/2017 10:55:42 Influenza, split virus, quadrivalent, PF 6 completed Not Available [facility] 03/01/2019 02:22:04 Hep B, adult 1 completed Not Available [facility] 08/26/2013 13:55:11 Hep B, adult 1 completed Not Available [facility] 08/26/2013 13:55:11 Hep B, adult 1 completed Not Available [facility] 08/26/2013 13:55:11 MMR 6 completed Not Available [facility] 08/26/2013 13:55:11 MMR 8 completed Not Available [facility] 08/26/2013 13:55:11 Td (adult), 2 Lf tetanus toxoid, preservative free, adsorbed 7 completed Not Available [facility] 08/26/2013 13:55:11 Td (adult), 2 Lf tetanus toxoid, preservative free, adsorbed 2 completed Not Available [facility] 08/26/2013 13:55:11 Hib (HbOC) 1 completed Not Available [facility] 08/26/2013 13:55:11 Tdap 2 completed Not Available [facility] 08/26/2013 13:55:11 Influenza, split virus, trivalent, preservative 3 completed Not Available [facility] 08/26/2013 13:55:11 Past Encounters Encounter ID Performer Location Encounter Start Date Encounter Closed Date Diagnosis/Indication Diagnosis SNOMED-CT Code Diagnosis ICD10 Code Diagnosis IMO Codes Diagnosis Note [id number] auto[facility]Comm erce [address] [facility] [place] [address] 02/20/2006 00:00:00 [id number] autoEComm erce [address] [facility] [place] [address] 07/15/2007 00:00:00 [id number] autoEComm erce [address] [facility] [place] [address] 09/10/2008 00:00:00 [id number] autoEComm erce [address] [facility] [place] [address] 09/12/2008 00:00:00 [id number] autoEComm erce [address] [facility] [place] [address] 09/30/2008 00:00:00 [id number] auto[facility]Comm erce [address] [facility] [place] [address] 10/25/2009 00:00:00 [id number] autoEComm erce [address] [facility] [place] [address] 06/06/2010 00:00:00 [id number] autoEComm erce [address] [facility] [place] [address] 10/31/2010 00:00:00 [id number] autoEComm erce [address] [facility] [place] [address] 03/13/2011 00:00:00 [id number] autoEComm erce [address] [facility] [place] [address] 05/22/2011 00:00:00 [id number] autoEComm erce [address] [facility] [place], [place] [address] 06/23/2011 00:00:00 [id number] autoEComm erce [address] [facility] [place], [place] [address] 07/31/2011 00:00:00 [id number] autoEComm erce [address] [facility] [place], [place] [address] 09/04/2011 00:00:00 [id number] autoEComm erce [address] [facility] [place], [place] [address] 12/21/2011 00:00:00 [id number] autoEComm erce [address] [facility] [place], [place] [address] 08/12/2012 00:00:00 [id number] autoEComm erce [address] [facility] [place], [place] [address] 12/31/2012 00:00:00 [id number] autoEComm erce [address] [facility] [place], [place] [address] 01/08/2013 00:00:00 [id number] Nikki callahan MD Main Office [address] [facility] [address] [place], [place] [address] 10/14/2013 15:25:57 10/14/2013 17:07:43 Acute pharyngitis 737613495 negative strep and will send for culture, no abx indicated [id number] Bart garcia MD Main Office [address] [place], [place] [address] 03/03/2014 13:35:47 03/03/2014 14:58:57 Adult health examination 708874931 Gastroesop hageal reflux disease 792369285 Screening for malignant neoplasm of colon 349281212 Paroxysmal tachycardia 24109043 [id number] ROLY Horn Main Office [address] [place], [place] [address] 04/03/2014 15:47:25 04/03/2014 16:44:20 Tendinitis AND/OR tenosynovitis of the ankle region 195659341 Lateral epicondylitis 578148472 [id number] Demian Mayo PA-C Main Office [address] [address] [place] [address] 08/19/2015 14:59:18 08/19/2015 15:55:04 Abnormal weight loss 698013613 R63.4 [id number] Demian Mayo PA-C Main Office [address] [address] [place] [address] 09/27/2015 15:15:31 09/27/2015 17:08:13 Abnormal weight loss 813222261 R63.4 wt loss has stopped - pt has gained some wt back. all labs normal. wt loss most likely d/t stress. [id number] Bart garcia MD Main Office [address] [address] [place] [address] 11/15/2015 12:53:46 11/15/2015 13:53:56 Adult health examination 080490632 Z00.00 Needs infl uenza immunization 244071663 Z23 Gastroesop hageal reflux disease 693464421 K21.9 Exposure t o communicable disease 765389944 Z20.9 [id number] Demian Mayo PA-C Main Office [address] [address] [place] [address] 12/06/2015 14:28:47 12/06/2015 15:56:32 Dysuria 77819013 R30.0 ? mild UTI vs atrophic vaginitis [id number] Demian Mayo PA-C Main Office [address] [address] [place] [address] 05/25/2016 11:33:40 05/25/2016 12:51:42 Candidiasis of mouth 74152153 B37.0 [id number] Demian Mayo PA-C Main Office [address] [address] [place] [address] 11/07/2016 13:01:45 11/07/2016 14:07:12 Dysuria 05470483 R30.0 finish bactrim as dir - will extend to 7 days to make sure complete eradicatio n (is 85% better), cont to push fluids and cont cranberry tabs as well as probiotic -- if sxs return in near future, consider rx c alternativ e abx Mallet fin fern with closed tendon injury 126855598 M20.012 L 3rd digit - cont stax splint as dir, will get hand specialist eval - pt requests Dr. Erickson [id number] Demian Mayo PA-C Main Office [address] [facility] [address] [place] [address] 11/09/2016 10:23:35 11/09/2016 11:04:48 Allergy to antibacterial drug 659644587 Z88.1 added bactrim to allergy list, see below Acute urin sade tract infection 426934321 N39.0 will give trial of cipro to adequately eradicate uti - if symptoms persist into next week, then consider uro eval - may be interstiti al cystitis [id number] ROLY Pastrana Main Office [address] [address] 03/06/2017 10:43:48 03/06/2017 11:29:03 Influenza-like illness 03995053 B34.9 x 6 days, has passed treatment window, continue supportive , sx treatment. 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 Will send for CXR and start on zpak [id number] ROLY Pastrana Main Office [address] [address] 11/13/2017 13:37:31 11/13/2017 14:27:17 Adult health examination 715948062 Z00.00 UTD, overdue for mammo, she will call/ Pure hypercholesterolemia 875480330 E78.00 Fatigue 58953366 R53.83 Health Concerns Section Related Observation LastModified by Organization [place] galindo LastModified Time None Recorded Concern Status LastModified by Organization Details LastModified Time None Recorded Advance Directives Directive N: declined Payers Insurance Date Sequence Insurance Name Policy Number Policy Fitzgerald Covered Member ID [id number] Member ID Guarantor Name 07/11/2018 1 [facility] [id number] 1 Petros Nguyen [id number] Candida Nguyen Notes Date Note Type Note Provider Name and Address Organization Details Recorded Time 05/25/2016 text/html recently rx'd by crimper assembler for gardnerella infxn - took flagyl x 3 days, then dev. oral thrush - but ? if d/t oral sex while dealing c vaginal unprotected sex c partner x 7-8 months has used nystatin swish and swallow 4x/day x 8 days c some help (~70% better) but not fully resolved - concerned. Bart bentley, [facility] 05/25/2016 16:48:39 11/07/2016 text/html pt had uti 9.14 - took 3 days of bactrim - resolved. called again 9.24 - took 2 days of bactrim so far, feels ~ 85% better, has also used pyridium and cranberry tabs, increased fluids - wanted recheck. pt states was checked for std recently by crimper assembler - was neg primarily here for L 3rd digit - hurt during volleyball back on 9.16 - no pain, edema, ecch - spoke c ortho friend - rec. stax splint x few months - she also called Dr. Erickson - she rec. see pcp first for referral Bradley Henao MD [address] [address], [place], [address], [facility] 11/07/2016 16:02:13 11/09/2016 text/html here for allergic rxn to bactrim itch started yest, then dev. 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 + congestion, runny nose, sneezing. + sore throat, ears congested, + headache. She has been taking tylenol/ iburpofen as needed. + decreased appetite. Bart bentley, [facility] 03/06/2017 12:27:52 11/13/2017 text/html Generic HPI TemplateReported by Patientpresents for PE. she is on nexium and was told to come off nexium and try zantac instead. Diagnosed with ? genital herpes via MECHANICAL ASSEMBLER yesterday. she had testing to confirm but no results yet, being treated for it. Rob Ornelas MD [address] [address], [place], [address], [facility] 11/13/2017 18:06:58 OBGyn Episode No OBEpisode recorded.
--- OUTSIDE RECORDS SUMMARY | 2024-12-04 08:02 | XMS_ITS | Clinical Summary ---
Author Organization [facility] Address [address] [place] [address] Care Team Providers Care Laser Engraver Name Role Phone Unavailable Primary Care Provider [...]
== END 2024-12-04 08:00 | disposition home or self-care (01) ==
LOC: HO.US 07:59
PROVIDERS: PCP Internal Medicine; Visit Provider Internal Medicine Gastroenterology
DX: R10.10 Upper abdominal pain, unspecified (principal)
CPT/HCPCS: 76700

== ENCOUNTER → 2024-12-04 08:01 | Outpatient (BNV) | payer OTHER, SELFPAY | PROVIDERS: PCP Internal Medicine; Visit Provider Radiology Diagnostic Radiology | DX: R10.10 Upper abdominal pain, unspecified (principal) | CPT/HCPCS: 76700 ==

== ENCOUNTER 2025-02-02 10:57 | Outpatient (REF) | payer OTHER, SELFPAY ==
[2025-02-02 11:13] LABS: Appearance Urine Clear; Glucose Urine UA Negative (Negative); PH 7.5 (5.0-9.0); Specific Gravity - Urine <= 1.005 (1.005-1.025); UMIC TRIGGER UA YES
--- OUTSIDE RECORDS SUMMARY | 2025-02-02 13:48 | XMS_ITS | Clinical Summary ---
Author Organization [facility] ity Address [address] [place] [address] Care Team Providers Care Liquefaction Supervisor Name Role Phone Unavailable Primary Care Provider [...] Depression Screening 02/13/2024 COVID-19 Vaccine (1 - 2024-2 6 season) 2024 Influenza Vaccine (#1) 2024 RSV [...] Procedure Name Priority Date/Time Associated Diagnosis Comments [facility] SCREENING DIGITAL Routine 02/01/2018 5:40 PM EST Encounter for screening mammogram for malignant neoplasm of breast from Last 3 Months or Most Recently Relevant to Health Maintenance Results * [facility] SCREENING DIGITAL (02/01/2018 5:40 PM EST) Anatomical Region Laterality Modality Mammography 02/01/2018 3:46 PM EST Narrative 02/01/2018 5:40 PM EST [facility] Diagnostic Imaging Department [address] [place] [address] Patient: LAURAANH /Age/Sex: 1965 - 53 - F Unit#: [id number] Location/Status: [facility] Mnemonic/Ordering Site: [facility] Ordering Physician: JASON DAVIDSON MD [facility] Screening Digital - 02/01/18 - 1601 [...] for the next mammogram: CPT II 7025F G0202/53300 +[id number] Dictating Physician: MIRIAN GRANADOS MD Electronically Signed by: MIRIAN GRANADOS MD Dic Date/Time: 02/01/181733 Sign date/Time: 02/01/181739 Procedure Note Mirian Granados MD - 01/31/2022 [facility] Diagnostic Imaging Department [address] [place] [address] Patient: ANH NGUYEN /Age/Sex: 1965 - 53 - F Unit#: [id number] Location/Status: [facility] Mnemonic/Ordering Site: [facility] Ordering Physician: JASON DAVIDSON MD Gita [...] for the next mammogram: CPT II 7025F G0202/41532 +[id number] Dictating Physician: MIRIAN GRANADOS MD Electronically Signed by: MIRIAN GRANADOS MD Dic Date/Time: 02/01/18 1731 Sign date/Time: 02/01/18 1740 us Jason Davidson MD IMG BI PROCEDURES Edel l Result from Last 3 Months or Most Recently Relevant to Health Maintenance
--- OUTSIDE RECORDS SUMMARY | 2025-02-02 13:48 | XMS_ITS | Patient Health Record ---
Author Organization [facility] Address [address] [place] [address] Care Team Providers Care Putty Mixer Name Role Phone Haydee Lira MD Primary Care Provider UnavailClarita Solomon Unavailable [phone] Allergies Allergen (clinical drug ingredient) Drug/Non Drug [...] 20 MG Oral; Duration: 90 Days Active Custom Orthotics as directed 01/06/2025 Active Atenolol 25 MG Oral; Duration: 90 Days Active Macrobid 100 MG 1 capsule with food Orally PRN with intercourse Active NexIUM 40 MG 1 capsule 1/2 to 1 h our before morning meal Orally daily 07/14/2024 Active Immunizations Vaccine Route Administration Date Status Comme nts Influenza Unknown 10/14/2023 Administered Influenza Unknown 11/12/2024 Administered Social History Tobacco Use: Social History Observation Description Date Details (start date - stop date) Never Smoker NA - NA Tobacco use other than smoking: Question Answer Notes Are you an other tobacco user? No Tobacco Control (Standard) Question Answer Notes Tobacco use: Nonsmoker AUDIT-C (Standard) Question Answer Notes Did you have a drink contain ing alcohol in the past year? Yes How often did you have a dri nk containing alcohol in the past year? Never (0 point) How many drinks did you have on a typical day when you were drinking in the past year? 1 or 2 drinks (0 point) How often did you have six o r more drinks on one occasion in the past year? 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 ; Pain in right foot M79.671 ; Metatarsalgia, right foot M77.41 ; Tailor's bunion of right foot M21.621 ; Ganglion of foot, right M67.471 and Primary osteoarthritis of left foot M19.[address] [address] 01/06/2025 Clarita Joshi Onychomycosis B35.1 ; 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 ; Pain in right foot M79.671 ; Metatarsalgia, right foot M77.41 ; Tailor's bunion of right foot M21.621 ; Ganglion of foot, right M67.471 and Primary osteoarthritis of left foot M19.[address] [address] 01/06/2025 Clarita Joshi [address] [address] 08/05/2024 Clarita Joshi [address] [address] 08/05/2024 Clarita Joshi [address] [address] 09/04/2024 Clarita Joshi [address] [place] [address] 12/03/2024 Clarita Joshi [facility] [place] [address] [place] [address] 01/06/2025 Clarita Josih Assessments Encounter Date Diagnosis (ICD Code) Assessment Notes Treatment Notes Treatment Clinical Notes Section Notes 08/05/2024 Onychomycosis (ICD-10 - B35.1) 08/05/2024 Rodriguez's neuroma of right foot (ICD-10 - G57.61) 01/06/2025 Onychomycosis (ICD-10 - B35.1) 01/06/2025 Rodriguez's neuroma of right foot (ICD-10 - G57.61) 08/05/2024 Pain in right foot (ICD-10 - M79.671) 08/05/2024 Metatarsalgia, right foot (ICD-10 - M77.41) 01/06/2025 Pain in right foot (ICD-10 - M79.671) 01/06/2025 Metatarsalgia, right foot (ICD-10 - M77.41) 08/05/2024 Tailor's bunion of right foot (ICD-10 - M21.621) 08/05/2024 Ganglion of foot, right (ICD-10 - M67.471) 01/06/2025 Tailor's bunion of right foot (ICD-10 - M21.621) 01/06/2025 Ganglion of foot, right (ICD-10 - M67.471) 08/05/2024 Primary osteoarthritis of left foot (ICD-10 - M19.072) 01/06/2025 Primary osteoarthritis of left foot (ICD-10 - M19.072) Plan Of Treatment Pending Test Test Name Order Date X ray : Foot, right 3V 08/05/2024 Next Appt Details Provider Name:Clarita cook, 02/20/2025 12:30:00 PM, [address] [place], [address], Insurance Providers Payer Name Payer Address Payer Phone Subscriber Number Group Number Insured Name Patient Relationship to Insured Coverage Start Date Coverage End Date Blue Benefits [address] [address] [place] [address] [id number] Candida Nguyen Self - patient is the insured Medical (General) History Medical History History ICD Code CAD (Cholesterol) Heart disease Eczema Chicken pox Supraventricular tadnycardia GERD Surgical History Surgery Date(Month/Year) tonsillectomy and adenoidectomy appendectomy 1974 1996
--- OUTSIDE RECORDS SUMMARY | 2025-02-02 13:48 | XMS_ITS | Clinical Summary ---
Author Organization [facility] Address [address] [place] [address] Care Team Providers Care Automotive Service Assistant Name Role Phone Unavailable Primary Care Provider [...]
== END 2025-02-02 10:58 | disposition home or self-care (01) ==
LOC: HO.LNP 10:57
PROVIDERS: Visit Provider Urology
DX: N39.0 Urinary tract infection, site not specified (principal)
CPT/HCPCS: 81001; 87086; 87088; 87186